=== PATIENT | male | born 1965 | race Caucasian/White ===

== ENCOUNTER 2016-08-13 05:37 | Observation (INO) | payer OTHER ==
[~2016-08-13] VITALS: Ht 180.3 cm; Wt 95.5 kg
[~2016-08-13 05:37] MED LIST: ASPI-147 PO; CLOP75 PO; COLY4000S PO; GABA600T PO; GLUCOMTESTSTRIPS XX; LASI20TA PO; LOVA40TA PO; METO50TA PO; NOVO7030P2 SQ; OXYC1SOL5 PO; POLY119S PO; PRIL20CA PO; Z.0.INSULINSYR XX; Z.0.LANCETS XX
[2016-08-13 05:38] VITALS: BP 190/97; PULSE 87; RESP 18; TEMP 98.5; O2SAT 97
[2016-08-13] MEDS ORDERED: POTA10CA PO (06:06)
[2016-08-13] MEDS ORDERED: NOVONP2 SQ ×2 (06:06)
[2016-08-13] MEDS ORDERED: NOVORP2 SQ (06:06)
[2016-08-13] MEDS ORDERED: CLOP75TA PO (06:06)
[2016-08-13] MEDS ORDERED: PRIL20CA9 PO (06:06)
[2016-08-13] MEDS ORDERED: GABA600T PO (06:06)
[2016-08-13] MEDS ORDERED: NITROGLYCERIN 2% OINT 1 GM PACKET TOP ONE (06:15)
[2016-08-13] MEDS ORDERED: SODIUM CHLORIDE 0.9% FLUSH 5 ML FLUSH IVF PRN (06:15)
[2016-08-13] MEDS ORDERED: NITROGLYCERIN 0.4 MG SL 25 TABS/BTL SL ONE (06:15)
[2016-08-13] MEDS ORDERED: ASPIRIN 81 MG CHEW TAB PO ONE (06:15)
[2016-08-13 06:36] LABS: AUTOMATED NEUTROPHIL # 2.6 TH/MM3 (1.8-7.7); BASOPHIL # 0.1 TH/MM3 (0-0.2); BASOPHIL % 1.2 % (0.0-2.0); EOSINOPHIL # 0.1 TH/MM3 (0-0.4); EOSINOPHIL % 2.4 % (0.0-4.0); HEMATOCRIT 43.6 % (39.0-51.0); HEMO FLAGS DIFF FINAL; LYMPHOCYTE # 1.6 TH/MM3 (1.0-4.8); MEAN CELL VOLUME 78.9 FL (80.0-100.0); MEAN CORPUSCULAR HEMOGLOBIN 26.4 PG (27.0-34.0); MEAN CORPUSCULAR HGB CONC 33.4 % (32.0-36.0); MONO % 8.7 % (0.0-8.0); NEUT % 54.7 % (16.0-70.0); PLATELET COUNT 156 TH/MM3 (150-450); RED BLOOD COUNT 5.53 MIL/MM3 (4.50-5.90); RED CELL DISTRIBUTION WIDTH 14.8 % (11.6-17.2); WHITE BLOOD COUNT 4.7 TH/MM3 (4.0-11.0)
[2016-08-13 06:45] LABS: APTT (PATIENT) 25.9 SEC (24.3-30.1); INTERNATIONAL NORMALIZED RATIO 0.9 RATIO; PROTHROMBIN TIME - PATIENT 10.3 SEC (9.8-11.6)
[2016-08-13 06:47] VITALS: BP 165/79; PULSE 90; RESP 12; O2SAT 96
--- NOTE | 2016-08-13 07:03 | RADRPT ---
EXAM DATE/TIME: 08/13/2016 06:18 [facility] COMPARISON: CHEST SINGLE AP, March 11, 2016, 4:12. INDICATIONS : Chest pain. MEDICAL HISTORY : Hypertension. SURGICAL HISTORY : CABG. ENCOUNTER: Initial ACUITY: 1 day PAIN SCORE: 5/10 LOCATION: Bilateral chest FINDINGS: The cardiac silhouette is normal in transverse diameter. Median sternotomy wires are present. The gricelda gs are free of acute parenchymal opacity. No effusions are identified. CONCLUSION: 1. No acute cardiopulmonary disease. Gianni Sesay MD on August 13, 2016 at 7:02 Board Certified Radiologist. This report was verified electronically.
[2016-08-13 07:04] LABS: ALKALINE PHOSPHATASE 148 U/L (45-117); ALT (GPT) 44 U/L (12-78); ANION GAP 10 MEQ/L (5-15); BICARBONATE 25.3 MEQ/L (21.0-32.0); BLOOD UREA NITROGEN 13 MG/DL (7-18); CHLORIDE 92 MEQ/L (98-107); CREATINE KINASE 120 U/L (39-308); GLOMERULAR FILTRATION RATE 64 ML/MIN (>89); SODIUM (NA) 127 MEQ/L (136-145); TOTAL BILIRUBIN ADULT 0.6 MG/DL (0.2-1.0)
[2016-08-13 07:05] LABS: AST (GOT) 26 U/L (15-37); MAGNESIUM 1.8 MG/DL (1.5-2.5); POTASSIUM 3.8 MEQ/L (3.5-5.1)
[2016-08-13 07:36] VITALS: BP 145/81; PULSE 88; RESP 18; O2SAT 96
--- NOTE | 2016-08-13 07:57 | PD ---
HPI Chief Complaint: Chest Pain Time Seen by Provider: 06:07 Travel History International Travel<30 days: No Contact w/Intl Traveler<30days: No Traveled to known affect area: No History of Present Illness HPI The patient is a 50 year old male who presents to the [facility] emergency department with a history of chest pain that he reports has intermittently been a problem for weeks, however gradually worsening over the last 2 days. He reports that initially he thought it was related to his bypass and went to see his cardiothoracic surgeon, Dr. Balbuena. He reports that he saw him 3 weeks ago and was given a prescription for tramadol. He reports that this did seem to help some, however he ran out of the medicine 2 days ago. He reports that since then he's had intermittent pain in the left side of his chest, between the shoulder blades and radiating down of the left arm. He reports that this evening he had associated shortness of breath thus he decided to come to the emergency department for evaluation and treatment. He denies any prior history of congestive heart failure. He reports that he does have a history of hypertension, coronary artery disease status post vessel bypass due to other vessels forming collaterals, history of diabetes mellitus. The patient denies any history of fever, cough, congestion, neck pain, abdominal pain, vomiting, diarrhea, urinary symptoms, or neurologic symptoms. The patient denies having any acid reflux symptoms associated with this. The patient incidentally reports that he forgot to take 2 doses of his insulin yesterday. He also reports that he ate 3 doughnuts prior to going to bed. An hour prior to arrival he reports that he checked his blood sugar and it was in the 500s. The patient denies taking any supplemental insulin at home. The patient's frog farmer is reportedly Dr. Vale, however as the patient denies following up with him as an outpatient recently. He reports that he is uninsured and has difficulty following up with him due to monetary reasons. [facility] Past Medical History Narrative Medical The patient's past medical history is significant for diabetes mellitus, hypertension, coronary artery disease, hyperlipidemia, history of acid reflux, history of pancreatitis in 2003. Hx Anticoagulant Therapy: Yes (PLAVIX) Autoimmune Disease: No Blood Disorders: No Anxiety: No Depression: No Heart Rhythm Problems: No Cancer: No Cardiac Catheterization: Yes (10/14) Cardiovascular Problems: Yes (BYPASS) High Cholesterol: Yes Chest Pain: Yes Dementia: Yes Diabetes: Yes (TYPE 2) Patient Takes Glucophage: No Diminished Hearing: No Endocrine: Yes Gastrointestinal Disorders: No GERD: Yes Genitourinary: No Hypertension: Yes Implanted Vascular Access Dvce: No Musculoskeletal: No Neurologic: No Psychiatric: No Respiratory: No Myocardial Infarction: Yes Pancreatitis: Yes Past Surgical History Narrative Surgical The patient's past surgical history significant for cholecystectomy, tonsillectomy, vasectomy, cardiac catheterization, single vessel coronary artery bypass grafting. Abdominal Surgery: Yes (CHOLESTECTOMY, TONSILECTOMY VASTECTOMY) Cardiac Surgery: Yes (02-09-2016 OPEN HEART) Cholecystectomy: Yes Genitourinary Surgery: Yes (VASECTOMY) Tonsillectomy: Yes Other Surgery: Yes Family History Family Hypercholesterolemia: Yes Social History Alcohol Use: Yes (RARELY) Tobacco Use: No Substance Use: No Allergies-Medications (Allergen,Severity, Reaction): Coded Allergies: CRESTOR (Verified Allergy, Severe, cardiac, 08/13/16) Lisinopril (Verified Allergy, Severe, Anaphylaxis, 08/13/16) Itching, lip swelling, throat closing. Uncoded Allergies: provacal (Allergy, Severe, 12/28/15) COZAR (Allergy, Intermediate, 03/11/16) Reported Meds & Prescriptions Reported Meds & Active Scripts Active Reported Prilosec (Omeprazole) 20 Mg Cap 20 Mg PO DAILY Potassium Chloride ER (Potassium Chloride) 10 Meq Cap 10 Meq PO DAILY Clopidogrel (Clopidogrel Bisulfate) 75 Mg Tab 75 Mg PO DAILY Novolin N Inj (Insulin Human NPH) 1,000 Unit/10 Ml Vial 20 Units SQ HS Novolin N Inj (Insulin Human NPH) 1,000 Unit/10 Ml Vial 45 Units SQ AC BREAKFAST Novolin R Inj (Insulin Human Regular) 1,000 Unit/10 Ml Vial 10 Units SQ Gabapentin 600 Mg Tab 600 Mg PO QID Metoprolol Tartrate 50 Mg Tab 50 Mg PO BID Ecotrin Low Strength (Aspirin) 81 Mg Tabdr 81 Mg PO DAILY Lovastatin 40 Mg Tab 40 Mg PO HS PRN Review of Systems Except as stated in HPI: all other systems reviewed are Neg General / Constitutional: No: Fever Eyes: No: Visual changes HENT: No: Headaches Cardiovascular: Positive: Chest Pain or Discomfort, Dyspnea on exertion Respiratory: Positive: Shortness of Breath Gastrointestinal: No: Abdominal Pain Genitourinary: No: Dysuria Musculoskeletal: No: Pain Skin: No Rash Neurologic: No: Weakness Psychiatric: No: Depression Endocrine: No: Polydipsia Hematologic/Lymphatic: No: Easy Bruising Physical Exam Narrative General: The patient is a well-developed well-nourished male in no acute distress Head and Neck exam: Head is normocephalic atraumatic. Eyes: EOMI, pupils are equal round and reactive to light. Nose: Midline septum with pink mucous membranes Mouth: Dentition unremarkable. Moist mucus membranes. Posterior oropharynx is not erythematous. No tonsillar hypertrophy. Uvula midline. Airway patent. Neck: No palpable lymphadenopathy. No nuchal rigidity. No thyromegaly. Cardiovascular: Regular rate and rhythm without murmurs, gallops, or rubs. Lungs: Clear to auscultation bilaterally. No wheezes, rhonchi, or rales. Abdomen: Soft, without tenderness to palpation in all 4 quadrants of the abdomen. No guarding, rebound, or rigidity. Normal bowel sounds are audible. Extremities: No clubbing, cyanosis, or edema. 2+ pulses in all 4 extremities. No calf tenderness on palpation. Back: No spinous process tenderness to palpation. No costovertebral angle tenderness to palpation. Neurologic Exam: Grossly nonfocal. Skin Exam: No rash noted. Intact skin that is warm and dry. Data Data Last Documented VS Vital Signs Date Time Temp Pulse Resp B/P Pulse Ox O2 Delivery O2 Flow Rate FiO2 08/13/16 07:36 88 18 145/81 96 Room Air 08/13/16 05:38 98.5 Orders Electrocardiogram (08/13/16 06:08) B-Type Natriuretic Peptide (08/13/16 06:08) Ckmb (Isoenzyme) Profile (08/13/16 06:08) Complete Blood Count With Diff (08/13/16 06:08) Comprehensive Metabolic Panel (08/13/16 06:08) D-Dimer (08/13/16 06:08) Magnesium (Mg) (08/13/16 06:08) Prothrombin Time / Inr (Pt) (08/13/16 06:08) Act Partial Throm Time (Ptt) (08/13/16 06:08) Troponin I (08/13/16 06:08) Lipase (08/13/16 06:08) Chest, Single Ap (08/13/16 06:08) Ecg Monitoring (08/13/16 06:08) Bilateral Bp Monitoring (08/13/16 06:08) Iv Access Insert/Monitor (08/13/16 06:08) Oximetry (08/13/16 06:08) Oxygen Administration (08/13/16 06:08) Aspirin Chew (Aspirin Chew) (08/13/16 06:15) Nitroglycerin 2% Oint (Nitroglycerin 2% (08/13/16 06:15) Sodium Chloride 0.9% Flush (Ns Flush) (08/13/16 06:15) Nitroglycerin Sl (Nitrostat Sl) (08/13/16 06:15) CKMB (08/13/16 06:20) CKMB% (08/13/16 06:20) Insulin Human Regular Inj (Novolin R Inj (08/13/16 08:00) Sodium Chlor 0.9% 1000 Ml Inj (Ns 1000 M (08/13/16 08:00) Admit Order (Ed Use Only) (08/13/16 08:04) Labs Laboratory Tests Test 08/13/16 06:20 White Blood Count 4.7 TH/MM3 Red Blood Count 5.53 MIL/MM3 Hemoglobin 14.6 GM/DL Hematocrit 43.6 % Mean Corpuscular Volume 78.9 FL Mean Corpuscular Hemoglobin 26.4 PG Mean Corpuscular Hemoglobin 33.4 % Concent Red Cell Distribution Width 14.8 % Platelet Count 156 TH/MM3 Mean Platelet Volume 9.5 FL Neutrophils (%) (Auto) 54.7 % Lymphocytes (%) (Auto) 33.0 % Monocytes (%) (Auto) 8.7 % Eosinophils (%) (Auto) 2.4 % Basophils (%) (Auto) 1.2 % Neutrophils # (Auto) 2.6 TH/MM3 Lymphocytes # (Auto) 1.6 TH/MM3 Monocytes # (Auto) 0.4 TH/MM3 Eosinophils # (Auto) 0.1 TH/MM3 Basophils # (Auto) 0.1 TH/MM3 CBC Comment DIFF FINAL Differential Comment Prothrombin Time 10.3 SEC Prothromb Time International 0.9 RATIO Ratio Activated Partial 25.9 SEC Thromboplast Time D-Dimer Quantitative (PE/DVT) 0.34 MG/L FEU Sodium Level 127 MEQ/L Potassium Level 3.8 MEQ/L Chloride Level 92 MEQ/L Carbon Dioxide Level 25.3 MEQ/L Anion Gap 10 MEQ/L Blood Urea Nitrogen 13 MG/DL Creatinine 1.20 MG/DL Estimat Glomerular Filtration 64 ML/MIN Rate Random Glucose 580 MG/DL Calcium Level 9.8 MG/DL Magnesium Level 1.8 MG/DL Total Bilirubin 0.6 MG/DL Aspartate Amino Transf 26 U/L (AST/SGOT) Alanine Aminotransferase 44 U/L (ALT/SGPT) Alkaline Phosphatase 148 U/L Total Creatine Kinase 120 U/L Creatine Kinase MB 2.0 NG/ML Troponin I 0.02 NG/ML B-Type Natriuretic Peptide 23 PG/ML Total Protein 8.2 GM/DL Albumin 3.9 GM/DL Lipase 126 U/L [facility] Medical Decision Making Medical Screen Exam Complete: Yes Emergency Medical Condition: Yes Medical Record Reviewed: Yes Interpretation(s) Last Impressions Chest X-Ray 08/13/16 0608 Signed Impressions: Service Date/Time: Saturday, August 13, 2016 06:18 - CONCLUSION: 1. No acute cardiopulmonary disease. Gianni Sesay MD Differential Diagnosis Acute coronary syndrome, versus acid reflux, versus musculoskeletal strain, versus pleurisy Narrative Course During the course of the patients emergency department visit, the patients history, examination, and differential diagnosis were reviewed with the patient. The patient had IV access obtained and blood work sent for analysis. The patient states on a spot remover with oximetry and blood pressure monitoring. An EKG was done on arrival. The patient's EKG shows a sinus rhythm heart rate of 85, marked left axis deviation, incomplete right bundle branch block, T waves inverted in V1, V2, V3, no acute ST segment elevation or depression. The patient was provided aspirin 162 mg by mouth 1, sublingual nitroglycerin 1 , nitroglycerin 1 inch to the chest wall, normal saline a liter of fluid, regular insulin 12 units subcutaneous 1 and blood sugar was noted to be elevated. The patient is not acidotic. The patients laboratory studies were reviewed and remarkable for a CBC that is unremarkable. CMP shows a sodium of 127 which is a pseudohyponatremia related to his blood sugar, chloride 92, glucose 580, alkaline phosphatase 148, BNP is 23, initial set of cardiac enzymes are negative, lipase 126 d-dimer is 0.3 for decreasing likelihood of pulmonary embolism in this patient with no other significant risk factors. PT/PTT unremarkable.. Radiology studies were reviewed and remarkable for a chest x-ray that is unremarkable. The patient will be admitted to the chest pain center for rule out serial cardiac enzyme protocol and consideration of stress testing. The patients results were discussed with the patient, including the plan of care. I explained that further testing and/ or monitoring is indicated based on the patients history, examination, and/ or laboratory findings. Therefore, I recommended admission for additional evaluation. The patient expressed understanding and was agreeable with this plan. The patient was admitted to the hospital in stable condition and sent to a bed under the care of the chest pain center. Physician Communication Physician Communication The patient will be admitted to the chest pain center for rule out serial cardiac enzyme protocol. Diagnosis Primary Impression: Chest pain, rule out acute myocardial infarction Admitting Information Admitting Physician Requests: Shelby Harris MD Aug 13, 2016 07:57
[2016-08-13] MEDS ORDERED: INSULIN HUMAN REGULAR 1,000 UNITS/10 ML VIAL SQ ONE (08:00)
[2016-08-13] MEDS ORDERED: SODIUM CHLOR 0.9% 1000 ML INJ 1,000 ML IV ONE (08:00)
--- NOTE | 2016-08-13 09:52 | EKG ---
Date Performed: 08/13/2016 Time Performed: 05:54:23 PTAGE: 50 years EKG: Sinus rhythm MARKED LEFT AXIS DEVIATION LOW QRS VOLTAGE IN PRECORDIAL LEADS INCOMPLETE RIGHT BUNDLE BRANCH BLOCK ABNORMAL ECG Compared to prior tracing no significant change PREVIOUS TRACING : 03/11/2016 04.15 DOCTOR: Gianni Kapadia Interpretating Date/Time 08/13/2016 09:50:45
== END 2016-08-13 12:32 | disposition left against medical advice (07) ==
LOC: NEPE 05:37 → NEDA 08:05
PROVIDERS: ADMIT Internal Medicine Cardiovascular Disease; ATTEND Internal Medicine Cardiovascular Disease
DX: R07.89 Other chest pain (principal); I25.10 Atherosclerotic heart disease of native coronary artery without angina pectoris; I10 Essential (primary) hypertension; I45.10 Unspecified right bundle-branch block; R94.31 Abnormal electrocardiogram [ECG] [EKG]; I25.2 Old myocardial infarction; E78.5 Hyperlipidemia, unspecified; E11.9 Type 2 diabetes mellitus without complications; E78.00 Pure hypercholesterolemia, unspecified; F03.90 Unspecified dementia, unspecified severity, without behavioral disturbance, psychotic disturbance, mood disturbance, and anxiety; K21.9 Gastro-esophageal reflux disease without esophagitis; Z95.1 Presence of aortocoronary bypass graft; Z87.19 Personal history of other diseases of the digestive system
CPT/HCPCS: 71010; 80053; 82550; 82552; 83690; 83735; 83880; 84484; 85025; 85379; 85610; 85730; 93005; 99285; G0378

== ENCOUNTER 2016-11-16 14:02 | Inpatient (IN) | payer OTHER ==
[~2016-11-16] VITALS: Ht 182.9 cm; Wt 91.3 kg
[~2016-11-16 14:02] MED LIST changes: -CLOP75 PO; +CLOP75TA PO; -COLY4000S PO; -GLUCOMTESTSTRIPS XX; -LASI20TA PO; -NOVO7030P2 SQ; +NOVONP2 SQ; +NOVORP2 SQ; -OXYC1SOL5 PO; -POLY119S PO; +POTA10CA PO; -PRIL20CA PO; +PRIL20CA9 PO; -Z.0.INSULINSYR XX; -Z.0.LANCETS XX
[2016-11-16 14:03] VITALS: BP 157/79; PULSE 99; RESP 18; TEMP 99; O2SAT 98
--- NOTE | 2016-11-16 14:09 | PD ---
Physical Exam Date Seen by Provider: November 16, 2016 Time Seen by Provider: 14:05 Narrative 51 YOWM C/O PERIRECTAL ABSCESS FOR 12 DAYS. SENT IN FOR EVAL. F/C, N/V, NO ABD PAIN. H/O DM, CAD, MN, HTN ,MN, PLAVIX, NO H/O CROHNS. VS NOTED WAITING FOR BED PLACEMENT Data Data Last Documented VS Vital Signs Date Time Temp Pulse Resp B/P Pulse Ox O2 Delivery O2 Flow Rate FiO2 11/16/16 14:03 99.0 99 18 157/79 98 MDM Medical Record Reviewed: Yes Supervised Visit with REYNOLD: Narayan Villa November 16, 2016 14:09
--- NOTE | 2016-11-16 14:27 | PD ---
HPI Chief Complaint: Lump, Cyst, Hernia Time Seen by Provider: 14:25 Travel History International Travel<30 days: No Contact w/Intl Traveler<30days: No Traveled to known affect area: No History of Present Illness HPI 51-year-old male presents to the emergency department for evaluation of pain to the rectal area for approximately 12 days. He states this started as a small lump, but worsened approximate 10 days ago. He reports he first, pain. States his fever has been up to 102.7, but is unsure when that was. He states he went to the [facility] today for evaluation and they sent him to the emergency department. Patient has history of [place], cardiac bypass, hypertension, hyperlipidemia, diabetes, diabetic neuropathy. He is on Plavix. Patient denies any abdominal pain. No chest pain or shortness of breath. PFSH Past Medical History Hx Anticoagulant Therapy: Yes (PLAVIX) Autoimmune Disease: No Blood Disorders: No Anxiety: No Depression: No Heart Rhythm Problems: No Cancer: No Cardiac Catheterization: Yes (10/14) Cardiovascular Problems: Yes (SINGLE BYPASS, 5 X TN) High Cholesterol: Yes Chest Pain: Yes Dementia: Yes Diabetes: Yes Patient Takes Glucophage: No Diminished Hearing: No Endocrine: Yes Gastrointestinal Disorders: No GERD: Yes Genitourinary: No Hypertension: Yes Implanted Vascular Access Dvce: No Musculoskeletal: No Neurologic: No Psychiatric: No Respiratory: No Myocardial Infarction: Yes Pancreatitis: Yes Past Surgical History Abdominal Surgery: Yes (CHOLESTECTOMY, TONSILECTOMY VASTECTOMY) Cardiac Surgery: Yes (02-09-2016 OPEN HEART) Cholecystectomy: Yes Genitourinary Surgery: Yes (VASECTOMY) Tonsillectomy: Yes Other Surgery: Yes Family History Family Hypercholesterolemia: Yes Social History Alcohol Use: Yes (RARELY) Tobacco Use: No Substance Use: No Allergies-Medications (Allergen,Severity, Reaction): Coded Allergies: CRESTOR (Verified Allergy, Severe, cardiac, 08/13/16) Lisinopril (Verified Allergy, Severe, Anaphylaxis, 08/13/16) Itching, lip swelling, throat closing. Uncoded Allergies: provacal (Allergy, Severe, 12/28/15) COZAR (Allergy, Intermediate, 03/11/16) Reported Meds & Prescriptions Reported Meds & Active Scripts Active Reported Amlodipine (Amlodipine Besylate) 5 Mg Tab 5 Mg PO DAILY Prilosec (Omeprazole) 20 Mg Cap 20 Mg PO DAILY Potassium Chloride ER (Potassium Chloride) 10 Meq Cap 10 Meq PO HS Clopidogrel (Clopidogrel Bisulfate) 75 Mg Tab 75 Mg PO DAILY Novolin N Inj (Insulin Human NPH) 1,000 Unit/10 Ml Vial 30 Units SQ HS Novolin N Inj (Insulin Human NPH) 1,000 Unit/10 Ml Vial 50 Units SQ AC BREAKFAST Novolin R Inj (Insulin Human Regular) 1,000 Unit/10 Ml Vial 15 Units SQ TIDAC Gabapentin 600 Mg Tab 600 Mg PO QID Metoprolol Tartrate 50 Mg Tab 50 Mg PO BID Ecotrin Low Strength (Aspirin) 81 Mg Tabdr 81 Mg PO DAILY Lovastatin 40 Mg Tab 40 Mg PO BID PRN Review of Systems Except as stated in HPI: all other systems reviewed are Neg Physical Exam Narrative GENERAL: Well-nourished, well-developed male patient, ambulatory. Afebrile SKIN: Focused skin assessment warm/dry. Patient has large area of erythema that extends from the anus to three quarters of the bilateral buttocks with induration and pain. HEAD: Normocephalic. Atraumatic. EYES: No scleral icterus. No injection or drainage. NECK: Supple, trachea midline. No JVD or lymphadenopathy. CARDIOVASCULAR: Regular rate and rhythm without murmurs, gallops, or rubs. RESPIRATORY: Breath sounds equal bilaterally. No accessory muscle use. Lungs sounds are clear to auscultation. GASTROINTESTINAL: Abdomen soft, non-tender, nondistended. MUSCULOSKELETAL: No cyanosis, or edema. BACK: Nontender without obvious deformity. No CVA tenderness. Data Data Last Documented VS Vital Signs Date Time Temp Pulse Resp B/P Pulse Ox O2 Delivery O2 Flow Rate FiO2 11/16/16 17:17 106 18 152/84 98 Room Air 11/16/16 14:03 99.0 Orders Iv Access Insert/Monitor (11/16/16 14:22) Complete Blood Count With Diff (11/16/16 14:22) Comprehensive Metabolic Panel (11/16/16 14:22) Act Partial Throm Time (Ptt) (11/16/16 14:22) Prothrombin Time / Inr (Pt) (11/16/16 14:22) Blood Culture (11/16/16 14:22) Lactic Acid Sepsis Protocol (11/16/16 14:22) Ct Pelvis W Iv Contrast(Rout) (11/16/16 ) Sodium Chlor 0.9% 1000 Ml Inj (Ns 1000 M (11/16/16 14:30) Ondansetron Inj (Zofran Inj) (11/16/16 14:30) Morphine Inj (Morphine Inj) (11/16/16 14:45) Blood Gas Venous (Vbg) (11/16/16 16:04) Beta Hydroxybutyrate (Acetone) (11/16/16 16:04) Sodium Chlor 0.9% 1000 Ml Inj (Ns 1000 M (11/16/16 16:15) Vancomycin Inj (Vancomycin Inj) (11/16/16 16:30) Ampicillin-Sulbactam Inj (Unasyn Inj) (11/16/16 16:30) Iohexol 350 Inj (Omnipaque 350 Inj) (11/16/16 16:25) Insulin Regular (Iv Infusion) (Novolin R (11/16/16 17:00) Vascular Access Team Consult/P PRN (11/16/16 17:08) Vascular Poc Ultrasound (11/16/16 ) Electrocardiogram (11/16/16 ) Chest, Single Ap (11/16/16 ) Admit Order (Ed Use Only) (11/16/16 17:31) Labs Laboratory Tests Test 11/16/16 11/16/16 11/16/16 14:40 16:34 16:35 White Blood Count 11.7 TH/MM3 Red Blood Count 5.37 MIL/MM3 Hemoglobin 14.0 GM/DL Hematocrit 42.1 % Mean Corpuscular Volume 78.4 FL Mean Corpuscular Hemoglobin 26.1 PG Mean Corpuscular Hemoglobin 33.3 % Concent Red Cell Distribution Width 14.5 % Platelet Count 291 TH/MM3 Mean Platelet Volume 8.8 FL Neutrophils (%) (Auto) 80.7 % Lymphocytes (%) (Auto) 7.5 % Monocytes (%) (Auto) 11.4 % Eosinophils (%) (Auto) 0.1 % Basophils (%) (Auto) 0.3 % Neutrophils # (Auto) 9.5 TH/MM3 Lymphocytes # (Auto) 0.9 TH/MM3 Monocytes # (Auto) 1.3 TH/MM3 Eosinophils # (Auto) 0.0 TH/MM3 Basophils # (Auto) 0.0 TH/MM3 CBC Comment AUTO DIFF Differential Total Cells 100 Counted Neutrophils % (Manual) 75 % Band Neutrophils % 11 % Lymphocytes % 10 % Monocytes % 4 % Neutrophils # (Manual) 10.1 TH/MM3 Differential Comment FINAL DIFF MANUAL Platelet Estimate NORMAL Platelet Morphology Comment CLUMPED Busby Cells Prothrombin Time 10.9 SEC Prothromb Time International 1.0 RATIO Ratio Activated Partial 22.2 SEC Thromboplast Time Sodium Level 127 MEQ/L Potassium Level 4.4 MEQ/L Chloride Level 93 MEQ/L Carbon Dioxide Level 13.4 MEQ/L Anion Gap 21 MEQ/L Blood Urea Nitrogen 21 MG/DL Creatinine 1.41 MG/DL Estimat Glomerular Filtration 53 ML/MIN Rate Random Glucose 442 MG/DL Lactic Acid Level 2.3 mmol/L Calcium Level 11.0 MG/DL Total Bilirubin 0.7 MG/DL Aspartate Amino Transf 42 U/L (AST/SGOT) Alanine Aminotransferase 21 U/L (ALT/SGPT) Alkaline Phosphatase 127 U/L Total Protein 9.2 GM/DL Albumin 3.2 GM/DL Blood Gas Puncture Site IV Blood Gas Patient Temperature 98.6 Venous Blood pH 7.25 Venous Blood Partial Pressure 30 mmHg CO2 Venous Blood Partial Pressure 17 mmHg O2 Venous Blood HCO3 13 mmol/L Venous Blood Oxygen Saturation 22 % Venous Blood Oxygen Content 3.9 Vol % Venous Blood Base Excess -13.0 mmol/L Oxygen Delivery Device NASAL CANNULA Blood Gas Liter Flow 2 L/M B-Hydroxybutyrate 5.83 MMOL/L [facility] Medical Decision Making Medical Screen Exam Complete: Yes Emergency Medical Condition: Yes Medical Record Reviewed: Yes Differential Diagnosis Rectal abscess versus perirectal abscess versus cellulitis versus sepsis Narrative Course 51-year-old male presents to the emergency department for evaluation of rectal abscess that started approximately 12 days ago and has worsened. Physical exam shows extensive erythema and induration. CBC, CMP, PTT, PTT/INR, blood cultures 2, lactic acid are ordered and pending. CT of the pelvis with IV contrast is ordered and pending. Patient is given normal saline 1 L IV bolus, Zofran 4 mg IV, morphine 4 mg IV. CBC shows leukocytosis of 11.7, band neutrophils 11. CMP shows hyponatremia 127 , CO2 13.4, anion gap 21, BUNs 21, creatinine 1.41, glucose 442. Coags show no acute abnormality. Lactic Acid is 2.3. Patient is given a second liter normal saline IV bolus. ABG shows pH 7.25, CO2 30, HCO3 13. Beta hydroxybutyrate is [ -]. Patient is started on insulin drip. Patient is given vancomycin 1 g IV and Unasyn 3 g IV. Radiologist notified that the patient has Fornier's gangrene of the perineal region. Colorectal surgeon and sand operator are paged STAT. I was able to speak to the data entry analyst in the OR room where Dr. Tess Kapadia is in after several pages. She just started a 4 hour case and recommends I contact urology as she is unavailable. Urologist labor economics professor is paged STAT. I spoke to Dr. Darling who states this would be more appropriate for general surgery. Dr. Vallecillo requested to only speak to my attending physician. Dr. Cuellar then spoke to Dr. Vallecillo. Dr. Vallecillo accepted and will see the patient and take him to the OR. 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
[2016-11-16] MEDS ORDERED: ONDANSETRON HCL 4 MG/2 ML VIAL IV PUSH ONE (14:30)
[2016-11-16] MEDS ORDERED: SODIUM CHLOR 0.9% 1000 ML INJ 1,000 ML IV ONE ×2 (14:30→16:15)
[2016-11-16] MEDS ORDERED: MORPHINE SULFATE 4 MG/ML INJ IV PUSH ONE (14:45)
[2016-11-16 15:08] LABS: AUTOMATED NEUTROPHIL # 9.5 TH/MM3 (1.8-7.7); BASOPHIL % 0.3 % (0.0-2.0); EOSINOPHIL % 0.1 % (0.0-4.0); HEMATOCRIT 42.1 % (39.0-51.0); LYMPH % 7.5 % (9.0-44.0); LYMPHOCYTE # 0.9 TH/MM3 (1.0-4.8); MEAN CELL VOLUME 78.4 FL (80.0-100.0); MEAN CORPUSCULAR HEMOGLOBIN 26.1 PG (27.0-34.0); MEAN CORPUSCULAR HGB CONC 33.3 % (32.0-36.0); MONO % 11.4 % (0.0-8.0); NEUT % 80.7 % (16.0-70.0); PLATELET COUNT 291 TH/MM3 (150-450); RED BLOOD COUNT 5.37 MIL/MM3 (4.50-5.90); RED CELL DISTRIBUTION WIDTH 14.5 % (11.6-17.2); WHITE BLOOD COUNT 11.7 TH/MM3 (4.0-11.0)
[2016-11-16 15:11] LABS: HEMO FLAGS AUTO DIFF
[2016-11-16 15:47] LABS: ALKALINE PHOSPHATASE 127 U/L (45-117); ALT (GPT) 21 U/L (12-78); ANION GAP 21 MEQ/L (5-15); AST (GOT) 42 U/L (15-37); BICARBONATE 13.4 MEQ/L (21.0-32.0); BLOOD UREA NITROGEN 21 MG/DL (7-18); CHLORIDE 93 MEQ/L (98-107); GLOMERULAR FILTRATION RATE 53 ML/MIN (>89); SODIUM (NA) 127 MEQ/L (136-145); TOTAL BILIRUBIN ADULT 0.7 MG/DL (0.2-1.0)
[2016-11-16 15:49] LABS: POTASSIUM 4.4 MEQ/L (3.5-5.1)
[2016-11-16 15:51] LABS: APTT (PATIENT) 22.2 SEC (24.3-30.1); PROTHROMBIN TIME - PATIENT 10.9 SEC (9.8-11.6)
[2016-11-16 16:23] LABS: BANDS 11 % (0-6); NEUTROPHIL # MANUAL DIFF 10.1 TH/MM3 (1.8-7.7); PLATELET ESTIMATE SMEAR NORMAL (NORMAL); PLATELET MORPHOLOGY CLUMPED (NORMAL); POLYS (SEG NEUTROPHILS) 75 % (16-70); SCAN/DIFF FINAL DIFF MANUAL; WBC DIFF SAMPLE 100
[2016-11-16] MEDS ORDERED: IOHEXOL 350 MG/ML 10 ML VIAL (for RAD DIAG) IV ONE (16:25)
[2016-11-16] MEDS ORDERED: AMPICILLIN-SULBACTAM INJ 3 GM in SODIUM CHLORIDE 0.9% INJ 100 ML IV ONE (16:30)
[2016-11-16] MEDS ORDERED: VANCOMYCIN INJ 1,000 MG in SODIUM CHLOR 0.9% 250 ML INJ 250 ML IV ONE (16:30)
[2016-11-16 16:38] LABS: BLOOD GAS VENOUS HCO3 13 mmol/L (22-26); BLOOD GAS VENOUS O2 CONTENT 3.9 Vol % (9.0-17.0); BLOOD GAS VENOUS O2 HGB SAT 22 % (70-76); BLOOD GAS VENOUS PCO2 30 mmHg (44-48); BLOOD GAS VENOUS PO2 17 mmHg (35-40); BLOOD GAS VENOUS pH 7.25 (7.360-7.400); TEMP CORR TO 98.6
[2016-11-16 16:39] LABS: CRITICAL VALUE YES; DRAW SITE IV; LITER FLOW 2 L/M; OXYGEN DEVICE NASAL CANNULA; STAT YES
[2016-11-16 16:50] LABS: LACTIC ACID GHOST NOT REPORTABLE
[2016-11-16] MEDS ORDERED: INSULIN REGULAR (IV INFUSION) 100 UNITS in SODIUM CHLORIDE 0.9% INJ 99 ML IV SCH (17:00)
--- NOTE | 2016-11-16 17:01 | RADRPT ---
EXAM DATE/TIME: 11/16/2016 16:20 [facility] COMPARISON: No previous studies available for comparison. INDICATIONS : Rectal pain and swelling for 12 days. IV CONTRAST: 100 cc Omnipaque 350 (iohexol) IV ORAL CONTRAST: No oral contrast ingested. RADIATION DOSE: 10.55 CTDIvol (mGy) MEDICAL HISTORY : Cardiovascular disease. Hypertension. Diabetes mellitus type 2. SURGICAL HISTORY : Cholecystectomy. Vasectomy. ENCOUNTER: Initial ACUITY: 2 weeks PAIN SCALE: 7/10 LOCATION: Bilateral lower pelvic region. TECHNIQUE: Volumetric scanning of the pelvis was performed. Using automated exposure control and adjustment of t he mA and/or kV according to patient size, radiation dose was kept as low as reasonably achievable to obtain optimal diagnostic quality images. FINDINGS: BOWEL/MESENTERY: There is some diverticular disease of the sigmoid without diverticulitis BLADDER: There is no wall thickening or mass. RETROPERITONEUM: There is no aneurysm or lymphadenopathy. REPRODUCTIVE: Within normal limits. Surgical clips at the base of the scrotum are characteristic of prior vasectomy INGUINAL: There is no lymphadenopathy or hernia. MUSCULOSKELETAL: Stranding and air in the subcutaneous tissues of the buttocks bilaterally extending up to the perirec karen region and base of the penis on the left. CONCLUSION: 1. Fornier's gangrene of the perineal region as detailed above. This can be a life threatening condit ion. 2. Results were called to the emergency department (Dr. Bryan Cuellar) the time of this dictation. 3. 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 Elijah Álvarez MD on November 16, 2016 at 16:50 Board Certified Radiologist. This report was verified electronically.
[2016-11-16 17:17] VITALS: BP 152/84; PULSE 106; RESP 18; O2SAT 98
[2016-11-16] MEDS ORDERED: SODIUM PHOSPHATE INJ 15 MMOL in SODIUM CHLORIDE 0.9% INJ 100 ML IV PRN (17:45)
[2016-11-16] MEDS ORDERED: POTASSIUM CHLOR 40 MEQ PREMIX 100 ML IV PRN ×2 (17:45)
[2016-11-16] MEDS ORDERED: SODIUM BICARBONATE 8.4% SOLN 50 MEQ/50 ML VIAL IV PRN ×2 (17:45)
[2016-11-16] MEDS ORDERED: CHLORHEXIDINE GLUCONATE 2 % 1 PACK (2 CLOTHS) TOP PRN (17:45)
[2016-11-16] MEDS ORDERED: MISCELLANEOUS NURSING INFORMATION XX SCH (17:45)
[2016-11-16] MEDS ORDERED: POTASSIUM CHLOR 20 MEQ PREMIX 100 ML IV PRN ×5 (17:45)
[2016-11-16] MEDS ORDERED: CLINDAMYCIN INJ 900 MG in SODIUM CHLORIDE 0.9% INJ 100 ML IV STA (17:46)
[2016-11-16] MEDS ORDERED: AMLO5TAB2 PO (17:56)
[2016-11-16] MEDS ORDERED: Vancomycin Consult Pharmacy 1 EA OTHER SCH (18:00)
--- NOTE | 2016-11-16 18:09 | RADRPT ---
EXAM DATE/TIME: 11/16/2016 17:48 [place] COMPARISON: CHEST SINGLE AP, August 13, 2016, 6:18. INDICATIONS : Evaluate for pneumonia, pneumothorax or communicable disease. Pre-op for a perirectal abscess. MEDICAL HISTORY : Hypertension. Diabetes mellitus type II. Myocardial infarction. SURGICAL HISTORY : CABG. ENCOUNTER: Initial ACUITY: 1 day PAIN SCORE: 0/10 LOCATION: Bilateral chest FINDINGS: A single view of the chest demonstrates the lungs to be symmetrically aerated without evidence of mas s, infiltrate or effusion. The cardiomediastinal contours are unremarkable. Osseous structures are intact. Median sternotomy changes are again noted. CONCLUSION: No evidence of acute cardiopulmonary disease. Previous median sternotomy. Magnus Steele MD on November 16, 2016 at 18:08 Board Certified Radiologist. This report was verified electronically.
[2016-11-16] MEDS ORDERED: INSULIN HUMAN REGULAR 1,000 UNITS/10 ML VIAL IV PUSH ONE (18:30)
[2016-11-16] MEDS: MORPHINE SULFATE 4 MG/ML INJ IV PUSH PRN ×2 (18:40→22:02)
[2016-11-16] MEDS: INSULIN REGULAR (IV INFUSION) 100 UNITS in SODIUM CHLORIDE 0.9% INJ 99 ML IV SCH (18:41)
[2016-11-16 18:46] VITALS: BP 166/83; PULSE 105; RESP 18; O2SAT 99
[2016-11-16] MEDS ORDERED: VANCOMYCIN 500 MG/NS 100 ML IV ONE ×2 (19:00)
[2016-11-16 19:10] LABS: BLOOD, URINE NEG (NEG); COMMENT (UR) CULT NOT INDICATED; CULTURE IF INDICATED CULT NOT INDICATED; GLUCOSE,URINE 1000 mg/dL (NEG); HYALINE CAST, URINE 3 /lpf (RARE); KETONE, URINE 150 mg/dL (NEG); NITRITE,URINE NEG (NEG); PH, URINE 5.5 (5.0-8.5); URINE COLOR LIGHT-YELLOW (YELLW/STRAW)
[2016-11-16 20:00] VITALS: BP 171/82; PULSE 110; RESP 20; TEMP 103.1; O2SAT 96
[2016-11-16] MEDS: SODIUM CHLOR 0.9% 1000 ML INJ 1,000 ML IV SCH (20:20)
[2016-11-16] MEDS: ACETAMINOPHEN 325 MG TAB PO PRN (20:21)
[2016-11-16] MEDS: DEXT 5%-NACL 0.9% 1000 ML INJ 1,000 ML IV SCH ×2 (20:30→23:00)
--- NOTE | 2016-11-16 21:02 | MB ---
cc: LEONIE BAIN M.D. DATE OF CONSULTATION: 11/16/2016. REASON FOR CONSULTATION: Perirectal abscess with Jessica's gangrene. HISTORY OF PRESENT ILLNESS: The patient is a 51-year-old male who presented to the emergency department for pain in the rectal area for about 12 days. This has worsened and the patient presented at this time with increased pain. The patient was also found to have a glucose in the 400s and is in DKA. PAST MEDICAL HISTORY: His past medical history is significant for: 1. Coronary artery disease with coronary artery bypass graft in January of 2016. 2. History of myocardial infarction in the past. 3. Hypertension. 4. Insulin-dependent diabetes. 5. Hypercholesterolemia. PAST SURGICAL HISTORY: 1. Coronary artery bypass grafting January of 2016. 2. Cholecystectomy. 3. Tonsillectomy. 4. Vasectomy. SOCIAL HISTORY: The patient rarely uses alcohol use. Does not smoke or use other substances. ALLERGIES: 1. CRESTOR AND LISINOPRIL - SEVERE - ITCHING. 2. COZAAR. 3. PRAVACHOL. MEDICATIONS ON ADMISSION Include: 1. Amlodipine 5 milligrams daily. 2. Prilosec 20 milligrams daily. 3. Potassium 10 milliequivalents daily. 4. Clopidogrel 75 milligrams daily. 5. Novolin sliding scale 30 units at bedtime and 50 units after breakfast and regular 15 units three times a day. 6. The patient also uses Gabapentin 600 milligrams four times a day. 7. Metoprolol 50 milligrams twice a day. 8. Ecotrin 81 milligrams daily. 9. Lovastatin 40 milligrams twice a day. PHYSICAL EXAMINATION: GENERAL: The physical exam reveals a male who is vocal and cooperative. SKIN: Skin is warm and dry. There is a large area of erythema extending three-quarters of the buttocks with induration and pain. There is some necrotic tissue near the anal verge. NECK: Neck is supple. CHEST: Clear to auscultation. CARDIAC: Cardiac exam reveals regular rate and rhythm. ABDOMEN: Abdomen is soft and nontender. EXTREMITIES: Pulses are present. LABORATORY STUDIES: The laboratory values demonstrate WBCs of 11.7, hemoglobin/hematocrit 14 and 42.1, platelets 291,000. Sodium is 127, potassium 4.4, BUN and creatinine 21 and 1.4, glucose was 442 with a lactate level of 2.3. Urinalysis demonstrates glucose in the urine; culture is not indicated. Blood gas demonstrates acidosis with a pH 7.25 and bicarb of 13. INR is 1.0. IMAGING STUDIES: CT scan of the pelvis demonstrates air in the perineal region with stranding in the subcutaneous tissues of the buttocks bilaterally extending up to the perirectal region and the base of the penis on the left. Colorectal surgery is unavailable and the urologist is available if needed for the scrotal and penile region. I have discussed with the patient the need to go the operating room this evening as soon as an OR room is available. The patient is not septic and is currently on an insulin drip. His glucose is currently 227. Will attempt to get insulin drip discontinued prior going to the operating room. I have discussed with the patient that he may require multiple operations and may have significant tissue loss as well as fecal incontinence if the infection involves part of the sphincter. The patient may also require fecal diversion at some point if he does not have significant healing. He vocalizes understanding of these things. He agrees to proceed. MD NOHEMI Mcdowell/LANA /8:34 PM /8:44 PM
--- NOTE | 2016-11-16 21:11 | HHI.HP ---
HPI Service Critical Care Medicine Primary Care Physician Non-Staff Admission Diagnosis Fornier's gangrene; DKA Diagnosis: Travel History International Travel<30 Days: No Contact w/Intl Traveler <30 Da: No Traveled to Known Affected Are: No History of Present Illness 51-year-old male presents to the emergency department for evaluation of pain to the perirectal area for about 12 days. Per patient this started as a small lump , but worsened approximate 10 days ago. He reports fever up to 102.7, but is unsure when that was. He states he went to the walk-in clinic today for evaluation and they sent him to the emergency department. Patient has history of OH 5, cardiac bypass, hypertension, hyperlipidemia, diabetes, diabetic neuropathy. He is on Plavix. Patient denies any abdominal pain. No chest pain or shortness of breath. Review of Systems Constitutional: COMPLAINS OF: Diaphoretic episodes, Fever, DENIES: Fatigue, Weight gain, Weight loss, Chills, Dizziness, Change in appetite, Night Sweats Endocrine: DENIES: Heat/cold intolerance, Polydipsia, Polyuria, Polyphagia Eyes: DENIES: Blurred vision, Diplopia, Eye inflammation, Eye pain, Vision loss , Photosensitivity, Double Vision Ears, nose, mouth, throat: DENIES: Tinnitus, Hearing loss, Vertigo, Nasal discharge, Oral lesions, Throat pain, Hoarseness, Ear Pain, Running Nose, Epistaxis, Sinus Pain, Toothache, Odynophagia Respiratory: DENIES: Apneas, Cough, Snoring, Wheezing, Hemoptysis, Sputum production, Shortness of breath Cardiovascular: DENIES: Chest pain, Palpitations, Syncope, Dyspnea on Exertion , PND, Lower Extremity Edema, Orthopnea, Claudication Gastrointestinal: DENIES: Abdominal pain, Black stools, Bloody stools, Constipation, Diarrhea, Nausea, Vomiting, Difficulty Swallowing, Anorexia Genitourinary: DENIES: Sexual dysfunction, Urinary frequency, Urinary incontinence, Urgency, Hematuria, Dysuria, Nocturia, Penile Discharge, Testicular Pain, Testicular Swelling Musculoskeletal: DENIES: Joint pain, Muscle aches, Stiffness, Joint Swelling, Back pain, Neck pain Integumentary: DENIES: Abnormal pigmentation, Nail changes, Pruritus, Rash Hematologic/lymphatic: DENIES: Bruising, Lymphadenopathy Immunologic/allergic: DENIES: Eczema, Urticaria Neurologic: DENIES: Abnormal gait, Headache, Localized weakness, Paresthesias, Seizures, Speech Problems, Tremor, Poor Balance Psychiatric: DENIES: Anxiety, Confusion, Mood changes, Depression, Hallucinations, Agitation, Suicidal Ideation, Homicidal Ideation, Delusions Past Family Social History Allergies: Coded Allergies: CRESTOR (Verified Allergy, Severe, cardiac, 08/13/16) Lisinopril (Verified Allergy, Severe, Anaphylaxis, 08/13/16) Itching, lip swelling, throat closing. Uncoded Allergies: provacal (Allergy, Severe, 12/28/15) COZAR (Allergy, Intermediate, 03/11/16) Past Medical History Coronary artery disease status post OH 5 Hypertension Dyslipidemia Diabetes mellitus Diabetic neuropathy Past Surgical History CABG Reported Medications Reported Meds & Active Scripts Active Reported Amlodipine (Amlodipine Besylate) 5 Mg Tab 5 Mg PO DAILY Prilosec (Omeprazole) 20 Mg Cap 20 Mg PO DAILY Potassium Chloride ER (Potassium Chloride) 10 Meq Cap 10 Meq PO HS Clopidogrel (Clopidogrel Bisulfate) 75 Mg Tab 75 Mg PO DAILY Novolin N Inj (Insulin Human NPH) 1,000 Unit/10 Ml Vial 30 Units SQ HS Novolin N Inj (Insulin Human NPH) 1,000 Unit/10 Ml Vial 50 Units SQ AC BREAKFAST Novolin R Inj (Insulin Human Regular) 1,000 Unit/10 Ml Vial 15 Units SQ TIDAC Gabapentin 600 Mg Tab 600 Mg PO QID Metoprolol Tartrate 50 Mg Tab 50 Mg PO BID Ecotrin Low Strength (Aspirin) 81 Mg Tabdr 81 Mg PO DAILY Lovastatin 40 Mg Tab 40 Mg PO BID Active Ordered Medications Current Medications Medications (Trade) Dose Ordered Sig/Ronaldo Route PRN Reason Start Time Stop Time Status Last Admin Dose Admin Sodium Chloride 1,000 ml @ 250 mls/hr Q4H IV 11/16/16 18:00 11/16/16 20:20 Dextrose/Sodium Chloride 1,000 ml @ 200 mls/hr Q5H IV 11/16/16 18:00 11/16/16 20:30 Insulin Human Regular 100 units/ Sodium Chloride 100 ml @ 0 mls/hr TITRATE IV 11/16/16 18:00 11/16/16 18:41 Potassium Chloride 100 ml @ 100 mls/hr Q1H PRN IV SEE LABEL COMMENTS 11/16/16 17:45 Potassium Chloride 100 ml @ 50 mls/hr Q2H PRN IV SEE LABEL COMMENTS 11/16/16 17:45 Potassium Chloride 100 ml @ 100 mls/hr Q1H PRN IV SEE LABEL COMMENTS 11/16/16 17:45 Potassium Chloride 100 ml @ 100 mls/hr Q1H PRN IV SEE LABEL COMMENTS 11/16/16 17:45 Potassium Chloride 100 ml @ 50 mls/hr Q2H PRN IV SEE LABEL COMMENTS 11/16/16 17:45 11/16/16 22:44 Potassium Chloride 100 ml @ 50 mls/hr Q2H PRN IV SEE LABEL COMMENTS 11/16/16 17:45 Potassium Chloride 100 ml @ 50 mls/hr Q2H PRN IV SEE LABEL COMMENTS 11/16/16 17:45 Potassium Chloride (KCl 20 Meq Premix Inj) 100 ml @ 50 mls/hr Q2H PRN IV SEE LABEL COMMENTS 11/16/16 17:45 Sodium Bicarbonate (Sodium Bicarbonate 8.4% Inj) 100 meq UNSCH PRN IV SEE LABEL COMMENTS 11/16/16 17:45 Sodium Bicarbonate 50 meq 50 meq UNSCH PRN IV SEE LABEL COMMENTS 11/16/16 17:45 Sodium Phosphate/ Sodium Chloride (Sodium Phosphate Inj/NS Inj) 105 ml @ 25 mls/hr UNSCH PRN IV SEE LABEL COMMENTS 11/16/16 17:45 Miscellaneous Information 1 [id number] XX 11/16/16 17:45 Chlorhexidine Gluconate (Chlorhexidine 2% Cloth) 3 pack Taper DAILY@04 TOP 11/17/16 04:00 11/13/17 03:59 Chlorhexidine Gluconate 3 pack 3 pack UNSCH PRN TOP HYGIENIC CARE 11/16/16 17:45 Clindamycin Phosphate 600 mg/ Sodium Chloride 104 ml @ 208 mls/hr Q6H IV 11/17/16 00:00 11/16/16 23:46 Piperacillin Sod/ Tazobactam Sod 100 ml @ 200 mls/hr Q6H IV 11/17/16 01:00 11/16/16 23:47 Pharmacy Profile Note (Vancomycin Consult Pharmacy) 0 ml @ 0 mls/hr UNSCH OTHER 11/16/16 18:00 Morphine Sulfate (Morphine Inj) 4 mg Q3H PRN IV PUSH pain 11/16/16 18:15 11/16/16 22:02 Acetaminophen 650 mg 650 mg Q6H PRN PO FEVER 11/16/16 20:15 Vancomycin HCl/ Sodium Chloride (Vancomycin Inj/ NS 500 ml Inj) 515 ml @ 257.5 mls/ hr Q24H IV 11/17/16 17:00 Miscellaneous Information SPECIFIC LAB TO BE MADISYN... ONCE ONCE .XX 11/19/16 16:45 11/19/16 16:46 Influenza Virus Vaccine (Flu (Quadrivalent) Vaccine Inj) 0.5 ml ONCE ONCE IM 11/17/16 10:00 11/17/16 10:01 Family History Noncontributory Social History Denies history of alcohol tobacco or illicit drug abuse Physical Exam Vital Signs Vital Signs Date Time Temp Pulse Resp B/P Pulse Ox O2 Delivery O2 Flow Rate FiO2 11/16/16 20:16 20 11/16/16 20:00 103.1 110 20 171/82 96 11/16/16 18:46 105 18 166/83 99 Room Air 11/16/16 17:17 106 18 152/84 98 Room Air 11/16/16 14:17 99 18 11/16/16 14:03 99.0 99 18 157/79 98 Physical Exam GENERAL: Well-nourished, well-developed patient. SKIN: Warm and dry. HEAD: Normocephalic. EYES: No scleral icterus. No injection or drainage. NECK: Supple, trachea midline. No JVD or lymphadenopathy. CARDIOVASCULAR: Regular rate and rhythm without murmurs, gallops, or rubs. RESPIRATORY: Breath sounds equal bilaterally. No accessory muscle use. GASTROINTESTINAL: Abdomen soft, non-tender, nondistended. MUSCULOSKELETAL: No cyanosis, or edema. BACK: Nontender without obvious deformity. No CVA tenderness. EXTREMITIES: No clubbing cyanosis or edema Laboratory Laboratory Tests Test 11/16/16 11/16/16 11/16/16 11/16/16 14:40 16:34 16:35 17:20 White Blood Count 11.7 Red Blood Count 5.37 Hemoglobin 14.0 Hematocrit 42.1 Mean Corpuscular Volume 78.4 Mean Corpuscular Hemoglobin 26.1 Mean Corpuscular Hemoglobin 33.3 Concent Red Cell Distribution Width 14.5 Platelet Count 291 Mean Platelet Volume 8.8 Neutrophils (%) (Auto) 80.7 Lymphocytes (%) (Auto) 7.5 Monocytes (%) (Auto) 11.4 Eosinophils (%) (Auto) 0.1 Basophils (%) (Auto) 0.3 Neutrophils # (Auto) 9.5 Lymphocytes # (Auto) 0.9 Monocytes # (Auto) 1.3 Eosinophils # (Auto) 0.0 Basophils # (Auto) 0.0 CBC Comment AUTO DIFF Differential Total Cells 100 Counted Neutrophils % (Manual) 75 Band Neutrophils % 11 Lymphocytes % 10 Monocytes % 4 Neutrophils # (Manual) 10.1 Differential Comment FINAL DIFF MANUAL Platelet Estimate NORMAL Platelet Morphology Comment CLUMPED [place] Cells Prothrombin Time 10.9 Prothromb Time International 1.0 Ratio Activated Partial 22.2 Thromboplast Time Sodium Level 127 Potassium Level 4.4 Chloride Level 93 Carbon Dioxide Level 13.4 Anion Gap 21 Blood Urea Nitrogen 21 Creatinine 1.41 Estimat Glomerular Filtration 53 Rate Random Glucose 442 Lactic Acid Level 2.3 1.7 Calcium Level 11.0 Total Bilirubin 0.7 Aspartate Amino Transf 42 (AST/SGOT) Alanine Aminotransferase 21 (ALT/SGPT) Alkaline Phosphatase 127 Total Protein 9.2 Albumin 3.2 Blood Gas Puncture Site IV Blood Gas Patient Temperature 98.6 Venous Blood pH 7.25 Venous Blood Partial Pressure 30 CO2 Venous Blood Partial Pressure 17 O2 Venous Blood HCO3 13 Venous Blood Oxygen Saturation 22 Venous Blood Oxygen Content 3.9 Venous Blood Base Excess -13.0 Oxygen Delivery Device NASAL CANNULA Blood Gas Liter Flow 2 B-Hydroxybutyrate 5.83 Test 11/16/16 18:46 Urine Color LIGHT-YELLOW Urine Turbidity CLEAR Urine pH 5.5 Urine Specific [place] 1.032 Urine Protein TRACE Urine Glucose (UA) 1000 Urine Ketones 150 Urine Occult Blood NEG Urine Nitrite NEG Urine Bilirubin NEG Urine Urobilinogen LESS THAN 2.0 Urine Leukocyte Esterase NEG Urine Hyaline Casts 3 Microscopic Urinalysis Comment CULT NOT INDICATED Date/Time Procedure Status Source Growth 11/16/16 14:50 Aerobic Blood Culture Received Blood Peripheral Pending 11/16/16 14:50 Anaerobic Blood Culture Received Blood Peripheral Pending Result Diagram: 11/16/16 1440 11/16/16 1440 Assessment and Plan Assessment and Plan Jessica gangrene - Debridement by Dr. Vallecillo - Broad-spectrum antibiotic - Admit to ICU - Management per surgeon DKA - Insulin drip per protocol - Aggressive IV fluid Hypertension - Hold all home antihypertensive meds due to risks of hypotension postprocedure and sepsis Dyslipidemia - Atorvastatin DVT GI prophylaxis - Pharmacological DVT prophylaxis per surgeon - Teds SCDs - Protonix IV Critical Care: The total critical care time was 35 minutes. Time to perform other separately billable procedures was not included in the critical care time. Miki Wei MD November 16, 2016 21:11
[2016-11-16 22:00] VITALS: PULSE 110
[2016-11-16 22:22] LABS: BICARBONATE 14.3 MEQ/L (21.0-32.0); POTASSIUM 3.3 MEQ/L (3.5-5.1)
[2016-11-16] MEDS: POTASSIUM CHLOR 20 MEQ PREMIX 100 ML IV PRN (22:44)
[2016-11-16] MEDS: CLINDAMYCIN INJ 600 MG in SODIUM CHLORIDE 0.9% INJ 100 ML IV SCH (23:46)
[2016-11-16] MEDS: PIPERACIL-TAZO 4.5 GM PREMIX 100 ML IV SCH (23:47)
[2016-11-17] VITALS (15 sets, daily range): BP systolic 134–182; BP diastolic 60–83; PULSE 86–114; RESP 12–95; TEMP 97.6–100.2; O2SAT 93–97
[2016-11-17] MEDS ORDERED: SUGAMMADEX SODIUM 200 MG/2 ML VIAL IV PUSH ONE ×2 (00:26)
[2016-11-17] MEDS ORDERED: ACETAMINOPHEN 1000 MG/100 ML VIAL IV ONE (00:26)
[2016-11-17] MEDS ORDERED: metroNIDAZOLE 500 MG INJ 100 ML IV ONE (01:27)
[2016-11-17] MEDS: SODIUM CHLOR 0.9% 1000 ML INJ 1,000 ML IV SCH ×3 (02:00→09:22)
--- NOTE | 2016-11-17 02:41 | HHI.PR ---
cc: Hiram Vallecillo MD Immediate Post Op Note Procedure Date: November 17, 2016 Pre Op Diagnosis: Fornier's gangrene with perirectal abscess Post Op Diagnosis: Same Surgeon: Hiram Vallecillo [employer] Consultant(s): Marlen Dubois CFA Procedure: Incision and drainage bilateral perirectal tissue and groins with debridement 75 cm2 subcutaneous tissue Findings: Necrotic tissue both ischorectal fossa Complications: None Specimen(s) removed: C&S Estimated blood loss: 400 ml Anesthesia: General Drains: None IVF (1100 ml) Patient to: PACU Patient Condition: Good Date/Time of Procedure: SEE SURGICAL CARE RECORD Hiram Vallecillo MD November 17, 2016 02:40
[2016-11-17] MEDS ORDERED: DO NOT ADM ANY ANTICOAGULANT DRUGS PRN (03:00)
[2016-11-17] MEDS ORDERED: VANCOMYCIN INJ 1,500 MG in SODIUM CHLORID 0.9% 500 ML INJ 500 ML IV SCH (03:00)
[2016-11-17] MEDS ORDERED: fentaNYL CITRATE 250 MCG/5 ML AMP ONE (03:11)
[2016-11-17] MEDS: POTASSIUM CHLOR 20 MEQ PREMIX 100 ML IV PRN ×3 (03:43→08:52)
[2016-11-17] MEDS: DEXT 5%-NACL 0.9% 1000 ML INJ 1,000 ML IV SCH ×2 (03:50→09:00)
[2016-11-17] MEDS: CHLORHEXIDINE GLUCONATE 2 % 1 PACK (2 CLOTHS) TOP SCH (03:51)
[2016-11-17 04:31] LABS: AUTOMATED NEUTROPHIL # 7.3 TH/MM3 (1.8-7.7); BASOPHIL % 0.1 % (0.0-2.0); EOSINOPHIL % 0.1 % (0.0-4.0); HEMATOCRIT 35.3 % (39.0-51.0); LYMPH % 4.8 % (9.0-44.0); LYMPHOCYTE # 0.5 TH/MM3 (1.0-4.8); MEAN CELL VOLUME 77.3 FL (80.0-100.0); MEAN CORPUSCULAR HEMOGLOBIN 25.1 PG (27.0-34.0); MEAN CORPUSCULAR HGB CONC 32.4 % (32.0-36.0); PLATELET COUNT 195 TH/MM3 (150-450); RED BLOOD COUNT 4.57 MIL/MM3 (4.50-5.90); RED CELL DISTRIBUTION WIDTH 14.4 % (11.6-17.2); WHITE BLOOD COUNT 9.4 TH/MM3 (4.0-11.0)
[2016-11-17 04:35] LABS: HEMO FLAGS AUTO DIFF
[2016-11-17 04:48] LABS: BICARBONATE 11.7 MEQ/L (21.0-32.0); MAGNESIUM 1.7 MG/DL (1.5-2.5); POTASSIUM 3.6 MEQ/L (3.5-5.1)
[2016-11-17] MEDS: INSULIN REGULAR (IV INFUSION) 100 UNITS in SODIUM CHLORIDE 0.9% INJ 99 ML IV SCH ×2 (05:13→14:03)
[2016-11-17] MEDS: MORPHINE SULFATE 4 MG/ML INJ IV PUSH PRN ×5 (05:32→22:01)
[2016-11-17] MEDS: PIPERACIL-TAZO 4.5 GM PREMIX 100 ML IV SCH ×3 (05:37→18:29)
[2016-11-17] MEDS: CLINDAMYCIN INJ 600 MG in SODIUM CHLORIDE 0.9% INJ 100 ML IV SCH ×3 (05:37→17:55)
--- NOTE | 2016-11-17 08:11 | PD.CONS ---
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 Records reviewed. Patient is a 51-year-old male presented to the hospital for evaluation of pain and swelling in the buttock region. He apparently initially felt a quarter size painful lump in the perianal region about 12 days ago. It started getting B, and he started developing redness and swelling as well as pain. He also has been having fevers although he couldn't really give any details on that. He presented to the walk-in clinic on the day of admission and from there was sent to the hospital for further evaluation and treatment. Patient had CT of the pelvis which showed evidence of 40 years gangrene. He went to surgery last night and had extensive surgery. Patient has had fever since admission. He is in DKA currently. He is complaining of pain. Patient stated that he has not had any good bowel movement since he started having the problem he has not really had any good oral intake. He's had some nausea and vomiting. Denies any respiratory complain or any urinary complaints. His initial WBC was 11, 000. Lactic acid 2.3. Creatinine was up to 1.4. His WBC now is down to normal as well as the lactic acid and his creatinine. He is currently on vancomycin, Zosyn, and clindamycin. Infectious disease consultations were requested to evaluate the patient. Review of Systems Constitutional: COMPLAINS OF: Fever, Chills, Change in appetite Eyes: DENIES: Eye pain Ears, nose, mouth, throat: DENIES: Nasal discharge, Oral lesions, Throat pain, Ear Pain, Sinus Pain Respiratory: DENIES: Cough, Shortness of breath Cardiovascular: DENIES: Chest pain, Palpitations, Syncope Gastrointestinal: COMPLAINS OF: Constipation, Nausea, Vomiting, Anorexia, DENIES: Abdominal pain, Difficulty Swallowing Genitourinary: DENIES: Dysuria Musculoskeletal: DENIES: Joint pain, Joint Swelling Integumentary: DENIES: Pruritus, Rash Neurologic: DENIES: Headache Psychiatric: DENIES: Confusion, Hallucinations Past Family Social History Allergies: Coded Allergies: CRESTOR (Verified Allergy, Severe, cardiac, 08/13/16) Lisinopril (Verified Allergy, Severe, Anaphylaxis, 08/13/16) Itching, lip swelling, throat closing. Uncoded Allergies: provacal (Allergy, Severe, 12/28/15) COZAR (Allergy, Intermediate, 03/11/16) Past Medical History Coronary artery disease status post PR 5 Hypertension Dyslipidemia Diabetes mellitus Diabetic neuropathy Past Surgical History CABG Active Ordered Medications Tylenol Clindamycin Insulin Morphine Zosyn Potassium Vancomycin Social History Denies smoking Denies alcohol abuse Denies illicit drug use Physical Exam Vital Signs Vital Signs Date Time Temp Pulse Resp B/P Pulse Ox O2 Delivery O2 Flow Rate FiO2 11/17/16 06:00 86 11/17/16 05:49 20 11/17/16 04:00 97 11/17/16 04:00 99.0 97 20 167/77 95 11/17/16 03:25 100.0 109 20 147/69 99 Nasal Cannula 3 11/17/16 03:15 112 22 145/70 99 Nasal Cannula 3 11/17/16 02:58 100.1 113 20 145/70 98 Nasal Cannula 4 11/17/16 00:00 114 11/17/16 00:00 100.0 110 29 182/83 95 11/16/16 22:00 110 11/16/16 20:00 103.1 110 20 171/82 96 11/16/16 18:46 105 18 166/83 99 Room Air 11/16/16 17:17 106 18 152/84 98 Room Air 11/16/16 14:17 99 18 11/16/16 14:03 99.0 99 18 157/79 98 Physical Exam GENERAL: Patient is a well-nourished, well-developed CM, awake and alert, not in respiratory distress. SKIN: Warm and dry. No generalized rash, no ecchymoses and no evidence of embolic lesions. HEAD: Atraumatic. Normocephalic. No temporal wasting, or tenderness. EYES: [employer] conjunctiva. No petechia or hemorrhage. Pupils equal, round and reactive to light. Extraocular movements full and intact. No scleral icterus. No injection or drainage. EARS, NOSE AND THROAT: Nose without bleeding or purulent nasal discharge. No sinus tenderness. Mucous membranes pink and moist. No oral lesions noted. No exudate. No oral thrush. NECK: Trachea midline. Supple and not tender, no meningeal signs CARDIOVASCULAR: Regular rate and rhythm. No murmurs, rubs or gallops heard RESPIRATORY: Clear to auscultation. Breath sounds equal bilaterally. No rales , wheezing or rhonchi ABDOMEN: Soft, non-tender, nondistended. Bowel sounds present and normoactive. No guarding. No rebound. No organomegaly. EXTREMITIES: No clubbing, cyanosis, or edema.No joint effusion, has good ROM. No calf tenderness. Well perfused and warm. NEUROLOGICAL: Awake and alert. Cranial nerves grossly intact. Motor grossly within normal limits. PSYCHIATRIC: Normal affect, calm and cooperative. LINE: No evidence of infection : Has a large long open wound on his L groin, goes into perineum, and perirectal region with packing, has some blood at dressing. Scrotum is not red or indurated Laboratory Laboratory Tests Test 11/16/16 11/16/16 11/16/16 11/16/16 14:40 16:34 16:35 17:20 White Blood Count 11.7 Red Blood Count 5.37 Hemoglobin 14.0 Hematocrit 42.1 Mean Corpuscular Volume 78.4 Mean Corpuscular Hemoglobin 26.1 Mean Corpuscular Hemoglobin 33.3 Concent Red Cell Distribution Width 14.5 Platelet Count 291 Mean Platelet Volume 8.8 Neutrophils (%) (Auto) 80.7 Lymphocytes (%) (Auto) 7.5 Monocytes (%) (Auto) 11.4 Eosinophils (%) (Auto) 0.1 Basophils (%) (Auto) 0.3 Neutrophils # (Auto) 9.5 Lymphocytes # (Auto) 0.9 Monocytes # (Auto) 1.3 Eosinophils # (Auto) 0.0 Basophils # (Auto) 0.0 CBC Comment AUTO DIFF Differential Total Cells 100 Counted Neutrophils % (Manual) 75 Band Neutrophils % 11 Lymphocytes % 10 Monocytes % 4 Neutrophils # (Manual) 10.1 Differential Comment FINAL DIFF MANUAL Platelet Estimate NORMAL Platelet Morphology Comment CLUMPED Fa[place] Cells Prothrombin Time 10.9 Prothromb Time International 1.0 Ratio Activated Partial 22.2 Thromboplast Time Sodium Level 127 Potassium Level 4.4 Chloride Level 93 Carbon Dioxide Level 13.4 Anion Gap 21 Blood Urea Nitrogen 21 Creatinine 1.41 Estimat Glomerular Filtration 53 Rate Random Glucose 442 Lactic Acid Level 2.3 1.7 Calcium Level 11.0 Total Bilirubin 0.7 Aspartate Amino Transf 42 (AST/SGOT) Alanine Aminotransferase 21 (ALT/SGPT) Alkaline Phosphatase 127 Total Protein 9.2 Albumin 3.2 Blood Gas Puncture Site IV Blood Gas Patient Temperature 98.6 Venous Blood pH 7.25 Venous Blood Partial Pressure 30 CO2 Venous Blood Partial Pressure 17 O2 Venous Blood HCO3 13 Venous Blood Oxygen Saturation 22 Venous Blood Oxygen Content 3.9 Venous Blood Base Excess -13.0 Oxygen Delivery Device NASAL CANNULA Blood Gas Liter Flow 2 B-Hydroxybutyrate 5.83 Test 11/16/16 11/16/16 11/16/16 11/17/16 18:46 19:15 21:12 04:15 Urine Color LIGHT-YELLOW Urine Turbidity CLEAR Urine pH 5.5 Urine Specific [place] 1.032 Urine Protein TRACE Urine Glucose (UA) 1000 Urine Ketones 150 Urine Occult Blood NEG Urine Nitrite NEG Urine Bilirubin NEG Urine Urobilinogen LESS THAN 2.0 Urine Leukocyte Esterase NEG Urine Hyaline Casts 3 Microscopic Urinalysis Comment CULT NOT INDICATED Nasal Screen MRSA (PCR) MRSA NOT DETECTED Sodium Level 133 137 Potassium Level 3.3 3.6 Chloride Level 102 105 Carbon Dioxide Level 14.3 11.7 Anion Gap 17 20 Blood Urea Nitrogen 17 19 Creatinine 1.09 1.07 Estimat Glomerular Filtration 72 73 Rate Random Glucose 242 307 Calcium Level 10.1 9.8 Phosphorus Level 0.5 1.2 Magnesium Level 2.0 1.7 Blood Type O POSITIVE Antibody Screen NEGATIVE Crossmatch Leukocyte-Reduced Red Blood Cells Blood Bank Comment White Blood Count 9.4 Red Blood Count 4.57 Hemoglobin 11.5 Hematocrit 35.3 Mean Corpuscular Volume 77.3 Mean Corpuscular Hemoglobin 25.1 Mean Corpuscular Hemoglobin 32.4 Concent Red Cell Distribution Width 14.4 Platelet Count 195 Mean Platelet Volume 8.3 Neutrophils (%) (Auto) 77.0 Lymphocytes (%) (Auto) 4.8 Monocytes (%) (Auto) 18.0 Eosinophils (%) (Auto) 0.1 Basophils (%) (Auto) 0.1 Neutrophils # (Auto) 7.3 Lymphocytes # (Auto) 0.5 Monocytes # (Auto) 1.7 Eosinophils # (Auto) 0.0 Basophils # (Auto) 0.0 CBC Comment AUTO DIFF Date/Time Procedure Status Source Growth 11/17/16 01:40 Gram Stain - Final Resulted Abscess Buttock 11/17/16 01:40 Wound Culture Resulted Abscess Buttock Pending 11/17/16 01:40 Fungal Smear - Final Resulted Abscess Buttock NO FUNGAL ELEMENTS SEEN. 11/17/16 01:40 Fungal Culture Resulted Abscess Buttock Pending 11/17/16 01:40 Acid Fast Stain Received Abscess Buttock Pending 11/17/16 01:40 Mycobacterial Culture Received Abscess Buttock Pending 11/16/16 14:50 Aerobic Blood Culture Received Blood Peripheral Pending 11/16/16 14:50 Anaerobic Blood Culture Received Blood Peripheral Pending Result Diagram: 11/17/16 0415 11/17/16 0415 Imaging RADIOLOGY STUDIES/FILMS REVIEWED Pelvis CT 11/16/16 0000 Signed Impressions: Service Date/Time: Wednesday, November 16, 2016 16:20 - CONCLUSION: 1. Fornier's gangrene of the perineal region as detailed above. This can be a life threatening condition. 2. Results were called to the emergency department (Dr. Bryan Cuellar) the time of this dictation. 3. 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 Elijah Álvarez MD Chest X-Ray 11/16/16 0000 Signed Impressions: Service Date/Time: Wednesday, November 16, 2016 17:48 - CONCLUSION: No evidence of acute cardiopulmonary disease. Previous median sternotomy. Magnus Steele MD Assessment and Plan Assessment and Plan IMPRESSION Sepsis due to Jessica's gangrene, perirectal abscess - S/P extensive debridement Jessica's gangrene, perirectal abscess DKA RECOMMENDATION Continue Zosyn and Vanco Will give 48 days of Clinda then D/C Follow C/S Monitor open wounds Monitor progress On Rx for DKA I will follow along with you Thank you for this consultation Discussed Condition With D/W Noemí Maki MD November 17, 2016 08:11
[2016-11-17 09:13] LABS: BANDS 21 % (0-6); EOSINOPHILS 1 % (0-4); NEUTROPHIL # MANUAL DIFF 7.7 TH/MM3 (1.8-7.7); POLYS (SEG NEUTROPHILS) 61 % (16-70); WBC DIFF SAMPLE 100
[2016-11-17 09:15] LABS: ACANTHOCYTES 1+ (NORMAL); PLATELET ESTIMATE SMEAR NORMAL (NORMAL); PLATELET MORPHOLOGY NORMAL (NORMAL); ROULEAUX PRESENT (NORMAL); SCAN/DIFF FINAL DIFF MANUAL
[2016-11-17] MEDS: SODIUM HYPOCHLORITE 0.25% 500 ML BTL TOPICAL SCH ×2 (09:22→21:00)
[2016-11-17] MEDS ORDERED: PNEUMOCOCCAL POLYVALENT INJ 25 MCG/0.5 ML SYR IM ONE (10:00)
[2016-11-17] MEDS ORDERED: INFLUENZA VIRUS VACCINE (QUADRIVALENT) 0.5 ML SYR IM ONE (10:00)
--- NOTE | 2016-11-17 10:31 | HHI.CCPN ---
Subjective Remarks/Hospital Course 51-year-old male presents to the emergency department for evaluation of pain to the perirectal area for about 12 days. Per patient this started as a small lump , but worsened approximate 10 days ago. He reports fever up to 102.7, but is unsure when that was. He states he went to the walk-in clinic today for evaluation and they sent him to the emergency department. Patient has history of MD 5, cardiac bypass, hypertension, hyperlipidemia, diabetes, diabetic neuropathy. He is on Plavix. Patient denies any abdominal pain. No chest pain or shortness of breath. Subjective 11/17: Status post I&D perirectal abscess with debridement of 75 cm and a cardiac tissue by Dr. Vallecillo necrosis into the ischeorectal fossa. Remains on insulin drip for ketoacidosis. Pain is controlled. On nasal cannula. Not on vasopressors or antihypertensives. Objective Vital Signs Date Time Temp Pulse Resp B/P Pulse Ox O2 Delivery O2 Flow Rate FiO2 11/17/16 06:00 86 11/17/16 05:49 20 11/17/16 04:00 99.0 167/77 95 11/17/16 03:25 Nasal Cannula 3 Intake and Output 11/16/16 11/16/16 11/17/16 08:00 16:00 00:00 Intake Total 910 ml Output Total 450 ml Balance 460 ml Result Diagram: 11/17/16 0415 11/17/16 0415 Other Results Microbiology Date/Time Procedure Status Source Growth 11/17/16 01:40 Gram Stain - Final Resulted Abscess Buttock 11/17/16 01:40 Wound Culture Resulted Abscess Buttock Pending 11/17/16 01:40 Fungal Smear - Final Resulted Abscess Buttock NO FUNGAL ELEMENTS SEEN. 11/17/16 01:40 Fungal Culture Resulted Abscess Buttock Pending 11/17/16 01:40 Acid Fast Stain Received Abscess Buttock Pending 11/17/16 01:40 Mycobacterial Culture Received Abscess Buttock Pending 11/16/16 14:50 Aerobic Blood Culture Received Blood Peripheral Pending 11/16/16 14:50 Anaerobic Blood Culture Received Blood Peripheral Pending Imaging Last Impressions Pelvis CT 11/16/16 0000 Signed Impressions: Service Date/Time: Wednesday, November 16, 2016 16:20 - CONCLUSION: 1. Fornier's gangrene of the perineal region as detailed above. This can be a life threatening condition. 2. Results were called to the emergency department (Dr. Bryan Cuellar) the time of this dictation. 3. 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 Elijah Álvarez MD Chest X-Ray 11/16/16 0000 Signed Impressions: Service Date/Time: Wednesday, November 16, 2016 17:48 - CONCLUSION: No evidence of acute cardiopulmonary disease. Previous median sternotomy. Magnus Steele MD Objective Remarks GENERAL: 51-year-old male, critically ill currently resting in bed in no acute distress SKIN: Warm and dry. No rash HEAD: Normocephalic. Atraumatic EYES: No scleral icterus. No injection or drainage. NECK: Supple, trachea midline. No JVD or lymphadenopathy. CARDIOVASCULAR: Tachycardic, RR. S1, S2 no S4. Without murmur RESPIRATORY: Breath sounds equal bilaterally. No accessory muscle use. GASTROINTESTINAL: Abdomen soft, non-tender, nondistended. MUSCULOSKELETAL: Without significant peripheral edema BACK: Nontender without obvious deformity. No CVA tenderness. EXTREMITIES: Left groin with large open wound report into perineum and perirectal region with packing, has some old blood at dressing. Scrotum without edema, erythema or induration nontender A/P Assessment and Plan Neuro/Psych: Dementia disorder NOS Postoperative pain Peripheral neuropathy/diabetic Currently on morphine 4 mg IV every 3 hours. For pain management Holding gabapentin 600 mg 4 times a day for neuropathy. Resume when clinically indicated CV: Coronary disease status post CABG 5 Hypertension Dyslipidemia EF 50-55%. Apical akinesis. Mild MV regurg, TV regurg Home medications metoprolol 50 mill grams twice a day, Norvasc 5 mill grams twice a day currently on hold. Resume when clinically indicated Currently on D5 normal saline at 200 cc an hour per DKA protocol Holding lovastatin 40 mg by mouth twice a day dyslipidemia. Resume when clinically indicated Resp: Nasal cannula to maintain saturations greater than equal to 92% Incentive spirometry while awake GI: Gastroesophageal reflux disease Currently nothing by mouth. Will advance ice chips and sips. Clear liquid diet /diabetic once anion gap is closed At home on Prilosec 20 mg by mouth daily. : Status post day #1 I&D bilateral perirectal region 7.5 cm removal necrotic tissue secondary to necrosis ischiorectal fossa Dr. Vallecillo EBL -400. Postoperative surgical care per Dr. Vallecillo CT abdomen/pelvis 11/16 revealed diverticulosis without diverticulitis. 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 Endo: Ketoacidosis Diabetes mellitus Currently on insulin drip at 13.5 units an hour. Beta hydroxybutyrate and. Discontinue insulin drip once anion gap is closed At home on NPH 50 units a.m., 30 units at bedtime and R insulin 15 units 3 times a day Renal: Creatinine currently within normal limits Accurate I's and O's Monitor urine output Heme: Normocytic anemia Monitor CBC daily. Follow trends Currently holding aspirin 81 mg daily and Plavix any 5 mg by mouth daily. Resume when okay with general surgery ID: Zosyn/vancomycin day #2. Clindamycin 600 mg IV every 8 hours 48 hours. 11/16 Blood cultures 2 no growth to date 11/18 cultures currently pending Infectious disease following Dr. Amador MSK: PT evaluate and treat FEN: Hypokalemia Hypophosphatemia Replace electrolytes per DKA protocol. Access Utilize peripheral IV. Central line if indicated Prophylaxis GI Protonix DVT ; SCD/pharmacological prophylaxis per general surgery Critical Care: The total critical care time was 35 minutes. Time to perform other separately billable procedures was not included in the critical care time. Juan Jose Gao MD November 17, 2016 10:31
[2016-11-17] MEDS: MAGNESIUM SULFATE 1 GM PREMIX 100 ML IV SCH ×2 (12:00→13:00)
[2016-11-17] MEDS ORDERED: ONDANSETRON HCL 4 MG/2 ML VIAL IV PUSH ONE (12:00)
[2016-11-17] MEDS ORDERED: LACTATED RINGER'S 1000 ML INJ 1,000 ML IV ONE (12:00)
[2016-11-17] MEDS ORDERED: PROPOFOL 200 MG/20 ML AMP IV ONE (12:00)
[2016-11-17 12:42] LABS: BICARBONATE 18.6 MEQ/L (21.0-32.0); MAGNESIUM 1.8 MG/DL (1.5-2.5); POTASSIUM 3.4 MEQ/L (3.5-5.1)
[2016-11-17 12:43] LABS: BETA-HYDROXYBUTYRATE 0.46 MMOL/L (0.00-0.39); BICARBONATE 18.6 MEQ/L (21.0-32.0); POTASSIUM 3.4 MEQ/L (3.5-5.1)
[2016-11-17] MEDS ORDERED: SODIUM PHOSPHATE INJ 30 MMOL in SODIUM CHLOR 0.9% 250 ML INJ 250 ML IV ONE (13:00)
[2016-11-17] MEDS ORDERED: GLUCAGON 1 MG/ML VIAL OTHER PRN (13:15)
[2016-11-17] MEDS ORDERED: INSULIN HUMAN NPH/R 70/30 1,000 UNITS/10 ML VIAL SQ ONE (13:15)
[2016-11-17] MEDS ORDERED: INSULIN HUMAN REGULAR 1,000 UNITS/10 ML VIAL SQ ONE (13:15)
[2016-11-17] MEDS ORDERED: DEXTROSE 50% IN WATER 50 ML VIAL(D50) IV PRN (13:15)
[2016-11-17] MEDS ORDERED: POTASSIUM CHLOR 20 MEQ PREMIX 100 ML IV PRN (13:45)
[2016-11-17] MEDS ORDERED: SODIUM PHOSPHATE INJ 30 MMOL in SODIUM CHLOR 0.9% 250 ML INJ 240 ML IV PRN (13:45)
[2016-11-17] MEDS ORDERED: POTASSIUM CHLOR 40 MEQ PREMIX 100 ML IV PRN ×2 (13:45)
[2016-11-17] MEDS ORDERED: POTASSIUM PHOSPHATE MONOBASIC 500 MG TAB PO/TUBE PRN (13:45)
[2016-11-17] MEDS ORDERED: POTASSIUM CHLORIDE 8 MEQ CONTROLLED RELEASE TAB PO ONE (13:45)
[2016-11-17] MEDS ORDERED: MAGNESIUM OXIDE 400 MG TAB PO PRN (13:45)
[2016-11-17] MEDS ORDERED: POTASSIUM CHLORIDE 25 MEQ EFFERVESCENT TAB PO PRN (13:45)
[2016-11-17] MEDS ORDERED: MAGNESIUM SULFATE INJ 2 GM in SODIUM CHLORIDE 0.9% INJ 96 ML IV PRN (13:45)
[2016-11-17] MEDS ORDERED: POTASSIUM PHOSPHATE MONOBASIC 500 MG TAB PO PRN (13:45)
[2016-11-17] MEDS ORDERED: MAGNESIUM SULFATE INJ 4 GM in SODIUM CHLORIDE 0.9% INJ 92 ML IV PRN (13:45)
[2016-11-17] MEDS: INSULIN NovoLIN REGULAR SUPPLEMENTAL SCALE SQ SCH ×2 (16:00→20:00)
--- NOTE | 2016-11-17 16:30 | EKG ---
Date Performed: 11/16/2016 Time Performed: 17:35:32 PTAGE: 51 years EKG: SINUS TACHYCARDIA BORDERLINE LEFT AXIS DEVIATION INCOMPLETE RIGHT BUNDLE BRANCH BLOCK ABNOR MAL RHYTHM ECG PREVIOUS TRACING : 08/13/2016 05.54 Compared to prior tracing no significant change DOCTOR: Lian Montanez Interpretating Date/Time 11/17/2016 16:29:24
[2016-11-17] MEDS ORDERED: VANCOMYCIN 1,500 MG/NS 500 ML IV SCH ×2 (17:00)
[2016-11-17 17:36] LABS: BICARBONATE 18.9 MEQ/L (21.0-32.0); MAGNESIUM 2.1 MG/DL (1.5-2.5); POTASSIUM 3.5 MEQ/L (3.5-5.1)
[2016-11-17] MEDS: ACETAMINOPHEN 325 MG TAB PO PRN (22:02)
[2016-11-18] VITALS (16 sets, daily range): BP systolic 111–152; BP diastolic 58–77; PULSE 77–102; RESP 13–64; TEMP 98.9–100.8; O2SAT 94–99
[2016-11-18] MEDS: PIPERACIL-TAZO 4.5 GM PREMIX 100 ML IV SCH ×5 (01:00→18:09)
[2016-11-18] MEDS: MORPHINE SULFATE 4 MG/ML INJ IV PUSH PRN ×6 (01:58→21:06)
[2016-11-18] MEDS: CHLORHEXIDINE GLUCONATE 2 % 1 PACK (2 CLOTHS) TOP SCH (01:58)
[2016-11-18] MEDS: INSULIN NovoLIN REGULAR SUPPLEMENTAL SCALE SQ SCH ×6 (04:00→20:59)
[2016-11-18] MEDS: CLINDAMYCIN INJ 600 MG in SODIUM CHLORIDE 0.9% INJ 100 ML IV SCH ×5 (04:36→17:27)
[2016-11-18 06:14] LABS: AUTOMATED NEUTROPHIL # 7.9 TH/MM3 (1.8-7.7); BASOPHIL % 0.2 % (0.0-2.0); EOSINOPHIL % 0.4 % (0.0-4.0); HEMATOCRIT 34.3 % (39.0-51.0); HEMO FLAGS DIFF FINAL; LYMPH % 8.5 % (9.0-44.0); LYMPHOCYTE # 0.8 TH/MM3 (1.0-4.8); MEAN CELL VOLUME 74.6 FL (80.0-100.0); MEAN CORPUSCULAR HEMOGLOBIN 25.6 PG (27.0-34.0); MEAN CORPUSCULAR HGB CONC 34.3 % (32.0-36.0); MONO % 10.8 % (0.0-8.0); NEUT % 80.1 % (16.0-70.0); PLATELET COUNT 220 TH/MM3 (150-450); RED BLOOD COUNT 4.59 MIL/MM3 (4.50-5.90); RED CELL DISTRIBUTION WIDTH 14.7 % (11.6-17.2); WHITE BLOOD COUNT 9.9 TH/MM3 (4.0-11.0)
[2016-11-18 06:18] LABS: ANION GAP 12 MEQ/L (5-15); BICARBONATE 18.5 MEQ/L (21.0-32.0); BLOOD UREA NITROGEN 11 MG/DL (7-18); CHLORIDE 106 MEQ/L (98-107); MAGNESIUM 1.8 MG/DL (1.5-2.5); POTASSIUM 3.2 MEQ/L (3.5-5.1); SODIUM (NA) 136 MEQ/L (136-145)
[2016-11-18 06:24] LABS: ALKALINE PHOSPHATASE 84 U/L (45-117); ALT (GPT) 24 U/L (12-78); AST (GOT) 38 U/L (15-37); GLOMERULAR FILTRATION RATE 116 ML/MIN (>89); TOTAL BILIRUBIN ADULT 0.5 MG/DL (0.2-1.0)
[2016-11-18 06:25] LABS: CREATINE KINASE 24 U/L (39-308)
[2016-11-18] MEDS: SODIUM HYPOCHLORITE 0.25% 500 ML BTL TOPICAL SCH ×2 (08:04→21:00)
[2016-11-18] MEDS ORDERED: LABETALOL HCL 100 MG/20 ML VIAL IV PUSH PRN (09:00)
[2016-11-18] MEDS ORDERED: hydrALAZINE HCL 20 MG/ML VIAL IV PUSH PRN (09:00)
[2016-11-18] MEDS ORDERED: NITROGLYCERIN 2% OINT 1 GM PACKET TOPICAL PRN (09:00)
[2016-11-18] MEDS ORDERED: SODIUM CHLOR 0.9% 1000 ML INJ 1,000 ML IV SCH (09:00)
[2016-11-18] MEDS ORDERED: PILL SPLITTER OTHER PRN (09:00)
[2016-11-18] MEDS ORDERED: POTASSIUM CHLORIDE 20 MEQ CONTROLLED RELEASE TAB PO ONE ×3 (09:00→16:45)
[2016-11-18] MEDS: PANTOPRAZOLE SODIUM 40 MG VIAL IV PUSH SCH (09:00)
[2016-11-18] MEDS ORDERED: METOPROLOL TARTRATE 25 MG TAB PO SCH (09:00)
--- NOTE | 2016-11-18 09:14 | HHI.CCPN ---
Subjective Remarks/Hospital Course 51-year-old male presents to the emergency department for evaluation of pain to the perirectal area for about 12 days. Per patient this started as a small lump , but worsened approximate 10 days ago. He reports fever up to 102.7, but is unsure when that was. He states he went to the walk-in clinic today for evaluation and they sent him to the emergency department. Patient has history of [place] 5, cardiac bypass, hypertension, hyperlipidemia, diabetes, diabetic neuropathy. He is on Plavix. Patient denies any abdominal pain. No chest pain or shortness of breath. 11/17: Status post I&D perirectal abscess with debridement of 75 cm and a cardiac tissue by Dr. Vallecillo necrosis into the ischeorectal fossa. Remains on insulin drip for ketoacidosis. Pain is controlled. On nasal cannula. Not on vasopressors or antihypertensives. Subjective 11/18: Tmax 100.8. Requesting additional pain medication in addition to morphine 4 mg IV every 3 hours as needed. Flat affect. Objective Vital Signs Date Time Temp Pulse Resp B/P Pulse Ox O2 Delivery O2 Flow Rate FiO2 11/18/16 07:19 94 21 11/18/16 06:00 97 11/18/16 04:42 21 11/18/16 04:00 100.8 137/69 11/17/16 03:25 Nasal Cannula 3 Intake and Output 11/17/16 11/17/16 11/18/16 08:00 16:00 00:00 Intake Total 2353 ml 3401 ml 1063 ml Output Total 400 ml 1000 ml 1675 ml Balance 1953 ml 2401 ml -612 ml Result Diagram: 11/18/16 0514 11/18/16 0514 Other Results Microbiology Date/Time Procedure Status Source Growth 11/17/16 01:40 Gram Stain - Final Resulted Abscess Buttock 11/17/16 01:40 Wound Culture Resulted Abscess Buttock Pending 11/17/16 01:40 Fungal Smear - Final Resulted Abscess Buttock NO FUNGAL ELEMENTS SEEN. 11/17/16 01:40 Fungal Culture Resulted Abscess Buttock Pending 11/17/16 01:40 Acid Fast Stain Received Abscess Buttock Pending 11/17/16 01:40 Mycobacterial Culture Received Abscess Buttock Pending 11/16/16 14:50 Aerobic Blood Culture - Preliminary Resulted Blood Peripheral NO GROWTH IN 1 DAY 11/16/16 14:50 Anaerobic Blood Culture - Preliminary Resulted Blood Peripheral NO GROWTH IN 1 DAY Imaging Last Impressions Pelvis CT 11/16/16 0000 Signed Impressions: Service Date/Time: Wednesday, November 16, 2016 16:20 - CONCLUSION: 1. Fornier's gangrene of the perineal region as detailed above. This can be a life threatening condition. 2. Results were called to the emergency department (Dr. Bryan Cuellar) the time of this dictation. 3. 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 Elijah Álvarez MD Chest X-Ray 11/16/16 0000 Signed Impressions: Service Date/Time: Wednesday, November 16, 2016 17:48 - CONCLUSION: No evidence of acute cardiopulmonary disease. Previous median sternotomy. Magnus Steele MD Objective Remarks GENERAL: 51-year-old male, critically ill currently resting in bed in no acute distress SKIN: Warm and dry. No rash HEAD: Normocephalic. Atraumatic EYES: No scleral icterus. No injection or drainage. NECK: Supple, trachea midline. No JVD or lymphadenopathy. CARDIOVASCULAR: Tachycardic, RR. S1, S2 no S4. Without murmur RESPIRATORY: Breath sounds equal bilaterally. No accessory muscle use. GASTROINTESTINAL: Abdomen soft, non-tender, nondistended. MUSCULOSKELETAL: Without significant peripheral edema BACK: Nontender without obvious deformity. No CVA tenderness. EXTREMITIES: Left groin with large open wound With into perineum and perirectal region with packing, has some old blood at dressing. Scrotum without edema, some slight erythema. No induration and currently nontender A/P Assessment and Plan Neuro/Psych: Dementia disorder NOS Postoperative pain Peripheral neuropathy/diabetic Currently on morphine 4 mg IV every 3 hours. For pain management Dilaudid 1 mg IV every 4 hours when necessary breakthrough pain Holding gabapentin 600 mg 4 times a day for neuropathy. Resume when clinically indicated CV: Coronary disease status post CABG 5 Hypertension Dyslipidemia EF 50-55%. Apical akinesis. Mild MV regurg, TV regurg Home medications metoprolol 50 mill grams twice a day, Norvasc 5 mill grams twice a day currently on hold. Resume with her Toprol 12.5 twice a day Off all fluids.*Normal saline at 84 cc an hour while nothing by mouth Holding lovastatin 40 mg by mouth twice a day dyslipidemia. Resume when clinically indicated Resp: Nasal cannula to maintain saturations greater than equal to 92% Incentive spirometry while awake GI: Gastroesophageal reflux disease Currently nothing by mouth. Will advance ice chips and sips. Clear liquid diet /diabetic once anion gap is closed At home on Prilosec 20 mg by mouth daily. Protonix 40 mg IV daily : Status post day #2 I&D bilateral perirectal region 7.5 cm removal necrotic tissue secondary to necrosis ischiorectal fossa Dr. Vallecillo EBL -400. Postoperative surgical care per Dr. Vallecillo CT abdomen/pelvis 11/16 revealed diverticulosis without diverticulitis. 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 Endo: Ketoacidosis Diabetes mellitus Currently on insulin drip at 13.5 units an hour. Beta hydroxybutyrate and. Discontinue insulin drip once anion gap is closed At home on NPH 50 units a.m., 30 units at bedtime and R insulin 15 units 3 times a day Renal: Creatinine currently within normal limits Accurate I's and O's Monitor urine output Heme: Normocytic anemia Monitor CBC daily. Follow trends Currently holding aspirin 81 mg daily and Plavix any 5 mg by mouth daily. Resume when okay with general surgery ID: Zosyn/vancomycin day #3. Clindamycin 600 mg IV every 8 hours 48 hours. 11/16 Blood cultures 2 no growth to date 11/18 cultures no growth to date blood cultures Infectious disease following Dr. Amador MSK: PT evaluate and treat FEN: Hypokalemia Hypophosphatemia Replace electrolytes with 30 mmol sodium phosphate and 80 mg potassium. Recheck this afternoon Access Utilize peripheral IV. Central line if indicated Prophylaxis GI Protonix DVT ; SCD/pharmacological prophylaxis per general surgery Critical Care: The total critical care time was 35 minutes. Time to perform other separately billable procedures was not included in the critical care time. Juan Jose Gao MD November 18, 2016 09:14
[2016-11-18] MEDS: MAGNESIUM SULFATE 1 GM PREMIX 100 ML IV SCH ×2 (09:15→10:15)
[2016-11-18] MEDS ORDERED: INSULIN DETEMIR 100 UNITS/ML VIAL SQ SCH (10:00)
[2016-11-18] MEDS ORDERED: POTASSIUM CHLOR 10 MEQ PREMIX 100 ML IV SCH (10:00)
[2016-11-18] MEDS ORDERED: SODIUM PHOSPHATE INJ 30 MMOL in SODIUM CHLOR 0.9% 250 ML INJ 250 ML IV ONE (10:00)
[2016-11-18] MEDS: HYDROmorphone HCL PF 1 MG/ML VIAL IV PUSH PRN ×3 (10:16→20:04)
[2016-11-18] MEDS ORDERED: ADENOSINE IV SOLN 3 MG/ML 2 ML VIAL ONE (11:18)
[2016-11-18] MEDS ORDERED: METOPROLOL TARTRATE 5 MG/5 ML VIAL IV PUSH ONE (11:30)
[2016-11-18] MEDS ORDERED: MAGNESIUM SULFATE 1 GM PREMIX 100 ML IV ONE ×2 (11:30→17:00)
[2016-11-18] MEDS: VANCOMYCIN 1,500 MG/NS 500 ML IV SCH ×2 (13:00)
--- NOTE | 2016-11-18 14:51 | HHI.IDPN ---
Subjective Subjective Remarks 51 year old male, with DM, admitted and diagnosed to have Jessica's gangrene and perirectal abscess S/P extensive debridement and has open wounds with packing Notes reviewed D/W RN D/W Dr Vallecillo He has low grade temps Had SVT and has converted Not on pressors C/O pain BS still running high, but lower Antibiotics Zosyn Vancomycin Past Medical History reviewed Allergies: Coded Allergies: CRESTOR (Verified Allergy, Severe, cardiac, 08/13/16) Lisinopril (Verified Allergy, Severe, Anaphylaxis, 08/13/16) Itching, lip swelling, throat closing. Uncoded Allergies: provacal (Allergy, Severe, 12/28/15) COZAR (Allergy, Intermediate, 03/11/16) Objective . Vital Signs Date Time Temp Pulse Resp B/P Pulse Ox O2 Delivery O2 Flow Rate FiO2 11/18/16 07:19 94 21 11/18/16 06:00 97 11/18/16 04:42 21 11/18/16 04:00 84 11/18/16 04:00 100.8 84 64 137/69 96 11/18/16 03:00 83 13 128/63 97 11/18/16 02:00 82 24 138/65 99 11/18/16 02:00 83 11/18/16 01:00 77 25 111/58 95 11/18/16 00:00 100.3 83 32 118/58 95 11/18/16 00:00 83 32 118/58 95 11/18/16 00:00 83 11/17/16 23:27 26 11/17/16 23:00 92 12 134/60 95 11/17/16 22:29 96 21 11/17/16 22:00 103 11/17/16 22:00 103 73 156/76 97 11/17/16 21:00 93 18 147/70 96 11/17/16 20:00 95 11/17/16 20:00 100.2 95 95 137/65 93 11/17/16 18:00 93 11/17/16 16:00 91 11/17/16 16:00 97.6 91 15 148/67 96 11/17/16 11/17/16 11/18/16 15:00 23:00 07:00 Intake Total 3401 ml 1063 ml 304 ml Output Total 1000 ml 1675 ml 550 ml Balance 2401 ml -612 ml -246 ml Intake Oral 720 ml 240 ml IV Total 2681 ml 823 ml 304 ml Output Urine Total 1000 ml 1675 ml 550 ml # Bowel Movements 0 0 0 . Laboratory Tests Test 11/17/16 11/18/16 04:15 05:14 White Blood Count 9.4 TH/MM3 9.9 TH/MM3 Red Blood Count 4.57 MIL/MM3 4.59 MIL/MM3 Hemoglobin 11.5 GM/DL 11.8 GM/DL Hematocrit 35.3 % 34.3 % Mean Corpuscular Volume 77.3 FL 74.6 FL Mean Corpuscular Hemoglobin 25.1 PG 25.6 PG Mean Corpuscular Hemoglobin 32.4 % 34.3 % Concent Red Cell Distribution Width 14.4 % 14.7 % Platelet Count 195 TH/MM3 220 TH/MM3 Mean Platelet Volume 8.3 FL 8.6 FL Neutrophils (%) (Auto) 77.0 % 80.1 % Lymphocytes (%) (Auto) 4.8 % 8.5 % Monocytes (%) (Auto) 18.0 % 10.8 % Eosinophils (%) (Auto) 0.1 % 0.4 % Basophils (%) (Auto) 0.1 % 0.2 % Neutrophils # (Auto) 7.3 TH/MM3 7.9 TH/MM3 Lymphocytes # (Auto) 0.5 TH/MM3 0.8 TH/MM3 Monocytes # (Auto) 1.7 TH/MM3 1.1 TH/MM3 Eosinophils # (Auto) 0.0 TH/MM3 0.0 TH/MM3 Basophils # (Auto) 0.0 TH/MM3 0.0 TH/MM3 CBC Comment AUTO DIFF DIFF FINAL Differential Total Cells 100 Counted Neutrophils % (Manual) 61 % Band Neutrophils % 21 % Lymphocytes % 9 % Monocytes % 8 % Eosinophils % 1 % Neutrophils # (Manual) 7.7 TH/MM3 Differential Comment FINAL DIFF MANUAL Platelet Estimate NORMAL Platelet Morphology Comment NORMAL Acanthocytes 1+ Rouleau PRESENT Laboratory Tests Test 11/16/16 11/16/16 11/17/16 11/17/16 17:20 21:12 04:15 11:07 Lactic Acid Level 1.7 mmol/L Sodium Level 133 MEQ/L 137 MEQ/L 140 MEQ/L Potassium Level 3.3 MEQ/L 3.6 MEQ/L 3.4 MEQ/L Chloride Level 102 MEQ/L 105 MEQ/L 111 MEQ/L Carbon Dioxide Level 14.3 MEQ/L 11.7 MEQ/L 18.6 MEQ/L Anion Gap 17 MEQ/L 20 MEQ/L 10 MEQ/L Blood Urea Nitrogen 17 MG/DL 19 MG/DL 19 MG/DL Creatinine 1.09 MG/DL 1.07 MG/DL 1.17 MG/DL Estimat Glomerular Filtration 72 ML/MIN 73 ML/MIN 66 ML/MIN Rate Random Glucose 242 MG/DL 307 MG/DL 200 MG/DL Calcium Level 10.1 MG/DL 9.8 MG/DL 9.6 MG/DL Phosphorus Level 0.5 MG/DL 1.2 MG/DL 0.4 MG/DL Magnesium Level 2.0 MG/DL 1.7 MG/DL 1.8 MG/DL Test 11/17/16 11/18/16 16:22 05:14 Sodium Level 136 MEQ/L 136 MEQ/L Potassium Level 3.5 MEQ/L 3.2 MEQ/L Chloride Level 105 MEQ/L 106 MEQ/L Carbon Dioxide Level 18.9 MEQ/L 18.5 MEQ/L Anion Gap 12 MEQ/L 12 MEQ/L Blood Urea Nitrogen 15 MG/DL 11 MG/DL Creatinine 1.03 MG/DL 0.72 MG/DL Estimat Glomerular Filtration 76 ML/MIN 116 ML/MIN Rate Random Glucose 314 MG/DL 211 MG/DL Calcium Level 9.0 MG/DL 9.4 MG/DL Phosphorus Level 0.9 MG/DL 1.0 MG/DL Magnesium Level 2.1 MG/DL 1.8 MG/DL Total Bilirubin 0.5 MG/DL Aspartate Amino Transf 38 U/L (AST/SGOT) Alanine Aminotransferase 24 U/L (ALT/SGPT) Alkaline Phosphatase 84 U/L Total Creatine Kinase 24 U/L Total Protein 6.5 GM/DL Albumin 2.1 GM/DL Microbiology Date/Time Procedure Status Source Growth 11/16/16 14:40 Aerobic Blood Culture - Preliminary Resulted Blood Peripheral NO GROWTH IN 2 DAYS 11/16/16 14:40 Anaerobic Blood Culture - Preliminary Resulted Blood Peripheral NO GROWTH IN 2 DAYS 11/16/16 14:50 Aerobic Blood Culture - Preliminary Resulted Blood Peripheral NO GROWTH IN 2 DAYS 11/16/16 14:50 Anaerobic Blood Culture - Preliminary Resulted Blood Peripheral NO GROWTH IN 2 DAYS 11/17/16 01:40 Gram Stain - Final Resulted Abscess Buttock 11/17/16 01:40 Wound Culture - Preliminary Resulted Gram Negative Reinaldo 11/17/16 01:40 Acid Fast Stain - Final Resulted Abscess Buttock NO ACID FAST BACILLI SEEN 11/17/16 01:40 Mycobacterial Culture Resulted Abscess Buttock Pending 11/17/16 01:40 Fungal Smear - Final Resulted Abscess Buttock NO FUNGAL ELEMENTS SEEN. 11/17/16 01:40 Fungal Culture Resulted Abscess Buttock Pending Imaging Pelvis CT 11/16/16 0000 Signed Impressions: Service Date/Time: Wednesday, November 16, 2016 16:20 - CONCLUSION: 1. Fornier's gangrene of the perineal region as detailed above. This can be a life threatening condition. 2. Results were called to the emergency department (Dr. Bryan Cuellar) the time of this dictation. 3. 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 Elijah Álvarez MD Chest X-Ray 11/16/16 0000 Signed Impressions: Service Date/Time: Wednesday, November 16, 2016 17:48 - CONCLUSION: No evidence of acute cardiopulmonary disease. Previous median sternotomy. Magnus Steele MD Physical Exam GENERAL: awake and alert, not in respiratory distress. SKIN: Warm and dry. No generalized rash HEAD: Atraumatic. Normocephalic. No temporal wasting, or tenderness. EYES: [place] conjunctiva. No petechia or hemorrhage. No scleral icterus. No injection or drainage. EARS, NOSE AND THROAT: Nose without bleeding or purulent nasal discharge. No sinus tenderness. Mucous membranes pink and moist. No oral lesions noted. No exudate. No oral thrush. NECK: Trachea midline. Supple and not tender, no meningeal signs CARDIOVASCULAR: Regular rate and rhythm. No murmurs, rubs or gallops heard RESPIRATORY: Clear to auscultation. Breath sounds equal bilaterally. No rales , wheezing or rhonchi ABDOMEN: Soft, non-tender, nondistended. Bowel sounds present and normoactive. No guarding. No rebound. No organomegaly. EXTREMITIES: No clubbing, cyanosis, or edema.No joint effusion, has good ROM. No calf tenderness. Well perfused and warm. NEUROLOGICAL: Grossly non-focal PSYCHIATRIC: Normal affect, calm and cooperative. LINE: No evidence of infection : Has a large long open wound on his L groin, goes into perineum, and perirectal region with packing, has some blood at dressing. Scrotum is not red or indurated Assessment & Plan Remarks IMPRESSION Sepsis due to Jessica's gangrene, perirectal abscess - S/P extensive debridement Jessica's gangrene, perirectal abscess DKA Low grade temps Leukocytosis, better RECOMMENDATION Continue Zosyn and Vanco Will give 48 days of Clinda then D/C Follow C/S Monitor open wounds - will leave wounds open and do frequent dressing changes Monitor progress On Rx for DKA D/W Dr Vallecillo D/W RN Noemí Amador MD November 18, 2016 14:51
[2016-11-18 16:33] LABS: POTASSIUM 3.7 MEQ/L (3.5-5.1)
--- NOTE | 2016-11-18 16:34 | MP ---
cc: HIRAM VALLECILLO M.D. DATE OF SURGERY: 11/17/2016. PREOPERATIVE DIAGNOSIS: Jessica's gangrene. POSTOPERATIVE DIAGNOSIS: Jessica's gangrene with extension into the left scrotum. OPERATIVE PROCEDURE PERFORMED: Incision and drainage ischiorectal fossa bilaterally and groins, left side more extensive than right, with debridement of subcutaneous tissue. ANESTHESIA: General endotracheal anesthesia. SURGEON: Hiram Vallecillo MD. ESTIMATED BLOOD LOSS: 400 mL. FLUIDS: 1100 mL crystalloid. COMPLICATIONS: None. DRAINS: None. SPECIMEN: Culture and sensitivity sent. FINDINGS: Extensive subcutaneous tissue necrosis with bilateral incisions made and extensive debridement of tissue 75 cm2. No muscle was debrided. Debridement was carried down to fascia. DESCRIPTION OF THE PROCEDURE IN DETAIL: The patient was taken to the operating room and placed on the operating table in a supine position. After an adequate level of general endotracheal anesthesia was achieved, the patient was placed in the lithotomy position. The scrotum and perirectal region were shaved, prepped and draped. A time out was taken confirming the correct patient, site and procedure to be performed. Incision was made on the patient's left side first as there was more extensive air on this side. A foul-smelling, purulent, dirty brownish watery material was exuded. Necrotic material was debrided as well sharply back to bleeding tissue. Dissection was carried up along the left groin up to the scrotum. Periscrotal tissue was also debrided and sharply debrided away. Attention was then turned to the patient's right side and a second longitudinal incision was made directly over necrotic skin. Dissection was carried down into the subcutaneous tissues and the ischiorectal fossa with sharp debridement of again foul-smelling discolored fatty tissue. A total of 75 cm2 of subcutaneous tissue was removed and discarded. Culture and sensitivity was taken at the beginning of the procedure. Bleeding was then controlled with electrocautery and the wound then had cleaning with peroxide followed by 3 liters of antibiotic irrigation. Further debridement was carried out on the remaining tissue that was not obviously viable and at this point a Betadine-soaked gauze was packed into the open wounds. An undergarment was applied after a fluff was applied to hold the dressings in place. The patient was extubated and taken back to the recovery room in stable condition. Sponge and needle counts were reported be correct. The patient tolerated the procedure well. MD NOHEMI Mcdowell/LANA /2:46 AM /4:29 PM
[2016-11-18] MEDS: SODIUM PHOSPHATE INJ 15 MMOL in SODIUM CHLORIDE 0.9% INJ 150 ML IV ONE (17:00)
[2016-11-18] MEDS: INSULIN HUMAN REGULAR 1,000 UNITS/10 ML VIAL SQ SCH (17:00)
[2016-11-18] MEDS: INSULIN HUMAN NPH/R 70/30 1,000 UNITS/10 ML VIAL SQ SCH (17:00)
[2016-11-18] MEDS ORDERED: INSULIN HUMAN NPH/R 70/30 1,000 UNITS/10 ML VIAL SQ SCH (17:00)
--- NOTE | 2016-11-18 17:01 | EKG ---
Date Performed: 11/18/2016 Time Performed: 11:22:48 PTAGE: 51 years EKG: Sinus rhythm with PVC(s). Leftward axis Poor R wave progression - probable normal variant Low QRS voltages in pre cordial leads Borderline ECG PREVIOUS TRACING : 11/16/2016 17.35 Compared to prior tracing no significant change DOCTOR: Lian Montanez Interpretating Date/Time 11/18/2016 16:59:35
--- NOTE | 2016-11-18 19:59 | HHI.PR ---
Subjective Subjective Notes Uneventful night; had SVT today; now back to NSR Objective Vitals/I&O Vital Signs Date Time Temp Pulse Resp B/P Pulse Ox O2 Delivery O2 Flow Rate FiO2 11/18/16 18:00 88 11/18/16 16:00 99.4 18 116/65 98 11/18/16 07:19 21 11/17/16 03:25 Nasal Cannula 3 Labs Laboratory Tests Test 11/18/16 11/18/16 05:14 16:07 White Blood Count 9.9 Red Blood Count 4.59 Hemoglobin 11.8 Hematocrit 34.3 Mean Corpuscular Volume 74.6 Mean Corpuscular Hemoglobin 25.6 Mean Corpuscular Hemoglobin 34.3 Concent Red Cell Distribution Width 14.7 Platelet Count 220 Mean Platelet Volume 8.6 Neutrophils (%) (Auto) 80.1 Lymphocytes (%) (Auto) 8.5 Monocytes (%) (Auto) 10.8 Eosinophils (%) (Auto) 0.4 Basophils (%) (Auto) 0.2 Neutrophils # (Auto) 7.9 Lymphocytes # (Auto) 0.8 Monocytes # (Auto) 1.1 Eosinophils # (Auto) 0.0 Basophils # (Auto) 0.0 CBC Comment DIFF FINAL Differential Comment Sodium Level 136 Potassium Level 3.2 3.7 Chloride Level 106 Carbon Dioxide Level 18.5 Anion Gap 12 Blood Urea Nitrogen 11 Creatinine 0.72 Estimat Glomerular Filtration 116 Rate Random Glucose 211 Calcium Level 9.4 Phosphorus Level 1.0 2.0 Magnesium Level 1.8 Total Bilirubin 0.5 Aspartate Amino Transf 38 (AST/SGOT) Alanine Aminotransferase 24 (ALT/SGPT) Alkaline Phosphatase 84 Total Creatine Kinase 24 Total Protein 6.5 Albumin 2.1 Date/Time Procedure Status Source Growth 11/17/16 01:40 Gram Stain - Final Resulted Abscess Buttock 11/17/16 01:40 Wound Culture - Preliminary Resulted Gram Negative Reinaldo 11/17/16 01:40 Fungal Smear - Final Resulted Abscess Buttock NO FUNGAL ELEMENTS SEEN. 11/17/16 01:40 Fungal Culture Resulted Abscess Buttock Pending 11/17/16 01:40 Acid Fast Stain - Final Resulted Abscess Buttock NO ACID FAST BACILLI SEEN 11/17/16 01:40 Mycobacterial Culture Resulted Abscess Buttock Pending 11/16/16 14:50 Aerobic Blood Culture - Preliminary Resulted Blood Peripheral NO GROWTH IN 2 DAYS 11/16/16 14:50 Anaerobic Blood Culture - Preliminary Resulted Blood Peripheral NO GROWTH IN 2 DAYS Lungs: Clear Abdomen: Non-distended, Non-tender Narrative Exam Dressing in place; no odor; nurse replaced pad multiple times due to drainage. A/P Assessment and Plan POD #2 I&D perirectal abscess Continue dressing changes and antibiotics Hiram Vallecillo MD November 18, 2016 19:59
[2016-11-18] MEDS: METOPROLOL TARTRATE 25 MG TAB PO SCH (21:01)
[2016-11-19] VITALS (14 sets, daily range): BP systolic 117–160; BP diastolic 61–79; PULSE 75–101; RESP 15–29; TEMP 98.8–100.2; O2SAT 92–96
[2016-11-19] MEDS: MORPHINE SULFATE 4 MG/ML INJ IV PUSH PRN ×6 (00:22→22:41)
[2016-11-19] MEDS: PIPERACIL-TAZO 4.5 GM PREMIX 100 ML IV SCH ×2 (00:23→06:08)
[2016-11-19] MEDS: VANCOMYCIN 1,500 MG/NS 500 ML IV SCH ×4 (00:23→12:45)
[2016-11-19] MEDS: HYDROmorphone HCL PF 1 MG/ML VIAL IV PUSH PRN ×5 (00:52→20:16)
[2016-11-19] MEDS: INSULIN NovoLIN REGULAR SUPPLEMENTAL SCALE SQ SCH ×5 (03:00→20:34)
[2016-11-19] MEDS: CHLORHEXIDINE GLUCONATE 2 % 1 PACK (2 CLOTHS) TOP SCH (03:49)
[2016-11-19] MEDS: CLINDAMYCIN INJ 600 MG in SODIUM CHLORIDE 0.9% INJ 100 ML IV SCH ×3 (06:00)
[2016-11-19] MEDS: METOPROLOL TARTRATE 25 MG TAB PO SCH ×3 (06:00→22:45)
[2016-11-19 06:14] LABS: AUTOMATED NEUTROPHIL # 9.3 TH/MM3 (1.8-7.7); BASOPHIL % 0.3 % (0.0-2.0); EOSINOPHIL # 0.2 TH/MM3 (0-0.4); EOSINOPHIL % 1.5 % (0.0-4.0); HEMATOCRIT 28.5 % (39.0-51.0); HEMO FLAGS DIFF FINAL; LYMPH % 9.2 % (9.0-44.0); MEAN CELL VOLUME 74.2 FL (80.0-100.0); MEAN CORPUSCULAR HEMOGLOBIN 25.2 PG (27.0-34.0); MONO % 6.5 % (0.0-8.0); NEUT % 82.5 % (16.0-70.0); PLATELET COUNT 261 TH/MM3 (150-450); RED BLOOD COUNT 3.85 MIL/MM3 (4.50-5.90); RED CELL DISTRIBUTION WIDTH 14.7 % (11.6-17.2); WHITE BLOOD COUNT 11.2 TH/MM3 (4.0-11.0)
[2016-11-19 06:44] LABS: ALT (GPT) 33 U/L (12-78); ANION GAP 12 MEQ/L (5-15); AST (GOT) 48 U/L (15-37); BICARBONATE 21.4 MEQ/L (21.0-32.0); BLOOD UREA NITROGEN 9 MG/DL (7-18); CHLORIDE 103 MEQ/L (98-107); GLOMERULAR FILTRATION RATE 148 ML/MIN (>89); MAGNESIUM 1.9 MG/DL (1.5-2.5); POTASSIUM 3.1 MEQ/L (3.5-5.1); SODIUM (NA) 136 MEQ/L (136-145)
[2016-11-19 06:47] LABS: ALKALINE PHOSPHATASE 91 U/L (45-117); TOTAL BILIRUBIN ADULT 0.5 MG/DL (0.2-1.0)
[2016-11-19] MEDS: INSULIN HUMAN REGULAR 1,000 UNITS/10 ML VIAL SQ SCH ×3 (07:00→17:26)
--- NOTE | 2016-11-19 08:09 | HHI.CCPN ---
Subjective Remarks/Hospital Course 51-year-old male presents to the emergency department for evaluation of pain to the perirectal area for about 12 days. Per patient this started as a small lump , but worsened approximate 10 days ago. He reports fever up to 102.7, but is unsure when that was. He states he went to the walk-in clinic today for evaluation and they sent him to the emergency department. Patient has history of AR 5, cardiac bypass, hypertension, hyperlipidemia, diabetes, diabetic neuropathy. He is on Plavix. Patient denies any abdominal pain. No chest pain or shortness of breath. 11/17: Status post I&D perirectal abscess with debridement of 75 cm and a cardiac tissue by Dr. Vallecillo necrosis into the ischeorectal fossa. Remains on insulin drip for ketoacidosis. Pain is controlled. On nasal cannula. Not on vasopressors or antihypertensives. Subjective 11/18: Tmax 100.8. Requesting additional pain medication in addition to morphine 4 mg IV every 3 hours as needed. Flat affect. 11/19 No events overnight. Awake and alert . Afebrile. Objective Vital Signs Date Time Temp Pulse Resp B/P Pulse Ox O2 Delivery O2 Flow Rate FiO2 11/19/16 06:00 92 11/19/16 04:00 99.0 20 135/69 96 11/18/16 07:19 21 11/17/16 03:25 Nasal Cannula 3 Intake and Output 11/18/16 11/18/16 11/19/16 08:00 16:00 00:00 Intake Total 304 ml 842 ml 1130 ml Output Total 550 ml 1025 ml 825 ml Balance -246 ml -183 ml 305 ml Result Diagram: 11/19/16 0502 11/19/16 0502 Other Results Laboratory Tests Test 11/18/16 11/19/16 16:07 05:02 Potassium Level 3.7 MEQ/L 3.1 MEQ/L Phosphorus Level 2.0 MG/DL 1.5 MG/DL White Blood Count 11.2 TH/MM3 Red Blood Count 3.85 MIL/MM3 Hemoglobin 9.7 GM/DL Hematocrit 28.5 % Mean Corpuscular Volume 74.2 FL Mean Corpuscular Hemoglobin 25.2 PG Mean Corpuscular Hemoglobin 34.0 % Concent Red Cell Distribution Width 14.7 % Platelet Count 261 TH/MM3 Mean Platelet Volume 8.2 FL Neutrophils (%) (Auto) 82.5 % Lymphocytes (%) (Auto) 9.2 % Monocytes (%) (Auto) 6.5 % Eosinophils (%) (Auto) 1.5 % Basophils (%) (Auto) 0.3 % Neutrophils # (Auto) 9.3 TH/MM3 Lymphocytes # (Auto) 1.0 TH/MM3 Monocytes # (Auto) 0.7 TH/MM3 Eosinophils # (Auto) 0.2 TH/MM3 Basophils # (Auto) 0.0 TH/MM3 CBC Comment DIFF FINAL Differential Comment Sodium Level 136 MEQ/L Chloride Level 103 MEQ/L Carbon Dioxide Level 21.4 MEQ/L Anion Gap 12 MEQ/L Blood Urea Nitrogen 9 MG/DL Creatinine 0.58 MG/DL Estimat Glomerular Filtration 148 ML/MIN Rate Random Glucose 140 MG/DL Calcium Level 9.1 MG/DL Magnesium Level 1.9 MG/DL Total Bilirubin 0.5 MG/DL Aspartate Amino Transf 48 U/L (AST/SGOT) Alanine Aminotransferase 33 U/L (ALT/SGPT) Alkaline Phosphatase 91 U/L Total Protein 5.7 GM/DL Albumin 1.9 GM/DL Imaging Last Impressions Pelvis CT 11/16/16 0000 Signed Impressions: Service Date/Time: Wednesday, November 16, 2016 16:20 - CONCLUSION: 1. Fornier's gangrene of the perineal region as detailed above. This can be a life threatening condition. 2. Results were called to the emergency department (Dr. Bryan Cuellar) the time of this dictation. 3. 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 Elijah Álvarez MD Chest X-Ray 11/16/16 0000 Signed Impressions: Service Date/Time: Wednesday, November 16, 2016 17:48 - CONCLUSION: No evidence of acute cardiopulmonary disease. Previous median sternotomy. Magnus Steele MD Objective Remarks GENERAL: 51-year-old male resting in bed in no acute distress SKIN: Warm and dry. No rash HEAD: Normocephalic. Atraumatic EYES: No scleral icterus. No injection or drainage. NECK: Supple, trachea midline. No JVD or lymphadenopathy. CARDIOVASCULAR: Tachycardic, RR. S1, S2 no S4. Without murmur RESPIRATORY: Breath sounds equal bilaterally. No accessory muscle use. GASTROINTESTINAL: Abdomen soft, non-tender, nondistended. MUSCULOSKELETAL: Without significant peripheral edema BACK: Nontender without obvious deformity. No CVA tenderness. EXTREMITIES: Left groin with large open wound With into perineum and perirectal region with packing, A/P Assessment and Plan Neuro/Psych: Dementia disorder NOS Postoperative pain Peripheral neuropathy/diabetic On morphine 4 mg IV every 3 hours. For pain management Dilaudid 1 mg IV every 4 hours when necessary breakthrough pain Holding gabapentin 600 mg 4 times a day for neuropathy. Resume when clinically indicated CV: Coronary disease status post CABG 5 Hypertension Dyslipidemia EF 50-55%. Apical akinesis. Mild MV regurg, TV regurg On Lopressor 12.5mg Q8, monitor HR and BP keep MAP>65mmHg Holding lovastatin 40 mg by mouth twice a day dyslipidemia. Resume when clinically indicated Resp: Continue with oxygen keep sat > 92% Incentive spirometry while awake GI: Gastroesophageal reflux disease On PO diet At home on Prilosec 20 mg by mouth daily. Protonix 40 mg IV daily : Status post I&D bilateral perirectal region 7.5 cm removal necrotic tissue secondary to necrosis ischiorectal fossa Dr. Vallecillo EBL -400. Postoperative surgical care per Dr. Vallecillo CT abdomen/pelvis 11/16 revealed diverticulosis without diverticulitis. 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 Endo: Diabetes mellitus Continue with SSI and Novolin insulin Renal Monitor renal function, I/O's, electrolytes replacement per protocol. Will need K, Phos replacement today Heme: Normocytic anemia Monitor CBC daily. Follow trends Currently holding aspirin 81 mg daily and Plavix any 5 mg by mouth daily. Resume when okay with general surgery ID: Continue with abx (Zosyn/vancomycin)monitor for signs of infections ( Fever, WBC ) s/p Clindamycin 11/17-11/19 11/16 Blood cultures 2 no growth to date 11/17 Wound cx: GNR Infectious disease following Dr. Amador MSK: PT evaluate and treat Access Utilize peripheral IV. Prophylaxis GI Protonix DVT ; SCD/pharmacological prophylaxis per general surgery Will sign and transfer care to [facility] Level 3 Dru Jade MD November 19, 2016 08:09
[2016-11-19] MEDS: INSULIN HUMAN NPH/R 70/30 1,000 UNITS/10 ML VIAL SQ SCH ×2 (08:14→17:27)
[2016-11-19] MEDS: PANTOPRAZOLE SODIUM 40 MG VIAL IV PUSH SCH (08:14)
[2016-11-19] MEDS: SODIUM HYPOCHLORITE 0.25% 500 ML BTL TOPICAL SCH ×2 (10:38→20:35)
--- NOTE | 2016-11-19 10:42 | HHI.IDPN ---
Subjective Subjective Remarks 51 year old male, with DM, admitted and diagnosed to have Jessica's gangrene and perirectal abscess S/P extensive debridement and has open wounds with packing Notes reviewed D/W Dr Vallecillo Temps better Afebrile >24 hours OR plans for debridement necrotic tissue OR C/S GNR, no ID yest BC negative Not on pressors C/O pain Antibiotics Zosyn Vancomycin Past Medical History reviewed Allergies: Coded Allergies: CRESTOR (Verified Allergy, Severe, cardiac, 08/13/16) Lisinopril (Verified Allergy, Severe, Anaphylaxis, 08/13/16) Itching, lip swelling, throat closing. Uncoded Allergies: provacal (Allergy, Severe, 12/28/15) COZAR (Allergy, Intermediate, 03/11/16) Objective . Vital Signs Date Time Temp Pulse Resp B/P Pulse Ox O2 Delivery O2 Flow Rate FiO2 11/19/16 09:28 95 11/19/16 06:00 92 11/19/16 04:00 90 11/19/16 04:00 99.0 90 20 135/69 96 11/19/16 02:00 88 11/19/16 00:00 98.8 78 29 118/79 92 11/19/16 00:00 78 11/18/16 22:00 100 11/18/16 20:26 96 11/18/16 20:00 99.1 86 16 124/77 98 11/18/16 20:00 98.9 11/18/16 20:00 86 11/18/16 18:00 88 11/18/16 16:00 99.4 91 18 116/65 98 11/18/16 16:00 91 11/18/16 14:00 86 11/18/16 12:00 99.7 83 18 112/61 97 11/18/16 12:00 83 11/18/16 11/18/16 11/19/16 15:00 23:00 07:00 Intake Total 842 ml 1130 ml 740 ml Output Total 1025 ml 825 ml 650 ml Balance -183 ml 305 ml 90 ml Intake Oral 240 ml 480 ml 240 ml IV Total 602 ml 650 ml 500 ml Output Urine Total 1025 ml 825 ml 650 ml # Bowel Movements 0 2 1 . Laboratory Tests Test 5/21/17 5/22/17 05:14 05:02 White Blood Count 9.9 TH/MM3 11.2 TH/MM3 Red Blood Count 4.59 MIL/MM3 3.85 MIL/MM3 Hemoglobin 11.8 GM/DL 9.7 GM/DL Hematocrit 34.3 % 28.5 % Mean Corpuscular Volume 74.6 FL 74.2 FL Mean Corpuscular Hemoglobin 25.6 PG 25.2 PG Mean Corpuscular Hemoglobin 34.3 % 34.0 % Concent Red Cell Distribution Width 14.7 % 14.7 % Platelet Count 220 TH/MM3 261 TH/MM3 Mean Platelet Volume 8.6 FL 8.2 FL Neutrophils (%) (Auto) 80.1 % 82.5 % Lymphocytes (%) (Auto) 8.5 % 9.2 % Monocytes (%) (Auto) 10.8 % 6.5 % Eosinophils (%) (Auto) 0.4 % 1.5 % Basophils (%) (Auto) 0.2 % 0.3 % Neutrophils # (Auto) 7.9 TH/MM3 9.3 TH/MM3 Lymphocytes # (Auto) 0.8 TH/MM3 1.0 TH/MM3 Monocytes # (Auto) 1.1 TH/MM3 0.7 TH/MM3 Eosinophils # (Auto) 0.0 TH/MM3 0.2 TH/MM3 Basophils # (Auto) 0.0 TH/MM3 0.0 TH/MM3 CBC Comment DIFF FINAL DIFF FINAL Differential Comment Laboratory Tests Test 11/17/16 11/17/16 11/18/16 11/18/16 11:07 16:22 05:14 16:07 Sodium Level 140 MEQ/L 136 MEQ/L 136 MEQ/L Potassium Level 3.4 MEQ/L 3.5 MEQ/L 3.2 MEQ/L 3.7 MEQ/L Chloride Level 111 MEQ/L 105 MEQ/L 106 MEQ/L Carbon Dioxide Level 18.6 MEQ/L 18.9 MEQ/L 18.5 MEQ/L Anion Gap 10 MEQ/L 12 MEQ/L 12 MEQ/L Blood Urea Nitrogen 19 MG/DL 15 MG/DL 11 MG/DL Creatinine 1.17 MG/DL 1.03 MG/DL 0.72 MG/DL Estimat Glomerular Filtration 66 ML/MIN 76 ML/MIN 116 ML/MIN Rate Random Glucose 200 MG/DL 314 MG/DL 211 MG/DL Calcium Level 9.6 MG/DL 9.0 MG/DL 9.4 MG/DL Phosphorus Level 0.4 MG/DL 0.9 MG/DL 1.0 MG/DL 2.0 MG/DL Magnesium Level 1.8 MG/DL 2.1 MG/DL 1.8 MG/DL Total Bilirubin 0.5 MG/DL Aspartate Amino Transf 38 U/L (AST/SGOT) Alanine Aminotransferase 24 U/L (ALT/SGPT) Alkaline Phosphatase 84 U/L Total Creatine Kinase 24 U/L Total Protein 6.5 GM/DL Albumin 2.1 GM/DL Test 11/19/16 05:02 Sodium Level 136 MEQ/L Potassium Level 3.1 MEQ/L Chloride Level 103 MEQ/L Carbon Dioxide Level 21.4 MEQ/L Anion Gap 12 MEQ/L Blood Urea Nitrogen 9 MG/DL Creatinine 0.58 MG/DL Estimat Glomerular Filtration 148 ML/MIN Rate Random Glucose 140 MG/DL Calcium Level 9.1 MG/DL Phosphorus Level 1.5 MG/DL Magnesium Level 1.9 MG/DL Total Bilirubin 0.5 MG/DL Aspartate Amino Transf 48 U/L (AST/SGOT) Alanine Aminotransferase 33 U/L (ALT/SGPT) Alkaline Phosphatase 91 U/L Total Protein 5.7 GM/DL Albumin 1.9 GM/DL Microbiology Date/Time Procedure Status Source Growth 11/16/16 14:40 Aerobic Blood Culture - Preliminary Resulted Blood Peripheral NO GROWTH IN 2 DAYS 11/16/16 14:40 Anaerobic Blood Culture - Preliminary Resulted Blood Peripheral NO GROWTH IN 2 DAYS 11/16/16 14:50 Aerobic Blood Culture - Preliminary Resulted Blood Peripheral NO GROWTH IN 2 DAYS 11/16/16 14:50 Anaerobic Blood Culture - Preliminary Resulted Blood Peripheral NO GROWTH IN 2 DAYS 11/17/16 01:40 Gram Stain - Final Resulted Abscess Buttock 11/17/16 01:40 Wound Culture - Preliminary Resulted Gram Negative Reinaldo 11/17/16 01:40 Acid Fast Stain - Final Resulted Abscess Buttock NO ACID FAST BACILLI SEEN 11/17/16 01:40 Mycobacterial Culture Resulted Abscess Buttock Pending 11/17/16 01:40 Fungal Smear - Final Resulted Abscess Buttock NO FUNGAL ELEMENTS SEEN. 11/17/16 01:40 Fungal Culture Resulted Abscess Buttock Pending Imaging Pelvis CT 11/16/16 0000 Signed Impressions: Service Date/Time: Wednesday, November 16, 2016 16:20 - CONCLUSION: 1. Fornier's gangrene of the perineal region as detailed above. This can be a life threatening condition. 2. Results were called to the emergency department (Dr. Bryan Cuellar) the time of this dictation. 3. 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 Elijah Álvarez MD Chest X-Ray 11/16/16 0000 Signed Impressions: Service Date/Time: Wednesday, November 16, 2016 17:48 - CONCLUSION: No evidence of acute cardiopulmonary disease. Previous median sternotomy. Magnus Steele MD Physical Exam GENERAL: awake and alert, not in respiratory distress. SKIN: Warm and dry. No generalized rash HEAD: Atraumatic. Normocephalic. No temporal wasting, or tenderness. EYES: Rector conjunctiva. No petechia or hemorrhage. No scleral icterus. No injection or drainage. EARS, NOSE AND THROAT: No sinus tenderness. Mucous membranes pink and moist. No oral lesions noted. No exudate. NECK: Trachea midline. Supple and not tender, no meningeal signs CARDIOVASCULAR: Regular rate and rhythm. No murmurs, rubs or gallops heard RESPIRATORY: Clear to auscultation. Breath sounds equal bilaterally. No rales , wheezing or rhonchi ABDOMEN: Soft, non-tender, nondistended. Bowel sounds present and normoactive. No guarding. No rebound. No organomegaly. EXTREMITIES: No clubbing, cyanosis, or edema.No joint effusion, has good ROM. No calf tenderness. Well perfused and warm. NEUROLOGICAL: Grossly non-focal PSYCHIATRIC: Normal affect, calm and cooperative. LINE: No evidence of infection : Has packing in place in his large open wound in perineum, L groin and buttocks Assessment & Plan Remarks IMPRESSION Sepsis due to Jessica's gangrene, perirectal abscess - S/P extensive debridement Jessica's gangrene, perirectal abscess DKA Low grade temps, trending down Leukocytosis, stable RECOMMENDATION Continue Zosyn and Vanco For repeat debridement Monitor progress Follow temps Follow CBC D/W Dr Vallecillo ADDENDUM: 1:10 pm RN called about C/S result C/S reviewed - Klebsiella, MDR E coli, and GBS Will change Zosyn to Cefepime Add Flagyl for some anaerobic coverage Continue IV Vancomycin for now Noemí Amador MD November 19, 2016 10:42
--- NOTE | 2016-11-19 11:47 | HHI.PR ---
Subjective Subjective Notes Minimal discomfort Objective Vitals/I&O Vital Signs Date Time Temp Pulse Resp B/P Pulse Ox O2 Delivery O2 Flow Rate FiO2 11/19/16 10:00 83 11/19/16 09:28 95 11/19/16 08:00 99.2 17 117/61 11/18/16 07:19 21 11/17/16 03:25 Nasal Cannula 3 Labs Laboratory Tests Test 11/18/16 11/19/16 16:07 05:02 Potassium Level 3.7 3.1 Phosphorus Level 2.0 1.5 White Blood Count 11.2 Red Blood Count 3.85 Hemoglobin 9.7 Hematocrit 28.5 Mean Corpuscular Volume 74.2 Mean Corpuscular Hemoglobin 25.2 Mean Corpuscular Hemoglobin 34.0 Concent Red Cell Distribution Width 14.7 Platelet Count 261 Mean Platelet Volume 8.2 Neutrophils (%) (Auto) 82.5 Lymphocytes (%) (Auto) 9.2 Monocytes (%) (Auto) 6.5 Eosinophils (%) (Auto) 1.5 Basophils (%) (Auto) 0.3 Neutrophils # (Auto) 9.3 Lymphocytes # (Auto) 1.0 Monocytes # (Auto) 0.7 Eosinophils # (Auto) 0.2 Basophils # (Auto) 0.0 CBC Comment DIFF FINAL Differential Comment Sodium Level 136 Chloride Level 103 Carbon Dioxide Level 21.4 Anion Gap 12 Blood Urea Nitrogen 9 Creatinine 0.58 Estimat Glomerular Filtration 148 Rate Random Glucose 140 Calcium Level 9.1 Magnesium Level 1.9 Total Bilirubin 0.5 Aspartate Amino Transf 48 (AST/SGOT) Alanine Aminotransferase 33 (ALT/SGPT) Alkaline Phosphatase 91 Total Protein 5.7 Albumin 1.9 Date/Time Procedure Status Source Growth 11/17/16 01:40 Gram Stain - Final Resulted Abscess Buttock 11/17/16 01:40 Wound Culture - Preliminary Resulted Gram Negative Reinaldo 11/17/16 01:40 Fungal Smear - Final Resulted Abscess Buttock NO FUNGAL ELEMENTS SEEN. 11/17/16 01:40 Fungal Culture Resulted Abscess Buttock Pending 11/17/16 01:40 Acid Fast Stain - Final Resulted Abscess Buttock NO ACID FAST BACILLI SEEN 11/17/16 01:40 Mycobacterial Culture Resulted Abscess Buttock Pending 11/16/16 14:50 Aerobic Blood Culture - Preliminary Resulted Blood Peripheral NO GROWTH IN 3 DAYS 11/16/16 14:50 Anaerobic Blood Culture - Preliminary Resulted Blood Peripheral NO GROWTH IN 3 DAYS Lungs: Clear Abdomen: Non-distended, Non-tender Narrative Exam Dressings removed and wound examined; no odor; some adipose tissue present. No drainage. A/P Assessment and Plan POD #3 I&D perirectal abscess Continue dressing changes and antibiotics Ok to transfer to floor Will need to go back to OR for further debridement and possible VAC placement vs. continued dressing changes Hiram Vallecillo MD November 19, 2016 11:47
[2016-11-19] MEDS: POTASSIUM CHLOR 20 MEQ PREMIX 100 ML IV PRN ×3 (12:10→14:55)
[2016-11-19] MEDS: metroNIDAZOLE 500 MG TAB PO SCH ×2 (14:02→22:41)
[2016-11-19] MEDS: CEFEPIME INJ 2,000 MG in SODIUM CHLORIDE 0.9% INJ 100 ML IV SCH ×2 (16:08→23:46)
[2016-11-19] MEDS ORDERED: PHARMACY ORDERED LAB ONE (16:45)
[2016-11-20] VITALS (14 sets, daily range): BP systolic 106–148; BP diastolic 67–78; PULSE 78–174; RESP 16–20; TEMP 98.3–100; O2SAT 95–99
[2016-11-20] MEDS: HYDROmorphone HCL PF 1 MG/ML VIAL IV PUSH PRN ×5 (00:42→21:11)
[2016-11-20] MEDS: VANCOMYCIN 1,500 MG/NS 500 ML IV SCH ×2 (00:45)
[2016-11-20] MEDS ORDERED: PHARMACY ORDERED LAB ONE (00:45)
[2016-11-20] MEDS: INSULIN NovoLIN REGULAR SUPPLEMENTAL SCALE SQ SCH ×5 (03:00→21:00)
[2016-11-20] MEDS: CHLORHEXIDINE GLUCONATE 2 % 1 PACK (2 CLOTHS) TOP SCH (04:00)
[2016-11-20] MEDS: metroNIDAZOLE 500 MG TAB PO SCH ×2 (04:36→13:49)
[2016-11-20] MEDS: METOPROLOL TARTRATE 25 MG TAB PO SCH (04:37)
[2016-11-20] MEDS: MORPHINE SULFATE 4 MG/ML INJ IV PUSH PRN ×6 (04:37→22:19)
[2016-11-20] MEDS: CEFEPIME INJ 2,000 MG in SODIUM CHLORIDE 0.9% INJ 100 ML IV SCH ×2 (04:38→13:49)
[2016-11-20 05:22] LABS: BASOPHIL % 0.2 % (0.0-2.0); EOSINOPHIL # 0.2 TH/MM3 (0-0.4); EOSINOPHIL % 1.3 % (0.0-4.0); HEMATOCRIT 33.3 % (39.0-51.0); LYMPH % 9.7 % (9.0-44.0); LYMPHOCYTE # 1.3 TH/MM3 (1.0-4.8); MEAN CELL VOLUME 75.6 FL (80.0-100.0); MEAN CORPUSCULAR HGB CONC 33.1 % (32.0-36.0); MONO % 7.6 % (0.0-8.0); NEUT % 81.2 % (16.0-70.0); PLATELET COUNT 332 TH/MM3 (150-450); RED BLOOD COUNT 4.41 MIL/MM3 (4.50-5.90); RED CELL DISTRIBUTION WIDTH 14.5 % (11.6-17.2); WHITE BLOOD COUNT 13.6 TH/MM3 (4.0-11.0)
[2016-11-20 05:38] LABS: BICARBONATE 22.7 MEQ/L (21.0-32.0); MAGNESIUM 1.6 MG/DL (1.5-2.5); POTASSIUM 3.5 MEQ/L (3.5-5.1)
[2016-11-20 05:47] LABS: HEMO FLAGS AUTO DIFF
[2016-11-20 06:47] LABS: BANDS 12 % (0-6); BASOPHILS 1 % (0-2); NEUTROPHIL # MANUAL DIFF 11.4 TH/MM3 (1.8-7.7); PLASMA CELLS 2 % (0-0); POLYS (SEG NEUTROPHILS) 72 % (16-70); WBC DIFF SAMPLE 100
[2016-11-20 06:49] LABS: ACANTHOCYTES OCC (NORMAL); PLATELET ESTIMATE SMEAR NORMAL (NORMAL); PLATELET MORPHOLOGY NORMAL (NORMAL); SCAN/DIFF FINAL DIFF MANUAL
[2016-11-20] MEDS: INSULIN HUMAN REGULAR 1,000 UNITS/10 ML VIAL SQ SCH ×3 (07:00→17:00)
[2016-11-20] MEDS: PANTOPRAZOLE SODIUM 40 MG VIAL IV PUSH SCH (07:59)
[2016-11-20] MEDS: SODIUM HYPOCHLORITE 0.25% 500 ML BTL TOPICAL SCH ×2 (08:01→21:13)
[2016-11-20] MEDS: INSULIN HUMAN NPH/R 70/30 1,000 UNITS/10 ML VIAL SQ SCH ×2 (08:34→17:00)
--- NOTE | 2016-11-20 09:55 | HHI.PR ---
Subjective Remarks Patient seen for f/u Forneir's gangrene. 11/20/16-patient seen this AM. Transferred to med-surg from ICU this AM. No acute events overnight. Vitals essentially WNL. Patient's only complaint this AM is of pain medication wearing out ~30 minutes before next dose. No other complaints at this time. Per nursing, patient with sustained sinus tachycardia in the 160-200s over the past 30 minutes. Patient denies any CP or SOB. No dizziness. Denies h/o arrhythmia or tachycardia in the past. Objective Vitals Vital Signs Date Time Temp Pulse Resp B/P Pulse Ox O2 Delivery O2 Flow Rate FiO2 11/20/16 08:00 98.5 93 18 133/68 97 11/20/16 04:00 99.5 89 20 146/70 95 11/20/16 00:00 98.4 84 20 147/77 97 11/19/16 18:30 99.6 89 18 160/77 94 11/19/16 18:00 93 11/19/16 16:00 99.0 75 15 127/68 92 11/19/16 16:00 75 11/19/16 15:00 80 11/19/16 13:00 92 11/19/16 12:00 101 11/19/16 12:00 100.2 101 23 137/65 95 11/19/16 10:00 83 I/O 11/19/16 11/19/16 11/19/16 11/20/16 11/20/16 11/20/16 07:00 15:00 23:00 07:00 15:00 23:00 Intake Total 740 ml 2510 ml 315 ml 840 ml Output Total 650 ml 800 ml 600 ml Balance 90 ml 1710 ml -285 ml 840 ml Intake Oral 240 ml 500 ml 240 ml 240 ml IV Total 500 ml 2010 ml 75 ml 600 ml Output Urine Total 650 ml 800 ml 600 ml # Voids 1 3 # Bowel Movements 1 1 0 1 Result Diagram: 11/20/16 0437 11/20/16 0457 Objective Remarks GENERAL: 51-year-old male resting in bed in no acute distress SKIN: Warm and dry. No rash CARDIOVASCULAR: Tachycardic. Regular rhythm with occasional irregularity. No murmurs. RESPIRATORY: Breath sounds equal bilaterally. No accessory muscle use. CTAB. No adventitious sounds. GASTROINTESTINAL: Abdomen soft, non-tender, nondistended. MUSCULOSKELETAL: Without significant peripheral edema BACK: Nontender without obvious deformity. No CVA tenderness. EXTREMITIES: Left groin with large open wound With into perineum and perirectal region with packing. No drainage or odor noted today. No significant surrounding skin changes. A/P Problem List: (1) Dementia ICD Code: F03.90 Status: Acute (2) Postoperative pain ICD Code: G89.18 Status: Acute (3) DKA (diabetic ketoacidoses) ICD Code: E13.10 Status: Acute (4) Peripheral neuropathy ICD Code: G62.9 Status: Acute (5) Coronary artery disease ICD Code: I25.10 Status: Chronic (6) Hypertension ICD Code: I10 Status: Chronic (7) Hyperlipidemia ICD Code: E78.5 Status: Chronic (8) GERD (gastroesophageal reflux disease) ICD Code: K21.9 Status: Chronic (9) Anemia ICD Code: D64.9 Status: Acute (10) Sinus tachycardia ICD Code: R00.0 Status: Acute Assessment and Plan Neuro/Psych: Dementia disorder NOS Postoperative pain Peripheral neuropathy/diabetic -morphine q3 PRN pain. Dilaudid PRN for breakthrough pain. -restart gabapentin CV: Sinus tachycardia Coronary disease status post CABG 5 Hypertension Dyslipidemia -HR in the 160-200s on tele this AM. Does have h/o tachycardia this admission, but was getting PRN labetalol IV push in the ICU, which cannot be given on med- surg floor. HR likely up 2/2 pain, but concern for underlying arrhythmia, given his cardiac hx. Will start on metoprolol IR 50 mg BID at this time (previously on 12.5mg TID). Transfer to [facility]. Cont PRN labetolol IV push. Cont tele. Check 12 -lead. Consult cards. Trend EKGs and cardiac enzymes if any CP or SOB. -EF 50-55%. Apical akinesis. Mild MV regurg, TV regurg -On Lopressor 12.5mg Q8. BP readings ~ WNL. -restart lovastatin tonight. Resp: -sats in the low-to-mid 90s on room air -incentive spirometry while awake GI: Gastroesophageal reflux disease -diabetic diet -protonix for GI ppx : -status post I&D bilateral perirectal region 7.5 cm removal necrotic tissue secondary to necrosis ischiorectal fossa Dr. Vallecillo POD #4. EBL -400. Postoperative surgical care per Dr. Vallecillo. Will need further debridement + wound vac v continued dressing. -CT abdomen/pelvis 11/16 revealed diverticulosis without diverticulitis. 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 Endo: Diabetes mellitus -bedside glucose in the 100s. -cont novolin 30 u qAM and 20 u qHS with 10 u novolin TIDAC. SSI. Renal: -kidney function and electrolytes WNL. Heme: Normocytic anemia -hemoglobin stable at 11 -currently holding aspirin 81 mg daily and Plavix any 5 mg by mouth daily. Resume when okay with general surgery ID: -continue cefepime (11/19-), flagyl (11/19-), and vancomycin (11/18-). S/p clindamycin (11/17-11/19) and zosyn (11/16-11/19) -11/16 Blood cultures 2 no growth to date -11/17 Wound cx: Klebsiella (sens to cefepime), E. coli (sens to cefepime), MDR GBS -infectious disease following (Dr. Amador). Have changed abx, as above. MSK: -PT evaluate and treat. Recommend PT. Access -Utilize peripheral IV. Prophylaxis -GI Protonix -DVT ; SCD/pharmacological prophylaxis per general surgery Problem Qualifiers (1) DKA (diabetic ketoacidoses): Qualified Code: E13.10 - Diabetic ketoacidosis without coma associated with type 2 diabetes mellitus Estrada Sanches MD R3 November 20, 2016 09:55
[2016-11-20] MEDS: METOPROLOL TARTRATE 50 MG TAB PO SCH (10:57)
--- NOTE | 2016-11-20 11:27 | HHI.FPPN ---
Addendum to progress note ADDENDUM Reason for addendum: Additonal documentation Additional information Called at approximately 1120. Patient's 12-lead EKG shows Afib with RVR. Patient sitting comfortably in bed. Still denies any CP or SOB. -cardizem loading dose ordered followed by drip -hold BB -trend EKGs with troponin -cards has been consulted -no beds available in [facility]. Will need to transfer to surgical ICU. -defer to cards/surgery regarding anticoagulation. Estrada Sanches MD R3 November 20, 2016 11:27
[2016-11-20] MEDS ORDERED: DILTIAZEM INJ 125 MG in SODIUM CHLORIDE 0.9% INJ 100 ML IV SCH (11:30)
[2016-11-20] MEDS ORDERED: DILTIAZEM HCL 25 MG/5 ML VIAL IV PUSH ONE (11:30)
[2016-11-20] MEDS: GABAPENTIN 300 MG CAP PO SCH ×3 (13:48→21:08)
[2016-11-20] MEDS: VANCOMYCIN INJ 2,000 MG in SODIUM CHLORID 0.9% 500 ML INJ 500 ML IV SCH (14:15)
--- NOTE | 2016-11-20 14:49 | HHI.PR ---
Subjective Subjective Notes Mildly agitated; trying to untangle cords Moved to [facility] for Afib with RVR --- on Cardizem Objective Vitals/I&O Vital Signs Date Time Temp Pulse Resp B/P Pulse Ox O2 Delivery O2 Flow Rate FiO2 11/20/16 13:54 18 11/20/16 11:26 98.3 168 106/69 97 11/20/16 11:25 21 11/17/16 03:25 Nasal Cannula 3 Labs Laboratory Tests Test 11/20/16 11/20/16 11/20/16 00:45 04:37 04:57 Vancomycin Level Trough 5.9 White Blood Count 13.6 Red Blood Count 4.41 Hemoglobin 11.0 Hematocrit 33.3 Mean Corpuscular Volume 75.6 Mean Corpuscular Hemoglobin 25.0 Mean Corpuscular Hemoglobin 33.1 Concent Red Cell Distribution Width 14.5 Platelet Count 332 Mean Platelet Volume 8.0 Neutrophils (%) (Auto) 81.2 Lymphocytes (%) (Auto) 9.7 Monocytes (%) (Auto) 7.6 Eosinophils (%) (Auto) 1.3 Basophils (%) (Auto) 0.2 Neutrophils # (Auto) 11.0 Lymphocytes # (Auto) 1.3 Monocytes # (Auto) 1.0 Eosinophils # (Auto) 0.2 Basophils # (Auto) 0.0 CBC Comment AUTO DIFF Differential Total Cells 100 Counted Neutrophils % (Manual) 72 Band Neutrophils % 12 Lymphocytes % 12 Monocytes % 1 Basophils % 1 Neutrophils # (Manual) 11.4 Differential Comment FINAL DIFF MANUAL Plasma Cells 2 Platelet Estimate NORMAL Platelet Morphology Comment NORMAL Acanthocytes OCC Sodium Level 138 Potassium Level 3.5 Chloride Level 102 Carbon Dioxide Level 22.7 Anion Gap 13 Blood Urea Nitrogen 5 Creatinine 0.51 Estimat Glomerular Filtration 172 Rate Random Glucose 142 Calcium Level 9.0 Phosphorus Level 2.0 Magnesium Level 1.6 Thyroid Stimulating Hormone 0.603 3rd Gen Date/Time Procedure Status Source Growth 11/17/16 01:40 Gram Stain - Final Complete Abscess Buttock 11/17/16 01:40 Wound Culture - Final Complete Klebsiella Pneumoniae Escherichia Coli Multi-Drug Resistant Group B Beta Strep 11/17/16 01:40 Fungal Smear - Final Resulted Abscess Buttock NO FUNGAL ELEMENTS SEEN. 11/17/16 01:40 Fungal Culture Resulted Abscess Buttock Pending 11/17/16 01:40 Acid Fast Stain - Final Resulted Abscess Buttock NO ACID FAST BACILLI SEEN 11/17/16 01:40 Mycobacterial Culture Resulted Abscess Buttock Pending 11/16/16 14:50 Aerobic Blood Culture - Preliminary Resulted Blood Peripheral NO GROWTH IN 4 DAYS 11/16/16 14:50 Anaerobic Blood Culture - Preliminary Resulted Blood Peripheral NO GROWTH IN 4 DAYS Cardiovascular: Regular Lungs: Clear Abdomen: Non-distended, Non-tender Narrative Exam buttocks wound---minimal exudate in wound bed; packing remove and replaced with dakin gauze A/P Assessment and Plan 51 year old male POD4 I&D perirectal abscess -Continue dressing changes and antibiotics -Cardiology following for Afib RVR; moved to [facility] -Will need to go back to OR for further debridement and possible VAC placement vs. continued dressing changes---plan for Saturday -1799 ADA diet; NPO after MN -Obtain consents Attending Note - Dr. Vallecillo Transferred to [facility] for A-fib with RVR OR tomorrow if A-fib rate controlled The exam, history, and the medical decision-making described in the above note were completed with the assistance of the mid-level provider. I reviewed and agree with the findings presented. I attest that I had a [id number] encounter with the patient on the same day, and personally performed and documented my assessment and findings in the medical record. Caty Matute November 20, 2016 14:49 Hiram Vallecillo MD November 20, 2016 17:20
--- NOTE | 2016-11-20 15:07 | EKG ---
Date Performed: 11/20/2016 Time Performed: 11:07:33 PTAGE: 51 years EKG: ATRIAL FIBRILLATION WITH RAPID VENTRICULAR RESPONSE INFERIOR MYOCARDIAL INFARCTION , PROBAB LY OLD When compared to previous tracing, the patient is now in atrial Fibrillation with a rapid vent ricular response, and right bundle Branch block. ABNORMAL ECG PREVIOUS TRACING : 11/18/2016 11.22 DOCTOR: Doris Gupta Interpretating Date/Time 11/20/2016 15:06:31
--- NOTE | 2016-11-20 16:37 | MB ---
cc: JOSY SANTILLAN DATE OF CONSULTATION: 11/20/2016 REASON FOR CONSULTATION: HISTORY OF PRESENT ILLNESS: Mr. Diallo is a 51 year-old white male with a history of coronary artery disease, multiple heart attacks and coronary bypass. He was admitted with Jessica's gangrene and underwent debridement by Dr. Vallecillo. This morning he developed atrial fibrillation with rapid ventricular response without any symptoms. He was transferred to surgical ICU since there were no beds available in [facility]. He spontaneously converted to sinus rhythm. He has not had any chest pain or shortness of breath since his bypass. His angina equivalent in the past was pain across his back and neck which he has not had since his bypass. PAST MEDICAL HISTORY: 1. Coronary artery disease. 2. Myocardial infarction x5. 3. Coronary artery bypass. 4. Hypertension. 5. Dyslipidemia. 6. Diabetes mellitus. 7. Diabetic neuropathy. ALLERGIES: CRESTOR LISINOPRIL COZAAR PRAVACHOL SOCIAL HISTORY: The patient does not smoke. He drinks alcohol infrequently. He is accompanied by his family. FAMILY HISTORY: Positive for heart disease, otherwise negative. PHYSICAL EXAMINATION: VITAL SIGNS: Blood pressure 106/59, pulse 70 and irregular. HEENT: Negative. 2+ carotid upstrokes. No bruits. LUNGS: Clear. HEART: Regular with no murmur, gallop or rub. Cardiac scar after coronary bypass. ABDOMEN: Soft. No bruits. EXTREMITIES: Without edema. 2+ distal pulses. NEUROLOGIC: Grossly nonfocal. EKG: EKG is reviewed. Initial EKG on admission showed normal sinus rhythm, left axis, incomplete right bundle-branch block. EKG today showed atrial fibrillation with rapid ventricular response. Telemetry now shows normal sinus rhythm. DIAGNOSIS: 1. Atrial fibrillation with rapid ventricular response. 2. Status post I&D of perirectal abscess. 3. History of coronary artery disease, myocardial infarction, coronary artery bypass. 4. Hypertension. 5. Dyslipidemia. 6. Diabetes mellitus. 7. Recent DKA. 8. Dementia. DISPOSITION: Mr. Diallo will be monitored on telemetry. He spontaneously converted to sinus rhythm. I recommend to restart therapy with metoprolol. I also recommend continuing aggressive management of cardiac risk factors, especially dyslipidemia, diabetes mellitus and hypertension. I will follow Mr. Diallo for cardiology during his hospitalization. The plan was discussed with the patient and his family. He will be seen back for followup at the OR after discharge. MD VALERIE Miles/RUSS /2:53 PM /3:46 PM TIKI
[2016-11-20] MEDS ORDERED: PRAVASTATIN SOD 40 MG TAB PO SCH (21:00)
[2016-11-21] VITALS (18 sets, daily range): BP systolic 138–166; BP diastolic 67–83; PULSE 76–104; RESP 16–21; TEMP 98.9–99.7; O2SAT 95–98
[2016-11-21] MEDS: CEFEPIME INJ 2,000 MG in SODIUM CHLORIDE 0.9% INJ 100 ML IV SCH ×5 (00:02→20:52)
[2016-11-21] MEDS: metroNIDAZOLE 500 MG TAB PO SCH ×4 (00:02→20:51)
[2016-11-21] MEDS: MORPHINE SULFATE 4 MG/ML INJ IV PUSH PRN ×5 (00:08→20:51)
[2016-11-21] MEDS ORDERED: METOPROLOL TARTRATE 25 MG TAB PO PRN (00:15)
[2016-11-21] MEDS ORDERED: LACTATED RINGER'S 1000 ML IV PRN (00:15)
[2016-11-21] MEDS ORDERED: SODIUM CHLORID 0.9% 500 ML IV PRN (00:15)
[2016-11-21] MEDS ORDERED: CHLORHEXIDINE GLUCONATE 2 % 1 PACK (2 CLOTHS) TOPICAL PRN (00:15)
[2016-11-21] MEDS ORDERED: POVIDONE IODINE 5% (ANTISEPSIS KIT) 4 APPLICATIONS EACH NARE PRN (00:15)
[2016-11-21] MEDS: HYDROmorphone HCL PF 1 MG/ML VIAL IV PUSH PRN ×5 (01:27→23:44)
[2016-11-21] MEDS: VANCOMYCIN INJ 2,000 MG in SODIUM CHLORID 0.9% 500 ML INJ 500 ML IV SCH (01:27)
[2016-11-21] MEDS: INSULIN NovoLIN REGULAR SUPPLEMENTAL SCALE SQ SCH ×5 (03:00→21:00)
[2016-11-21] MEDS: CHLORHEXIDINE GLUCONATE 2 % 1 PACK (2 CLOTHS) TOP SCH (04:00)
[2016-11-21 06:14] LABS: BASOPHIL % 0.4 % (0.0-2.0); EOSINOPHIL # 0.1 TH/MM3 (0-0.4); EOSINOPHIL % 1.5 % (0.0-4.0); HEMATOCRIT 33.4 % (39.0-51.0); LYMPH % 8.8 % (9.0-44.0); LYMPHOCYTE # 0.9 TH/MM3 (1.0-4.8); MEAN CELL VOLUME 76.3 FL (80.0-100.0); MEAN CORPUSCULAR HGB CONC 32.7 % (32.0-36.0); MONO % 7.2 % (0.0-8.0); NEUT % 82.1 % (16.0-70.0); PLATELET COUNT 301 TH/MM3 (150-450); RED BLOOD COUNT 4.37 MIL/MM3 (4.50-5.90); WHITE BLOOD COUNT 9.8 TH/MM3 (4.0-11.0)
[2016-11-21 06:21] LABS: HEMO FLAGS AUTO DIFF
[2016-11-21 06:45] LABS: BICARBONATE 24.6 MEQ/L (21.0-32.0); POTASSIUM 3.3 MEQ/L (3.5-5.1)
[2016-11-21] MEDS: INSULIN HUMAN REGULAR 1,000 UNITS/10 ML VIAL SQ SCH ×3 (07:00→17:00)
[2016-11-21 07:28] LABS: BANDS 3 % (0-6); EOSINOPHILS 2 % (0-4); METAMYELOCYTES 1 % (0-1); NEUTROPHIL # MANUAL DIFF 7.5 TH/MM3 (1.8-7.7); POLYS (SEG NEUTROPHILS) 73 % (16-70); WBC DIFF SAMPLE 100
[2016-11-21 07:29] LABS: PLATELET ESTIMATE SMEAR NORMAL (NORMAL); PLATELET MORPHOLOGY NORMAL (NORMAL); SCAN/DIFF FINAL DIFF MANUAL
[2016-11-21] MEDS: INSULIN HUMAN NPH/R 70/30 1,000 UNITS/10 ML VIAL SQ SCH ×2 (08:00→17:00)
[2016-11-21] MEDS: GABAPENTIN 300 MG CAP PO SCH ×4 (08:30→20:51)
[2016-11-21] MEDS: PANTOPRAZOLE SODIUM 40 MG VIAL IV PUSH SCH (08:31)
--- NOTE | 2016-11-21 08:37 | HHI.PR ---
Subjective Remarks Patient tells me he feels 150% better today. Denies any chest pain, shortness of breath, nausea vomiting, palpitations. He asked me to verify his gabapentin dose which he tells me he takes 600 mg 4 times a day. He even asked me to call his pharmacy to confirm the dosage. He tells me he is supposed to go to the operating room later today. His pain currently is manageable. Objective Vitals Vital Signs Date Time Temp Pulse Resp B/P Pulse Ox O2 Delivery O2 Flow Rate FiO2 11/21/16 06:56 82 11/21/16 04:56 84 11/21/16 04:55 99.7 93 16 166/77 95 11/21/16 03:00 82 11/21/16 02:34 99.7 95 16 158/83 96 11/21/16 02:00 84 11/21/16 01:00 88 11/21/16 00:00 88 11/20/16 23:00 82 11/20/16 21:22 100.0 95 16 140/67 99 11/20/16 21:00 82 11/20/16 20:00 82 11/20/16 19:00 89 11/20/16 18:19 16 11/20/16 18:18 16 11/20/16 17:00 99.2 80 18 148/78 99 11/20/16 16:45 78 11/20/16 15:00 80 11/20/16 15:00 80 11/20/16 11:26 98.3 168 18 106/69 97 11/20/16 11:25 99 21 11/20/16 11:23 174 106/69 I/O 11/20/16 11/20/16 11/20/16 11/21/16 11/21/16 11/21/16 07:00 15:00 23:00 07:00 15:00 23:00 Intake Total 840 ml 670 ml 800 ml 1180 ml Output Total 650 ml 625 ml 1200 ml Balance 840 ml 20 ml 175 ml -20 ml Intake Oral 240 ml 420 ml 600 ml 480 ml IV Total 600 ml 250 ml 200 ml 700 ml Output Urine Total 650 ml 625 ml 1200 ml # Voids 3 # Bowel Movements 1 2 Result Diagram: 11/21/16 0502 11/21/16 0502 Imaging Last Impressions Pelvis CT 11/16/16 0000 Signed Impressions: Service Date/Time: Wednesday, November 16, 2016 16:20 - CONCLUSION: 1. Fornier's gangrene of the perineal region as detailed above. This can be a life threatening condition. 2. Results were called to the emergency department (Dr. Bryan Cuellar) the time of this dictation. 3. 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 Elijah Álvarez MD Chest X-Ray 11/16/16 0000 Signed Impressions: Service Date/Time: Wednesday, November 16, 2016 17:48 - CONCLUSION: No evidence of acute cardiopulmonary disease. Previous median sternotomy. Magnus Steele MD Objective Remarks GENERAL: 51-year-old male resting in bed in no acute distress CARDIOVASCULAR: Regular rhythm with occasional irregularity. No murmurs. RESPIRATORY: Breath sounds equal bilaterally. No accessory muscle use. CTAB. GASTROINTESTINAL: Abdomen soft, non-tender, nondistended. MUSCULOSKELETAL: Without significant peripheral edema EXTREMITIES: Left groin with large open wound With into perineum and perirectal region with packing. No drainage or odor noted today. No significant surrounding skin changes. A/P Problem List: (1) Dementia ICD Code: F03.90 Status: Acute (2) Postoperative pain ICD Code: G89.18 Status: Acute (3) DKA (diabetic ketoacidoses) ICD Code: E13.10 Status: Acute (4) Peripheral neuropathy ICD Code: G62.9 Status: Acute (5) Coronary artery disease ICD Code: I25.10 Status: Chronic (6) Hypertension ICD Code: I10 Status: Chronic (7) Hyperlipidemia ICD Code: E78.5 Status: Chronic (8) GERD (gastroesophageal reflux disease) ICD Code: K21.9 Status: Chronic (9) Anemia ICD Code: D64.9 Status: Acute (10) Sinus tachycardia ICD Code: R00.0 Status: Acute Assessment and Plan Neuro/Psych: Dementia disorder NOS Postoperative pain Peripheral neuropathy/diabetic -morphine PRN pain. Dilaudid PRN for breakthrough pain. -home dose of gabapentin has been restarted CV: Sinus tachycardia Coronary disease status post CABG 5 Hypertension Dyslipidemia -Pt was found to have atrial fib w rvr but converted spontaneously. cardiology evaluated the pt and recommended restarting him on metoprolol. I have restarted him on this. d/c IV cardizem. -EF 50-55%. Apical akinesis. Mild MV regurg, TV regurg -On Lopressor 50mg Q12. monitor HR and BPs -on lovastatin Resp: -sats in the low-to-mid 90s on room air -incentive spirometry while awake GI: Gastroesophageal reflux disease NPO for now as he is going to the OR for wound vac placement and dressing change. -protonix for GI ppx : -status post I&D bilateral perirectal region 7.5 cm removal necrotic tissue secondary to necrosis ischiorectal fossa Dr. Vallecillo POD #5. Postoperative surgical care per Dr. Vallecillo. OR today for wound vac and dressing. -CT abdomen/pelvis 11/16 revealed diverticulosis without diverticulitis. 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 on Vanc/ cefepime and flagyl. Endo: Diabetes mellitus -bedside glucose in the 100s. -cont novolin 30 u qAM and 20 u qHS with 10 u novolin TIDAC. SSI. Renal: -kidney function and electrolytes WNL. Heme: Normocytic anemia -hemoglobin stable at 10.9 -currently holding aspirin 81 mg daily and Plavix any 5 mg by mouth daily. Resume when okay with general surgery ID: -continue cefepime (11/19-), flagyl (11/19-), and vancomycin (11/18-). S/p clindamycin (11/17-11/19) and zosyn (11/16-11/19) -11/16 Blood cultures 2 no growth to date -11/17 Wound cx: Klebsiella (sens to cefepime), E. coli (sens to cefepime), MDR GBS -infectious disease following (Dr. Amador). Have changed abx, as above. MSK: -PT evaluate and treat. Recommend PT. Access -Utilize peripheral IV. Prophylaxis -GI Protonix -DVT ; SCD/pharmacological prophylaxis per general surgery Discharge Planning OR today for wound vac placement and dressing change Problem Qualifiers (1) DKA (diabetic ketoacidoses): Qualified Code: E13.10 - Diabetic ketoacidosis without coma associated with type 2 diabetes mellitus Taty Cazares MD November 21, 2016 08:37
[2016-11-21] MEDS: SODIUM HYPOCHLORITE 0.25% 500 ML BTL TOPICAL SCH ×2 (09:00→20:51)
[2016-11-21] MEDS: METOPROLOL TARTRATE 50 MG TAB PO SCH ×2 (09:00→20:51)
[2016-11-21] MEDS ORDERED: PHENYLEPH/NS 1000 MCG/10 ML SYR IV ONE (12:00)
[2016-11-21] MEDS ORDERED: PROPOFOL 200 MG/20 ML AMP IV ONE (12:00)
[2016-11-21] MEDS ORDERED: ONDANSETRON HCL 4 MG/2 ML VIAL IV PUSH ONE (12:00)
--- NOTE | 2016-11-21 13:44 | HHI.IDPN ---
Subjective Subjective Remarks 51 year old male, with DM, admitted and diagnosed to have Jessica's gangrene and perirectal abscess S/P extensive debridement and has open wounds with packing Notes reviewed OR plans for today Afebrile Pain under control WBC better OR C/S E coli, Kleb, GBS BC negative Antibiotics Cefepime Flagyl Vancomycin Lines PIV Past Medical History reviewed Allergies: Coded Allergies: CRESTOR (Verified Allergy, Severe, cardiac, 08/13/16) Lisinopril (Verified Allergy, Severe, Anaphylaxis, 08/13/16) Itching, lip swelling, throat closing. *MDRO Multi-Drug Resistant Organism (Verified Adverse Reaction, Unknown, ) MDR-E.Coli (perirectal abscess)-11/17/16 Uncoded Allergies: provacal (Allergy, Severe, 12/28/15) COZAR (Allergy, Intermediate, 03/11/16) Objective . Vital Signs Date Time Temp Pulse Resp B/P Pulse Ox O2 Delivery O2 Flow Rate FiO2 11/21/16 06:56 82 11/21/16 04:56 84 11/21/16 04:55 99.7 93 16 166/77 95 11/21/16 03:00 82 11/21/16 02:34 99.7 95 16 158/83 96 11/21/16 02:00 84 11/21/16 01:00 88 11/21/16 00:00 88 11/20/16 23:00 82 11/20/16 21:22 100.0 95 16 140/67 99 11/20/16 21:00 82 11/20/16 20:00 82 11/20/16 19:00 89 11/20/16 18:19 16 11/20/16 18:18 16 11/20/16 17:00 99.2 80 18 148/78 99 11/20/16 16:45 78 11/20/16 15:00 80 11/20/16 15:00 80 11/20/16 11/20/16 11/21/16 15:00 23:00 07:00 Intake Total 670 ml 800 ml 1180 ml Output Total 650 ml 625 ml 1200 ml Balance 20 ml 175 ml -20 ml Intake Oral 420 ml 600 ml 480 ml IV Total 250 ml 200 ml 700 ml Output Urine Total 650 ml 625 ml 1200 ml # Bowel Movements 2 . Laboratory Tests Test 11/20/16 11/21/16 04:37 05:02 White Blood Count 13.6 TH/MM3 9.8 TH/MM3 Red Blood Count 4.41 MIL/MM3 4.37 MIL/MM3 Hemoglobin 11.0 GM/DL 10.9 GM/DL Hematocrit 33.3 % 33.4 % Mean Corpuscular Volume 75.6 FL 76.3 FL Mean Corpuscular Hemoglobin 25.0 PG 25.0 PG Mean Corpuscular Hemoglobin 33.1 % 32.7 % Concent Red Cell Distribution Width 14.5 % 15.0 % Platelet Count 332 TH/MM3 301 TH/MM3 Mean Platelet Volume 8.0 FL 7.7 FL Neutrophils (%) (Auto) 81.2 % 82.1 % Lymphocytes (%) (Auto) 9.7 % 8.8 % Monocytes (%) (Auto) 7.6 % 7.2 % Eosinophils (%) (Auto) 1.3 % 1.5 % Basophils (%) (Auto) 0.2 % 0.4 % Neutrophils # (Auto) 11.0 TH/MM3 8.0 TH/MM3 Lymphocytes # (Auto) 1.3 TH/MM3 0.9 TH/MM3 Monocytes # (Auto) 1.0 TH/MM3 0.7 TH/MM3 Eosinophils # (Auto) 0.2 TH/MM3 0.1 TH/MM3 Basophils # (Auto) 0.0 TH/MM3 0.0 TH/MM3 CBC Comment AUTO DIFF AUTO DIFF Differential Total Cells 100 100 Counted Neutrophils % (Manual) 72 % 73 % Band Neutrophils % 12 % 3 % Lymphocytes % 12 % 10 % Monocytes % 1 % 11 % Basophils % 1 % Neutrophils # (Manual) 11.4 TH/MM3 7.5 TH/MM3 Differential Comment FINAL DIFF FINAL DIFF MANUAL MANUAL Plasma Cells 2 % Platelet Estimate NORMAL NORMAL Platelet Morphology Comment NORMAL NORMAL Acanthocytes OCC Eosinophils % 2 % Metamyelocytes 1 % Laboratory Tests Test 11/20/16 11/20/16 11/20/16 11/21/16 04:57 14:51 19:23 05:02 Sodium Level 138 MEQ/L 139 MEQ/L Potassium Level 3.5 MEQ/L 3.3 MEQ/L Chloride Level 102 MEQ/L 100 MEQ/L Carbon Dioxide Level 22.7 MEQ/L 24.6 MEQ/L Anion Gap 13 MEQ/L 14 MEQ/L Blood Urea Nitrogen 5 MG/DL 5 MG/DL Creatinine 0.51 MG/DL 0.57 MG/DL Estimat Glomerular Filtration 172 ML/MIN 151 ML/MIN Rate Random Glucose 142 MG/DL 219 MG/DL Calcium Level 9.0 MG/DL 9.1 MG/DL Phosphorus Level 2.0 MG/DL Magnesium Level 1.6 MG/DL Thyroid Stimulating Hormone 0.603 uIU/ML 3rd Gen Troponin I LESS THAN 0.02 LESS THAN 0.02 NG/ML NG/ML Imaging Pelvis CT 11/16/16 0000 Signed Impressions: Service Date/Time: Wednesday, November 16, 2016 16:20 - CONCLUSION: 1. Fornier's gangrene of the perineal region as detailed above. This can be a life threatening condition. 2. Results were called to the emergency department (Dr. Bryan Cuellar) the time of this dictation. 3. 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 Elijah Álvarez MD Chest X-Ray 11/16/16 0000 Signed Impressions: Service Date/Time: Wednesday, November 16, 2016 17:48 - CONCLUSION: No evidence of acute cardiopulmonary disease. Previous median sternotomy. Magnus Steele MD Physical Exam GENERAL: awake and alert, not in respiratory distress. SKIN: Warm and dry. No generalized rash HEAD: Atraumatic. Normocephalic. No temporal wasting, or tenderness. EYES: [place] conjunctiva. No petechia or hemorrhage. No scleral icterus. No injection or drainage. EARS, NOSE AND THROAT: No sinus tenderness. Mucous membranes pink and moist. No oral lesions noted. No exudate. NECK: Trachea midline. Supple and not tender, no meningeal signs CARDIOVASCULAR: Regular rate and rhythm. No murmurs, rubs or gallops heard RESPIRATORY: Clear to auscultation. Breath sounds equal bilaterally. No rales , wheezing or rhonchi ABDOMEN: Soft, non-tender, nondistended. Bowel sounds present and normoactive. No guarding. No rebound. No organomegaly. EXTREMITIES: No clubbing, cyanosis, or edema. No calf tenderness. Well perfused and warm. NEUROLOGICAL: Grossly non-focal PSYCHIATRIC: Normal affect, calm and cooperative. LINE: No evidence of infection : Has packing in place in his large open wound in perineum, L groin and buttocks Assessment & Plan Remarks IMPRESSION Sepsis due to Jessica's gangrene, perirectal abscess - S/P extensive debridement - better - C/S polymicrobial Jessica's gangrene, perirectal abscess DKA Leukocytosis, resolved RECOMMENDATION Continue cefepime and Flagyl D/C Vancomycin For repeat debridement Monitor progress Follow temps Follow CBC Will decide on course of Abx once all surgical procedures done - will D/W surgery Noemí Amador MD November 21, 2016 13:44
[2016-11-21] MEDS ORDERED: fentaNYL CITRATE 250 MCG/5 ML AMP ONE (15:19)
[2016-11-21] MEDS ORDERED: GENTAMICIN SULFATE 80 MG/2 ML VIAL ONE (15:36)
--- NOTE | 2016-11-21 15:43 | PD.CARD.PN ---
Subjective Subjective Remarks No CP or SOB, in SR Objective Medications Current Medications Medications (Trade) Dose Ordered Sig/Ronaldo Route Start Time Stop Time Status Last Admin Miscellaneous Information 1 Q361D XX 11/16/16 17:45 (Chlorhexidine 2% Cloth) 3 pack Taper DAILY@04 TOP 11/17/16 04:00 11/13/17 03:59 11/19/16 03:49 (Chlorhexidine 2% Cloth) 3 pack UNSCH PRN TOP 11/16/16 17:45 (Morphine Inj) 4 mg Q3H PRN IV PUSH 11/16/16 18:15 11/21/16 13:06 (Tylenol) 650 mg Q6H PRN PO 11/16/16 20:15 11/17/16 22:02 (Dakin'S 0.25% Soln) 500 ml BID TOPICAL 11/17/16 09:00 11/21/16 09:00 (D50w (Vial) Inj) 50 ml UNSCH PRN IV 11/17/16 13:15 Glucagon 1 mg 1 mg UNSCH PRN OTHER 11/17/16 13:15 Potassium Chloride 100 ml @ 50 mls/hr Q2H PRN IV 11/17/16 13:45 (KCl 20 Meq Premix Inj) 100 ml @ 50 mls/hr Q2H PRN IV 11/17/16 13:45 11/19/16 14:55 Potassium Bicarb/ Potassium Chloride 50 meq 50 meq UNSCH PRN PO 11/17/16 13:45 11/17/16 17:55 Potassium Chloride 100 ml @ 25 mls/hr UNSCH PRN IV 11/17/16 13:45 Potassium Chloride 100 ml @ 50 mls/hr Q2H PRN IV 11/17/16 13:45 (Magnesium Sulfate Inj/NS Inj) 100 ml @ 50 mls/hr UNSCH PRN IV 11/17/16 13:45 Magnesium Oxide 800 mg 800 mg UNSCH PRN PO 11/17/16 13:45 (Magnesium Sulfate Inj/NS Inj) 100 ml @ 50 mls/hr UNSCH PRN IV 11/17/16 13:45 Potassium Phosphate 2000 mg 2,000 mg Q4H PRN PO 11/17/16 13:45 (Sodium Phosphate Inj/NS 250 ml Inj) 250 ml @ 42 mls/hr UNSCH PRN IV 11/17/16 13:45 11/19/16 10:37 (K-Phos) 2,000 mg UNSCH PRN PO/TUBE 11/17/16 13:45 11/18/16 08:05 (Trandate Inj) 10 mg Q1HR PRN IV PUSH 11/18/16 09:00 (Apresoline Inj) 10 mg Q1HR PRN IV PUSH 11/18/16 09:00 (Nitroglycerin 2% Oint) 2 inch Q6HR PRN TOPICAL 11/18/16 09:00 (Pill Splitter) 1 ea UNSCH PRN OTHER 11/18/16 09:00 (Dilaudid Pf Inj) 1 mg Q4H PRN IV PUSH 11/18/16 09:00 11/21/16 14:41 (Protonix Inj) 40 mg Q24H IV PUSH 11/18/16 09:00 11/21/16 08:31 (NovoLIN R INJ) 10 units DAILY@17 SQ 11/18/16 17:00 11/20/16 17:00 (NovoLIN 70/30 INJ) 30 units DAILY@08 SQ 11/19/16 08:00 11/20/16 08:34 Insulin Human Isoph/Insulin Regular 20 units 20 units DAILY@17 SQ 11/18/16 17:00 11/20/16 17:00 (Maxipime Inj/NS Inj) 100 ml @ 200 mls/hr Q8H IV 11/19/16 14:00 11/21/16 05:34 (Flagyl) 500 mg Q8HR PO 11/19/16 14:00 11/21/16 13:05 Miscellaneous Information SPECIFIC LAB TO BE DRAWN:VANCOMYCIN TROUGH DATE TO... ONCE ONCE .XX 11/22/16 00:45 11/22/16 00:46 (Lopressor) 50 mg Q12HR PO 11/20/16 10:45 11/21/16 09:00 Gabapentin 600 mg 600 mg QID PO 11/20/16 13:00 11/21/16 13:05 Diltiazem HCl 125 mg/Sodium Chloride 125 ml @ 0 mls/hr TITRATE IV 11/20/16 11:30 Sodium Chloride 500 ml @ 30 mls/hr [id number] PRN IV 11/21/16 00:15 11/24/16 00:14 (KCl Inj/Lr 1000 ml Inj) 1,010 ml @ 30 mls/hr Q24H PRN IV 11/22/16 00:15 Vital Signs / I&O Vital Signs Date Time Temp Pulse Resp B/P Pulse Ox O2 Delivery O2 Flow Rate FiO2 11/21/16 06:56 82 11/21/16 04:56 84 11/21/16 04:55 99.7 93 16 166/77 95 11/21/16 03:00 82 11/21/16 02:34 99.7 95 16 158/83 96 11/21/16 02:00 84 11/21/16 01:00 88 11/21/16 00:00 88 11/20/16 23:00 82 11/20/16 21:22 100.0 95 16 140/67 99 11/20/16 21:00 82 11/20/16 20:00 82 11/20/16 19:00 89 11/20/16 18:19 16 11/20/16 18:18 16 11/20/16 17:00 99.2 80 18 148/78 99 11/20/16 16:45 78 I/O 11/20/16 11/20/16 11/20/16 11/21/16 11/21/16 11/21/16 07:00 15:00 23:00 07:00 15:00 23:00 Intake Total 840 ml 670 ml 800 ml 1180 ml Output Total 650 ml 625 ml 1200 ml Balance 840 ml 20 ml 175 ml -20 ml Intake Oral 240 ml 420 ml 600 ml 480 ml IV Total 600 ml 250 ml 200 ml 700 ml Output Urine Total 650 ml 625 ml 1200 ml # Voids 3 # Bowel Movements 1 2 Physical Exam GENERAL: In NAD SKIN: Warm and dry. HEAD: Normocephalic. EYES: No scleral icterus. No injection or drainage. NECK: Supple, trachea midline. No JVD or lymphadenopathy. CARDIOVASCULAR: Regular rate and rhythm without murmurs, gallops, or rubs. RESPIRATORY: Breath sounds equal bilaterally. No accessory muscle use. GASTROINTESTINAL: Abdomen soft, non-tender, nondistended. MUSCULOSKELETAL: No cyanosis, or edema. Laboratory Laboratory Tests Test 11/20/16 11/21/16 19:23 05:02 Troponin I LESS THAN 0.02 NG/ML White Blood Count 9.8 TH/MM3 Red Blood Count 4.37 MIL/MM3 Hemoglobin 10.9 GM/DL Hematocrit 33.4 % Mean Corpuscular Volume 76.3 FL Mean Corpuscular Hemoglobin 25.0 PG Mean Corpuscular Hemoglobin 32.7 % Concent Red Cell Distribution Width 15.0 % Platelet Count 301 TH/MM3 Mean Platelet Volume 7.7 FL Neutrophils (%) (Auto) 82.1 % Lymphocytes (%) (Auto) 8.8 % Monocytes (%) (Auto) 7.2 % Eosinophils (%) (Auto) 1.5 % Basophils (%) (Auto) 0.4 % Neutrophils # (Auto) 8.0 TH/MM3 Lymphocytes # (Auto) 0.9 TH/MM3 Monocytes # (Auto) 0.7 TH/MM3 Eosinophils # (Auto) 0.1 TH/MM3 Basophils # (Auto) 0.0 TH/MM3 CBC Comment AUTO DIFF Differential Total Cells 100 Counted Neutrophils % (Manual) 73 % Band Neutrophils % 3 % Lymphocytes % 10 % Monocytes % 11 % Eosinophils % 2 % Neutrophils # (Manual) 7.5 TH/MM3 Metamyelocytes 1 % Differential Comment FINAL DIFF MANUAL Platelet Estimate NORMAL Platelet Morphology Comment NORMAL Sodium Level 139 MEQ/L Potassium Level 3.3 MEQ/L Chloride Level 100 MEQ/L Carbon Dioxide Level 24.6 MEQ/L Anion Gap 14 MEQ/L Blood Urea Nitrogen 5 MG/DL Creatinine 0.57 MG/DL Estimat Glomerular Filtration 151 ML/MIN Rate Random Glucose 219 MG/DL Calcium Level 9.1 MG/DL Imaging Last Impressions Pelvis CT 11/16/16 0000 Signed Impressions: Service Date/Time: Wednesday, November 16, 2016 16:20 - CONCLUSION: 1. Fornier's gangrene of the perineal region as detailed above. This can be a life threatening condition. 2. Results were called to the emergency department (Dr. Bryan Cuellar) the time of this dictation. 3. 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 Elijah Álvarez MD Chest X-Ray 11/16/16 0000 Signed Impressions: Service Date/Time: Wednesday, November 16, 2016 17:48 - CONCLUSION: No evidence of acute cardiopulmonary disease. Previous median sternotomy. 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 No cardiac symptoms. Continue monitoring. Increase activity. Continue cardiac risk factor modification. Problem Qualifiers (1) DKA (diabetic ketoacidoses): Qualified Code: E13.10 - Diabetic ketoacidosis without coma associated with type 2 diabetes mellitus Hilario Dailey MD November 21, 2016 15:43
[2016-11-21] MEDS ORDERED: ACETAMINOPHEN 1000 MG/100 ML VIAL IV ONE (16:40)
[2016-11-21] MEDS ORDERED: HYDROmorphone HCL PF 2 MG/ML VIAL ONE (16:40)
--- NOTE | 2016-11-21 17:35 | HHI.PR ---
cc: Hiram Vallecillo MD Immediate Post Op Note Procedure Date: November 21, 2016 Pre Op Diagnosis: Necrotizing fasciitis with perirectal abscess Post Op Diagnosis: Same Surgeon: Hiram Vallecillo Novelty Twister Operator(s): ARIELLE Lafleur Procedure: Irrigation and drainage perirectal region with debridement 50 cm2 subcutaneous tissue Complications: None Estimated blood loss: 100 ml Anesthesia: LMA Drains: None IVF (300 ) Patient to: PACU Patient Condition: Good Date/Time of Procedure: SEE SURGICAL CARE RECORD Hiram Vallecillo MD November 21, 2016 17:35
[2016-11-21] MEDS ORDERED: DEXTROSE 50% IN WATER 50 ML SYRINGE IV PRN (17:45)
[2016-11-21] MEDS ORDERED: GLUCAGON 1 MG/ML VIAL OTHER PRN (17:45)
[2016-11-21] MEDS: INSULIN ASPART SUPPLEMENTAL SCALE SQ SCH ×2 (18:00→23:56)
[2016-11-21] MEDS ORDERED: *morphine SULFATE 8 MG/ML PERIprocedure ONLY ONE (18:01)
[2016-11-21] MEDS ORDERED: DO NOT ADM ANY ANTICOAGULANT DRUGS PRN (19:00)
--- NOTE | 2016-11-21 19:33 | EKG ---
Date Performed: 11/20/2016 Time Performed: 23:00:14 PTAGE: 51 years EKG: Sinus rhythm Leftward axis Delayed R wave progression Low QRS voltages in precordial leads Abnormal ECG PREVIOUS TRACING : 11/20/2016 11.07 Compared to the previous tracing tachycardia no longer pres ent DOCTOR: Hilario Dailey Interpretating Date/Time 11/21/2016 19:32:30
[2016-11-22] VITALS (10 sets, daily range): BP systolic 126–145; BP diastolic 65–79; PULSE 76–90; RESP 12–21; TEMP 99.2–99.5; O2SAT 95–99
[2016-11-22] MEDS ORDERED: POTASSIUM CHLORIDE INJ 20 MEQ in LACTATED RINGER'S 1000 ML INJ 1,000 ML IV PRN (00:15)
[2016-11-22] MEDS ORDERED: PHARMACY ORDERED LAB ONE (00:45)
[2016-11-22] MEDS: MORPHINE SULFATE 4 MG/ML INJ IV PUSH PRN ×4 (02:05→12:33)
[2016-11-22] MEDS: INSULIN NovoLIN REGULAR SUPPLEMENTAL SCALE SQ SCH (03:00)
[2016-11-22] MEDS: HYDROmorphone HCL PF 1 MG/ML VIAL IV PUSH PRN ×3 (03:55→14:58)
[2016-11-22] MEDS: CHLORHEXIDINE GLUCONATE 2 % 1 PACK (2 CLOTHS) TOP SCH (03:57)
[2016-11-22 04:34] LABS: AUTOMATED NEUTROPHIL # 8.3 TH/MM3 (1.8-7.7); BASOPHIL % 0.3 % (0.0-2.0); EOSINOPHIL # 0.2 TH/MM3 (0-0.4); EOSINOPHIL % 1.5 % (0.0-4.0); HEMATOCRIT 34.4 % (39.0-51.0); HEMO FLAGS DIFF FINAL; LYMPH % 8.4 % (9.0-44.0); LYMPHOCYTE # 0.9 TH/MM3 (1.0-4.8); MEAN CELL VOLUME 76.3 FL (80.0-100.0); MEAN CORPUSCULAR HEMOGLOBIN 25.2 PG (27.0-34.0); MEAN CORPUSCULAR HGB CONC 33.1 % (32.0-36.0); MONO % 9.8 % (0.0-8.0); PLATELET COUNT 322 TH/MM3 (150-450); RED BLOOD COUNT 4.51 MIL/MM3 (4.50-5.90); RED CELL DISTRIBUTION WIDTH 14.8 % (11.6-17.2); WHITE BLOOD COUNT 10.3 TH/MM3 (4.0-11.0)
[2016-11-22 04:48] LABS: BICARBONATE 27.5 MEQ/L (21.0-32.0); POTASSIUM 3.3 MEQ/L (3.5-5.1)
[2016-11-22] MEDS: CEFEPIME INJ 2,000 MG in SODIUM CHLORIDE 0.9% INJ 100 ML IV SCH ×3 (06:08→23:05)
[2016-11-22] MEDS: metroNIDAZOLE 500 MG TAB PO SCH ×3 (06:08→21:12)
[2016-11-22] MEDS: INSULIN HUMAN REGULAR 1,000 UNITS/10 ML VIAL SQ SCH ×3 (07:00→16:39)
[2016-11-22] MEDS ORDERED: POTASSIUM CHLORIDE 10 MEQ CONTROLLED RELEASE TAB PO ONE (08:00)
[2016-11-22] MEDS: PANTOPRAZOLE SODIUM 40 MG VIAL IV PUSH SCH (09:32)
[2016-11-22] MEDS: SODIUM HYPOCHLORITE 0.25% 500 ML BTL TOPICAL SCH ×2 (09:33→21:15)
[2016-11-22] MEDS: METOPROLOL TARTRATE 50 MG TAB PO SCH ×2 (09:33→21:12)
[2016-11-22] MEDS: GABAPENTIN 300 MG CAP PO SCH ×4 (09:33→21:12)
--- NOTE | 2016-11-22 10:45 | HHI.IDPN ---
Subjective Subjective Remarks 51 year old male, with DM, admitted and diagnosed to have Jessica's gangrene and perirectal abscess S/P extensive debridement and has open wounds with packing Notes reviewed D/W RN Had debridement yesterday Temps ok, occ 99+ BP ok WBC better OR C/S E coli, Kleb, GBS BC negative Antibiotics Cefepime Flagyl Lines PIV Past Medical History reviewed Allergies: Coded Allergies: CRESTOR (Verified Allergy, Severe, cardiac, 08/13/16) Lisinopril (Verified Allergy, Severe, Anaphylaxis, 08/13/16) Itching, lip swelling, throat closing. *MDRO Multi-Drug Resistant Organism (Verified Adverse Reaction, Unknown, ) MDR-E.Coli (perirectal abscess)-11/17/16 Uncoded Allergies: provacal (Allergy, Severe, 12/28/15) COZAR (Allergy, Intermediate, 03/11/16) Objective . Vital Signs Date Time Temp Pulse Resp B/P Pulse Ox O2 Delivery O2 Flow Rate FiO2 11/22/16 10:00 84 11/22/16 08:55 99 Nasal Cannula 2.00 11/22/16 08:00 76 11/22/16 08:00 99.5 86 21 143/65 98 11/22/16 02:00 81 11/22/16 00:00 82 11/22/16 00:00 99.5 82 12 126/67 97 11/21/16 22:00 80 11/21/16 20:00 78 11/21/16 20:00 98.9 78 21 138/67 98 11/21/16 19:00 72 16 130/75 97 Room Air 11/21/16 18:30 76 16 122/76 97 Room Air 11/21/16 18:15 72 16 128/72 96 Room Air 11/21/16 18:00 72 16 123/71 96 Room Air 11/21/16 17:45 78 16 135/71 98 11/21/16 17:41 98.5 76 16 122/64 96 Nasal Cannula 2 11/21/16 14:00 76 11/21/16 13:00 84 11/21/16 12:00 78 11/21/16 11:00 83 11/21/16 11/21/16 11/22/16 15:00 23:00 07:00 Intake Total 1904 ml Output Total 600 ml Balance 1304 ml Intake Oral 975 ml IV Total 929 ml Output Urine Total 600 ml # Voids 1 1 # Bowel Movements 2 1 . Laboratory Tests Test 11/21/16 11/22/16 05:02 04:05 White Blood Count 9.8 TH/MM3 10.3 TH/MM3 Red Blood Count 4.37 MIL/MM3 4.51 MIL/MM3 Hemoglobin 10.9 GM/DL 11.4 GM/DL Hematocrit 33.4 % 34.4 % Mean Corpuscular Volume 76.3 FL 76.3 FL Mean Corpuscular Hemoglobin 25.0 PG 25.2 PG Mean Corpuscular Hemoglobin 32.7 % 33.1 % Concent Red Cell Distribution Width 15.0 % 14.8 % Platelet Count 301 TH/MM3 322 TH/MM3 Mean Platelet Volume 7.7 FL 7.4 FL Neutrophils (%) (Auto) 82.1 % 80.0 % Lymphocytes (%) (Auto) 8.8 % 8.4 % Monocytes (%) (Auto) 7.2 % 9.8 % Eosinophils (%) (Auto) 1.5 % 1.5 % Basophils (%) (Auto) 0.4 % 0.3 % Neutrophils # (Auto) 8.0 TH/MM3 8.3 TH/MM3 Lymphocytes # (Auto) 0.9 TH/MM3 0.9 TH/MM3 Monocytes # (Auto) 0.7 TH/MM3 1.0 TH/MM3 Eosinophils # (Auto) 0.1 TH/MM3 0.2 TH/MM3 Basophils # (Auto) 0.0 TH/MM3 0.0 TH/MM3 CBC Comment AUTO DIFF DIFF FINAL Differential Total Cells 100 Counted Neutrophils % (Manual) 73 % Band Neutrophils % 3 % Lymphocytes % 10 % Monocytes % 11 % Eosinophils % 2 % Neutrophils # (Manual) 7.5 TH/MM3 Metamyelocytes 1 % Differential Comment FINAL DIFF MANUAL Platelet Estimate NORMAL Platelet Morphology Comment NORMAL Laboratory Tests Test 11/20/16 11/20/16 11/21/16 11/22/16 14:51 19:23 05:02 04:04 Troponin I LESS THAN 0.02 LESS THAN 0.02 NG/ML NG/ML Sodium Level 139 MEQ/L 137 MEQ/L Potassium Level 3.3 MEQ/L 3.3 MEQ/L Chloride Level 100 MEQ/L 100 MEQ/L Carbon Dioxide Level 24.6 MEQ/L 27.5 MEQ/L Anion Gap 14 MEQ/L 10 MEQ/L Blood Urea Nitrogen 5 MG/DL 7 MG/DL Creatinine 0.57 MG/DL 0.73 MG/DL Estimat Glomerular Filtration 151 ML/MIN 114 ML/MIN Rate Random Glucose 219 MG/DL 249 MG/DL Calcium Level 9.1 MG/DL 8.8 MG/DL Imaging Pelvis CT 11/16/16 0000 Signed Impressions: Service Date/Time: Wednesday, November 16, 2016 16:20 - CONCLUSION: 1. Fornier's gangrene of the perineal region as detailed above. This can be a life threatening condition. 2. Results were called to the emergency department (Dr. Bryan Cuellar) the time of this dictation. 3. 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 Elijah Álvarez MD Chest X-Ray 11/16/16 0000 Signed Impressions: Service Date/Time: Wednesday, November 16, 2016 17:48 - CONCLUSION: No evidence of acute cardiopulmonary disease. Previous median sternotomy. Magnus Steele MD Physical Exam GENERAL: awake and alert, not in respiratory distress. SKIN: Warm and dry. No generalized rash HEAD: Atraumatic. Normocephalic. No temporal wasting, or tenderness. EYES: [place] conjunctiva. No petechia or hemorrhage. No scleral icterus. No injection or drainage. EARS, NOSE AND THROAT: No sinus tenderness. Mucous membranes pink and moist. No oral lesions noted. No exudate. NECK: Trachea midline. Supple and not tender, no meningeal signs CARDIOVASCULAR: Regular rate and rhythm. No murmurs, rubs or gallops heard RESPIRATORY: Clear to auscultation. Breath sounds equal bilaterally. No rales , wheezing or rhonchi ABDOMEN: Soft, non-tender, nondistended. Bowel sounds present and normoactive. No guarding. No rebound. No organomegaly. EXTREMITIES: No clubbing, cyanosis, or edema. No calf tenderness. Well perfused and warm. NEUROLOGICAL: Grossly non-focal PSYCHIATRIC: Normal affect, calm and cooperative. LINE: No evidence of infection : Has packing in place in his large open wound in perineum, L groin and buttocks Assessment & Plan Remarks IMPRESSION Sepsis due to Jessica's gangrene, perirectal abscess - S/P extensive debridement - better - C/S polymicrobial Jessica's gangrene, perirectal abscess DKA Leukocytosis, resolved RECOMMENDATION Continue cefepime and Flagyl Monitor progress Follow temps Wound care D/W Noemí Maki MD November 22, 2016 10:45
[2016-11-22] MEDS: INSULIN ASPART SUPPLEMENTAL SCALE SQ SCH (10:53)
--- NOTE | 2016-11-22 12:02 | HHI.PR ---
Subjective Remarks Pt states that his pain is an 8/10 but got pain meds. denies any CP/SOB/N/V Objective Vitals Vital Signs Date Time Temp Pulse Resp B/P Pulse Ox O2 Delivery O2 Flow Rate FiO2 11/22/16 10:00 84 11/22/16 08:55 99 Nasal Cannula 2.00 11/22/16 08:00 76 11/22/16 08:00 99.5 86 21 143/65 98 11/22/16 02:00 81 11/22/16 00:00 82 11/22/16 00:00 99.5 82 12 126/67 97 11/21/16 22:00 80 11/21/16 20:00 78 11/21/16 20:00 98.9 78 21 138/67 98 11/21/16 19:00 72 16 130/75 97 Room Air 11/21/16 18:30 76 16 122/76 97 Room Air 11/21/16 18:15 72 16 128/72 96 Room Air 11/21/16 18:00 72 16 123/71 96 Room Air 11/21/16 17:45 78 16 135/71 98 11/21/16 17:41 98.5 76 16 122/64 96 Nasal Cannula 2 11/21/16 14:00 76 11/21/16 13:00 84 11/21/16 12:00 78 I/O 11/21/16 11/21/16 11/21/16 11/22/16 11/22/16 11/22/16 07:00 15:00 23:00 07:00 15:00 23:00 Intake Total 1180 ml 1904 ml Output Total 1200 ml 600 ml Balance -20 ml 1304 ml Intake Oral 480 ml 975 ml IV Total 700 ml 929 ml Output Urine Total 1200 ml 600 ml # Voids 1 1 # Bowel Movements 2 2 1 Result Diagram: 11/22/16 0405 11/22/16 0404 Imaging Last Impressions Pelvis CT 11/16/16 0000 Signed Impressions: Service Date/Time: Wednesday, November 16, 2016 16:20 - CONCLUSION: 1. Fornier's gangrene of the perineal region as detailed above. This can be a life threatening condition. 2. Results were called to the emergency department (Dr. Bryan Cuellar) the time of this dictation. 3. 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 Elijah Álvarez MD Chest X-Ray 11/16/16 0000 Signed Impressions: Service Date/Time: Wednesday, November 16, 2016 17:48 - CONCLUSION: No evidence of acute cardiopulmonary disease. Previous median sternotomy. Magnus Steele MD Objective Remarks GENERAL: 51-year-old male resting in bed in no acute distress CARDIOVASCULAR: RRR. No murmurs. RESPIRATORY: Breath sounds equal bilaterally. No accessory muscle use. CTAB. GASTROINTESTINAL: Abdomen soft, non-tender, nondistended. MUSCULOSKELETAL: Without significant peripheral edema : wound not examined today, dressing in place. A/P Problem List: (1) Dementia ICD Code: F03.90 Status: Acute (2) Postoperative pain ICD Code: G89.18 Status: Acute (3) DKA (diabetic ketoacidoses) ICD Code: E13.10 Status: Acute (4) Peripheral neuropathy ICD Code: G62.9 Status: Acute (5) Coronary artery disease ICD Code: I25.10 Status: Chronic (6) Hypertension ICD Code: I10 Status: Chronic (7) Hyperlipidemia ICD Code: E78.5 Status: Chronic (8) GERD (gastroesophageal reflux disease) ICD Code: K21.9 Status: Chronic (9) Anemia ICD Code: D64.9 Status: Acute (10) Sinus tachycardia ICD Code: R00.0 Status: Acute Assessment and Plan Neuro/Psych: Dementia disorder NOS Postoperative pain Peripheral neuropathy/diabetic -pain management per GS -home dose of gabapentin has been restarted CV: Sinus tachycardia Coronary disease status post CABG 5 Hypertension Dyslipidemia -Pt was found to have atrial fib w rvr but converted spontaneously. cardiology evaluated the pt and recommended restarting him on metoprolol which he is on. has been off the cardizem gtt. -EF 50-55%. Apical akinesis. Mild MV regurg, TV regurg -On Lopressor 50mg Q12. monitor HR and BPs -on lovastatin Resp: -sats in the low-to-mid 90s on room air -incentive spirometry while awake GI: Gastroesophageal reflux disease diabetic diet -protonix for GI ppx : -status post I&D bilateral perirectal region 7.5 cm removal necrotic tissue secondary to necrosis ischiorectal fossa Dr. Vallecillo POD #5. Postoperative surgical care per Dr. Vallecillo. s/p I&D and debridement 11/21/16 -CT abdomen/pelvis 11/16 revealed diverticulosis without diverticulitis. 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 on cefepime and flagyl, s/p vanc. Endo: Diabetes mellitus -bedside glucose in the 100s. -cont novolin 30 u qAM and 20 u qHS with 10 u novolin TIDAC. SSI. Renal: -kidney function and electrolytes WNL. Heme: Normocytic anemia -hemoglobin stable at 10.9 -currently holding aspirin 81 mg daily and Plavix any 5 mg by mouth daily. Resume when okay with general surgery ID: -continue cefepime (11/19-), flagyl (11/19-), s/p vancomycin (11/18-11/21). S/p clindamycin (11/17-11/19) and zosyn (11/16-11/19) -11/16 Blood cultures 2 no growth to date -11/17 Wound cx: Klebsiella (sens to cefepime), E. coli (sens to cefepime), MDR GBS -infectious disease following (Dr. Amador). Have changed abx, as above. MSK: -PT evaluate and treat. Recommend PT. Access -Utilize peripheral IV. Prophylaxis -GI Protonix -DVT ; SCD/pharmacological prophylaxis per general surgery Discharge Planning d/c pending further work-up, clinical improvement Problem Qualifiers (1) DKA (diabetic ketoacidoses): Qualified Code: E13.10 - Diabetic ketoacidosis without coma associated with type 2 diabetes mellitus Taty Cazares MD November 22, 2016 12:02
--- NOTE | 2016-11-22 12:45 | HHI.PR ---
Subjective Subjective Notes HARSHAL Jones at bedside----doing dressing change Objective Vitals/I&O Vital Signs Date Time Temp Pulse Resp B/P Pulse Ox O2 Delivery O2 Flow Rate FiO2 11/22/16 12:00 81 11/22/16 12:00 99.5 20 137/67 98 11/22/16 08:55 Nasal Cannula 2.00 11/20/16 11:25 21 Labs Laboratory Tests Test 11/22/16 11/22/16 04:04 04:05 Sodium Level 137 Potassium Level 3.3 Chloride Level 100 Carbon Dioxide Level 27.5 Anion Gap 10 Blood Urea Nitrogen 7 Creatinine 0.73 Estimat Glomerular Filtration 114 Rate Random Glucose 249 Calcium Level 8.8 White Blood Count 10.3 Red Blood Count 4.51 Hemoglobin 11.4 Hematocrit 34.4 Mean Corpuscular Volume 76.3 Mean Corpuscular Hemoglobin 25.2 Mean Corpuscular Hemoglobin 33.1 Concent Red Cell Distribution Width 14.8 Platelet Count 322 Mean Platelet Volume 7.4 Neutrophils (%) (Auto) 80.0 Lymphocytes (%) (Auto) 8.4 Monocytes (%) (Auto) 9.8 Eosinophils (%) (Auto) 1.5 Basophils (%) (Auto) 0.3 Neutrophils # (Auto) 8.3 Lymphocytes # (Auto) 0.9 Monocytes # (Auto) 1.0 Eosinophils # (Auto) 0.2 Basophils # (Auto) 0.0 CBC Comment DIFF FINAL Differential Comment Cardiovascular: Regular Lungs: Clear Abdomen: Non-distended, Non-tender Extremities: No edema Narrative Exam buttocks wound---minimal exudate in wound bed; packing remove and replaced with dakin gauze --- minimal erythema around wound A/P Assessment and Plan 51 year old male POD1 I&D perirectal abscess -Continue dressing changes ---change BID and PRN; okay to shower in between dressing changes -Antibiotics per ID -1800 ADA diet -Pain control Attending Note - Dr. Vallecillo Wound clean Continue dressing changes Will reassess next week and possibly partially close anterior portion of wound near scrotum if clean The exam, history, and the medical decision-making described in the above note were completed with the assistance of the mid-level provider. I reviewed and agree with the findings presented. I attest that I had a [id number] encounter with the patient on the same day, and personally performed and documented my assessment and findings in the medical record. Caty Matute November 22, 2016 12:44 Hiram Vallecillo MD November 22, 2016 17:34
--- NOTE | 2016-11-22 13:45 | MP ---
cc: HIRAM VALLECILLO M.D. DATE OF SURGERY: 11/21/2016 PROCEDURE Incision and drainage with debridement 50 squared cm subcutaneous tissue perirectal region. PREOPERATIVE DIAGNOSIS Perirectal abscess with Jessica's gangrene. POSTOPERATIVE DIAGNOSIS Perirectal abscess with Jessica's gangrene. ANESTHESIA LMA. SURGEON Hiram Vallecillo MD. ESTIMATED BLOOD LOSS 100 mls FLUIDS: Fluids 300 mls crystalloid COMPLICATIONS None. DRAINS: None. SPECIMEN None. PROCEDURE IN DETAIL The patient was taken to the operating room and placed on the operating table in the supine position. After an adequate level of general anesthesia was achieved, the groin and perirectal region were prepped and draped with the patient in candy cane stirrups. Time-out was taken, confirming the correct patient site and procedure to be performed. The wound was inspected and any nonviable tissue was sharply debrided away. There was a small amount of necrotic fatty tissue deep within the perirectal regions in the ischial rectal fossae bilaterally. This was debrided away. The wounds were cleansed bilaterally with peroxide and then rinsed with saline. Copious saline irrigation was ensued and small areas of nonviable tissue were debrided back to bleeding tissue. A small amount of the skin was debrided as well. When this was completed, Betadine-soaked Kerlix was packed into the wound. The decision was made to not place a vac dressing due to the location of the incisions lateral to the anus. ABD pads were applied and mesh panties were placed over the patient to hold the dressings in place. The patient tolerated the procedure well. He remained hemodynamically stable throughout the entire procedure. MD NOHEMI Mcdowell/samuel /9:13 AM /2:18 PM
[2016-11-22] MEDS: DILTIAZEM HCL 30 MG TAB PO SCH ×2 (14:58→21:12)
[2016-11-22] MEDS: INSULIN HUMAN NPH/R 70/30 1,000 UNITS/10 ML VIAL SQ SCH (16:38)
--- NOTE | 2016-11-22 17:32 | PD.CARD.PN ---
Subjective Subjective Remarks No CP or SOB, off IV dilt Objective Medications Current Medications Medications (Trade) Dose Ordered Sig/Ronaldo Route Start Time Stop Time Status Last Admin Miscellaneous Information 1 Q361D XX 11/16/16 17:45 (Chlorhexidine 2% Cloth) Taper DAILY@04 TOP 11/17/16 04:00 11/13/17 03:59 11/19/16 03:49 (Chlorhexidine 2% Cloth) 3 pack UNSCH PRN TOP 11/16/16 17:45 (Morphine Inj) 4 mg Q3H PRN IV PUSH 11/16/16 18:15 11/22/16 12:33 (Tylenol) 650 mg Q6H PRN PO 11/16/16 20:15 11/17/16 22:02 Sodium Hypochlorite 500 ml 500 ml BID TOPICAL 11/17/16 09:00 11/22/16 09:33 Potassium Chloride 100 ml @ 50 mls/hr Q2H PRN IV 11/17/16 13:45 (KCl 20 Meq Premix Inj) 100 ml @ 50 mls/hr Q2H PRN IV 11/17/16 13:45 11/19/16 14:55 Potassium Bicarb/ Potassium Chloride 50 meq 50 meq UNSCH PRN PO 11/17/16 13:45 11/17/16 17:55 Potassium Chloride 100 ml @ 25 mls/hr UNSCH PRN IV 11/17/16 13:45 Potassium Chloride 100 ml @ 50 mls/hr Q2H PRN IV 11/17/16 13:45 (Magnesium Sulfate Inj/NS Inj) 100 ml @ 50 mls/hr UNSCH PRN IV 11/17/16 13:45 Magnesium Oxide 800 mg 800 mg UNSCH PRN PO 11/17/16 13:45 (Magnesium Sulfate Inj/NS Inj) 100 ml @ 50 mls/hr UNSCH PRN IV 11/17/16 13:45 Potassium Phosphate 2000 mg 2,000 mg Q4H PRN PO 11/17/16 13:45 (Sodium Phosphate Inj/NS 250 ml Inj) 250 ml @ 42 mls/hr UNSCH PRN IV 11/17/16 13:45 11/19/16 10:37 (K-Phos) 2,000 mg UNSCH PRN PO/TUBE 11/17/16 13:45 11/18/16 08:05 (Trandate Inj) 10 mg Q1HR PRN IV PUSH 11/18/16 09:00 (Apresoline Inj) 10 mg Q1HR PRN IV PUSH 11/18/16 09:00 (Nitroglycerin 2% Oint) 2 inch Q6HR PRN TOPICAL 11/18/16 09:00 (Pill Splitter) 1 ea UNSCH PRN OTHER 11/18/16 09:00 (Dilaudid Pf Inj) 1 mg Q4H PRN IV PUSH 11/18/16 09:00 11/22/16 14:58 (NovoLIN R INJ) 10 units DAILY@17 SQ 11/18/16 17:00 11/22/16 16:39 (NovoLIN 70/30 INJ) 30 units DAILY@08 SQ 11/19/16 08:00 11/20/16 08:34 Insulin Human Isoph/Insulin Regular 20 units 20 units DAILY@17 SQ 11/18/16 17:00 11/22/16 16:38 (Maxipime Inj/NS Inj) 100 ml @ 200 mls/hr Q8H IV 11/19/16 14:00 11/22/16 13:37 (Flagyl) 500 mg Q8HR PO 11/19/16 14:00 11/22/16 13:37 (Lopressor) 50 mg Q12HR PO 11/20/16 10:45 11/22/16 09:33 Gabapentin 600 mg 600 mg QID PO 11/20/16 13:00 11/22/16 13:37 Diltiazem HCl 125 mg/Sodium Chloride 125 ml @ 0 mls/hr TITRATE IV 11/20/16 11:30 Sodium Chloride 500 ml @ 30 mls/hr [id number] PRN IV 11/21/16 00:15 11/24/16 00:14 (KCl Inj/Lr 1000 ml Inj) 1,010 ml @ 30 mls/hr Q24H PRN IV 11/22/16 00:15 (NovoLOG SUPPLEMENTAL SCALE) 1 Q6HR SQ 11/21/16 18:00 11/22/16 10:53 (D50w (Syr) Inj) 50 ml UNSCH PRN IV 11/21/16 17:45 (Glucagon Inj) 1 mg UNSCH PRN OTHER 11/21/16 17:45 Miscellaneous Information ALL NURSING DEPARTME... UNSCH PRN .XX 11/21/16 19:00 11/22/16 18:59 (Protonix) 40 mg DAILY PO 11/23/16 09:00 (Cardizem) 30 mg Q6H PO 11/22/16 15:00 11/22/16 14:58 Vital Signs / I&O Vital Signs Date Time Temp Pulse Resp B/P Pulse Ox O2 Delivery O2 Flow Rate FiO2 11/22/16 16:00 99.5 80 13 131/68 95 11/22/16 16:00 78 11/22/16 15:41 99 21 11/22/16 14:00 82 11/22/16 12:00 81 11/22/16 12:00 99.5 90 20 137/67 98 11/22/16 10:00 84 11/22/16 08:55 99 Nasal Cannula 2.00 11/22/16 08:00 76 11/22/16 08:00 99.5 86 21 143/65 98 11/22/16 02:00 81 11/22/16 00:00 82 11/22/16 00:00 99.5 82 12 126/67 97 11/21/16 22:00 80 11/21/16 20:00 78 11/21/16 20:00 98.9 78 21 138/67 98 11/21/16 19:00 72 16 130/75 97 Room Air 11/21/16 18:30 76 16 122/76 97 Room Air 11/21/16 18:15 72 16 128/72 96 Room Air 11/21/16 18:00 72 16 123/71 96 Room Air 11/21/16 17:45 78 16 135/71 98 11/21/16 17:41 98.5 76 16 122/64 96 Nasal Cannula 2 I/O 11/21/16 11/21/16 11/21/16 11/22/16 11/22/16 11/22/16 07:00 15:00 23:00 07:00 15:00 23:00 Intake Total 1180 ml 1904 ml 1449 ml Output Total 1200 ml 600 ml 700 ml Balance -20 ml 1304 ml 749 ml Intake Oral 480 ml 975 ml 1200 ml IV Total 700 ml 929 ml 249 ml Output Urine Total 1200 ml 600 ml 700 ml # Voids 1 1 4 # Bowel Movements 2 2 1 1 Physical Exam GENERAL: In NAD SKIN: Warm and dry. HEAD: Normocephalic. EYES: No scleral icterus. No injection or drainage. NECK: Supple, trachea midline. No JVD or lymphadenopathy. CARDIOVASCULAR: Regular rate and rhythm without murmurs, gallops, or rubs. RESPIRATORY: Breath sounds equal bilaterally. No accessory muscle use. GASTROINTESTINAL: Abdomen soft, non-tender, nondistended. MUSCULOSKELETAL: No cyanosis, or edema. Laboratory Laboratory Tests Test 11/22/16 11/22/16 04:04 04:05 Sodium Level 137 MEQ/L Potassium Level 3.3 MEQ/L Chloride Level 100 MEQ/L Carbon Dioxide Level 27.5 MEQ/L Anion Gap 10 MEQ/L Blood Urea Nitrogen 7 MG/DL Creatinine 0.73 MG/DL Estimat Glomerular Filtration 114 ML/MIN Rate Random Glucose 249 MG/DL Calcium Level 8.8 MG/DL White Blood Count 10.3 TH/MM3 Red Blood Count 4.51 MIL/MM3 Hemoglobin 11.4 GM/DL Hematocrit 34.4 % Mean Corpuscular Volume 76.3 FL Mean Corpuscular Hemoglobin 25.2 PG Mean Corpuscular Hemoglobin 33.1 % Concent Red Cell Distribution Width 14.8 % Platelet Count 322 TH/MM3 Mean Platelet Volume 7.4 FL Neutrophils (%) (Auto) 80.0 % Lymphocytes (%) (Auto) 8.4 % Monocytes (%) (Auto) 9.8 % Eosinophils (%) (Auto) 1.5 % Basophils (%) (Auto) 0.3 % Neutrophils # (Auto) 8.3 TH/MM3 Lymphocytes # (Auto) 0.9 TH/MM3 Monocytes # (Auto) 1.0 TH/MM3 Eosinophils # (Auto) 0.2 TH/MM3 Basophils # (Auto) 0.0 TH/MM3 CBC Comment DIFF FINAL Differential Comment Imaging Last Impressions Pelvis CT 11/16/16 0000 Signed Impressions: Service Date/Time: Wednesday, November 16, 2016 16:20 - CONCLUSION: 1. Fornier's gangrene of the perineal region as detailed above. This can be a life threatening condition. 2. Results were called to the emergency department (Dr. Bryan Cuellar) the time of this dictation. 3. 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 Elijah Álvaerz MD Chest X-Ray 11/16/16 0000 Signed Impressions: Service Date/Time: Wednesday, November 16, 2016 17:48 - CONCLUSION: No evidence of acute cardiopulmonary disease. Previous median sternotomy. 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 Continue metoprolol, switch diltiazem to PO. No cardiac symptoms. Continue monitoring. Increase activity. Continue cardiac risk factor modification. Problem Qualifiers (1) DKA (diabetic ketoacidoses): Qualified Code: E13.10 - Diabetic ketoacidosis without coma associated with type 2 diabetes mellitus Hilario Dailey MD November 22, 2016 17:32
[2016-11-22] MEDS ORDERED: ACETAMINOPHEN/HYDROcodone 325 MG/7.5 MG TAB PO PRN (17:45)
[2016-11-22] MEDS: ACETAMINOPHEN/HYDROcodone 325 MG/7.5 MG TAB PO PRN ×2 (18:34→22:40)
[2016-11-23] VITALS (7 sets, daily range): BP systolic 107–164; BP diastolic 56–90; PULSE 69–88; RESP 17–20; TEMP 98.2–99.6; O2SAT 96–100
[2016-11-23] MEDS: HYDROmorphone HCL PF 1 MG/ML VIAL IV PUSH PRN ×4 (01:02→19:38)
[2016-11-23] MEDS: DILTIAZEM HCL 30 MG TAB PO SCH ×4 (03:47→19:53)
[2016-11-23] MEDS: ACETAMINOPHEN/HYDROcodone 325 MG/7.5 MG TAB PO PRN ×4 (03:47→21:48)
[2016-11-23] MEDS: CHLORHEXIDINE GLUCONATE 2 % 1 PACK (2 CLOTHS) TOP SCH (04:00)
[2016-11-23] MEDS: metroNIDAZOLE 500 MG TAB PO SCH ×3 (05:49→19:53)
[2016-11-23] MEDS: CEFEPIME INJ 2,000 MG in SODIUM CHLORIDE 0.9% INJ 100 ML IV SCH ×3 (05:49→19:51)
[2016-11-23] MEDS ORDERED: GLUCAGON 1 MG/ML VIAL OTHER PRN (06:15)
[2016-11-23] MEDS ORDERED: DEXTROSE 50% IN WATER 50 ML VIAL(D50) IV PRN (06:15)
--- NOTE | 2016-11-23 06:29 | HHI.PR ---
Blank section for building received call from RN that patient's blood glucose is 508 and he has no SSI coverage ordered RN also reports that patient is a brittle diabetic add low dose SSI coverage in addition to the current insulin regiment (Novolin 70/30 30 units SQ daily at 0800, Novolin 70/30 SQ daily at 1700 and regular insulin 10 units SQ AC) also ordered stat BMP and asked nurse to call MD with results of BMP and call with results of blood glucose in [address] Dent and nurse (Sapna Whitaker) Sapna Whitaker November 23, 2016 06:29 Navjot Dent MD Dec 10, 2016 13:00
[2016-11-23] MEDS: INSULIN ASPART SUPPLEMENTAL SCALE SQ SCH ×4 (06:32→20:17)
[2016-11-23] MEDS: METOPROLOL TARTRATE 50 MG TAB PO SCH ×2 (08:25→19:53)
[2016-11-23] MEDS: PANTOPRAZOLE SOD 40 MG DELAYED RELEASE TAB PO SCH (08:25)
[2016-11-23] MEDS: GABAPENTIN 300 MG CAP PO SCH ×4 (08:26→19:53)
[2016-11-23] MEDS: SODIUM HYPOCHLORITE 0.25% 500 ML BTL TOPICAL SCH ×2 (08:26→19:56)
[2016-11-23 08:27] LABS: BICARBONATE 26.5 MEQ/L (21.0-32.0); POTASSIUM 3.6 MEQ/L (3.5-5.1)
[2016-11-23] MEDS: INSULIN HUMAN NPH/R 70/30 1,000 UNITS/10 ML VIAL SQ SCH ×2 (09:17→20:14)
--- NOTE | 2016-11-23 11:15 | PD.CARD.PN ---
Subjective Subjective Remarks No CP or SOB, feels better Objective Medications Current Medications Medications (Trade) Dose Ordered Sig/Ronaldo Route Start Time Stop Time Status Last Admin Miscellaneous Information 1 Q361D XX 11/16/16 17:45 (Chlorhexidine 2% Cloth) Taper DAILY@04 TOP 11/17/16 04:00 11/13/17 03:59 11/19/16 03:49 (Chlorhexidine 2% Cloth) 3 pack UNSCH PRN TOP 11/16/16 17:45 (Morphine Inj) 4 mg Q3H PRN IV PUSH 11/16/16 18:15 11/22/16 12:33 (Tylenol) 650 mg Q6H PRN PO 11/16/16 20:15 11/17/16 22:02 Sodium Hypochlorite 500 ml 500 ml BID TOPICAL 11/17/16 09:00 11/23/16 08:26 Potassium Chloride 100 ml @ 50 mls/hr Q2H PRN IV 11/17/16 13:45 (KCl 20 Meq Premix Inj) 100 ml @ 50 mls/hr Q2H PRN IV 11/17/16 13:45 11/19/16 14:55 Potassium Bicarb/ Potassium Chloride 50 meq 50 meq UNSCH PRN PO 11/17/16 13:45 11/17/16 17:55 Potassium Chloride 100 ml @ 25 mls/hr UNSCH PRN IV 11/17/16 13:45 Potassium Chloride 100 ml @ 50 mls/hr Q2H PRN IV 11/17/16 13:45 (Magnesium Sulfate Inj/NS Inj) 100 ml @ 50 mls/hr UNSCH PRN IV 11/17/16 13:45 Magnesium Oxide 800 mg 800 mg UNSCH PRN PO 11/17/16 13:45 (Magnesium Sulfate Inj/NS Inj) 100 ml @ 50 mls/hr UNSCH PRN IV 11/17/16 13:45 Potassium Phosphate 2000 mg 2,000 mg Q4H PRN PO 11/17/16 13:45 (Sodium Phosphate Inj/NS 250 ml Inj) 250 ml @ 42 mls/hr UNSCH PRN IV 11/17/16 13:45 11/19/16 10:37 (K-Phos) 2,000 mg UNSCH PRN PO/TUBE 11/17/16 13:45 11/18/16 08:05 (Trandate Inj) 10 mg Q1HR PRN IV PUSH 11/18/16 09:00 (Apresoline Inj) 10 mg Q1HR PRN IV PUSH 11/18/16 09:00 (Nitroglycerin 2% Oint) 2 inch Q6HR PRN TOPICAL 11/18/16 09:00 (Pill Splitter) 1 ea UNSCH PRN OTHER 11/18/16 09:00 Hydromorphone HCl 1 mg 1 mg Q4H PRN IV PUSH 11/18/16 09:00 11/23/16 08:16 (Maxipime Inj/NS Inj) 100 ml @ 200 mls/hr Q8H IV 11/19/16 14:00 11/23/16 05:49 (Flagyl) 500 mg Q8HR PO 11/19/16 14:00 11/23/16 05:49 (Lopressor) 50 mg Q12HR PO 11/20/16 10:45 11/23/16 08:25 Gabapentin 600 mg 600 mg QID PO 11/20/16 13:00 11/23/16 08:26 Diltiazem HCl 125 mg/Sodium Chloride 125 ml @ 0 mls/hr TITRATE IV 11/20/16 11:30 Sodium Chloride 500 ml @ 30 mls/hr [id number] PRN IV 11/21/16 00:15 11/24/16 00:14 (KCl Inj/Lr 1000 ml Inj) 1,010 ml @ 30 mls/hr Q24H PRN IV 11/22/16 00:15 (D50w (Syr) Inj) 50 ml UNSCH PRN IV 11/21/16 17:45 (Glucagon Inj) 1 mg UNSCH PRN OTHER 11/21/16 17:45 (Protonix) 40 mg DAILY PO 11/23/16 09:00 11/23/16 08:25 (Cardizem) 30 mg Q6H PO 11/22/16 15:00 11/23/16 08:26 (Lee 7.5-325 Mg) 1 tab Q4H PRN PO 11/22/16 17:45 (Lee 7.5-325 Mg) 2 tab Q4H PRN PO 11/22/16 17:45 11/23/16 10:32 (D50w (Vial) Inj) 50 ml UNSCH PRN IV 11/23/16 06:15 (Glucagon Inj) 1 mg UNSCH PRN OTHER 11/23/16 06:15 (NovoLIN 70/30 INJ) 35 units DAILY@08 SQ 11/23/16 08:00 11/23/16 09:17 (NovoLIN R INJ) 12 units DAILY@17 SQ 11/23/16 17:00 (NovoLIN 70/30 INJ) 20 units HS SQ 11/23/16 21:00 Vital Signs / I&O Vital Signs Date Time Temp Pulse Resp B/P Pulse Ox O2 Delivery O2 Flow Rate FiO2 11/23/16 08:46 18 11/23/16 08:00 98.4 73 17 120/70 97 11/23/16 04:00 98.5 77 18 134/76 96 11/23/16 00:00 98.2 88 20 164/90 100 11/22/16 20:15 21 11/22/16 20:00 99.2 87 18 145/79 96 11/22/16 16:00 99.5 80 13 131/68 95 11/22/16 16:00 78 11/22/16 15:41 99 21 11/22/16 14:00 82 11/22/16 12:00 81 11/22/16 12:00 99.5 90 20 137/67 98 I/O 11/22/16 11/22/16 11/22/16 11/23/16 11/23/16 11/23/16 07:00 15:00 23:00 07:00 15:00 23:00 Intake Total 1449 ml 240 ml 220 ml Output Total 700 ml 500 ml 750 ml Balance 749 ml -260 ml -530 ml Intake Oral 1200 ml 240 ml 120 ml IV Total 249 ml 100 ml Output Urine Total 700 ml 500 ml 750 ml # Voids 1 4 1 # Bowel Movements 1 1 1 0 Physical Exam GENERAL: In NAD SKIN: Warm and dry. HEAD: Normocephalic. EYES: No scleral icterus. No injection or drainage. NECK: Supple, trachea midline. No JVD or lymphadenopathy. CARDIOVASCULAR: Regular rate and rhythm without murmurs, gallops, or rubs. RESPIRATORY: Breath sounds equal bilaterally. No accessory muscle use. GASTROINTESTINAL: Abdomen soft, non-tender, nondistended. MUSCULOSKELETAL: No cyanosis, or edema. Laboratory Laboratory Tests Test 11/23/16 08:00 Sodium Level 134 MEQ/L Potassium Level 3.6 MEQ/L Chloride Level 99 MEQ/L Carbon Dioxide Level 26.5 MEQ/L Anion Gap 9 MEQ/L Blood Urea Nitrogen 5 MG/DL Creatinine 0.76 MG/DL Estimat Glomerular Filtration 109 ML/MIN Rate Random Glucose 362 MG/DL Calcium Level 8.6 MG/DL Imaging Last Impressions Pelvis CT 11/16/16 0000 Signed Impressions: Service Date/Time: Wednesday, November 16, 2016 16:20 - CONCLUSION: 1. Fornier's gangrene of the perineal region as detailed above. This can be a life threatening condition. 2. Results were called to the emergency department (Dr. Bryan Cuellar) the time of this dictation. 3. 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 Elijah Álvarez MD Chest X-Ray 11/16/16 0000 Signed Impressions: Service Date/Time: Wednesday, November 16, 2016 17:48 - CONCLUSION: No evidence of acute cardiopulmonary disease. Previous median sternotomy. 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 Stays in SR. Continue metoprolol and diltiazem. Continue monitoring. Increase activity. Continue cardiac risk factor modification. Remains stable from cardiac standpoint. Problem Qualifiers (1) DKA (diabetic ketoacidoses): Qualified Code: E13.10 - Diabetic ketoacidosis without coma associated with type 2 diabetes mellitus Hilario Dailey MD November 23, 2016 11:15
--- NOTE | 2016-11-23 13:08 | HHI.IDPN ---
Subjective Subjective Remarks 51 year old male, with DM, admitted and diagnosed to have Jessica's gangrene and perirectal abscess S/P extensive debridement and has open wounds with packing Notes reviewed Last debridement done 11/21 Temps ok BP ok WBC better No new C/S Antibiotics Cefepime Flagyl Lines PIV Past Medical History reviewed Allergies: Coded Allergies: CRESTOR (Verified Allergy, Severe, cardiac, 08/13/16) Lisinopril (Verified Allergy, Severe, Anaphylaxis, 08/13/16) Itching, lip swelling, throat closing. *MDRO Multi-Drug Resistant Organism (Verified Adverse Reaction, Unknown, ) MDR-E.Coli (perirectal abscess)-11/17/16 Uncoded Allergies: provacal (Allergy, Severe, 12/28/15) COZAR (Allergy, Intermediate, 03/11/16) Objective . Vital Signs Date Time Temp Pulse Resp B/P Pulse Ox O2 Delivery O2 Flow Rate FiO2 11/23/16 12:00 99.6 69 18 107/56 96 11/23/16 11:32 18 11/23/16 08:46 18 11/23/16 08:00 98.4 73 17 120/70 97 11/23/16 04:00 98.5 77 18 134/76 96 11/23/16 00:00 98.2 88 20 164/90 100 11/22/16 20:15 21 11/22/16 20:00 99.2 87 18 145/79 96 11/22/16 16:00 99.5 80 13 131/68 95 11/22/16 16:00 78 11/22/16 15:41 99 21 11/22/16 14:00 82 11/22/16 11/22/16 11/23/16 15:00 23:00 07:00 Intake Total 1449 ml 240 ml 220 ml Output Total 700 ml 500 ml 750 ml Balance 749 ml -260 ml -530 ml Intake Oral 1200 ml 240 ml 120 ml IV Total 249 ml 100 ml Output Urine Total 700 ml 500 ml 750 ml # Voids 4 1 # Bowel Movements 1 1 0 . Laboratory Tests Test 11/22/16 04:05 White Blood Count 10.3 TH/MM3 Red Blood Count 4.51 MIL/MM3 Hemoglobin 11.4 GM/DL Hematocrit 34.4 % Mean Corpuscular Volume 76.3 FL Mean Corpuscular Hemoglobin 25.2 PG Mean Corpuscular Hemoglobin 33.1 % Concent Red Cell Distribution Width 14.8 % Platelet Count 322 TH/MM3 Mean Platelet Volume 7.4 FL Neutrophils (%) (Auto) 80.0 % Lymphocytes (%) (Auto) 8.4 % Monocytes (%) (Auto) 9.8 % Eosinophils (%) (Auto) 1.5 % Basophils (%) (Auto) 0.3 % Neutrophils # (Auto) 8.3 TH/MM3 Lymphocytes # (Auto) 0.9 TH/MM3 Monocytes # (Auto) 1.0 TH/MM3 Eosinophils # (Auto) 0.2 TH/MM3 Basophils # (Auto) 0.0 TH/MM3 CBC Comment DIFF FINAL Differential Comment Laboratory Tests Test 11/22/16 11/23/16 04:04 08:00 Sodium Level 137 MEQ/L 134 MEQ/L Potassium Level 3.3 MEQ/L 3.6 MEQ/L Chloride Level 100 MEQ/L 99 MEQ/L Carbon Dioxide Level 27.5 MEQ/L 26.5 MEQ/L Anion Gap 10 MEQ/L 9 MEQ/L Blood Urea Nitrogen 7 MG/DL 5 MG/DL Creatinine 0.73 MG/DL 0.76 MG/DL Estimat Glomerular Filtration 114 ML/MIN 109 ML/MIN Rate Random Glucose 249 MG/DL 362 MG/DL Calcium Level 8.8 MG/DL 8.6 MG/DL Imaging Pelvis CT 11/16/16 0000 Signed Impressions: Service Date/Time: Wednesday, November 16, 2016 16:20 - CONCLUSION: 1. Fornier's gangrene of the perineal region as detailed above. This can be a life threatening condition. 2. Results were called to the emergency department (Dr. Bryan Cuellar) the time of this dictation. 3. 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 Elijah Álvarez MD Chest X-Ray 11/16/16 0000 Signed Impressions: Service Date/Time: Wednesday, November 16, 2016 17:48 - CONCLUSION: No evidence of acute cardiopulmonary disease. Previous median sternotomy. Magnus Steele MD Physical Exam GENERAL: awake and alert, NAD SKIN: Warm and dry. No generalized rash HEAD: Atraumatic. Normocephalic. No temporal wasting, or tenderness. EYES: [place] conjunctiva. No petechia or hemorrhage. No scleral icterus. No injection or drainage. EARS, NOSE AND THROAT: No sinus tenderness. Mucous membranes pink and moist. No oral lesions noted. No exudate. NECK: Trachea midline. Supple and not tender, no meningeal signs CARDIOVASCULAR: Regular rate and rhythm. No murmurs, rubs or gallops heard RESPIRATORY: Clear to auscultation. Breath sounds equal bilaterally. No rales , wheezing or rhonchi ABDOMEN: Soft, non-tender, nondistended. Bowel sounds present and normoactive. No guarding. No rebound. No organomegaly. EXTREMITIES: No clubbing, cyanosis, or edema. No calf tenderness. Well perfused and warm. NEUROLOGICAL: Grossly non-focal PSYCHIATRIC: Normal affect, calm and cooperative. LINE: No evidence of infection : Has packing in place in his large open wound in perineum, L groin and buttocks Assessment & Plan Remarks IMPRESSION Sepsis due to Jessica's gangrene, perirectal abscess - S/P extensive debridement x 2 - better - C/S polymicrobial Jessica's gangrene, perirectal abscess DKA Leukocytosis, resolved RECOMMENDATION Continue cefepime and Flagyl - when ready for D/C, would be able to use Levaquin and Flagyl Monitor progress Follow temps Wound care per surgery Dr Flor Hernandez covering 11/24-11/26 Please call if there are any new ID issue or concerns during that time Noemí Amador MD November 23, 2016 13:08
[2016-11-23] MEDS: INSULIN HUMAN REGULAR 1,000 UNITS/10 ML VIAL SQ SCH ×2 (13:26→17:23)
--- NOTE | 2016-11-23 17:25 | HHI.PR ---
Objective Vitals Vital Signs Date Time Temp Pulse Resp B/P Pulse Ox O2 Delivery O2 Flow Rate FiO2 11/23/16 16:56 19 11/23/16 16:00 98.7 78 18 128/71 98 11/23/16 15:01 18 11/23/16 14:45 98.9 80 17 113/71 98 11/23/16 12:00 99.6 69 18 107/56 96 11/23/16 08:00 98.4 73 17 120/70 97 11/23/16 04:00 98.5 77 18 134/76 96 11/23/16 00:00 98.2 88 20 164/90 100 11/22/16 20:15 21 11/22/16 20:00 99.2 87 18 145/79 96 I/O 11/22/16 11/22/16 11/22/16 11/23/16 11/23/16 11/23/16 07:00 15:00 23:00 07:00 15:00 23:00 Intake Total 1449 ml 240 ml 220 ml 720 ml Output Total 700 ml 500 ml 750 ml 525 ml Balance 749 ml -260 ml -530 ml 195 ml Intake Oral 1200 ml 240 ml 120 ml 720 ml IV Total 249 ml 100 ml Output Urine Total 700 ml 500 ml 750 ml 525 ml # Voids 1 4 1 # Bowel Movements 1 1 1 0 2 Result Diagram: 11/22/16 0405 11/23/16 0800 Objective Remarks GENERAL: 51-year-old male resting in bed in no acute distress CARDIOVASCULAR: RRR. No murmurs. RESPIRATORY: Breath sounds equal bilaterally. No accessory muscle use. CTAB. GASTROINTESTINAL: Abdomen soft, non-tender, nondistended. MUSCULOSKELETAL: Without significant peripheral edema : wound not examined today, dressing in place. A/P Problem List: (1) Dementia ICD Code: F03.90 Status: Acute (2) Postoperative pain ICD Code: G89.18 Status: Acute (3) DKA (diabetic ketoacidoses) ICD Code: E13.10 Status: Acute (4) Peripheral neuropathy ICD Code: G62.9 Status: Acute (5) Coronary artery disease ICD Code: I25.10 Status: Chronic (6) Hypertension ICD Code: I10 Status: Chronic (7) Hyperlipidemia ICD Code: E78.5 Status: Chronic (8) GERD (gastroesophageal reflux disease) ICD Code: K21.9 Status: Chronic (9) Anemia ICD Code: D64.9 Status: Acute (10) Sinus tachycardia ICD Code: R00.0 Status: Acute Assessment and Plan Neuro/Psych: Dementia disorder NOS Postoperative pain Peripheral neuropathy/diabetic -pain management per GS -home dose of gabapentin has been restarted CV: Sinus tachycardia Coronary disease status post CABG 5 Hypertension Dyslipidemia -Pt was found to have atrial fib w rvr but converted spontaneously. cardiology evaluated the pt and recommended restarting him on metoprolol which he is on. has been off the cardizem gtt. -EF 50-55%. Apical akinesis. Mild MV regurg, TV regurg -On Lopressor 50mg Q12. monitor HR and BPs -on lovastatin Resp: -sats in the low-to-mid 90s on room air -incentive spirometry while awake GI: Gastroesophageal reflux disease diabetic diet -protonix for GI ppx : -status post I&D bilateral perirectal region 7.5 cm removal necrotic tissue secondary to necrosis ischiorectal fossa Dr. Vallecillo POD #5. Postoperative surgical care per Dr. Vallecillo. s/p I&D and debridement 11/21/16 -CT abdomen/pelvis 11/16 revealed diverticulosis without diverticulitis. 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 on cefepime and flagyl, s/p vanc. Endo: Diabetes mellitus -bedside glucose in the 100s. -cont novolin 30 u qAM and 20 u qHS with 10 u novolin TIDAC. SSI. Renal: -kidney function and electrolytes WNL. Heme: Normocytic anemia -hemoglobin stable at 10.9 -currently holding aspirin 81 mg daily and Plavix any 5 mg by mouth daily. Resume when okay with general surgery ID: -continue cefepime (11/19-), flagyl (11/19-), s/p vancomycin (11/18-11/21). S/p clindamycin (11/17-11/19) and zosyn (11/16-11/19) -11/16 Blood cultures 2 no growth to date -11/17 Wound cx: Klebsiella (sens to cefepime), E. coli (sens to cefepime), MDR GBS -infectious disease following (Dr. Amador). Have changed abx, as above. MSK: -PT evaluate and treat. Recommend PT. Access -Utilize peripheral IV. Prophylaxis -GI Protonix -DVT ; SCD/pharmacological prophylaxis per general surgery Discharge Planning d/c pending further work-up, clinical improvement Problem Qualifiers (1) DKA (diabetic ketoacidoses): Qualified Code: E13.10 - Diabetic ketoacidosis without coma associated with type 2 diabetes mellitus Taty Cazares MD November 23, 2016 17:25
--- NOTE | 2016-11-23 17:48 | HHI.PR ---
Subjective Subjective Notes Eating dinner Reports dressing has been changed 3 times today; he did take a shower today Objective Vitals/I&O Vital Signs Date Time Temp Pulse Resp B/P Pulse Ox O2 Delivery O2 Flow Rate FiO2 11/23/16 16:56 19 11/23/16 16:00 98.7 78 128/71 98 11/22/16 20:15 21 11/22/16 08:55 Nasal Cannula 2.00 Labs Laboratory Tests Test 11/23/16 08:00 Sodium Level 134 Potassium Level 3.6 Chloride Level 99 Carbon Dioxide Level 26.5 Anion Gap 9 Blood Urea Nitrogen 5 Creatinine 0.76 Estimat Glomerular Filtration 109 Rate Random Glucose 362 Calcium Level 8.6 Cardiovascular: Regular Lungs: Clear Abdomen: Non-distended, Non-tender Extremities: No edema Narrative Exam buttocks wound--- packing in place with dakin gauze --- minimal erythema around wound A/P Assessment and Plan 51 year old male POD2 I&D perirectal abscess -Continue dressing changes ---change BID and PRN; okay to shower in between dressing changes -Antibiotics per ID -1800 ADA diet -Pain control -GS will see peripherally over the weekend -We will evaluate wound on Saturday Attending Note - Dr. Vallecillo Wound clean and with minimal exudate Continue packing The exam, history, and the medical decision-making described in the above note were completed with the assistance of the mid-level provider. I reviewed and agree with the findings presented. I attest that I had a [id number] encounter with the patient on the same day, and personally performed and documented my assessment and findings in the medical record. Caty Matute November 23, 2016 17:48 Hiram Vallecillo MD Dec 07, 2016 13:28
--- NOTE | 2016-11-23 17:59 | HHI.PR ---
Subjective Remarks no pain at this time, denies any nausea or vomiting. states that his diet regimen is different than at home. discussed w RN earlier this morning. BS were elevated, new insulin regimen has help better control BS Objective Vitals Vital Signs Date Time Temp Pulse Resp B/P Pulse Ox O2 Delivery O2 Flow Rate FiO2 11/23/16 16:56 19 11/23/16 16:00 98.7 78 18 128/71 98 11/23/16 15:01 18 11/23/16 14:45 98.9 80 17 113/71 98 11/23/16 12:00 99.6 69 18 107/56 96 11/23/16 08:00 98.4 73 17 120/70 97 11/23/16 04:00 98.5 77 18 134/76 96 11/23/16 00:00 98.2 88 20 164/90 100 11/22/16 20:15 21 11/22/16 20:00 99.2 87 18 145/79 96 I/O 11/22/16 11/22/16 11/22/16 11/23/16 11/23/16 11/23/16 07:00 15:00 23:00 07:00 15:00 23:00 Intake Total 1449 ml 240 ml 220 ml 720 ml Output Total 700 ml 500 ml 750 ml 525 ml Balance 749 ml -260 ml -530 ml 195 ml Intake Oral 1200 ml 240 ml 120 ml 720 ml IV Total 249 ml 100 ml Output Urine Total 700 ml 500 ml 750 ml 525 ml # Voids 1 4 1 # Bowel Movements 1 1 1 0 2 Result Diagram: 11/22/16 0405 11/23/16 0800 Imaging Last Impressions Pelvis CT 11/16/16 0000 Signed Impressions: Service Date/Time: Wednesday, November 16, 2016 16:20 - CONCLUSION: 1. Fornier's gangrene of the perineal region as detailed above. This can be a life threatening condition. 2. Results were called to the emergency department (Dr. Bryan Cuellar) the time of this dictation. 3. 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 Elijah Álvarez MD Chest X-Ray 11/16/16 0000 Signed Impressions: Service Date/Time: Wednesday, November 16, 2016 17:48 - CONCLUSION: No evidence of acute cardiopulmonary disease. Previous median sternotomy. Magnus Steele MD Objective Remarks GENERAL: 51-year-old male resting in bed in no acute distress CARDIOVASCULAR: RRR. No murmurs. RESPIRATORY: Breath sounds equal bilaterally. No accessory muscle use. CTAB. GASTROINTESTINAL: Abdomen soft, non-tender, nondistended. MUSCULOSKELETAL: Without significant peripheral edema : wound not examined today, dressing in place. A/P Problem List: (1) Dementia ICD Code: F03.90 Status: Acute (2) Postoperative pain ICD Code: G89.18 Status: Acute (3) DKA (diabetic ketoacidoses) ICD Code: E13.10 Status: Acute (4) Peripheral neuropathy ICD Code: G62.9 Status: Acute (5) Coronary artery disease ICD Code: I25.10 Status: Chronic (6) Hypertension ICD Code: I10 Status: Chronic (7) Hyperlipidemia ICD Code: E78.5 Status: Chronic (8) GERD (gastroesophageal reflux disease) ICD Code: K21.9 Status: Chronic (9) Anemia ICD Code: D64.9 Status: Acute (10) Sinus tachycardia ICD Code: R00.0 Status: Acute Assessment and Plan Neuro/Psych: Dementia disorder NOS Postoperative pain Peripheral neuropathy/diabetic -pain management per GS -on home dose of gabapentin CV: Sinus tachycardia Coronary disease status post CABG 5 Hypertension Dyslipidemia -Pt was found to have atrial fib w rvr but converted spontaneously. cardiology evaluated the pt and recommended restarting him on metoprolol which he is on. has been off the cardizem gtt. -EF 50-55%. Apical akinesis. Mild MV regurg, TV regurg -On Lopressor 50mg Q12. monitor HR and BPs -on lovastatin Resp: -sats in the low-to-mid 90s on room air -incentive spirometry while awake GI: Gastroesophageal reflux disease diabetic diet -protonix for GI ppx : -status post I&D bilateral perirectal region 7.5 cm removal necrotic tissue secondary to necrosis ischiorectal fossa Dr. Vallecillo 11/17/16. Postoperative surgical care per Dr. Vallecillo. s/p I&D and debridement 11/21/16 -CT abdomen/pelvis 11/16 revealed diverticulosis without diverticulitis. 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 on cefepime and flagyl, s/p vanc. Endo: Diabetes mellitus -bedside glucose were in the 500's this morning. . -increased novolin to 35 u qAM and 20 u qHS with and increased to 12 u novolin TIDAC. SSI. continue to adjust insulin regimen to reflect home dosage Renal: -kidney function and electrolytes WNL. Heme: Normocytic anemia -hemoglobin stable at 10.9 -currently holding aspirin 81 mg daily and Plavix any 5 mg by mouth daily. Resume when okay with general surgery ID: -continue cefepime (11/19-), flagyl (11/19-), s/p vancomycin (11/18-11/21). S/p clindamycin (11/17-11/19) and zosyn (11/16-11/19) -11/16 Blood cultures 2 no growth to date -11/17 Wound cx: Klebsiella (sens to cefepime), E. coli (sens to cefepime), MDR GBS -infectious disease following (Dr. Amador). Continue cefepime and Flagyl - when ready for D/C, would be able to use Levaquin and Flagyl MSK: -PT evaluate and treat. Recommend PT. Access -Utilize peripheral IV. Prophylaxis -GI Protonix -DVT ; SCD/pharmacological prophylaxis per general surgery Discharge Planning d/c pending further work-up, clinical improvement awaiting recs from . They will evaluate wound on saturday Continue cefepime and Flagyl per ID for now - when ready for D/C, would be able to use Levaquin and Flagyl Problem Qualifiers (1) DKA (diabetic ketoacidoses): Qualified Code: E13.10 - Diabetic ketoacidosis without coma associated with type 2 diabetes mellitus Taty Cazares MD November 23, 2016 17:59
[2016-11-24] VITALS: BP 129/69; PULSE 70; RESP 18; TEMP 99.5; O2SAT 95
[2016-11-24] MEDS: HYDROmorphone HCL PF 1 MG/ML VIAL IV PUSH PRN ×4 (01:25→20:03)
[2016-11-24] MEDS: CHLORHEXIDINE GLUCONATE 2 % 1 PACK (2 CLOTHS) TOP SCH (04:00)
[2016-11-24] MEDS: ACETAMINOPHEN/HYDROcodone 325 MG/7.5 MG TAB PO PRN ×4 (04:38→23:02)
[2016-11-24] MEDS: DILTIAZEM HCL 30 MG TAB PO SCH ×4 (04:39→20:16)
[2016-11-24] MEDS: metroNIDAZOLE 500 MG TAB PO SCH ×3 (04:39→23:03)
[2016-11-24] MEDS: CEFEPIME INJ 2,000 MG in SODIUM CHLORIDE 0.9% INJ 100 ML IV SCH ×3 (06:00→23:03)
[2016-11-24 06:12] LABS: BICARBONATE 28.6 MEQ/L (21.0-32.0); POTASSIUM 3.7 MEQ/L (3.5-5.1)
[2016-11-24] MEDS: INSULIN ASPART SUPPLEMENTAL SCALE SQ SCH ×4 (07:00→20:28)
[2016-11-24] MEDS: INSULIN HUMAN REGULAR 1,000 UNITS/10 ML VIAL SQ SCH ×3 (07:00→16:15)
[2016-11-24 08:00] VITALS: BP 133/73; PULSE 70; RESP 18; TEMP 97.7; O2SAT 97
[2016-11-24] MEDS: PANTOPRAZOLE SOD 40 MG DELAYED RELEASE TAB PO SCH (08:48)
[2016-11-24] MEDS: GABAPENTIN 300 MG CAP PO SCH ×4 (08:48→20:16)
[2016-11-24] MEDS: METOPROLOL TARTRATE 50 MG TAB PO SCH ×2 (08:49→20:16)
[2016-11-24] MEDS: SODIUM HYPOCHLORITE 0.25% 500 ML BTL TOPICAL SCH ×2 (08:58→20:16)
[2016-11-24] MEDS: INSULIN HUMAN NPH/R 70/30 1,000 UNITS/10 ML VIAL SQ SCH ×2 (08:58→20:27)
--- NOTE | 2016-11-24 10:37 | HHI.PR ---
Subjective Remarks Feels tired and he is sleepy. Denies having any chest pain or sob. Doesn't feel palpitations. No n/v/d/c. No fever or chills Objective Vitals Vital Signs Date Time Temp Pulse Resp B/P Pulse Ox O2 Delivery O2 Flow Rate FiO2 11/24/16 08:00 97.7 70 18 133/73 97 11/24/16 01:55 18 11/24/16 00:00 99.5 70 18 129/69 95 11/23/16 22:48 18 11/23/16 20:00 99.0 84 18 134/75 96 11/23/16 16:00 98.7 78 18 128/71 98 11/23/16 14:45 98.9 80 17 113/71 98 11/23/16 12:00 99.6 69 18 107/56 96 I/O 11/23/16 11/23/16 11/23/16 11/24/16 11/24/16 11/24/16 07:00 15:00 23:00 07:00 15:00 23:00 Intake Total 220 ml 720 ml 600 ml 360 ml Output Total 750 ml 525 ml 600 ml 525 ml 620 ml Balance -530 ml 195 ml 0 ml -165 ml -620 ml Intake Oral 120 ml 720 ml 600 ml 360 ml IV Total 100 ml Output Urine Total 750 ml 525 ml 600 ml 525 ml 620 ml # Voids 1 # Bowel Movements 0 2 0 1 Result Diagram: 11/22/16 0405 11/24/16 0524 Imaging Last Impressions Pelvis CT 11/16/16 0000 Signed Impressions: Service Date/Time: Wednesday, November 16, 2016 16:20 - CONCLUSION: 1. Fornier's gangrene of the perineal region as detailed above. This can be a life threatening condition. 2. Results were called to the emergency department (Dr. Bryan Cuellar) the time of this dictation. 3. 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 Elijah Álvarez MD Chest X-Ray 11/16/16 0000 Signed Impressions: Service Date/Time: Wednesday, November 16, 2016 17:48 - CONCLUSION: No evidence of acute cardiopulmonary disease. Previous median sternotomy. Magnus Steele MD Objective Remarks GENERAL: 51-year-old male resting in bed in no acute distress CARDIOVASCULAR: RRR. No murmurs. RESPIRATORY: Breath sounds equal bilaterally. No accessory muscle use. CTAB. GASTROINTESTINAL: Abdomen soft, non-tender, nondistended. MUSCULOSKELETAL: Without significant peripheral edema : wound not examined today, dressing in place. A/P Problem List: (1) Dementia ICD Code: F03.90 Status: Acute (2) Postoperative pain ICD Code: G89.18 Status: Acute (3) DKA (diabetic ketoacidoses) ICD Code: E13.10 Status: Acute (4) Peripheral neuropathy ICD Code: G62.9 Status: Acute (5) Coronary artery disease ICD Code: I25.10 Status: Chronic (6) Hypertension ICD Code: I10 Status: Chronic (7) Hyperlipidemia ICD Code: E78.5 Status: Chronic (8) GERD (gastroesophageal reflux disease) ICD Code: K21.9 Status: Chronic (9) Anemia ICD Code: D64.9 Status: Acute (10) Sinus tachycardia ICD Code: R00.0 Status: Acute Assessment and Plan Neuro/Psych: Dementia disorder NOS Postoperative pain Peripheral neuropathy/diabetic -pain management per GS -on home dose of gabapentin CV: Sinus tachycardia Coronary disease status post CABG 5 Hypertension Dyslipidemia -Pt was found to have atrial fib w rvr but converted spontaneously. cardiology evaluated the pt and recommended restarting him on metoprolol which he is on. has been off the cardizem gtt. -EF 50-55%. Apical akinesis. Mild MV regurg, TV regurg -On Lopressor 50mg Q12. monitor HR and BPs -on lovastatin Resp: -sats in the low-to-mid 90s on room air -incentive spirometry while awake GI: Gastroesophageal reflux disease diabetic diet -protonix for GI ppx : -status post I&D bilateral perirectal region 7.5 cm removal necrotic tissue secondary to necrosis ischiorectal fossa Dr. Vallecillo 11/17/16. Postoperative surgical care per Dr. Vallecillo. s/p I&D and debridement 11/21/16 -CT abdomen/pelvis 11/16 revealed diverticulosis without diverticulitis. 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 on cefepime and flagyl, s/p vanc. Endo: Diabetes mellitus -bedside glucose were in the 500's this morning. . -increased novolin to 35 u qAM and 20 u qHS with and increased to 12 u novolin TIDAC. SSI. continue to adjust insulin regimen to reflect home dosage Renal: -kidney function and electrolytes WNL. Heme: Normocytic anemia -hemoglobin stable at 10.9 -currently holding aspirin 81 mg daily and Plavix any 5 mg by mouth daily. Resume when okay with general surgery ID: -continue cefepime (11/19-), flagyl (11/19-), s/p vancomycin (11/18-11/21). S/p clindamycin (11/17-11/19) and zosyn (11/16-11/19) -11/16 Blood cultures 2 no growth to date -11/17 Wound cx: Klebsiella (sens to cefepime), E. coli (sens to cefepime), MDR GBS -infectious disease following (Dr. Amador). Continue cefepime and Flagyl - when ready for D/C, would be able to use Levaquin and Flagyl MSK: -PT evaluate and treat. Recommend PT. Access -Utilize peripheral IV. Prophylaxis -GI Protonix -DVT ; SCD/pharmacological prophylaxis per general surgery Discharge Planning d/c pending further work-up, clinical improvement awaiting recs from . They will evaluate wound on Saturday Continue cefepime and Flagyl per ID for now - when ready for D/C, would be able to use Levaquin and Flagyl Problem Qualifiers (1) DKA (diabetic ketoacidoses): Qualified Code: E13.10 - Diabetic ketoacidosis without coma associated with type 2 diabetes mellitus Yesi Napier MD November 24, 2016 10:37
[2016-11-24 12:00] VITALS: BP 120/76; PULSE 70; RESP 16; TEMP 99; O2SAT 96
[2016-11-24 16:00] VITALS: BP 124/69; PULSE 74; RESP 17; TEMP 98.1; O2SAT 97
[2016-11-24 17:35] VITALS: O2SAT 98
[2016-11-24 20:13] VITALS: BP 156/86; PULSE 83; RESP 20; TEMP 98.4; O2SAT 98
[2016-11-25] VITALS: BP 143/77; PULSE 70; RESP 20; TEMP 99.3; O2SAT 97
[2016-11-25] MEDS: ACETAMINOPHEN/HYDROcodone 325 MG/7.5 MG TAB PO PRN ×4 (03:45→21:49)
[2016-11-25 03:51] VITALS: BP 157/92; PULSE 72
[2016-11-25] MEDS: DILTIAZEM HCL 30 MG TAB PO SCH ×4 (03:51→19:48)
[2016-11-25] MEDS: CHLORHEXIDINE GLUCONATE 2 % 1 PACK (2 CLOTHS) TOP SCH (04:00)
[2016-11-25] MEDS: CEFEPIME INJ 2,000 MG in SODIUM CHLORIDE 0.9% INJ 100 ML IV SCH ×3 (05:51→21:48)
[2016-11-25] MEDS: metroNIDAZOLE 500 MG TAB PO SCH ×3 (05:51→21:49)
[2016-11-25] MEDS: INSULIN HUMAN REGULAR 1,000 UNITS/10 ML VIAL SQ SCH ×3 (06:03→16:27)
[2016-11-25] MEDS: INSULIN ASPART SUPPLEMENTAL SCALE SQ SCH ×4 (06:04→20:02)
[2016-11-25] MEDS: METOPROLOL TARTRATE 50 MG TAB PO SCH ×2 (07:56→19:49)
[2016-11-25] MEDS: PANTOPRAZOLE SOD 40 MG DELAYED RELEASE TAB PO SCH (07:56)
[2016-11-25] MEDS: GABAPENTIN 300 MG CAP PO SCH ×4 (07:56→19:48)
[2016-11-25] MEDS: SODIUM HYPOCHLORITE 0.25% 500 ML BTL TOPICAL SCH ×2 (07:58→19:59)
[2016-11-25 08:00] VITALS: BP 110/60; PULSE 76; RESP 17; TEMP 97.6; O2SAT 97
[2016-11-25] MEDS: INSULIN HUMAN NPH/R 70/30 1,000 UNITS/10 ML VIAL SQ SCH ×2 (08:01→20:01)
--- NOTE | 2016-11-25 09:03 | HHI.PR ---
Subjective Remarks Says he has no fever or chills. Says temp in the room is either too cold or too hot. Says he has neuropathicpain if low temp. no pain in groin /buttock wound. No n/v/d/c. Objective Vitals Vital Signs Date Time Temp Pulse Resp B/P Pulse Ox O2 Delivery O2 Flow Rate FiO2 11/25/16 08:00 97.6 76 17 110/60 97 11/25/16 03:51 72 157/92 11/25/16 00:00 99.3 70 20 143/77 97 11/24/16 20:13 98.4 83 20 156/86 98 11/24/16 17:35 98 21 11/24/16 16:00 98.1 74 17 124/69 97 11/24/16 12:00 99.0 70 16 120/76 96 I/O 11/24/16 11/24/16 11/24/16 11/25/16 11/25/16 11/25/16 07:00 15:00 23:00 07:00 15:00 23:00 Intake Total 360 ml 555 ml 360 ml 960 ml Output Total 525 ml 1095 ml 1050 ml 1300 ml Balance -165 ml -540 ml -690 ml -340 ml Intake Oral 360 ml 555 ml 360 ml 960 ml IV Total 0 ml Output Urine Total 525 ml 1095 ml 1050 ml 1300 ml # Voids 1 1 # Bowel Movements 1 1 1 Result Diagram: 11/22/16 0405 11/24/16 0524 Imaging Last Impressions Pelvis CT 11/16/16 0000 Signed Impressions: Service Date/Time: Wednesday, November 16, 2016 16:20 - CONCLUSION: 1. Fornier's gangrene of the perineal region as detailed above. This can be a life threatening condition. 2. Results were called to the emergency department (Dr. Bryan Cuellar) the time of this dictation. 3. 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 Elijah Álvarez MD Chest X-Ray 11/16/16 0000 Signed Impressions: Service Date/Time: Wednesday, November 16, 2016 17:48 - CONCLUSION: No evidence of acute cardiopulmonary disease. Previous median sternotomy. Magnus Steele MD Objective Remarks GENERAL: 51-year-old male resting in bed in no acute distress CARDIOVASCULAR: RRR. No murmurs. RESPIRATORY: Breath sounds equal bilaterally. No accessory muscle use. CTAB. GASTROINTESTINAL: Abdomen soft, non-tender, nondistended. MUSCULOSKELETAL: Without significant peripheral edema : wound with dressing in place, c/d/di. A/P Problem List: (1) Dementia ICD Code: F03.90 Status: Acute (2) Postoperative pain ICD Code: G89.18 Status: Acute (3) DKA (diabetic ketoacidoses) ICD Code: E13.10 Status: Acute (4) Peripheral neuropathy ICD Code: G62.9 Status: Acute (5) Coronary artery disease ICD Code: I25.10 Status: Chronic (6) Hypertension ICD Code: I10 Status: Chronic (7) Hyperlipidemia ICD Code: E78.5 Status: Chronic (8) GERD (gastroesophageal reflux disease) ICD Code: K21.9 Status: Chronic (9) Anemia ICD Code: D64.9 Status: Acute (10) Sinus tachycardia ICD Code: R00.0 Status: Acute Assessment and Plan Neuro/Psych: Dementia disorder NOS Postoperative pain Peripheral neuropathy/diabetic -pain management per GS -on home dose of gabapentin CV: Sinus tachycardia Coronary disease status post CABG 5 Hypertension Dyslipidemia -Pt was found to have atrial fib w rvr but converted spontaneously. cardiology evaluated the pt and recommended restarting him on metoprolol which he is on. has been off the cardizem gtt. -EF 50-55%. Apical akinesis. Mild MV regurg, TV regurg -On Lopressor 50mg Q12. monitor HR and BPs -on lovastatin Resp: -sats in the low-to-mid 90s on room air -incentive spirometry while awake GI: Gastroesophageal reflux disease diabetic diet -protonix for GI ppx : -status post I&D bilateral perirectal region 7.5 cm removal necrotic tissue secondary to necrosis ischiorectal fossa Dr. Vallecillo 11/17/16. Postoperative surgical care per Dr. Vallecillo. s/p I&D and debridement 11/21/16 -CT abdomen/pelvis 11/16 revealed diverticulosis without diverticulitis. 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 on cefepime and flagyl, s/p vanc. Endo: Diabetes mellitus -bedside glucose were in the 500's this morning. . -increased novolin to 35 u qAM and 20 u qHS with and increased to 12 u novolin TIDAC. SSI. continue to adjust insulin regimen to reflect home dosage Renal: -kidney function and electrolytes WNL. Heme: Normocytic anemia -hemoglobin stable at 10.9 -currently holding aspirin 81 mg daily and Plavix any 5 mg by mouth daily. Resume when okay with general surgery ID: -continue cefepime (11/19-), flagyl (11/19-), s/p vancomycin (11/18-11/21). S/p clindamycin (11/17-11/19) and zosyn (11/16-11/19) -11/16 Blood cultures 2 no growth to date -11/17 Wound cx: Klebsiella (sens to cefepime), E. coli (sens to cefepime), MDR GBS -infectious disease following (Dr. Amador). Continue cefepime and Flagyl - when ready for D/C, would be able to use Levaquin and Flagyl MSK: -PT evaluate and treat. Recommend PT. Access -Utilize peripheral IV. Prophylaxis -GI Protonix -DVT ; SCD/pharmacological prophylaxis per general surgery Discharge Planning D/c pending further work-up, clinical improvement Awaiting recs from . They will evaluate wound on Saturday Continue cefepime and Flagyl per ID for now - when ready for D/C, would be able to use Levaquin and Flagyl Problem Qualifiers (1) DKA (diabetic ketoacidoses): Qualified Code: E13.10 - Diabetic ketoacidosis without coma associated with type 2 diabetes mellitus Yesi Napier MD November 25, 2016 09:02
[2016-11-25] MEDS: HYDROmorphone HCL PF 1 MG/ML VIAL IV PUSH PRN ×3 (10:00→19:49)
[2016-11-25 12:00] VITALS: BP 115/68; PULSE 68; RESP 16; TEMP 97.7; O2SAT 96
[2016-11-25 16:00] VITALS: BP 118/73; PULSE 70; RESP 19; TEMP 98.1; O2SAT 96
[2016-11-25 20:00] VITALS: BP 127/70; PULSE 85; RESP 18; TEMP 99.3; O2SAT 98
[2016-11-26] VITALS: BP 126/73; PULSE 74; RESP 18; TEMP 97.9; O2SAT 97
[2016-11-26] MEDS: ACETAMINOPHEN/HYDROcodone 325 MG/7.5 MG TAB PO PRN ×4 (02:38→22:10)
[2016-11-26] MEDS: DILTIAZEM HCL 30 MG TAB PO SCH ×4 (03:00→20:20)
[2016-11-26 04:00] VITALS: BP 109/58; PULSE 75; RESP 18
[2016-11-26] MEDS: CHLORHEXIDINE GLUCONATE 2 % 1 PACK (2 CLOTHS) TOP SCH (04:00)
[2016-11-26] MEDS: HYDROmorphone HCL PF 1 MG/ML VIAL IV PUSH PRN ×4 (05:05→20:12)
[2016-11-26] MEDS: metroNIDAZOLE 500 MG TAB PO SCH ×3 (05:05→20:20)
[2016-11-26] MEDS: CEFEPIME INJ 2,000 MG in SODIUM CHLORIDE 0.9% INJ 100 ML IV SCH ×3 (05:05→22:03)
[2016-11-26] MEDS: INSULIN ASPART SUPPLEMENTAL SCALE SQ SCH ×4 (05:22→22:05)
[2016-11-26] MEDS: INSULIN HUMAN REGULAR 1,000 UNITS/10 ML VIAL SQ SCH ×3 (05:23→17:25)
[2016-11-26 08:00] VITALS: BP 132/76; PULSE 77; RESP 16; TEMP 97.9; O2SAT 98
[2016-11-26] MEDS: PANTOPRAZOLE SOD 40 MG DELAYED RELEASE TAB PO SCH (08:38)
[2016-11-26] MEDS: METOPROLOL TARTRATE 50 MG TAB PO SCH ×2 (08:38→20:20)
[2016-11-26] MEDS: GABAPENTIN 300 MG CAP PO SCH ×4 (08:38→20:20)
[2016-11-26] MEDS: INSULIN HUMAN NPH/R 70/30 1,000 UNITS/10 ML VIAL SQ SCH ×2 (08:43→21:00)
[2016-11-26] MEDS: SODIUM HYPOCHLORITE 0.25% 500 ML BTL TOPICAL SCH ×2 (08:44→20:21)
[2016-11-26 12:00] VITALS: BP 125/70; PULSE 66; RESP 15; TEMP 97.9; O2SAT 98
--- NOTE | 2016-11-26 12:52 | HHI.PR ---
Subjective Remarks Patient in bed. Says he has some pain at the wound site, however he is laying flat without any problems. No fever or chills. No n/v/d/c. Urinating without any problems. Worried reagrding going home. Objective Vitals Vital Signs Date Time Temp Pulse Resp B/P Pulse Ox O2 Delivery O2 Flow Rate FiO2 11/26/16 10:50 16 11/26/16 10:00 16 11/26/16 08:00 97.9 77 16 132/76 98 11/26/16 04:00 75 18 109/58 11/26/16 00:00 97.9 74 18 126/73 97 11/25/16 20:00 99.3 85 18 127/70 98 11/25/16 16:00 98.1 70 19 118/73 96 I/O 11/25/16 11/25/16 11/25/16 11/26/16 11/26/16 11/26/16 07:00 15:00 23:00 07:00 15:00 23:00 Intake Total 960 ml 585 ml 400 ml 480 ml Output Total 1300 ml 800 ml 900 ml 1675 ml Balance -340 ml -215 ml -500 ml -1195 ml Intake Oral 960 ml 585 ml 400 ml 480 ml IV Total 0 ml Output Urine Total 1300 ml 800 ml 900 ml 1675 ml # Bowel Movements 1 1 1 Result Diagram: 11/22/16 0405 11/24/16 0524 Imaging Last Impressions Pelvis CT 11/16/16 0000 Signed Impressions: Service Date/Time: Wednesday, November 16, 2016 16:20 - CONCLUSION: 1. Fornier's gangrene of the perineal region as detailed above. This can be a life threatening condition. 2. Results were called to the emergency department (Dr. Bryan Cuellar) the time of this dictation. 3. 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 Elijah Álvarez MD Chest X-Ray 11/16/16 0000 Signed Impressions: Service Date/Time: Wednesday, November 16, 2016 17:48 - CONCLUSION: No evidence of acute cardiopulmonary disease. Previous median sternotomy. Magnus Steele MD Objective Remarks GENERAL: 51-year-old male resting in bed in no acute distress CARDIOVASCULAR: RRR. No murmurs. RESPIRATORY: Breath sounds equal bilaterally. No accessory muscle use. CTAB. GASTROINTESTINAL: Abdomen soft, non-tender, nondistended. MUSCULOSKELETAL: Without significant peripheral edema : wound with dressing in place, c/d/di. A/P Problem List: (1) Dementia ICD Code: F03.90 Status: Acute (2) Postoperative pain ICD Code: G89.18 Status: Acute (3) DKA (diabetic ketoacidoses) ICD Code: E13.10 Status: Acute (4) Peripheral neuropathy ICD Code: G62.9 Status: Acute (5) Coronary artery disease ICD Code: I25.10 Status: Chronic (6) Hypertension ICD Code: I10 Status: Chronic (7) Hyperlipidemia ICD Code: E78.5 Status: Chronic (8) GERD (gastroesophageal reflux disease) ICD Code: K21.9 Status: Chronic (9) Anemia ICD Code: D64.9 Status: Acute (10) Sinus tachycardia ICD Code: R00.0 Status: Acute Assessment and Plan Neuro/Psych: Dementia disorder NOS Postoperative pain Peripheral neuropathy/diabetic -pain management per GS -on home dose of gabapentin CV: Sinus tachycardia Coronary disease status post CABG 5 Hypertension Dyslipidemia -Pt was found to have atrial fib w rvr but converted spontaneously. cardiology evaluated the pt and recommended restarting him on metoprolol which he is on. has been off the cardizem gtt. -EF 50-55%. Apical akinesis. Mild MV regurg, TV regurg -On Lopressor 50mg Q12. monitor HR and BPs -on lovastatin Resp: -sats in the low-to-mid 90s on room air -incentive spirometry while awake GI: Gastroesophageal reflux disease diabetic diet -protonix for GI ppx : -status post I&D bilateral perirectal region 7.5 cm removal necrotic tissue secondary to necrosis ischiorectal fossa Dr. Vallecillo 11/17/16. Postoperative surgical care per Dr. Vallecillo. s/p I&D and debridement 11/21/16 -CT abdomen/pelvis 11/16 revealed diverticulosis without diverticulitis. 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 on cefepime and flagyl, s/p vanc. Endo: Diabetes mellitus -bedside glucose were in the 500's this morning. . -increased novolin to 35 u qAM and 20 u qHS with and increased to 12 u novolin TIDAC. SSI. continue to adjust insulin regimen to reflect home dosage Renal: -kidney function and electrolytes WNL. Heme: Normocytic anemia -hemoglobin stable at 10.9 -currently holding aspirin 81 mg daily and Plavix any 5 mg by mouth daily. Resume when okay with general surgery ID: -continue cefepime (11/19-), flagyl (11/19-), s/p vancomycin (11/18-11/21). S/p clindamycin (11/17-11/19) and zosyn (11/16-11/19) -11/16 Blood cultures 2 no growth to date -11/17 Wound cx: Klebsiella (sens to cefepime), E. coli (sens to cefepime), MDR GBS -infectious disease following (Dr. Amador). Continue cefepime and Flagyl - when ready for D/C, would be able to use Levaquin and Flagyl MSK: -PT evaluate and treat. Recommend PT. Access -Utilize peripheral IV. Prophylaxis -GI Protonix -DVT ; SCD/pharmacological prophylaxis per general surgery Discharge Planning D/c pending further work-up, clinical improvement Awaiting recs from . They will evaluate wound on Saturday/Saturday. Seen by PA with gen surgery. Continue cefepime and Flagyl per ID for now - when ready for D/C, would be able to use Levaquin and Flagyl Problem Qualifiers (1) DKA (diabetic ketoacidoses): Qualified Code: E13.10 - Diabetic ketoacidosis without coma associated with type 2 diabetes mellitus Yesi Napier MD November 26, 2016 12:52
[2016-11-26 16:00] VITALS: BP 124/65; PULSE 75; RESP 17; TEMP 98.2; O2SAT 97
[2016-11-26 20:00] VITALS: BP 126/67; PULSE 80; RESP 17; TEMP 99; O2SAT 98
[2016-11-26] MEDS: NYSTATIN 100,000 UNIT/GM CREAM 15 GM TOPICAL SCH (20:21)
[2016-11-27] VITALS: BP 117/62; PULSE 73; RESP 17; TEMP 98; O2SAT 98
[2016-11-27] MEDS: HYDROmorphone HCL PF 1 MG/ML VIAL IV PUSH PRN ×4 (00:09→22:55)
[2016-11-27 04:00] VITALS: BP 127/64; PULSE 69; RESP 17; TEMP 98.3; O2SAT 97
[2016-11-27] MEDS: CHLORHEXIDINE GLUCONATE 2 % 1 PACK (2 CLOTHS) TOP SCH (04:00)
[2016-11-27] MEDS: DILTIAZEM HCL 30 MG TAB PO SCH ×4 (04:09→22:54)
[2016-11-27] MEDS: ACETAMINOPHEN/HYDROcodone 325 MG/7.5 MG TAB PO PRN ×4 (04:09→18:26)
[2016-11-27] MEDS: metroNIDAZOLE 500 MG TAB PO SCH ×3 (04:50→20:55)
[2016-11-27] MEDS: CEFEPIME INJ 2,000 MG in SODIUM CHLORIDE 0.9% INJ 100 ML IV SCH ×3 (04:50→20:55)
[2016-11-27] MEDS: INSULIN HUMAN REGULAR 1,000 UNITS/10 ML VIAL SQ SCH ×3 (04:52→18:28)
[2016-11-27] MEDS: INSULIN ASPART SUPPLEMENTAL SCALE SQ SCH ×4 (04:53→21:10)
[2016-11-27 08:00] VITALS: BP 101/65; PULSE 69; RESP 18; TEMP 97.9; O2SAT 95
[2016-11-27] MEDS: NYSTATIN 100,000 UNIT/GM CREAM 15 GM TOPICAL SCH ×2 (08:46→20:56)
[2016-11-27] MEDS: GABAPENTIN 300 MG CAP PO SCH ×4 (08:47→20:57)
[2016-11-27] MEDS: METOPROLOL TARTRATE 50 MG TAB PO SCH ×2 (08:47→22:54)
[2016-11-27] MEDS: PANTOPRAZOLE SOD 40 MG DELAYED RELEASE TAB PO SCH (08:47)
[2016-11-27] MEDS: INSULIN HUMAN NPH/R 70/30 1,000 UNITS/10 ML VIAL SQ SCH ×2 (08:49→20:59)
[2016-11-27] MEDS: SODIUM HYPOCHLORITE 0.25% 500 ML BTL TOPICAL SCH ×2 (08:51→20:56)
[2016-11-27 12:00] VITALS: BP 110/67; PULSE 69; RESP 18; TEMP 95.8; O2SAT 97
--- NOTE | 2016-11-27 12:26 | HHI.IDPN ---
Subjective Subjective Remarks 51 year old male, with DM, admitted and diagnosed to have Jessica's gangrene and perirectal abscess S/P extensive debridement and has open wounds with packing Notes reviewed Last debridement done 11/21 Temps ok BP ok WBC normal No new C/S No new complaint Antibiotics Cefepime Flagyl Lines PIV Past Medical History reviewed Allergies: Coded Allergies: CRESTOR (Verified Allergy, Severe, cardiac, 08/13/16) Lisinopril (Verified Allergy, Severe, Anaphylaxis, 08/13/16) Itching, lip swelling, throat closing. *MDRO Multi-Drug Resistant Organism (Verified Adverse Reaction, Unknown, ) MDR-E.Coli (perirectal abscess)-11/17/16 Uncoded Allergies: provacal (Allergy, Severe, 12/28/15) COZAR (Allergy, Intermediate, 03/11/16) Objective . Vital Signs Date Time Temp Pulse Resp B/P Pulse Ox O2 Delivery O2 Flow Rate FiO2 11/27/16 08:00 97.9 69 18 101/65 95 11/27/16 04:00 98.3 69 17 127/64 97 11/27/16 00:00 98.0 73 17 117/62 98 11/26/16 20:00 99.0 80 17 126/67 98 11/26/16 16:00 98.2 75 17 124/65 97 11/26/16 15:54 16 11/26/16 15:29 16 11/26/16 11/26/16 11/27/16 15:00 23:00 07:00 Intake Total 2000 ml 240 ml 240 ml Output Total 1225 ml 300 ml 600 ml Balance 775 ml -60 ml -360 ml Intake Oral 1900 ml 240 ml 240 ml IV Total 100 ml Output Urine Total 1225 ml 300 ml 600 ml # Bowel Movements [address] 11/16/16 0000 Signed Impressions: Service Date/Time: Wednesday, November 16, 2016 16:20 - CONCLUSION: 1. Fornier's gangrene of the perineal region as detailed above. This can be a life threatening condition. 2. Results were called to the emergency department (Dr. Bryan Cuellar) the time of this dictation. 3. 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 Elijah Álvarez MD Chest X-Ray 11/16/16 0000 Signed Impressions: Service Date/Time: Wednesday, November 16, 2016 17:48 - CONCLUSION: No evidence of acute cardiopulmonary disease. Previous median sternotomy. Magnus Steele MD Physical Exam GENERAL: awake and alert, NAD SKIN: Warm and dry. No generalized rash HEAD: Atraumatic. Normocephalic. No temporal wasting, or tenderness. EYES: [place] conjunctiva. No petechia or hemorrhage. No scleral icterus. No injection or drainage. EARS, NOSE AND THROAT: No sinus tenderness. Mucous membranes pink and moist. No oral lesions noted. NECK: Trachea midline. Supple and not tender, no meningeal signs CARDIOVASCULAR: Regular rate and rhythm. No murmurs, rubs or gallops heard RESPIRATORY: Clear to auscultation. Breath sounds equal bilaterally. No rales , wheezing or rhonchi ABDOMEN: Soft, non-tender, nondistended. Bowel sounds present and normoactive. No guarding. No rebound. EXTREMITIES: No clubbing, cyanosis, or edema. No calf tenderness. Well perfused and warm. NEUROLOGICAL: Grossly non-focal PSYCHIATRIC: Normal affect, calm and cooperative. LINE: No evidence of infection : Has packing in place in his large open wound in perineum, L groin and buttocks Assessment & Plan Remarks IMPRESSION Sepsis due to Jessica's gangrene, perirectal abscess - S/P extensive debridement x 2 - better - C/S polymicrobial Jessica's gangrene, perirectal abscess DKA Leukocytosis, resolved RECOMMENDATION Continue cefepime and Flagyl - when ready for D/C, would be able to use Levaquin and Flagyl - Levaquin 750 daily and Flagyl 500 TID x 14 days when he gets D/C Monitor progress Follow temps Wound care per surgery - will evaluate wound today and decide on D/C plans Clinically doing well from ID standpoint Noemí Amador MD November 27, 2016 12:26
--- NOTE | 2016-11-27 13:05 | HHI.PR ---
Subjective Subjective Notes Resting in bed No issues overnight Dressing changed this AM Objective Vitals/I&O Vital Signs Date Time Temp Pulse Resp B/P Pulse Ox O2 Delivery O2 Flow Rate FiO2 11/27/16 08:00 97.9 69 18 101/65 95 11/24/16 17:35 21 Cardiovascular: Regular Lungs: Clear Abdomen: Non-distended, Non-tender Narrative Exam buttocks wound--- packing in place with dakin gauze --- minimal erythema around wound A/P Assessment and Plan 51 year old male s/p I&D perirectal abscess -Continue dressing changes ---change BID and PRN; okay to shower in between dressing changes -Antibiotics per ID -1800 ADA diet -Pain control -Dr. Vallecillo will evaluate wound today for possible partial closure of wound--- determination to be made after wound evaluation Attending Note - Dr. Vallecillo Wounds curtain cleaner, but not ideal for wound closure Continue dressing changes The exam, history, and the medical decision-making described in the above note were completed with the assistance of the mid-level provider. I reviewed and agree with the findings presented. I attest that I had a [id number] encounter with the patient on the same day, and personally performed and documented my assessment and findings in the medical record. Caty Matute November 27, 2016 13:05 Hiram Vallecillo MD Nov 30, 2016 17:25
[2016-11-27 16:00] VITALS: BP 163/88; PULSE 72; RESP 18; TEMP 98.5; O2SAT 98
--- NOTE | 2016-11-27 17:05 | HHI.PR ---
Subjective Remarks Seen earlier today. Says there is no discharge from his buttok wounds. Says he is getting extreme pain with wound dressing changing and requires dilaudid . Hopes pain will improve. Will be evaluate by Dr Vallecillo today. Patient denies any fever or chills. Objective Vitals Vital Signs Date Time Temp Pulse Resp B/P Pulse Ox O2 Delivery O2 Flow Rate FiO2 11/27/16 16:00 98.5 72 18 163/88 98 11/27/16 12:00 95.8 69 18 110/67 97 11/27/16 08:00 97.9 69 18 101/65 95 11/27/16 04:00 98.3 69 17 127/64 97 11/27/16 00:00 98.0 73 17 117/62 98 11/26/16 20:00 99.0 80 17 126/67 98 I/O 11/26/16 11/26/16 11/26/16 11/27/16 11/27/16 11/27/16 07:00 15:00 23:00 07:00 15:00 23:00 Intake Total 480 ml 2000 ml 240 ml 240 ml Output Total 1675 ml 1225 ml 300 ml 600 ml Balance -1195 ml 775 ml -60 ml -360 ml Intake Oral 480 ml 1900 ml 240 ml 240 ml IV Total 100 ml Output Urine Total 1675 ml 1225 ml 300 ml 600 ml # Bowel Movements 1 1 Result Diagram: 11/24/16 0524 Imaging Last Impressions Pelvis CT 11/16/16 0000 Signed Impressions: Service Date/Time: Wednesday, November 16, 2016 16:20 - CONCLUSION: 1. Fornier's gangrene of the perineal region as detailed above. This can be a life threatening condition. 2. Results were called to the emergency department (Dr. Bryan Cuellar) the time of this dictation. 3. 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 Elijah Álvarez MD Chest X-Ray 11/16/16 0000 Signed Impressions: Service Date/Time: Wednesday, November 16, 2016 17:48 - CONCLUSION: No evidence of acute cardiopulmonary disease. Previous median sternotomy. Magnus Steele MD Objective Remarks GENERAL: 51-year-old male resting in bed in no acute distress CARDIOVASCULAR: RRR. No murmurs. RESPIRATORY: Breath sounds equal bilaterally. No accessory muscle use. CTAB. GASTROINTESTINAL: Abdomen soft, non-tender, nondistended. MUSCULOSKELETAL: Without significant peripheral edema : wound with dressing in place, c/d/di. A/P Problem List: (1) Dementia ICD Code: F03.90 Status: Acute (2) Postoperative pain ICD Code: G89.18 Status: Acute (3) DKA (diabetic ketoacidoses) ICD Code: E13.10 Status: Acute (4) Peripheral neuropathy ICD Code: G62.9 Status: Acute (5) Coronary artery disease ICD Code: I25.10 Status: Chronic (6) Hypertension ICD Code: I10 Status: Chronic (7) Hyperlipidemia ICD Code: E78.5 Status: Chronic (8) GERD (gastroesophageal reflux disease) ICD Code: K21.9 Status: Chronic (9) Anemia ICD Code: D64.9 Status: Acute (10) Sinus tachycardia ICD Code: R00.0 Status: Acute Assessment and Plan Neuro/Psych: Dementia disorder NOS Postoperative pain Peripheral neuropathy/diabetic -pain management per GS -on home dose of gabapentin CV: Sinus tachycardia Coronary disease status post CABG 5 Hypertension Dyslipidemia -Pt was found to have atrial fib w rvr but converted spontaneously. cardiology evaluated the pt and recommended restarting him on metoprolol which he is on. has been off the cardizem gtt. -EF 50-55%. Apical akinesis. Mild MV regurg, TV regurg -On Lopressor 50mg Q12. monitor HR and BPs -on lovastatin Resp: -sats in the low-to-mid 90s on room air -incentive spirometry while awake GI: Gastroesophageal reflux disease diabetic diet -protonix for GI ppx : -status post I&D bilateral perirectal region 7.5 cm removal necrotic tissue secondary to necrosis ischiorectal fossa Dr. Vallecillo 11/17/16. Postoperative surgical care per Dr. Vallecillo. s/p I&D and debridement 11/21/16 -CT abdomen/pelvis 11/16 revealed diverticulosis without diverticulitis. 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 on cefepime and flagyl, s/p vanc. Endo: Diabetes mellitus -bedside glucose were in the 500's this morning. . -increased novolin to 35 u qAM and 20 u qHS with and increased to 12 u novolin TIDAC. SSI. continue to adjust insulin regimen to reflect home dosage Renal: -kidney function and electrolytes WNL. Heme: Normocytic anemia -hemoglobin stable at 10.9 -currently holding aspirin 81 mg daily and Plavix any 5 mg by mouth daily. Resume when okay with general surgery ID: -continue cefepime (11/19-), flagyl (11/19-), s/p vancomycin (11/18-11/21). S/p clindamycin (11/17-11/19) and zosyn (11/16-11/19) -11/16 Blood cultures 2 no growth to date -11/17 Wound cx: Klebsiella (sens to cefepime), E. coli (sens to cefepime), MDR GBS -infectious disease following (Dr. Amador). Continue cefepime and Flagyl - when ready for D/C, would be able to use Levaquin and Flagyl MSK: -PT evaluate and treat. Recommend PT. Access -Utilize peripheral IV. Prophylaxis -GI Protonix -DVT ; SCD/pharmacological prophylaxis per general surgery Discharge Planning D/c pending further work-up, clinical improvement Awaiting recs from . Dr Vallecillo will evaluate wound 11/27. Continue cefepime and Flagyl per ID for now - when ready for D/C, would be able to use Levaquin and Flagyl Problem Qualifiers (1) DKA (diabetic ketoacidoses): Qualified Code: E13.10 - Diabetic ketoacidosis without coma associated with type 2 diabetes mellitus Yesi Napier MD November 27, 2016 17:05
[2016-11-27 21:00] VITALS: BP 133/72; PULSE 77; RESP 17; TEMP 98.8; O2SAT 95
[2016-11-28] VITALS: BP 140/74; PULSE 87; RESP 17; TEMP 98.9; O2SAT 96
[2016-11-28] MEDS: ACETAMINOPHEN/HYDROcodone 325 MG/7.5 MG TAB PO PRN ×6 (00:56→22:19)
[2016-11-28] MEDS: CHLORHEXIDINE GLUCONATE 2 % 1 PACK (2 CLOTHS) TOP SCH ×2 (03:13→21:24)
[2016-11-28] MEDS: DILTIAZEM HCL 30 MG TAB PO SCH ×4 (03:13→21:21)
[2016-11-28] MEDS: metroNIDAZOLE 500 MG TAB PO SCH ×3 (05:04→21:22)
[2016-11-28] MEDS: CEFEPIME INJ 2,000 MG in SODIUM CHLORIDE 0.9% INJ 100 ML IV SCH ×3 (05:05→21:23)
[2016-11-28] MEDS: INSULIN HUMAN REGULAR 1,000 UNITS/10 ML VIAL SQ SCH ×3 (06:08→17:00)
[2016-11-28] MEDS: INSULIN ASPART SUPPLEMENTAL SCALE SQ SCH ×4 (06:08→22:15)
[2016-11-28 08:00] VITALS: BP 129/70; PULSE 72; RESP 18; TEMP 97.6; O2SAT 95
[2016-11-28] MEDS: NYSTATIN 100,000 UNIT/GM CREAM 15 GM TOPICAL SCH ×2 (09:00→21:00)
[2016-11-28] MEDS: METOPROLOL TARTRATE 50 MG TAB PO SCH ×2 (09:32→21:21)
[2016-11-28] MEDS: GABAPENTIN 300 MG CAP PO SCH ×4 (09:32→21:22)
[2016-11-28] MEDS: PANTOPRAZOLE SOD 40 MG DELAYED RELEASE TAB PO SCH (09:32)
[2016-11-28] MEDS: INSULIN HUMAN NPH/R 70/30 1,000 UNITS/10 ML VIAL SQ SCH ×2 (09:36→21:00)
[2016-11-28] MEDS: SODIUM HYPOCHLORITE 0.25% 500 ML BTL TOPICAL SCH ×2 (09:36→21:23)
[2016-11-28] MEDS: HYDROmorphone HCL PF 1 MG/ML VIAL IV PUSH PRN (11:18)
[2016-11-28 12:00] VITALS: BP 120/72; PULSE 72; RESP 16; TEMP 98.1; O2SAT 99
[2016-11-28 16:00] VITALS: BP 120/74; PULSE 71; RESP 18; TEMP 98.1; O2SAT 95
--- NOTE | 2016-11-28 16:32 | HHI.PR ---
Subjective Subjective Notes Resting in bed No issues overnight Objective Vitals/I&O Vital Signs Date Time Temp Pulse Resp B/P Pulse Ox O2 Delivery O2 Flow Rate FiO2 11/28/16 12:00 98.1 72 16 120/72 99 11/24/16 17:35 21 Cardiovascular: Regular Lungs: Clear Abdomen: Non-distended, Non-tender Extremities: No edema Narrative Exam buttocks wound--- packing in place with dakin gauze --- minimal erythema around wound A/P Assessment and Plan 51 year old male s/p I&D perirectal abscess -Continue dressing changes ---change BID and PRN; okay to shower in between dressing changes -Antibiotics per ID -1800 ADA diet -Pain control -Will continue BID dressing changes and evaluate wound at the end of the week for timing of primary closure Attending Note - Dr. Vallecillo Wounds fairly clean The exam, history, and the medical decision-making described in the above note were completed with the assistance of the mid-level provider. I reviewed and agree with the findings presented. I attest that I had a [id number] encounter with the patient on the same day, and personally performed and documented my assessment and findings in the medical record. Caty Matute November 28, 2016 16:32 Hiram Vallecillo MD Nov 30, 2016 17:24
--- NOTE | 2016-11-28 17:42 | HHI.PR ---
Subjective Remarks Seen earlier today. Pain is controlled by meds. Says he still has significant pain with dresing changes. Says he has 3 BM yesterday and dressing had to be changes more often. Discussed with switch to PO dilaudid for changing dressings only Denies any chest pain or sob. No n/v/d/c. Says he had 3 BM yesterday Objective Vitals Vital Signs Date Time Temp Pulse Resp B/P Pulse Ox O2 Delivery O2 Flow Rate FiO2 11/28/16 16:00 98.1 71 18 120/74 95 11/28/16 12:00 98.1 72 16 120/72 99 11/28/16 08:00 97.6 72 18 129/70 95 11/28/16 00:00 98.9 87 17 140/74 96 11/27/16 21:00 98.8 77 17 133/72 95 I/O 11/27/16 11/27/16 11/27/16 11/28/16 11/28/16 11/28/16 07:00 15:00 23:00 07:00 15:00 23:00 Intake Total 240 ml 0 ml 240 ml 240 ml 100 ml Output Total 600 ml 900 ml 750 ml Balance -360 ml -900 ml -510 ml 240 ml 100 ml Intake Oral 240 ml 240 ml 240 ml IV Total 0 ml 100 ml Output Urine Total 600 ml 900 ml 750 ml # Voids 3 3 Result Diagram: 11/24/16 0524 Imaging Last Impressions Pelvis CT 11/16/16 0000 Signed Impressions: Service Date/Time: Wednesday, November 16, 2016 16:20 - CONCLUSION: 1. Fornier's gangrene of the perineal region as detailed above. This can be a life threatening condition. 2. Results were called to the emergency department (Dr. Bryan Cuellar) the time of this dictation. 3. 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 Elijah Álvarez MD Chest X-Ray 11/16/16 0000 Signed Impressions: Service Date/Time: Wednesday, November 16, 2016 17:48 - CONCLUSION: No evidence of acute cardiopulmonary disease. Previous median sternotomy. Magnus Steele MD Objective Remarks GENERAL: 51-year-old male resting in bed in no acute distress CARDIOVASCULAR: RRR. Normal S1 and S2. No murmurs. RESPIRATORY: Breath sounds equal bilaterally. No wheezing. No accessory muscle use. CTA bilat. GASTROINTESTINAL: Abdomen soft, non-tender, nondistended. MUSCULOSKELETAL: Without significant peripheral edema : wound with dressing in place, c/d/di. 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 -status post I&D bilateral perirectal region 7.5 cm removal necrotic tissue secondary to necrosis ischiorectal fossa Dr. Vallecillo 11/17/16. Postoperative surgical care per Dr. Vallecillo. s/p I&D and debridement 11/21/16 -CT abdomen/pelvis 11/16 revealed diverticulosis without diverticulitis. 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 on cefepime and flagyl, s/p vanc. - when ready for D/C, would be able to use Levaquin and Flagyl for 14 days starting day of discharge per ID. - Poss partially closure of wound , general surgery ff. ID: -continue cefepime (11/19-), flagyl (11/19-), s/p vancomycin (11/18-11/21). S/p clindamycin (11/17-11/19) and zosyn (11/16-11/19) -11/16 Blood cultures 2 no growth to date -11/17 Wound cx: Klebsiella (sens to cefepime), E. coli (sens to cefepime), MDR GBS -infectious disease following (Dr. Amador). Continue cefepime and Flagyl - when ready for D/C, would be able to use Levaquin and Flagyl Neuro/Psych: Dementia disorder NOS Postoperative pain Peripheral neuropathy/diabetic -pain management per GS -on home dose of gabapentin CV: H/o Sinus tachycardia Coronary disease status post CABG 5 Hypertension Dyslipidemia -A fib with RVR. Resolved, continue meds and monitor. Pt was found to have atrial fib w rvr but converted spontaneously. cardiology evaluated the pt and recommended restarting him on metoprolol which he is on. has been off the cardizem gtt. -EF 50-55%. Apical akinesis. Mild MV regurg, TV regurg -On Lopressor 50mg Q12. monitor HR and BPs -on lovastatin Resp: -sats in the low-to-mid 90s on room air -incentive spirometry while awake GI: Gastroesophageal reflux disease diabetic diet -protonix for GI ppx Endo: Diabetes mellitus, uncontrolled A1c 13.6 on 10/15 -novolin 35 u qAM and 20 u qHS with and increased to 12 u novolin TIDAC. SSI. continue to adjust insulin regimen Renal: -kidney function and electrolytes WNL. Heme: Normocytic anemia -hemoglobin stable at 10.9 -currently holding aspirin 81 mg daily and Plavix any 5 mg by mouth daily. Resume when okay with general surgery MSK: -PT evaluate and treat. Recommend PT. Access -Utilize peripheral IV. Prophylaxis -GI Protonix -DVT ; SCD/pharmacological prophylaxis per general surgery Discharge Planning D/c pending further work-up, clinical improvement, and clearance by gen surg GS ff. Dr Vallecillo will evaluated wound plan for poss closing partially the wound. Continue cefepime and Flagyl per ID for now - when ready for D/C, would be able to use Levaquin and Flagyl for 14 days starting day of discharge per ID. Discussed with the patient, nurse, Dr Amador form ID Problem Qualifiers (1) DKA (diabetic ketoacidoses): Qualified Code: E13.10 - Diabetic ketoacidosis without coma associated with type 2 diabetes mellitus Yesi Napier MD November 28, 2016 17:42
[2016-11-28 20:00] VITALS: BP 122/76; PULSE 81; RESP 18; TEMP 98.7; O2SAT 97
[2016-11-29] VITALS: BP_SYST 132; BP_SYST 171; BP_DIAS 72; BP_DIAS 81; PULSE 72; PULSE 74; RESP 18; TEMP 96.9; TEMP 97.9; O2SAT 95; O2SAT 96
[2016-11-29] MEDS: DILTIAZEM HCL 30 MG TAB PO SCH ×4 (03:54→21:34)
[2016-11-29] MEDS: metroNIDAZOLE 500 MG TAB PO SCH ×3 (03:54→21:35)
[2016-11-29] MEDS: CEFEPIME INJ 2,000 MG in SODIUM CHLORIDE 0.9% INJ 100 ML IV SCH ×3 (03:54→21:36)
[2016-11-29] MEDS: ACETAMINOPHEN/HYDROcodone 325 MG/7.5 MG TAB PO PRN ×4 (03:55→21:40)
[2016-11-29] MEDS: INSULIN ASPART SUPPLEMENTAL SCALE SQ SCH ×4 (05:42→21:40)
[2016-11-29] MEDS: INSULIN HUMAN REGULAR 1,000 UNITS/10 ML VIAL SQ SCH ×3 (05:44→17:24)
[2016-11-29 05:57] LABS: BASOPHIL # 0.1 TH/MM3 (0-0.2); EOSINOPHIL # 0.1 TH/MM3 (0-0.4); EOSINOPHIL % 1.1 % (0.0-4.0); HEMO FLAGS DIFF FINAL; LYMPH % 15.3 % (9.0-44.0); LYMPHOCYTE # 1.2 TH/MM3 (1.0-4.8); MEAN CELL VOLUME 77.9 FL (80.0-100.0); MEAN CORPUSCULAR HEMOGLOBIN 24.9 PG (27.0-34.0); MONO % 7.1 % (0.0-8.0); NEUT % 75.5 % (16.0-70.0); PLATELET COUNT 309 TH/MM3 (150-450); RED BLOOD COUNT 4.24 MIL/MM3 (4.50-5.90); RED CELL DISTRIBUTION WIDTH 15.4 % (11.6-17.2); WHITE BLOOD COUNT 7.9 TH/MM3 (4.0-11.0)
[2016-11-29 06:07] LABS: ANION GAP 5 MEQ/L (5-15); BICARBONATE 29.9 MEQ/L (21.0-32.0); BLOOD UREA NITROGEN 8 MG/DL (7-18); CHLORIDE 100 MEQ/L (98-107); GLOMERULAR FILTRATION RATE 117 ML/MIN (>89); POTASSIUM 4.1 MEQ/L (3.5-5.1); SODIUM (NA) 135 MEQ/L (136-145)
[2016-11-29 06:08] LABS: TRANSFERRIN IRON PROFILE 177 MG/DL (200-360)
[2016-11-29 06:11] LABS: FERRITIN 183 NG/ML (26-388)
[2016-11-29 08:00] VITALS: BP 141/79; PULSE 71; RESP 17; TEMP 98.4; O2SAT 98
[2016-11-29] MEDS: GABAPENTIN 300 MG CAP PO SCH ×4 (08:22→21:34)
[2016-11-29] MEDS: PANTOPRAZOLE SOD 40 MG DELAYED RELEASE TAB PO SCH (08:23)
[2016-11-29] MEDS: METOPROLOL TARTRATE 50 MG TAB PO SCH ×2 (08:23→21:34)
[2016-11-29] MEDS: INSULIN HUMAN NPH/R 70/30 1,000 UNITS/10 ML VIAL SQ SCH ×2 (08:29→21:39)
[2016-11-29] MEDS: HYDROmorphone HCL 2 MG TAB PO PRN ×2 (08:30→19:51)
[2016-11-29] MEDS: NYSTATIN 100,000 UNIT/GM CREAM 15 GM TOPICAL SCH ×2 (08:36→21:34)
[2016-11-29] MEDS: SODIUM HYPOCHLORITE 0.25% 500 ML BTL TOPICAL SCH ×2 (08:37→21:36)
--- NOTE | 2016-11-29 11:33 | HHI.PR ---
Subjective Subjective Notes Resting in bed Dressing changed this AM Objective Vitals/I&O Vital Signs Date Time Temp Pulse Resp B/P Pulse Ox O2 Delivery O2 Flow Rate FiO2 11/29/16 08:00 98.4 71 17 141/79 98 Labs Laboratory Tests Test 11/29/16 04:57 White Blood Count 7.9 Red Blood Count 4.24 Hemoglobin 10.6 Hematocrit 33.0 Mean Corpuscular Volume 77.9 Mean Corpuscular Hemoglobin 24.9 Mean Corpuscular Hemoglobin 32.0 Concent Red Cell Distribution Width 15.4 Platelet Count 309 Mean Platelet Volume 7.8 Neutrophils (%) (Auto) 75.5 Lymphocytes (%) (Auto) 15.3 Monocytes (%) (Auto) 7.1 Eosinophils (%) (Auto) 1.1 Basophils (%) (Auto) 1.0 Neutrophils # (Auto) 6.0 Lymphocytes # (Auto) 1.2 Monocytes # (Auto) 0.6 Eosinophils # (Auto) 0.1 Basophils # (Auto) 0.1 CBC Comment DIFF FINAL Differential Comment Sodium Level 135 Potassium Level 4.1 Chloride Level 100 Carbon Dioxide Level 29.9 Anion Gap 5 Blood Urea Nitrogen 8 Creatinine 0.71 Estimat Glomerular Filtration 117 Rate Random Glucose 256 Calcium Level 9.7 Iron Level 42 Total Iron Binding Capacity 248 Percent Iron Saturation 16.9 Ferritin 183 Cardiovascular: Regular Lungs: Clear Abdomen: Non-distended, Non-tender Extremities: No edema Narrative Exam buttocks wound--- packing in place with dakin gauze --- minimal erythema around wound; no exudate A/P Assessment and Plan 51 year old male s/p I&D perirectal abscess -Continue dressing changes ---change BID and PRN; okay to shower in between dressing changes -Antibiotics per ID -1800 ADA diet -Pain control -Will continue BID dressing changes and evaluate wound at the end of the week for timing of primary closure -Discussed with Dr. Napier Attending Note - Dr. Vallecillo Wounds OK Continue dressing changes Not ready to go to OR for partial closure The exam, history, and the medical decision-making described in the above note were completed with the assistance of the mid-level provider. I reviewed and agree with the findings presented. I attest that I had a [id number] encounter with the patient on the same day, and personally performed and documented my assessment and findings in the medical record. Caty Matute Nov 29, 2016 11:33 Hiram Vallecillo MD Nov 30, 2016 17:23
[2016-11-29 12:00] VITALS: BP 117/67; PULSE 70; RESP 16; TEMP 98; O2SAT 95
--- NOTE | 2016-11-29 14:11 | HHI.PR ---
Subjective Remarks The patient was seen manager cargo. He is in the bed, says he has no pain at this time. Says she has pain with dressing changes mostly and with certain positions. Says gen surg [employer]LL[employer] PROGRAM ADMINISTRATOR Mark Matute will come and pack his wound. Discussed with Mark kennedy. plan to pack wound and poss closure of wound in the near future, Dr Vallecillo will decide. Patient denies chest pain or sob. No n/v/d/c. Objective Vitals Vital Signs Date Time Temp Pulse Resp B/P Pulse Ox O2 Delivery O2 Flow Rate FiO2 11/29/16 12:00 98.0 70 16 117/67 95 11/29/16 08:00 98.4 71 17 141/79 98 11/29/16 00:00 97.9 74 18 132/72 96 11/28/16 20:00 98.7 81 18 122/76 97 11/28/16 16:00 98.1 71 18 120/74 95 I/O 11/28/16 11/28/16 11/28/16 11/29/16 11/29/16 11/29/16 07:00 15:00 23:00 07:00 15:00 23:00 Intake Total 240 ml 100 ml 240 ml 360 ml Output Total 300 ml 1000 ml Balance 240 ml 100 ml -60 ml -640 ml Intake Oral 240 ml 240 ml 360 ml IV Total 100 ml Output Urine Total 300 ml 1000 ml # Voids 3 4 # Bowel Movements 1 0 Result Diagram: 11/29/16 0457 11/29/16 0457 Imaging Last Impressions Pelvis CT 11/16/16 0000 Signed Impressions: Service Date/Time: Wednesday, November 16, 2016 16:20 - CONCLUSION: 1. Fornier's gangrene of the perineal region as detailed above. This can be a life threatening condition. 2. Results were called to the emergency department (Dr. Bryan Cuellar) the time of this dictation. 3. 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 Elijah Álvarez MD Chest X-Ray 11/16/16 0000 Signed Impressions: Service Date/Time: Wednesday, November 16, 2016 17:48 - CONCLUSION: No evidence of acute cardiopulmonary disease. Previous median sternotomy. Magnus Steele MD Objective Remarks GENERAL: 51-year-old male resting in bed in no acute distress CARDIOVASCULAR: RRR. Normal S1 and S2. No murmurs. RESPIRATORY: Breath sounds equal bilaterally. No wheezing. No accessory muscle use. CTA bilat. GASTROINTESTINAL: Abdomen soft, non-tender, nondistended. MUSCULOSKELETAL: Without significant peripheral edema : wound with dressing in place, c/d/di. 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 Status post I&D bilateral perirectal region 7.5 cm removal necrotic tissue secondary to necrosis ischiorectal fossa Dr. Vallecillo 11/17/16. Postoperative surgical care per Dr. Vallecillo. s/p I&D and debridement 11/21/16 -CT abdomen/pelvis 11/16 revealed diverticulosis without diverticulitis. 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 on cefepime and flagyl, s/p vanc. - when ready for D/C, would be able to use Levaquin and Flagyl for 14 days starting day of discharge per ID. - Poss partially closure of wound , general surgery ff. ID: -continue cefepime (11/19-), flagyl (11/19-), s/p vancomycin (11/18-11/21). S/p clindamycin (11/17-11/19) and zosyn (11/16-11/19) -11/16 Blood cultures 2 no growth to date -11/17 Wound cx: Klebsiella (sens to cefepime), E. coli (sens to cefepime), MDR GBS -infectious disease following (Dr. Amador). Continue cefepime and Flagyl - when ready for D/C, would be able to use Levaquin and Flagyl Neuro/Psych: Dementia disorder NOS Postoperative pain Peripheral neuropathy/diabetic -pain management per GS -on home dose of gabapentin CV: H/o Sinus tachycardia Coronary disease status post CABG 5 Hypertension Dyslipidemia -A fib with RVR. Resolved, continue meds and monitor. Pt was found to have atrial fib w rvr but converted spontaneously. cardiology evaluated the pt and recommended restarting him on metoprolol which he is on. has been off the cardizem gtt. -EF 50-55%. Apical akinesis. Mild MV regurg, TV regurg -On Lopressor 50mg Q12. monitor HR and BPs -on lovastatin Resp: -sats in the low-to-mid 90s on room air -incentive spirometry while awake GI: Gastroesophageal reflux disease diabetic diet -protonix for GI ppx Endo: Diabetes mellitus, uncontrolled A1c 13.6 on 10/15 -novolin 35 u qAM and 20 u qHS with and increased to 12 u novolin TIDAC. SSI. continue to adjust insulin regimen Renal: -kidney function and electrolytes WNL. Heme: Normocytic anemia -hemoglobin stable at 10.9 -currently holding aspirin 81 mg daily and Plavix any 5 mg by mouth daily. Resume when okay with general surgery MSK: -PT evaluate and treat. Recommend PT. Access -Utilize peripheral IV. Prophylaxis -GI Protonix -DVT ; SCD/pharmacological prophylaxis per general surgery Discharge Planning D/c pending further work-up, clinical improvement, and clearance by gen surg GS ff. Dr Vallecillo will evaluated wound plan for poss closing partially the wound. Continue cefepime and Flagyl per ID for now - when ready for D/C, would be able to use Levaquin and Flagyl for 14 days starting day of discharge per ID. Discussed with the patient, nurse, Mark ARANDA gen surgery Problem Qualifiers (1) DKA (diabetic ketoacidoses): Qualified Code: E13.10 - Diabetic ketoacidosis without coma associated with type 2 diabetes mellitus Yesi Napier MD Nov 29, 2016 14:11
[2016-11-29 16:00] VITALS: BP 117/69; PULSE 80; RESP 17; TEMP 98; O2SAT 96
[2016-11-29] MEDS: CHLORHEXIDINE GLUCONATE 2 % 1 PACK (2 CLOTHS) TOP SCH (18:47)
[2016-11-29 20:00] VITALS: BP 143/80; PULSE 83; RESP 18; TEMP 98.4; O2SAT 97
[2016-11-30] VITALS: BP 138/78; PULSE 86; RESP 20; TEMP 98.6; O2SAT 98
[2016-11-30] MEDS: DILTIAZEM HCL 30 MG TAB PO SCH ×4 (04:02→22:09)
[2016-11-30] MEDS: ACETAMINOPHEN/HYDROcodone 325 MG/7.5 MG TAB PO PRN ×4 (04:03→23:27)
[2016-11-30 04:11] VITALS: BP 128/75; PULSE 67; RESP 20; TEMP 97.7; O2SAT 98
[2016-11-30] MEDS: CEFEPIME INJ 2,000 MG in SODIUM CHLORIDE 0.9% INJ 100 ML IV SCH ×3 (05:59→22:10)
[2016-11-30] MEDS: metroNIDAZOLE 500 MG TAB PO SCH ×3 (05:59→22:09)
[2016-11-30] MEDS: INSULIN ASPART SUPPLEMENTAL SCALE SQ SCH ×4 (06:20→22:03)
[2016-11-30] MEDS: INSULIN HUMAN REGULAR 1,000 UNITS/10 ML VIAL SQ SCH ×3 (06:22→18:17)
[2016-11-30 08:00] VITALS: BP 99/52; PULSE 70; RESP 19; TEMP 97.6; O2SAT 98
[2016-11-30] MEDS: METOPROLOL TARTRATE 50 MG TAB PO SCH ×2 (09:05→22:09)
[2016-11-30] MEDS: GABAPENTIN 300 MG CAP PO SCH ×4 (09:05→22:10)
[2016-11-30] MEDS: PANTOPRAZOLE SOD 40 MG DELAYED RELEASE TAB PO SCH (09:05)
[2016-11-30] MEDS: INSULIN HUMAN NPH/R 70/30 1,000 UNITS/10 ML VIAL SQ SCH ×2 (09:15→22:04)
--- NOTE | 2016-11-30 09:32 | HHI.PR ---
Subjective Remarks Sleepy. No cp, sob, n/v/d/c. No fever or chills. Pain is controlled by meds. Objective Vitals Vital Signs Date Time Temp Pulse Resp B/P Pulse Ox O2 Delivery O2 Flow Rate FiO2 11/30/16 08:00 97.6 70 19 99/52 98 11/30/16 04:11 97.7 67 20 128/75 98 11/30/16 00:00 98.6 86 20 138/78 98 11/29/16 20:00 98.4 83 18 143/80 97 11/29/16 16:00 98.0 80 17 117/69 96 11/29/16 12:00 98.0 70 16 117/67 95 I/O 11/29/16 11/29/16 11/29/16 11/30/16 11/30/16 11/30/16 07:00 15:00 23:00 07:00 15:00 23:00 Intake Total 360 ml 550 ml 580 ml 441 ml Output Total 1000 ml 2100 ml 1625 ml Balance -640 ml 550 ml -1520 ml -1184 ml Intake Oral 360 ml 550 ml 480 ml 240 ml IV Total 100 ml 201 ml Output Urine Total 1000 ml 2100 ml 1625 ml # Voids 5 # Bowel Movements 0 2 1 0 Result Diagram: 11/29/16 0457 11/29/16 0457 Imaging Last Impressions Pelvis CT 11/16/16 0000 Signed Impressions: Service Date/Time: Wednesday, November 16, 2016 16:20 - CONCLUSION: 1. Fornier's gangrene of the perineal region as detailed above. This can be a life threatening condition. 2. Results were called to the emergency department (Dr. Bryan Cuellar) the time of this dictation. 3. 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 Elijah Álvarez MD Chest X-Ray 11/16/16 0000 Signed Impressions: Service Date/Time: Wednesday, November 16, 2016 17:48 - CONCLUSION: No evidence of acute cardiopulmonary disease. Previous median sternotomy. Magnus Steele MD Objective Remarks GENERAL: 51-year-old male resting in bed in no acute distress CARDIOVASCULAR: RRR. Normal S1 and S2. No murmurs. RESPIRATORY: Breath sounds equal bilaterally. No wheezing. No accessory muscle use. CTA bilat. GASTROINTESTINAL: Abdomen soft, non-tender, nondistended. MUSCULOSKELETAL: Without significant peripheral edema : wound with dressing in place, c/d/di. 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 Status post I&D bilateral perirectal region 7.5 cm removal necrotic tissue secondary to necrosis ischiorectal fossa Dr. Vallecillo 11/17/16. Postoperative surgical care per Dr. Vallecillo. s/p I&D and debridement 11/21/16 -CT abdomen/pelvis 11/16 revealed diverticulosis without diverticulitis. 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 on cefepime and flagyl, s/p vanc. - when ready for D/C, would be able to use Levaquin and Flagyl for 14 days starting day of discharge per ID. - Poss partially closure of wound , general surgery ff. ID: -continue cefepime (11/19-), flagyl (11/19-), s/p vancomycin (11/18-11/21). S/p clindamycin (11/17-11/19) and zosyn (11/16-11/19) -11/16 Blood cultures 2 no growth to date -11/17 Wound cx: Klebsiella (sens to cefepime), E. coli (sens to cefepime), MDR GBS -infectious disease following (Dr. Amador). Continue cefepime and Flagyl - when ready for D/C, would be able to use Levaquin and Flagyl Neuro/Psych: Dementia disorder NOS Postoperative pain Peripheral neuropathy/diabetic -pain management per GS -on home dose of gabapentin CV: H/o Sinus tachycardia Coronary disease status post CABG 5 Hypertension Dyslipidemia -A fib with RVR. Resolved, continue meds and monitor. Pt was found to have atrial fib w rvr but converted spontaneously. cardiology evaluated the pt and recommended restarting him on metoprolol which he is on. has been off the cardizem gtt. -EF 50-55%. Apical akinesis. Mild MV regurg, TV regurg -On Lopressor 50mg Q12. monitor HR and BPs -on lovastatin Resp: -sats in the low-to-mid 90s on room air -incentive spirometry while awake GI: Gastroesophageal reflux disease diabetic diet -protonix for GI ppx Endo: Diabetes mellitus, uncontrolled A1c 13.6 on 10/15 -novolin 35 u qAM and 20 u qHS with and increased to 12 u novolin TIDAC. SSI. continue to adjust insulin regimen Renal: -kidney function and electrolytes WNL. Heme: Normocytic anemia -hemoglobin stable at 10.9 -currently holding aspirin 81 mg daily and Plavix any 5 mg by mouth daily. Resume when okay with general surgery MSK: -PT evaluate and treat. Recommend PT. Access -Utilize peripheral IV. Prophylaxis -GI Protonix -DVT ; SCD/pharmacological prophylaxis per general surgery Discharge Planning D/c pending further work-up, clinical improvement, and clearance by gen surg GS ff. Dr Vallecillo will evaluated wound plan for poss closing partially the wound. Continue cefepime and Flagyl per ID for now - when ready for D/C, would be able to use Levaquin and Flagyl for 14 days starting day of discharge per ID. Discussed with the patient, nurse, Mark ARANDA gen surgery poss surgery next week Problem Qualifiers (1) DKA (diabetic ketoacidoses): Qualified Code: E13.10 - Diabetic ketoacidosis without coma associated with type 2 diabetes mellitus Yesi Napier MD Nov 30, 2016 09:32
[2016-11-30 12:00] VITALS: BP 116/71; PULSE 65; RESP 17; TEMP 98.7; O2SAT 97
[2016-11-30] MEDS: HYDROmorphone HCL 2 MG TAB PO PRN (12:07)
[2016-11-30] MEDS: SODIUM HYPOCHLORITE 0.25% 500 ML BTL TOPICAL SCH ×2 (12:08→21:00)
[2016-11-30] MEDS: NYSTATIN 100,000 UNIT/GM CREAM 15 GM TOPICAL SCH ×2 (12:11→21:00)
--- NOTE | 2016-11-30 12:39 | HHI.IDPN ---
Subjective Subjective Remarks 51 year old male, with DM, admitted and diagnosed to have Jessica's gangrene and perirectal abscess S/P extensive debridement and has open wounds with packing Notes reviewed Temps ok BP ok WBC normal No new complaint Antibiotics Cefepime Flagyl Lines PIV Past Medical History reviewed Allergies: Coded Allergies: CRESTOR (Verified Allergy, Severe, cardiac, 08/13/16) Lisinopril (Verified Allergy, Severe, Anaphylaxis, 08/13/16) Itching, lip swelling, throat closing. *MDRO Multi-Drug Resistant Organism (Verified Adverse Reaction, Unknown, ) MDR-E.Coli (perirectal abscess)-11/17/16 Uncoded Allergies: provacal (Allergy, Severe, 12/28/15) COZAR (Allergy, Intermediate, 03/11/16) Objective . Vital Signs Date Time Temp Pulse Resp B/P Pulse Ox O2 Delivery O2 Flow Rate FiO2 11/30/16 12:00 98.7 65 17 116/71 97 11/30/16 10:15 16 11/30/16 08:00 97.6 70 19 99/52 98 11/30/16 04:11 97.7 67 20 128/75 98 11/30/16 00:00 98.6 86 20 138/78 98 11/29/16 20:00 98.4 83 18 143/80 97 11/29/16 16:00 98.0 80 17 117/69 96 11/29/16 11/29/16 11/30/16 15:00 23:00 07:00 Intake Total 550 ml 580 ml 441 ml Output Total 2100 ml 1625 ml Balance 550 ml -1520 ml -1184 ml Intake Oral 550 ml 480 ml 240 ml IV Total 100 ml 201 ml Output Urine Total 2100 ml 1625 ml # Voids 5 # Bowel Movements 2 1 0 . Laboratory Tests Test 11/29/16 04:57 White Blood Count 7.9 TH/MM3 Red Blood Count 4.24 MIL/MM3 Hemoglobin 10.6 GM/DL Hematocrit 33.0 % Mean Corpuscular Volume 77.9 FL Mean Corpuscular Hemoglobin 24.9 PG Mean Corpuscular Hemoglobin 32.0 % Concent Red Cell Distribution Width 15.4 % Platelet Count 309 TH/MM3 Mean Platelet Volume 7.8 FL Neutrophils (%) (Auto) 75.5 % Lymphocytes (%) (Auto) 15.3 % Monocytes (%) (Auto) 7.1 % Eosinophils (%) (Auto) 1.1 % Basophils (%) (Auto) 1.0 % Neutrophils # (Auto) 6.0 TH/MM3 Lymphocytes # (Auto) 1.2 TH/MM3 Monocytes # (Auto) 0.6 TH/MM3 Eosinophils # (Auto) 0.1 TH/MM3 Basophils # (Auto) 0.1 TH/MM3 CBC Comment DIFF FINAL Differential Comment Laboratory Tests Test 11/29/16 04:57 Sodium Level 135 MEQ/L Potassium Level 4.1 MEQ/L Chloride Level 100 MEQ/L Carbon Dioxide Level 29.9 MEQ/L Anion Gap 5 MEQ/L Blood Urea Nitrogen 8 MG/DL Creatinine 0.71 MG/DL Estimat Glomerular Filtration 117 ML/MIN Rate Random Glucose 256 MG/DL Calcium Level 9.7 MG/DL Iron Level 42 MCG/DL Total Iron Binding Capacity 248 MCG/DL Percent Iron Saturation 16.9 % Ferritin 183 NG/ML Imaging Pelvis CT 11/16/16 0000 Signed Impressions: Service Date/Time: Wednesday, November 16, 2016 16:20 - CONCLUSION: 1. Fornier's gangrene of the perineal region as detailed above. This can be a life threatening condition. 2. Results were called to the emergency department (Dr. Bryan Cuellar) the time of this dictation. 3. 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 Elijah Álvarez MD Chest X-Ray 11/16/16 0000 Signed Impressions: Service Date/Time: Wednesday, November 16, 2016 17:48 - CONCLUSION: No evidence of acute cardiopulmonary disease. Previous median sternotomy. Magnus Steele MD Physical Exam GENERAL: awake and alert, NAD SKIN: Warm and dry. No generalized rash HEENT: [place] conjunctiva. No petechia or hemorrhage. No scleral icterus. No injection or drainage. Mucous membranes pink and moist. No oral lesions noted. NECK: Trachea midline. Supple and not tender, no meningeal signs CARDIOVASCULAR: Regular rate and rhythm. No murmurs, rubs or gallops heard RESPIRATORY: Clear to auscultation. Breath sounds equal bilaterally. No rales , wheezing or rhonchi ABDOMEN: Soft, non-tender, nondistended. Bowel sounds present and normoactive. No guarding. No rebound. EXTREMITIES: No clubbing, cyanosis, or edema. No calf tenderness. Well perfused and warm. NEUROLOGICAL: Grossly non-focal PSYCHIATRIC: Normal affect, calm and cooperative. LINE: No evidence of infection : Has packing in place in his large open wound in perineum, L groin and buttocks Assessment & Plan Remarks IMPRESSION Sepsis due to Jessica's gangrene, perirectal abscess - S/P extensive debridement x 2 - better - C/S polymicrobial Jessica's gangrene, perirectal abscess DKA Leukocytosis, resolved RECOMMENDATION Continue cefepime and Flagyl - when ready for D/C, would be able to use Levaquin and Flagyl - Levaquin 750 daily and Flagyl 500 TID x 14 days when he gets D/C Monitor progress Patient deciding on when to do secondary closure of the wounds Clinically doing well from ID standpoint I will check back on Saturday Noemí Amador MD Nov 30, 2016 12:39
--- NOTE | 2016-11-30 15:38 | HHI.PR ---
Subjective Subjective Notes Resting in bed HARSHAL Dennis at bedside Objective Vitals/I&O Vital Signs Date Time Temp Pulse Resp B/P Pulse Ox O2 Delivery O2 Flow Rate FiO2 11/30/16 13:07 16 11/30/16 12:00 98.7 65 116/71 97 Cardiovascular: Regular Lungs: Clear Abdomen: Non-distended, Non-tender Narrative Exam buttocks wound--- packing in place with dakin gauze --- minimal erythema around wound; minimal exudate A/P Assessment and Plan 51 year old male s/p I&D perirectal abscess -Continue dressing changes ---change BID and PRN; okay to shower in between dressing changes -Antibiotics per ID -1800 ADA diet -Pain control --[place] + Dilaudid PO -Will continue BID dressing changes and evaluate wound at the beginning of the week for timing of primary closure -Discussed with Dr. Napier Attending Note - Dr. Vallecillo Perirectal areas granulating well Periscrotal area with some exudate Will Rx with peroxide and have patient scrub this area when he gets into shower Ok for IV pain med when he gets peroxide to wounds The exam, history, and the medical decision-making described in the above note were completed with the assistance of the mid-level provider. I reviewed and agree with the findings presented. I attest that I had a [id number] encounter with the patient on the same day, and personally performed and documented my assessment and findings in the medical record. Caty Matute Nov 30, 2016 15:38 Hiarm Vallecillo MD Nov 30, 2016 17:22
[2016-11-30 16:00] VITALS: BP 108/59; PULSE 75; RESP 18; TEMP 98.4; O2SAT 97
[2016-11-30] MEDS ORDERED: MORPHINE SULFATE 4 MG/ML INJ IM ONE (17:30)
[2016-11-30 20:46] VITALS: BP 142/82; PULSE 92; RESP 18; TEMP 99.2; O2SAT 97
[2016-11-30] MEDS ORDERED: MORPHINE SULFATE 4 MG/ML INJ IV PUSH ONE (21:45)
[2016-12-01] VITALS: BP 123/71; PULSE 80; RESP 18; TEMP 98.6; O2SAT 100
[2016-12-01] MEDS: CHLORHEXIDINE GLUCONATE 2 % 1 PACK (2 CLOTHS) TOP SCH (04:00)
[2016-12-01] MEDS: INSULIN ASPART SUPPLEMENTAL SCALE SQ SCH ×3 (06:39→16:00)
[2016-12-01] MEDS: INSULIN HUMAN REGULAR 1,000 UNITS/10 ML VIAL SQ SCH ×3 (07:00→16:05)
[2016-12-01 08:00] VITALS: BP 112/67; PULSE 71; RESP 16; TEMP 97.8; O2SAT 97
[2016-12-01] MEDS: INSULIN HUMAN NPH/R 70/30 1,000 UNITS/10 ML VIAL SQ SCH ×2 (08:33→21:00)
[2016-12-01] MEDS: DILTIAZEM HCL 30 MG TAB PO SCH ×3 (08:33→21:00)
[2016-12-01] MEDS: METOPROLOL TARTRATE 50 MG TAB PO SCH ×2 (08:34→21:00)
[2016-12-01] MEDS: PANTOPRAZOLE SOD 40 MG DELAYED RELEASE TAB PO SCH (08:34)
[2016-12-01] MEDS: GABAPENTIN 300 MG CAP PO SCH ×4 (08:34→21:00)
[2016-12-01] MEDS: HYDROmorphone HCL PF 1 MG/ML VIAL IV PUSH PRN ×3 (08:44→20:06)
[2016-12-01] MEDS: NYSTATIN 100,000 UNIT/GM CREAM 15 GM TOPICAL SCH ×2 (11:20→21:00)
[2016-12-01] MEDS: SODIUM HYPOCHLORITE 0.25% 500 ML BTL TOPICAL SCH ×2 (11:20→21:00)
[2016-12-01] MEDS: ACETAMINOPHEN/HYDROcodone 325 MG/7.5 MG TAB PO PRN ×2 (11:36→23:07)
[2016-12-01 12:00] VITALS: BP 110/63; PULSE 65; RESP 16; TEMP 98.1; O2SAT 98
[2016-12-01] MEDS: diphenhydrAMINE HCL 25 MG CAP PO PRN (13:10)
[2016-12-01] MEDS: CEFEPIME INJ 2,000 MG in SODIUM CHLORIDE 0.9% INJ 100 ML IV SCH ×2 (14:40→22:00)
[2016-12-01] MEDS: metroNIDAZOLE 500 MG TAB PO SCH ×2 (14:40→22:00)
[2016-12-01] MEDS ORDERED: methylPREDNISolone SOD SUCC 125 MG/2 ML VIAL IV ONE (15:00)
[2016-12-01 16:00] VITALS: BP 106/63; PULSE 71; RESP 16; TEMP 98.4; O2SAT 95
--- NOTE | 2016-12-01 16:23 | HHI.PR ---
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 He reported sleeping well last evening. 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 Vallecillo is reported to have told patient this information late on the afternoon of 11/30/16/ He denied cough, shortness of breath, fever, N/V/D, bloody urine or stool. Appetite is reported to be good. RN (Imani) denied acute changes over night or new concerns. Dr. Napier reported after pt had been seen he developed urticaria after using a towel on his neck. Benadryl 25 mg po PRN q 6 hrs was ordered. Objective Vitals Vital Signs Date Time Temp Pulse Resp B/P Pulse Ox O2 Delivery O2 Flow Rate FiO2 12/01/16 12:00 98.1 65 16 110/63 98 12/01/16 08:00 97.8 71 16 112/67 97 12/01/16 00:00 98.6 80 18 123/71 100 11/30/16 20:46 99.2 92 18 142/82 97 I/O 11/30/16 11/30/16 11/30/16 12/01/16 12/01/16 12/01/16 07:00 15:00 23:00 07:00 15:00 23:00 Intake Total 441 ml 475 ml 580 ml 480 ml 4 ml Output Total 1625 ml 625 ml 1000 ml 1000 ml Balance -1184 ml -150 ml -420 ml -520 ml 4 ml Intake Oral 240 ml 475 ml 480 ml 480 ml IV Total 201 ml 100 ml 4 ml Output Urine Total 1625 ml 625 ml 1000 ml 1000 ml # Voids 2 # Bowel Movements 0 2 1 1 Result Diagram: 11/29/16 0457 11/29/16 0457 Imaging Last Impressions Pelvis CT 11/16/16 0000 Signed Impressions: Service Date/Time: Wednesday, November 16, 2016 16:20 - CONCLUSION: 1. Fornier's gangrene of the perineal region as detailed above. This can be a life threatening condition. 2. Results were called to the emergency department (Dr. Bryan Cuellar) the time of this dictation. 3. 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 Elijah Álvarez MD Chest X-Ray 11/16/16 0000 Signed Impressions: Service Date/Time: Wednesday, November 16, 2016 17:48 - CONCLUSION: No evidence of acute cardiopulmonary disease. Previous median sternotomy. Magnus Steele MD Objective Remarks GENERAL: Pt laying a bed on his right side, clad in underwear, NAD. SKIN: Warm and dry. HEAD: Normocephalic. EYES: No scleral icterus. No injection or drainage. NECK: Supple, trachea midline. No lymphadenopathy. CARDIOVASCULAR: Regular rate and rhythm without murmurs, gallops, or rubs. RESPIRATORY: Breath sounds equal bilaterally. No accessory muscle use. GASTROINTESTINAL: Abdomen soft, non-tender, nondistended. MUSCULOSKELETAL: No cyanosis, or edema. PSYCHIATRIC: Pt A&Ox3, No overt signs of depression and/or anxiety. Pleasant and cooperative. Medications and IVs Current Medications Medications (Trade) Dose Ordered Sig/Ronaldo Route Start Time Stop Time Status Last Admin Miscellaneous Information 1 Q361D XX 11/16/16 17:45 (Chlorhexidine 2% Cloth) Taper DAILY@04 TOP 11/17/16 04:00 11/13/17 03:59 11/19/16 03:49 (Chlorhexidine 2% Cloth) 3 pack UNSCH PRN TOP 11/16/16 17:45 (Tylenol) 650 mg Q6H PRN PO 11/16/16 20:15 11/17/16 22:02 Sodium Hypochlorite 500 ml 500 ml BID TOPICAL 11/17/16 09:00 12/01/16 11:20 Potassium Chloride 100 ml @ 50 mls/hr Q2H PRN IV 11/17/16 13:45 (KCl 20 Meq Premix Inj) 100 ml @ 50 mls/hr Q2H PRN IV 11/17/16 13:45 11/19/16 14:55 Potassium Bicarb/ Potassium Chloride 50 meq 50 meq UNSCH PRN PO 11/17/16 13:45 11/17/16 17:55 Potassium Chloride 100 ml @ 25 mls/hr UNSCH PRN IV 11/17/16 13:45 Potassium Chloride 100 ml @ 50 mls/hr Q2H PRN IV 11/17/16 13:45 (Magnesium Sulfate Inj/NS Inj) 100 ml @ 50 mls/hr UNSCH PRN IV 11/17/16 13:45 Magnesium Oxide 800 mg 800 mg UNSCH PRN PO 11/17/16 13:45 (Magnesium Sulfate Inj/NS Inj) 100 ml @ 50 mls/hr UNSCH PRN IV 11/17/16 13:45 Potassium Phosphate 2000 mg 2,000 mg Q4H PRN PO 11/17/16 13:45 (Sodium Phosphate Inj/NS 250 ml Inj) 250 ml @ 42 mls/hr UNSCH PRN IV 11/17/16 13:45 11/19/16 10:37 (K-Phos) 2,000 mg UNSCH PRN PO/TUBE 11/17/16 13:45 11/18/16 08:05 (Trandate Inj) 10 mg Q1HR PRN IV PUSH 11/18/16 09:00 (Apresoline Inj) 10 mg Q1HR PRN IV PUSH 11/18/16 09:00 (Nitroglycerin 2% Oint) 2 inch Q6HR PRN TOPICAL 11/18/16 09:00 Miscellaneous 1 ea 1 ea UNSCH PRN OTHER 11/18/16 09:00 (Maxipime Inj/NS Inj) 100 ml @ 200 mls/hr Q8H IV 11/19/16 14:00 12/01/16 14:40 (Flagyl) 500 mg Q8HR PO 11/19/16 14:00 12/01/16 14:40 (Lopressor) 50 mg Q12HR PO 11/20/16 10:45 12/01/16 08:34 Gabapentin 600 mg 600 mg QID PO 11/20/16 13:00 12/01/16 11:40 Diltiazem HCl 125 mg/Sodium Chloride 125 ml @ 0 mls/hr TITRATE IV 11/20/16 11:30 (KCl Inj/Lr 1000 ml Inj) 1,010 ml @ 30 mls/hr Q24H PRN IV 11/22/16 00:15 (Protonix) 40 mg DAILY PO 11/23/16 09:00 12/01/16 08:34 (Cardizem) 30 mg Q6H PO 11/22/16 15:00 12/01/16 14:40 (Humble 7.5-325 Mg) 1 tab Q4H PRN PO 11/22/16 17:45 (Humble 7.5-325 Mg) 2 tab Q4H PRN PO 11/22/16 17:45 12/01/16 11:36 (D50w (Vial) Inj) 50 ml UNSCH PRN IV 11/23/16 06:15 (Glucagon Inj) 1 mg UNSCH PRN OTHER 11/23/16 06:15 (NovoLIN 70/30 INJ) 35 units DAILY@08 SQ 11/23/16 08:00 12/01/16 08:33 (NovoLIN R INJ) 12 units DAILY@17 SQ 11/23/16 17:00 11/30/16 18:17 (NovoLIN 70/30 INJ) 20 units HS SQ 11/23/16 21:00 11/30/16 22:04 (Mycostatin Cream) 1 applic Q12HR TOPICAL 11/26/16 21:00 12/06/16 20:59 12/01/16 11:20 (Dilaudid) 1 mg Q6H PRN PO 11/29/16 07:45 11/30/16 12:07 (Dilaudid Pf Inj) 1 mg Q4H PRN IV PUSH 12/01/16 02:30 12/01/16 14:41 (Benadryl) 25 mg Q6H PRN PO 12/01/16 13:15 12/01/16 13:10 Urinary Catheter: No Vascular Central Line Catheter: No A/P Problem List: (1) Dementia ICD Code: F03.90 Status: Acute (2) Postoperative pain ICD Code: G89.18 Status: Acute (3) DKA (diabetic ketoacidoses) ICD Code: E13.10 Status: Acute (4) Peripheral neuropathy ICD Code: G62.9 Status: Acute (5) Coronary artery disease ICD Code: I25.10 Status: Chronic (6) Hypertension ICD Code: I10 Status: Chronic (7) Hyperlipidemia ICD Code: E78.5 Status: Chronic (8) GERD (gastroesophageal reflux disease) ICD Code: K21.9 Status: Chronic (9) Anemia ICD Code: D64.9 Status: Acute (10) Sinus tachycardia ICD Code: R00.0 Status: Acute (11) Urticarial dermatitis ICD Code: L50.9 Status: Acute Assessment and Plan 51-year-old male presents to the emergency department for evaluation of pain to the perirectal area for about 12 days. Per patient this started as a small lump , but worsened approximate 10 days ago. He reports fever up to 102.7, but is unsure when that was. He states he went to the walk-in clinic today for evaluation and they sent him to the emergency department. Patient has history of [place] 5, cardiac bypass, hypertension, hyperlipidemia, diabetes, diabetic neuropathy. He is on Plavix. 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 Status post I&D bilateral perirectal region 7.5 cm removal necrotic tissue secondary to necrosis ischiorectal fossa Dr. Vallecillo 11/17/16. Postoperative surgical care per Dr. Vallecillo. s/p I&D and debridement 11/21/16 -CT abdomen/pelvis 11/16 revealed diverticulosis without diverticulitis. 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 on cefepime and flagyl, s/p vanc. - when ready for D/C, would be able to use Levaquin and Flagyl for 14 days starting day of discharge per ID. - Poss partially closure of wound , general surgery ff. ID: -continue cefepime (11/19-), flagyl (11/19-), s/p vancomycin (11/18-11/21). S/p clindamycin (11/17-11/19) and zosyn (11/16-11/19) -11/16 Blood cultures 2 no growth to date -11/17 Wound cx: Klebsiella (sens to cefepime), E. coli (sens to cefepime), MDR GBS -infectious disease following (Dr. Amador). Continue cefepime and Flagyl - when ready for D/C, would be able to use Levaquin and Flagyl Neuro/Psych: Dementia disorder NOS Postoperative pain Peripheral neuropathy/diabetic -pain management per GS -on home dose of gabapentin CV: H/o Sinus tachycardia Coronary disease status post CABG 5 Hypertension Dyslipidemia -A fib with RVR. Resolved, continue meds and monitor. Pt was found to have atrial fib w rvr but converted spontaneously. cardiology evaluated the pt and recommended restarting him on metoprolol which he is on. has been off the cardizem gtt. -EF 50-55%. Apical akinesis. Mild MV regurg, TV regurg -On Lopressor 50mg Q12. monitor HR and BPs -on lovastatin Resp: -sats in the low-to-mid 90s on room air -incentive spirometry while awake GI: Gastroesophageal reflux disease diabetic diet -protonix for GI ppx Endo: Diabetes mellitus, uncontrolled A1c 13.6 on 10/15 -novolin 35 u qAM and 20 u qHS with and increased to 12 u novolin TIDAC. SSI. continue to adjust insulin regimen Renal: -kidney function and electrolytes WNL. Heme: Normocytic anemia -hemoglobin stable at 10.9 -currently holding aspirin 81 mg daily and Plavix any 5 mg by mouth daily. Resume when okay with general surgery Urticaria Dermatitis: Benadryl 25 mg po Q 6hrs PRn for itching. Pt received Solumedrol 125 mg IV once. MSK: -PT evaluate and treat. Recommend PT. Access -Utilize peripheral IV. Prophylaxis -GI Protonix -DVT ; SCD/pharmacological prophylaxis per general surgery Discussed with pt, RN (Imani) and Dr. Napier Discharge Planning Discharge Planning D/c pending further work-up, clinical improvement, and clearance by gen surg GS ff. Dr Vallecillo will evaluated wound plan for poss closing partially the wound. Continue cefepime and Flagyl per ID for now - when ready for D/C, would be able to use Levaquin and Flagyl for 14 days starting day of discharge per ID. Problem Qualifiers (1) DKA (diabetic ketoacidoses): Qualified Code: E13.10 - Diabetic ketoacidosis without coma associated with type 2 diabetes mellitus Carlos Cohen Jr. Dec 01, 2016 16:23
[2016-12-01 20:00] VITALS: BP 118/57; PULSE 88; RESP 17; TEMP 98.5; O2SAT 97
[2016-12-02] VITALS: BP 132/77; PULSE 85; RESP 17; TEMP 98.4; O2SAT 95
[2016-12-02] MEDS: INSULIN ASPART SUPPLEMENTAL SCALE SQ SCH ×5 (00:06→21:35)
[2016-12-02] MEDS: DILTIAZEM HCL 30 MG TAB PO SCH ×4 (03:31→21:16)
[2016-12-02] MEDS: HYDROmorphone HCL PF 1 MG/ML VIAL IV PUSH PRN ×4 (03:38→21:18)
[2016-12-02] MEDS: CHLORHEXIDINE GLUCONATE 2 % 1 PACK (2 CLOTHS) TOP SCH (04:00)
[2016-12-02] MEDS: CEFEPIME INJ 2,000 MG in SODIUM CHLORIDE 0.9% INJ 100 ML IV SCH ×3 (05:55→21:17)
[2016-12-02] MEDS: metroNIDAZOLE 500 MG TAB PO SCH ×3 (05:55→21:17)
[2016-12-02] MEDS: INSULIN HUMAN REGULAR 1,000 UNITS/10 ML VIAL SQ SCH ×3 (07:00→16:31)
[2016-12-02 08:00] VITALS: BP 104/58; PULSE 69; RESP 16; TEMP 97.7; O2SAT 94
[2016-12-02] MEDS: INSULIN HUMAN NPH/R 70/30 1,000 UNITS/10 ML VIAL SQ SCH ×2 (08:00→21:34)
[2016-12-02] MEDS: GABAPENTIN 300 MG CAP PO SCH ×4 (09:10→21:16)
[2016-12-02] MEDS: PANTOPRAZOLE SOD 40 MG DELAYED RELEASE TAB PO SCH (09:11)
[2016-12-02] MEDS: METOPROLOL TARTRATE 50 MG TAB PO SCH ×2 (09:11→21:16)
[2016-12-02] MEDS: ACETAMINOPHEN/HYDROcodone 325 MG/7.5 MG TAB PO PRN ×3 (09:16→19:36)
[2016-12-02] MEDS: NYSTATIN 100,000 UNIT/GM CREAM 15 GM TOPICAL SCH ×2 (09:49→21:37)
[2016-12-02] MEDS: SODIUM HYPOCHLORITE 0.25% 500 ML BTL TOPICAL SCH ×2 (09:49→21:36)
[2016-12-02 12:00] VITALS: BP 113/63; PULSE 70; RESP 16; TEMP 98; O2SAT 97
--- NOTE | 2016-12-02 13:30 | HHI.PR ---
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 He reported sleeping poorly last evening due to pain and staff waking him. Pt discussed "rash" that developed from "touching the blankets here." Pt said he developed rash around his neck arms, trunk and groin "pretty much where ever I was in contact with the blanket or sheet." Pt said this has happened to him before.Pt reported improvement with benadryl he was ordered and the solumedrol "knocked it out." He denied cough, shortness of breath, fever, N/V/D, bloody urine or stool. Appetite is reported to be good. RN (Imani) denied acute changes over night. She did report concern that pt was requesting frequent dressing changes (by her count 3) yesterday and this may interfere with healing. Pt was asked about changes and he said "they did two on me, one in the morning and one on the second shift." Objective Vitals Vital Signs Date Time Temp Pulse Resp B/P Pulse Ox O2 Delivery O2 Flow Rate FiO2 12/02/16 12:00 98.0 70 16 113/63 97 12/02/16 08:00 97.7 69 16 104/58 94 12/02/16 00:00 98.4 85 17 132/77 95 12/01/16 20:00 98.5 88 17 118/57 97 12/01/16 16:00 98.4 71 16 106/63 95 I/O 12/01/16 12/01/16 12/01/16 12/02/16 12/02/16 12/02/16 07:00 15:00 23:00 07:00 15:00 23:00 Intake Total 480 ml 4 ml 240 ml 240 ml Output Total 1000 ml 800 ml 1000 ml Balance -520 ml 4 ml -560 ml -760 ml Intake Oral 480 ml 240 ml 240 ml IV Total 4 ml Output Urine Total 1000 ml 800 ml 1000 ml # Voids 1 # Bowel Movements 1 1 Result Diagram: 11/29/16 0457 11/29/16 0457 Imaging No imaging ordered, pending, or resulted within the past 24 hours. Objective Remarks GENERAL: Pt sleeping a bed on his left side, clad in underwear, easily awakened NAD. SKIN: Warm and dry. HEAD: Normocephalic. EYES: No scleral icterus. No injection or drainage. NECK: Supple, trachea midline. No lymphadenopathy. CARDIOVASCULAR: Regular rate and rhythm without murmurs, gallops, or rubs. RESPIRATORY: Breath sounds equal bilaterally. No accessory muscle use. GASTROINTESTINAL: Abdomen soft, non-tender, nondistended. MUSCULOSKELETAL: No cyanosis, or edema. PSYCHIATRIC: Pt A&Ox3, No overt signs of depression and/or anxiety. Pt expressed some frustration at being awakened. Medications and IVs Current Medications Medications (Trade) Dose Ordered Sig/Ronaldo Route Start Time Stop Time Status Last Admin Miscellaneous Information 1 Q361D XX 11/16/16 17:45 (Chlorhexidine 2% Cloth) Taper DAILY@04 TOP 11/17/16 04:00 11/13/17 03:59 11/19/16 03:49 (Chlorhexidine 2% Cloth) 3 pack UNSCH PRN TOP 11/16/16 17:45 (Tylenol) 650 mg Q6H PRN PO 11/16/16 20:15 11/17/16 22:02 Sodium Hypochlorite 500 ml 500 ml BID TOPICAL 11/17/16 09:00 12/02/16 09:49 Potassium Chloride 100 ml @ 50 mls/hr Q2H PRN IV 11/17/16 13:45 (KCl 20 Meq Premix Inj) 100 ml @ 50 mls/hr Q2H PRN IV 11/17/16 13:45 11/19/16 14:55 Potassium Bicarb/ Potassium Chloride 50 meq 50 meq UNSCH PRN PO 11/17/16 13:45 11/17/16 17:55 Potassium Chloride 100 ml @ 25 mls/hr UNSCH PRN IV 11/17/16 13:45 Potassium Chloride 100 ml @ 50 mls/hr Q2H PRN IV 11/17/16 13:45 (Magnesium Sulfate Inj/NS Inj) 100 ml @ 50 mls/hr UNSCH PRN IV 11/17/16 13:45 Magnesium Oxide 800 mg 800 mg UNSCH PRN PO 11/17/16 13:45 (Magnesium Sulfate Inj/NS Inj) 100 ml @ 50 mls/hr UNSCH PRN IV 11/17/16 13:45 Potassium Phosphate 2000 mg 2,000 mg Q4H PRN PO 11/17/16 13:45 (Sodium Phosphate Inj/NS 250 ml Inj) 250 ml @ 42 mls/hr UNSCH PRN IV 11/17/16 13:45 11/19/16 10:37 (K-Phos) 2,000 mg UNSCH PRN PO/TUBE 11/17/16 13:45 11/18/16 08:05 (Trandate Inj) 10 mg Q1HR PRN IV PUSH 11/18/16 09:00 (Apresoline Inj) 10 mg Q1HR PRN IV PUSH 11/18/16 09:00 (Nitroglycerin 2% Oint) 2 inch Q6HR PRN TOPICAL 11/18/16 09:00 Miscellaneous 1 ea 1 ea UNSCH PRN OTHER 11/18/16 09:00 (Maxipime Inj/NS Inj) 100 ml @ 200 mls/hr Q8H IV 11/19/16 14:00 12/02/16 05:55 (Flagyl) 500 mg Q8HR PO 11/19/16 14:00 12/02/16 12:36 (Lopressor) 50 mg Q12HR PO 11/20/16 10:45 12/02/16 09:11 Gabapentin 600 mg 600 mg QID PO 11/20/16 13:00 12/02/16 12:35 Diltiazem HCl 125 mg/Sodium Chloride 125 ml @ 0 mls/hr TITRATE IV 11/20/16 11:30 (KCl Inj/Lr 1000 ml Inj) 1,010 ml @ 30 mls/hr Q24H PRN IV 11/22/16 00:15 (Protonix) 40 mg DAILY PO 11/23/16 09:00 12/02/16 09:11 (Cardizem) 30 mg Q6H PO 11/22/16 15:00 12/02/16 09:11 (Banks 7.5-325 Mg) 1 tab Q4H PRN PO 11/22/16 17:45 (Banks 7.5-325 Mg) 2 tab Q4H PRN PO 11/22/16 17:45 12/02/16 09:16 (D50w (Vial) Inj) 50 ml UNSCH PRN IV 11/23/16 06:15 (Glucagon Inj) 1 mg UNSCH PRN OTHER 11/23/16 06:15 (NovoLIN 70/30 INJ) 35 units DAILY@08 SQ 11/23/16 08:00 12/02/16 08:00 (NovoLIN R INJ) 12 units DAILY@17 SQ 11/23/16 17:00 11/30/16 18:17 (NovoLIN 70/30 INJ) 20 units HS SQ 11/23/16 21:00 12/01/16 21:00 (Mycostatin Cream) 1 applic Q12HR TOPICAL 11/26/16 21:00 12/06/16 20:59 12/02/16 09:49 (Dilaudid) 1 mg Q6H PRN PO 11/29/16 07:45 11/30/16 12:07 (Dilaudid Pf Inj) 1 mg Q4H PRN IV PUSH 12/01/16 02:30 12/02/16 11:25 (Benadryl) 25 mg Q6H PRN PO 12/01/16 13:15 12/01/16 13:10 Urinary Catheter: No A/P Problem List: (1) Dementia ICD Code: F03.90 Status: Acute (2) Postoperative pain ICD Code: G89.18 Status: Acute (3) DKA (diabetic ketoacidoses) ICD Code: E13.10 Status: Acute (4) Peripheral neuropathy ICD Code: G62.9 Status: Acute (5) Coronary artery disease ICD Code: I25.10 Status: Chronic (6) Hypertension ICD Code: I10 Status: Chronic (7) Hyperlipidemia ICD Code: E78.5 Status: Chronic (8) GERD (gastroesophageal reflux disease) ICD Code: K21.9 Status: Chronic (9) Anemia ICD Code: D64.9 Status: Acute (10) Sinus tachycardia ICD Code: R00.0 Status: Acute (11) Urticarial dermatitis ICD Code: L50.9 Status: Acute Assessment and Plan 51-year-old male presents to the emergency department for evaluation of pain to the perirectal area for about 12 days. Per patient this started as a small lump , but worsened approximate 10 days ago. He reports fever up to 102.7, but is unsure when that was. He states he went to the walk-in clinic today for evaluation and they sent him to the emergency department. Patient has history of [place] 5, cardiac bypass, hypertension, hyperlipidemia, diabetes, diabetic neuropathy. He is on Plavix. 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 Status post I&D bilateral perirectal region 7.5 cm removal necrotic tissue secondary to necrosis ischiorectal fossa Dr. Vallecillo 11/17/16. Postoperative surgical care per Dr. Vallecillo. s/p I&D and debridement 11/21/16 -CT abdomen/pelvis 11/16 revealed diverticulosis without diverticulitis. 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 on cefepime and flagyl, s/p vanc. - when ready for D/C, would be able to use Levaquin and Flagyl for 14 days starting day of discharge per ID. - Poss partially closure of wound , general surgery ff. ID: -continue cefepime (11/19-), flagyl (11/19-), s/p vancomycin (11/18-11/21). S/p clindamycin (11/17-11/19) and zosyn (11/16-11/19) -11/16 Blood cultures 2 no growth to date -11/17 Wound cx: Klebsiella (sens to cefepime), E. coli (sens to cefepime), MDR GBS -infectious disease following (Dr. Amador). Continue cefepime and Flagyl - when ready for D/C, would be able to use Levaquin and Flagyl Neuro/Psych: Dementia disorder NOS Postoperative pain Peripheral neuropathy/diabetic -pain management per GS -on home dose of gabapentin CV: H/o Sinus tachycardia Coronary disease status post CABG 5 Hypertension Dyslipidemia -A fib with RVR. Resolved, continue meds and monitor. Pt was found to have atrial fib w rvr but converted spontaneously. cardiology evaluated the pt and recommended restarting him on metoprolol which he is on. has been off the cardizem gtt. -EF 50-55%. Apical akinesis. Mild MV regurg, TV regurg -On Lopressor 50mg Q12. monitor HR and BPs -on lovastatin Resp: -sats in the low-to-mid 90s on room air -incentive spirometry while awake GI: Gastroesophageal reflux disease diabetic diet -protonix for GI ppx Endo: Diabetes mellitus, uncontrolled A1c 13.6 on 10/15 -novolin 35 u qAM and 20 u qHS with and increased to 12 u novolin TIDAC. SSI. continue to adjust insulin regimen Renal: -kidney function and electrolytes WNL. Heme: Normocytic anemia -hemoglobin stable at 10.9 -currently holding aspirin 81 mg daily and Plavix any 5 mg by mouth daily. Resume when okay with general surgery Urticaria Dermatitis: Benadryl 25 mg po Q 6hrs PRn for itching. Pt received Solumedrol 125 mg IV once. -Resolved MSK: -PT evaluate and treat. Recommend PT. Access -Utilize peripheral IV. Prophylaxis -GI Protonix -DVT ; SCD/pharmacological prophylaxis per general surgery Discussed with pt, RN (Imani) and Dr. Napier Discharge Planning Discharge Planning D/c pending further work-up, clinical improvement, and clearance by gen surg ff. Dr Vallecillo will evaluated wound plan for poss closing partially the wound. Continue cefepime and Flagyl per ID for now - when ready for D/C, would be able to use Levaquin and Flagyl for 14 days starting day of discharge per ID. Problem Qualifiers (1) DKA (diabetic ketoacidoses): Qualified Code: E13.10 - Diabetic ketoacidosis without coma associated with type 2 diabetes mellitus Carlos Cohen Jr. Dec 02, 2016 13:30
[2016-12-02 16:00] VITALS: BP 115/59; PULSE 80; RESP 16; TEMP 98; O2SAT 98
[2016-12-02] MEDS ORDERED: MORPHINE SULFATE 4 MG/ML INJ IV PUSH ONE (17:30)
[2016-12-02 20:00] VITALS: BP 127/67; PULSE 80; RESP 17; TEMP 97.1; O2SAT 97
[2016-12-03] VITALS: BP 108/56; PULSE 74; RESP 17; TEMP 98; O2SAT 97
[2016-12-03] MEDS: HYDROmorphone HCL PF 1 MG/ML VIAL IV PUSH PRN ×5 (01:16→21:05)
[2016-12-03] MEDS: DILTIAZEM HCL 30 MG TAB PO SCH ×4 (02:57→20:41)
[2016-12-03] MEDS: CHLORHEXIDINE GLUCONATE 2 % 1 PACK (2 CLOTHS) TOP SCH (02:58)
[2016-12-03] MEDS: diphenhydrAMINE HCL 25 MG CAP PO PRN (04:20)
[2016-12-03] MEDS ORDERED: methylPREDNISolone SOD SUCC 125 MG/2 ML VIAL IV PUSH ONE (04:45)
[2016-12-03] MEDS: CEFEPIME INJ 2,000 MG in SODIUM CHLORIDE 0.9% INJ 100 ML IV SCH ×3 (04:52→20:54)
[2016-12-03] MEDS: metroNIDAZOLE 500 MG TAB PO SCH ×3 (04:52→20:41)
[2016-12-03] MEDS: INSULIN ASPART SUPPLEMENTAL SCALE SQ SCH ×4 (06:24→21:17)
[2016-12-03] MEDS: INSULIN HUMAN REGULAR 1,000 UNITS/10 ML VIAL SQ SCH ×3 (07:00→17:00)
[2016-12-03 08:00] VITALS: BP 114/61; PULSE 72; RESP 18; TEMP 97.9; O2SAT 96
[2016-12-03] MEDS: GABAPENTIN 300 MG CAP PO SCH ×4 (09:27→20:41)
[2016-12-03] MEDS: PANTOPRAZOLE SOD 40 MG DELAYED RELEASE TAB PO SCH (09:27)
[2016-12-03] MEDS: METOPROLOL TARTRATE 50 MG TAB PO SCH ×2 (09:27→20:42)
[2016-12-03] MEDS: INSULIN HUMAN NPH/R 70/30 1,000 UNITS/10 ML VIAL SQ SCH ×2 (09:28→21:00)
[2016-12-03] MEDS: SODIUM HYPOCHLORITE 0.25% 500 ML BTL TOPICAL SCH ×2 (09:32→20:55)
[2016-12-03] MEDS: NYSTATIN 100,000 UNIT/GM CREAM 15 GM TOPICAL SCH ×2 (09:33→20:54)
--- NOTE | 2016-12-03 11:32 | HHI.PR ---
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 Patient seen and examined today. Lying in bed comfortably in no apparent distress. Supposedly patient developed a generalized rash over his body last night requiring Benadryl and dose of steroids. At this time rash is improved, now asymptomatic. Denies any recent fevers, chills, cough , shortness of breath, headache, dizziness, abdominal pain, n/v, or dysuria. Spoke to RN, patient has had a poor appetite and not been eating very much. Objective Vitals Vital Signs Date Time Temp Pulse Resp B/P Pulse Ox O2 Delivery O2 Flow Rate FiO2 12/03/16 08:00 97.9 72 18 114/61 96 12/03/16 05:24 20 12/03/16 00:00 98.0 74 17 108/56 97 12/02/16 20:36 20 12/02/16 20:00 97.1 80 17 127/67 97 12/02/16 16:00 98.0 80 16 115/59 98 12/02/16 12:00 98.0 70 16 113/63 97 I/O 12/02/16 12/02/16 12/02/16 12/03/16 12/03/16 12/03/16 07:00 15:00 23:00 07:00 15:00 23:00 Intake Total 240 ml 244 ml 240 ml 240 ml Output Total 1000 ml 700 ml 1300 ml 600 ml Balance -760 ml -456 ml -1060 ml -360 ml Intake Oral 240 ml 240 ml 240 ml 240 ml IV Total 4 ml Output Urine Total 1000 ml 700 ml 1300 ml 600 ml # Voids 1 # Bowel Movements 1 Result Diagram: 11/29/16 0457 11/29/16 0457 Imaging Last Impressions Pelvis CT 11/16/16 0000 Signed Impressions: Service Date/Time: Wednesday, November 16, 2016 16:20 - CONCLUSION: 1. Fornier's gangrene of the perineal region as detailed above. This can be a life threatening condition. 2. Results were called to the emergency department (Dr. Bryan Cuellar) the time of this dictation. 3. 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 Elijah Álvarez MD Chest X-Ray 11/16/16 0000 Signed Impressions: Service Date/Time: Wednesday, November 16, 2016 17:48 - CONCLUSION: No evidence of acute cardiopulmonary disease. Previous median sternotomy. Magnus Steele MD Objective Remarks GENERAL: Well-nourished, well-developed patient in NAD. SKIN: Warm and dry. No rash. HEENT: Normocephalic. Atraumatic. Pupils equal and round. No scleral icterus. No injection or drainage. No nasal bleeding or discharge. Mucous membranes pink and moist. Neck supple. Trachea midline. CARDIOVASCULAR: Regular rate and rhythm. S1, S2 noted. No murmur appreciated. RESPIRATORY: No accessory muscle use. Clear to auscultation. Breath sounds equal bilaterally. GASTROINTESTINAL: Abdomen soft, non-tender, nondistended. Normoactive bowel sounds x4. MUSCULOSKELETAL: No obvious deformities. Extremities without clubbing, cyanosis , or edema. NEUROLOGICAL: Awake and alert. No obvious cranial nerve deficits. Normal speech. PSYCHIATRIC: Appropriate mood and affect; insight and judgment normal. A/P Problem List: (1) Dementia ICD Code: F03.90 Status: Acute (2) Postoperative pain ICD Code: G89.18 Status: Acute (3) DKA (diabetic ketoacidoses) ICD Code: E13.10 Status: Acute (4) Peripheral neuropathy ICD Code: G62.9 Status: Acute (5) Coronary artery disease ICD Code: I25.10 Status: Chronic (6) Hypertension ICD Code: I10 Status: Chronic (7) Hyperlipidemia ICD Code: E78.5 Status: Chronic (8) GERD (gastroesophageal reflux disease) ICD Code: K21.9 Status: Chronic (9) Anemia ICD Code: D64.9 Status: Acute (10) Sinus tachycardia ICD Code: R00.0 Status: Acute (11) Urticarial dermatitis ICD Code: L50.9 Status: Acute Assessment and Plan 51-year-old male presents to the emergency department for evaluation of pain to the perirectal area for about 12 days. Per patient this started as a small lump , but worsened approximate 10 days ago. He reports fever up to 102.7, but is unsure when that was. He states he went to the walk-in clinic today for evaluation and they sent him to the emergency department. Patient has history of [place] 5, cardiac bypass, hypertension, hyperlipidemia, diabetes, diabetic neuropathy. He is on Plavix. 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 Vallecillo 11/17/16. Postoperative surgical care per Dr. Vallecillo. s/p I&D and debridement, 11/21/16 - CT abdomen/pelvis 11/16 revealed diverticulosis without diverticulitis. 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 On cefepime and flagyl, s/p vanco, clindamycin and zosyn. - Blood cultures, NGTD. 11/17 Wound cx: Klebsiella (sens to cefepime), E. coli (sens to cefepime), MDR GBS - ID following. Upon discharge ID recommends Levaquin and Flagyl for 14 days. - Possible partial closure of wound, general surgery following. Contact dermatitis suspect secondary to irritation to hospital linens. - Status post methylprednisolone 125 mg IV x 1 and Benadryl 25 mg PO PRN. - Prednisone 50 mg PO daily x 3 days. Dementia disorder NOS Postoperative pain Peripheral neuropathy/diabetic - pain management per - Continue home Gabapentin Sinus tachycardia Coronary disease status post CABG 5 Hypertension Dyslipidemia A fib with RVR, converted spontaneously. Cardiology evaluated patient, recommended metoprolol. Status post Cardizem gtt. - EF 50-55%. Apical akinesis. Mild MV regurg, TV regurg - On Lopressor 50mg Q12. monitor HR and BPs - on lovastatin Diabetes mellitus, uncontrolled A1c 13.6 on 10/15 - Blood sugars have been consistently increased in the am, 300's-400's. Increase HS novolin to 25 units and increase prandial to 14 units TIDAC. - Continue Novolin 35 u qAM. Accuchecks ACHS. SSI. Monitor. - Hold prandial if patient not eating well. Normocytic anemia - hemoglobin stable at 10.6 - currently holding aspirin 81 mg daily and Plavix any 5 mg by mouth daily. Resume when okay with general surgery GI prophylaxis: Protonix. DVT prophylaxis: SCDs/pharmacological prophylaxis per general surgery Discussed with the patient, nurse, and Dr. Napier Discharge Planning D/c pending further work-up, clinical improvement, and clearance by gen surg GS ff. Dr Vallecillo will evaluated wound plan for poss closing partially the wound. Continue cefepime and Flagyl per ID for now - when ready for D/C, would be able to use Levaquin and Flagyl for 14 days starting day of discharge per ID. PT recommending HHC upon discharge. Problem Qualifiers (1) DKA (diabetic ketoacidoses): Qualified Code: E13.10 - Diabetic ketoacidosis without coma associated with type 2 diabetes mellitus Winifred Gregory Dec 03, 2016 11:32 Yesi Napier MD Dec 03, 2016 18:19
[2016-12-03 12:00] VITALS: BP 104/57; PULSE 66; RESP 18; TEMP 97.7; O2SAT 97
[2016-12-03] MEDS: predniSONE 50 MG TAB PO SCH ×2 (12:43→13:28)
[2016-12-03] MEDS: ACETAMINOPHEN/HYDROcodone 325 MG/7.5 MG TAB PO PRN ×3 (13:29→23:39)
--- NOTE | 2016-12-03 15:53 | HHI.PR ---
Subjective Subjective Notes Ambulating in room Had allergic reaction to pillows Objective Vitals/I&O Vital Signs Date Time Temp Pulse Resp B/P Pulse Ox O2 Delivery O2 Flow Rate FiO2 12/03/16 12:00 97.7 66 18 104/57 97 Cardiovascular: Regular Lungs: Clear Abdomen: Non-distended, Non-tender Extremities: No edema Narrative Exam buttocks wound--- packing in place with dakin gauze --- minimal erythema around wound; minimal exudate A/P Assessment and Plan 51 year old male s/p I&D perirectal abscess -Continue dressing changes ---change BID and PRN; okay to shower in between dressing changes -Antibiotics per ID -1800 ADA diet -Pain control --[place] + Dilaudid PO; IV pain medications at time of dressing change -Will continue BID dressing changes -Dr. Vallecillo to evaluate to perform partial delayed primary closure this week Attending Note - Dr. Vallecillo Wounds fairly clean Discussed with patient and Will plan partial wound closure Saturday (no time available tomorrow) The exam, history, and the medical decision-making described in the above note were completed with the assistance of the mid-level provider. I reviewed and agree with the findings presented. I attest that I had a [id number] encounter with the patient on the same day, and personally performed and documented my assessment and findings in the medical record. Caty Matute Dec 03, 2016 15:53 Hiram Vallecillo MD Dec 03, 2016 18:49
[2016-12-03 16:00] VITALS: BP 105/71; PULSE 81; RESP 18; TEMP 97.6; O2SAT 96
[2016-12-03 20:00] VITALS: BP 108/56; PULSE 73; RESP 16; TEMP 97.6; O2SAT 96
[2016-12-03] MEDS ORDERED: INSULIN HUMAN NPH/R 70/30 1,000 UNITS/10 ML VIAL SQ SCH (21:00)
[2016-12-04] VITALS: BP 129/69; PULSE 71; RESP 16; TEMP 97.7; O2SAT 97
[2016-12-04] MEDS: DILTIAZEM HCL 30 MG TAB PO SCH ×4 (03:49→20:54)
[2016-12-04] MEDS: CHLORHEXIDINE GLUCONATE 2 % 1 PACK (2 CLOTHS) TOP SCH (03:52)
[2016-12-04] MEDS: CEFEPIME INJ 2,000 MG in SODIUM CHLORIDE 0.9% INJ 100 ML IV SCH (06:22)
[2016-12-04] MEDS: metroNIDAZOLE 500 MG TAB PO SCH ×3 (06:24→20:53)
[2016-12-04] MEDS: INSULIN ASPART SUPPLEMENTAL SCALE SQ SCH ×4 (06:28→21:29)
[2016-12-04] MEDS: ACETAMINOPHEN/HYDROcodone 325 MG/7.5 MG TAB PO PRN ×3 (06:34→20:52)
[2016-12-04] MEDS: INSULIN HUMAN REGULAR 1,000 UNITS/10 ML VIAL SQ SCH ×3 (07:00→17:31)
[2016-12-04 08:00] VITALS: BP 129/73; PULSE 67; RESP 18; TEMP 97; O2SAT 97
[2016-12-04] MEDS: GABAPENTIN 300 MG CAP PO SCH ×4 (08:58→20:54)
[2016-12-04] MEDS: METOPROLOL TARTRATE 50 MG TAB PO SCH ×2 (08:58→20:54)
[2016-12-04] MEDS: predniSONE 50 MG TAB PO SCH (08:59)
[2016-12-04] MEDS: PANTOPRAZOLE SOD 40 MG DELAYED RELEASE TAB PO SCH (08:59)
[2016-12-04] MEDS: HYDROmorphone HCL PF 1 MG/ML VIAL IV PUSH PRN ×4 (09:01→22:52)
[2016-12-04] MEDS: SODIUM HYPOCHLORITE 0.25% 500 ML BTL TOPICAL SCH ×2 (09:03→20:56)
[2016-12-04] MEDS: NYSTATIN 100,000 UNIT/GM CREAM 15 GM TOPICAL SCH ×2 (09:04→20:57)
[2016-12-04] MEDS: INSULIN HUMAN NPH/R 70/30 1,000 UNITS/10 ML VIAL SQ SCH ×2 (09:15→21:00)
[2016-12-04] MEDS: diphenhydrAMINE HCL 25 MG CAP PO PRN ×2 (10:39→22:51)
[2016-12-04] MEDS ORDERED: diphenhydrAMINE HCL 2%/ZINC ACETATE 0.1% CREAM 30 APPLIC/30 GM TUBE TOPICAL PRN (10:45)
--- NOTE | 2016-12-04 11:02 | HHI.PR ---
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 Patient seen and examined today. Sleeping and lying in bed comfortably. Denies any new acute complaints. Denies any itching and states resolution of rash. Tolerating PO intake, states he has been eating more since the steroids. Denies any recent fever, chills, headache, cough, shortness of breath, abdominal pain, n/v or dysuria. Received call from RN after seeing patient. Supposedly patient is 'skin is itching and feels irritation and rash coming again. States it is due to the good pads and detergent used here at the hospital". Patient requesting PRN steroids. Educated patient on inability to continue to give steroids PRN, can impede wound healing. Per RN, no rash is present at this time. No signs of respiratory distress. Benadryl cream ordered as needed. Will continue to monitor. Objective Vitals Vital Signs Date Time Temp Pulse Resp B/P Pulse Ox O2 Delivery O2 Flow Rate FiO2 12/04/16 08:00 97.0 67 18 129/73 97 12/04/16 00:00 97.7 71 16 129/69 97 12/03/16 20:00 97.6 73 16 108/56 96 12/03/16 16:00 97.6 81 18 105/71 96 12/03/16 12:00 97.7 66 18 104/57 97 I/O 12/03/16 12/03/16 12/03/16 12/04/16 12/04/16 12/04/16 07:00 15:00 23:00 07:00 15:00 23:00 Intake Total 240 ml 525 ml 360 ml 240 ml Output Total 600 ml 1325 ml 500 ml 400 ml Balance -360 ml -800 ml -140 ml -160 ml Intake Oral 240 ml 525 ml 360 ml 240 ml Output Urine Total 600 ml 1325 ml 500 ml 400 ml # Bowel Movements 1 1 2 Imaging Last Impressions Pelvis CT 11/16/16 0000 Signed Impressions: Service Date/Time: Wednesday, November 16, 2016 16:20 - CONCLUSION: 1. Fornier's gangrene of the perineal region as detailed above. This can be a life threatening condition. 2. Results were called to the emergency department (Dr. Bryan Cuellar) the time of this dictation. 3. 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 Elijah Álvarez MD Chest X-Ray 11/16/16 0000 Signed Impressions: Service Date/Time: Wednesday, November 16, 2016 17:48 - CONCLUSION: No evidence of acute cardiopulmonary disease. Previous median sternotomy. Magnus Steele MD Objective Remarks GENERAL: Well-nourished, well-developed patient in NAD. SKIN: Warm and dry. No rash. HEENT: Normocephalic. Atraumatic. Pupils equal and round. No scleral icterus. No injection or drainage. No nasal bleeding or discharge. Mucous membranes pink and moist. Neck supple. Trachea midline. CARDIOVASCULAR: Regular rate and rhythm. S1, S2 noted. No murmur appreciated. RESPIRATORY: No accessory muscle use. Clear to auscultation. Breath sounds equal bilaterally. GASTROINTESTINAL: Abdomen soft, non-tender, nondistended. Normoactive bowel sounds x4. MUSCULOSKELETAL: No obvious deformities. Extremities without clubbing, cyanosis , or edema. NEUROLOGICAL: Awake and alert. No obvious cranial nerve deficits. Normal speech. PSYCHIATRIC: Appropriate mood and affect; insight and judgment normal. A/P Problem List: (1) Dementia ICD Code: F03.90 Status: Acute (2) Postoperative pain ICD Code: G89.18 Status: Acute (3) DKA (diabetic ketoacidoses) ICD Code: E13.10 Status: Acute (4) Peripheral neuropathy ICD Code: G62.9 Status: Acute (5) Coronary artery disease ICD Code: I25.10 Status: Chronic (6) Hypertension ICD Code: I10 Status: Chronic (7) Hyperlipidemia ICD Code: E78.5 Status: Chronic (8) GERD (gastroesophageal reflux disease) ICD Code: K21.9 Status: Chronic (9) Anemia ICD Code: D64.9 Status: Acute (10) Sinus tachycardia ICD Code: R00.0 Status: Acute (11) Urticarial dermatitis ICD Code: L50.9 Status: Acute Assessment and Plan 51-year-old male presents to the emergency department for evaluation of pain to the perirectal area for about 12 days. Per patient this started as a small lump , but worsened approximate 10 days ago. He reports fever up to 102.7, but is unsure when that was. He states he went to the walk-in clinic today for evaluation and they sent him to the emergency department. Patient has history of [place] 5, cardiac bypass, hypertension, hyperlipidemia, diabetes, diabetic neuropathy. He is on Plavix. 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 Vallecillo 11/17/16. Postoperative surgical care per Dr. Vallecillo. s/p I&D and debridement, 11/21/16 - CT abdomen/pelvis 11/16 revealed diverticulosis without diverticulitis. 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 On cefepime and flagyl, s/p vanco, clindamycin and zosyn. - Blood cultures, NGTD. 11/17 Wound cx: Klebsiella (sens to cefepime), E. coli (sens to cefepime), MDR GBS - ID following. Upon discharge ID recommends Levaquin and Flagyl for 14 days. - Possible partial closure of wound, general surgery following. Contact dermatitis suspect secondary to irritation to hospital linens - Status post methylprednisolone 125 mg IV x 1 and Benadryl 25 mg PO PRN. Rash resolved. - Prednisone 50 mg PO daily x 3 days, continue. - Addendum: No rash present at this time. Patient complaint of itching all of a sudden. Benadryl cream ordered PRN. Will monitor. Dementia disorder NOS Postoperative pain Peripheral neuropathy/diabetic - pain management per - Continue home Gabapentin Sinus tachycardia Coronary disease status post CABG 5 Hypertension Dyslipidemia A fib with RVR, converted spontaneously. Cardiology evaluated patient, recommended metoprolol. Status post Cardizem gtt. - EF 50-55%. Apical akinesis. Mild MV regurg, TV regurg - On Lopressor 50mg Q12. monitor HR and BPs - on lovastatin Diabetes mellitus, uncontrolled A1c 13.6 on 10/15 - Blood sugars have been consistently increased in the am, 300's-400's. Increase HS novolin to 25 units and increase prandial to 14 units TIDAC. - Continue Novolin 35 u qAM. Accuchecks ACHS. SSI. Monitor. - Hold prandial if patient not eating well. Normocytic anemia - hemoglobin stable at 10.6 - currently holding aspirin 81 mg daily and Plavix any 5 mg by mouth daily. Resume when okay with general surgery GI prophylaxis: Protonix. DVT prophylaxis: SCDs/pharmacological prophylaxis per general surgery Discussed with the patient, nurse, and Dr. Napier Discharge Planning D/c pending further work-up, clinical improvement, and clearance by gen surg GS ff. Dr Vallecillo will evaluated wound plan for poss closing partially the wound. Continue cefepime and Flagyl per ID for now - when ready for D/C, would be able to use Levaquin and Flagyl for 14 days starting day of discharge per ID. PT recommending HHC upon discharge. Problem Qualifiers (1) DKA (diabetic ketoacidoses): Qualified Code: E13.10 - Diabetic ketoacidosis without coma associated with type 2 diabetes mellitus Winifred Gregory Dec 04, 2016 11:02 Yesi Napier MD Dec 04, 2016 17:24
[2016-12-04 12:00] VITALS: BP 101/71; PULSE 76; RESP 19; TEMP 98.4; O2SAT 96
[2016-12-04] MEDS: HYDROmorphone HCL 2 MG TAB PO PRN (12:41)
--- NOTE | 2016-12-04 13:27 | HHI.PR ---
Subjective Subjective Notes Anxious because he thinks he is having another allergic reaction to hospital issued supplies Objective Vitals/I&O Vital Signs Date Time Temp Pulse Resp B/P Pulse Ox O2 Delivery O2 Flow Rate FiO2 12/04/16 12:00 98.4 76 19 101/71 96 Cardiovascular: Regular Lungs: Clear Abdomen: Non-distended, Non-tender Extremities: No edema Narrative Exam buttocks wound--- packing in place with dakin gauze --- minimal erythema around wound; minimal exudate A/P Assessment and Plan 51 year old male s/p I&D perirectal abscess -Continue dressing changes ---change BID and PRN; okay to shower in between dressing changes -Antibiotics per ID -1800 ADA diet, NPO after MN -Plan for OR tomorrow for I&D and partial closure of wound; obtain consents -Pain control --[place] + Dilaudid PO; IV pain medications at time of dressing change -Will continue BID dressing changes Attending Note - Dr. Vallecillo Wounds clean Continue dressing changes The exam, history, and the medical decision-making described in the above note were completed with the assistance of the mid-level provider. I reviewed and agree with the findings presented. I attest that I had a [id number] encounter with the patient on the same day, and personally performed and documented my assessment and findings in the medical record. Caty Matute Dec 04, 2016 13:27 Hiram Vallecillo MD Dec 07, 2016 13:31
--- NOTE | 2016-12-04 14:03 | HHI.IDPN ---
Subjective Subjective Remarks 51 year old male, with DM, admitted and diagnosed to have Jessica's gangrene and perirectal abscess S/P extensive debridement and has open wounds with packing Notes reviewed Temps ok BP ok D/W K Giovani [employer] GAS - OR tomorrow, partial closure WBC normal No new complaint Antibiotics Cefepime Flagyl Lines PIV Past Medical History reviewed Allergies: Coded Allergies: CRESTOR (Verified Allergy, Severe, cardiac, 08/13/16) Lisinopril (Verified Allergy, Severe, Anaphylaxis, 08/13/16) Itching, lip swelling, throat closing. *MDRO Multi-Drug Resistant Organism (Verified Adverse Reaction, Unknown, ) MDR-E.Coli (perirectal abscess)-11/17/16 Uncoded Allergies: provacal (Allergy, Severe, 12/28/15) COZAR (Allergy, Intermediate, 03/11/16) Objective . Vital Signs Date Time Temp Pulse Resp B/P Pulse Ox O2 Delivery O2 Flow Rate FiO2 12/04/16 12:00 98.4 76 19 101/71 96 12/04/16 08:00 97.0 67 18 129/73 97 12/04/16 00:00 97.7 71 16 129/69 97 12/03/16 20:00 97.6 73 16 108/56 96 12/03/16 16:00 97.6 81 18 105/71 96 12/03/16 12/03/16 12/04/16 15:00 23:00 07:00 Intake Total 525 ml 360 ml 240 ml Output Total 1325 ml 500 ml 400 ml Balance -800 ml -140 ml -160 ml Intake Oral 525 ml 360 ml 240 ml Output Urine Total 1325 ml 500 ml 400 ml # Bowel Movements 1 [address] 11/16/16 0000 Signed Impressions: Service Date/Time: Wednesday, November 16, 2016 16:20 - CONCLUSION: 1. Fornier's gangrene of the perineal region as detailed above. This can be a life threatening condition. 2. Results were called to the emergency department (Dr. Bryan Cuellar) the time of this dictation. 3. 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 Elijah Álvarez MD Chest X-Ray 11/16/16 0000 Signed Impressions: Service Date/Time: Wednesday, November 16, 2016 17:48 - CONCLUSION: No evidence of acute cardiopulmonary disease. Previous median sternotomy. Magnus Steele MD Physical Exam GENERAL: awake and alert, NAD SKIN: Warm and dry. No generalized rash HEENT: [place] conjunctiva. No petechia or hemorrhage. No scleral icterus. No injection or drainage. Mucous membranes pink and moist. No oral lesions noted. NECK: Trachea midline. Supple and not tender, no meningeal signs CARDIOVASCULAR: Regular rate and rhythm. No murmurs, rubs or gallops heard RESPIRATORY: Clear to auscultation. Breath sounds equal bilaterally. No rales , wheezing or rhonchi ABDOMEN: Soft, non-tender, nondistended. Bowel sounds present and normoactive. No guarding. No rebound. EXTREMITIES: No clubbing, cyanosis, or edema. No calf tenderness. Well perfused and warm. NEUROLOGICAL: Grossly non-focal PSYCHIATRIC: Normal affect, calm and cooperative. LINE: No evidence of infection : Has packing in place in his large open wound in perineum, L groin and buttocks Assessment & Plan Remarks IMPRESSION Sepsis due to Jessica's gangrene, perirectal abscess - S/P extensive debridement x 2 - better - C/S polymicrobial Jessica's gangrene, perirectal abscess DKA Leukocytosis, resolved RECOMMENDATION Continue Flagyl Stop Cefepime PO Levaquin OR plans noted Give 14 more days oral Abx after closure of wound I will sign off Please call if with any other ID issue or question Noemí Amador MD Dec 04, 2016 14:03
[2016-12-04] MEDS: LEVOFLOXACIN 750 MG TAB PO SCH (14:45)
[2016-12-04 16:00] VITALS: BP 122/64; PULSE 75; RESP 19; TEMP 98.8; O2SAT 96
[2016-12-04 20:00] VITALS: BP 139/84; PULSE 84; RESP 20; TEMP 96.9; O2SAT 96
[2016-12-05] VITALS (8 sets, daily range): BP systolic 125–159; BP diastolic 61–83; PULSE 57–85; RESP 16–20; TEMP 97.2–98.8; O2SAT 93–99
[2016-12-05] MEDS: ACETAMINOPHEN/HYDROcodone 325 MG/7.5 MG TAB PO PRN ×4 (01:37→21:36)
[2016-12-05] MEDS: CHLORHEXIDINE GLUCONATE 2 % 1 PACK (2 CLOTHS) TOP SCH (04:00)
[2016-12-05] MEDS: metroNIDAZOLE 500 MG TAB PO SCH ×3 (05:34→20:23)
[2016-12-05] MEDS: DILTIAZEM HCL 30 MG TAB PO SCH ×4 (05:34→20:25)
[2016-12-05] MEDS: INSULIN ASPART SUPPLEMENTAL SCALE SQ SCH ×4 (05:47→17:50)
[2016-12-05] MEDS: INSULIN HUMAN REGULAR 1,000 UNITS/10 ML VIAL SQ SCH ×3 (06:18→16:36)
[2016-12-05] MEDS: INSULIN HUMAN NPH/R 70/30 1,000 UNITS/10 ML VIAL SQ SCH ×2 (07:32→20:28)
[2016-12-05] MEDS: predniSONE 50 MG TAB PO SCH (09:05)
[2016-12-05] MEDS: METOPROLOL TARTRATE 50 MG TAB PO SCH ×2 (09:05→20:25)
[2016-12-05] MEDS: GABAPENTIN 300 MG CAP PO SCH ×4 (09:05→20:24)
[2016-12-05] MEDS: PANTOPRAZOLE SOD 40 MG DELAYED RELEASE TAB PO SCH (09:05)
[2016-12-05] MEDS: SODIUM HYPOCHLORITE 0.25% 500 ML BTL TOPICAL SCH ×2 (09:08→20:24)
[2016-12-05] MEDS: NYSTATIN 100,000 UNIT/GM CREAM 15 GM TOPICAL SCH ×2 (09:10→20:24)
--- NOTE | 2016-12-05 09:15 | HHI.PR ---
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 Patient seen and examined today. States he feels much better since his allergic reaction to hospital linens. Continued steroids. Denies any new acute events. Denies any recent fever, chills, cough, headache, shortness of breath, abdominal pain, nausea, vomiting or dysuria. Plan for OR today with Dr. Vallecillo. Objective Vitals Vital Signs Date Time Temp Pulse Resp B/P Pulse Ox O2 Delivery O2 Flow Rate FiO2 12/05/16 08:00 97.8 57 17 125/69 96 12/05/16 00:00 97.9 66 16 148/77 98 12/04/16 20:00 96.9 84 20 139/84 96 12/04/16 16:00 98.8 75 19 122/64 96 12/04/16 12:00 98.4 76 19 101/71 96 I/O 12/04/16 12/04/16 12/04/16 12/05/16 12/05/16 12/05/16 07:00 15:00 23:00 07:00 15:00 23:00 Intake Total 240 ml 940 ml 480 ml Output Total 400 ml 1500 ml 450 ml Balance -160 ml -560 ml 30 ml Intake Oral 240 ml 940 ml 480 ml Output Urine Total 400 ml 1500 ml 450 ml # Bowel Movements 2 0 Imaging Last Impressions Pelvis CT 11/16/16 0000 Signed Impressions: Service Date/Time: Wednesday, November 16, 2016 16:20 - CONCLUSION: 1. Fornier's gangrene of the perineal region as detailed above. This can be a life threatening condition. 2. Results were called to the emergency department (Dr. Bryan Cuellar) the time of this dictation. 3. 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 Elijah Álvarez MD Chest X-Ray 11/16/16 0000 Signed Impressions: Service Date/Time: Wednesday, November 16, 2016 17:48 - CONCLUSION: No evidence of acute cardiopulmonary disease. Previous median sternotomy. Magnus Steele MD Objective Remarks GENERAL: Well-nourished, well-developed patient in NAD. SKIN: Warm and dry. No rash. Buttock wound with packing and dressing intact and clean. HEENT: Normocephalic. Atraumatic. Pupils equal and round. No scleral icterus. No injection or drainage. No nasal bleeding or discharge. Mucous membranes pink and moist. Neck supple. Trachea midline. CARDIOVASCULAR: Regular rate and rhythm. S1, S2 noted. No murmur appreciated. RESPIRATORY: No accessory muscle use. Clear to auscultation. Breath sounds equal bilaterally. GASTROINTESTINAL: Abdomen soft, non-tender, nondistended. Normoactive bowel sounds x4. MUSCULOSKELETAL: No obvious deformities. Extremities without clubbing, cyanosis , or edema. NEUROLOGICAL: Awake and alert. No obvious cranial nerve deficits. Normal speech. PSYCHIATRIC: Appropriate mood and affect; insight and judgment normal. A/P Problem List: (1) Dementia ICD Code: F03.90 Status: Acute (2) Postoperative pain ICD Code: G89.18 Status: Acute (3) DKA (diabetic ketoacidoses) ICD Code: E13.10 Status: Acute (4) Peripheral neuropathy ICD Code: G62.9 Status: Acute (5) Coronary artery disease ICD Code: I25.10 Status: Chronic (6) Hypertension ICD Code: I10 Status: Chronic (7) Hyperlipidemia ICD Code: E78.5 Status: Chronic (8) GERD (gastroesophageal reflux disease) ICD Code: K21.9 Status: Chronic (9) Anemia ICD Code: D64.9 Status: Acute (10) Sinus tachycardia ICD Code: R00.0 Status: Acute (11) Urticarial dermatitis ICD Code: L50.9 Status: Acute Assessment and Plan 51-year-old male presents to the emergency department for evaluation of pain to the perirectal area for about 12 days. Per patient this started as a small lump , but worsened approximate 10 days ago. He reports fever up to 102.7, but is unsure when that was. He states he went to the walk-in clinic today for evaluation and they sent him to the emergency department. Patient has history of [place] 5, cardiac bypass, hypertension, hyperlipidemia, diabetes, diabetic neuropathy. He is on Plavix. 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 Vallecillo 11/17/16. Postoperative surgical care per Dr. Vallecillo. s/p I&D and debridement, 11/21/16 - CT abdomen/pelvis 11/16 revealed diverticulosis without diverticulitis. 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 On cefepime and flagyl, s/p vanco, clindamycin and zosyn. - Blood cultures, NGTD. 11/17 Wound cx: Klebsiella (sens to cefepime), E. coli (sens to cefepime), MDR GBS - ID following. Continue Flagyl. Stop Cefepime. Start on PO levaquin. ID recommends Levaquin and Flagyl for 14 days post wound closure. - OR today 12/05/[address] Vallecillo for partial wound closure. Contact dermatitis suspect secondary to irritation to hospital linens - Status post methylprednisolone 125 mg IV x 1 and Benadryl 25 mg PO PRN. Rash resolved. - Prednisone 50 mg PO daily x 3 days, continue until 12/06. - Benadryl cream PRN. Dementia disorder NOS Postoperative pain Peripheral neuropathy/diabetic - pain management per GS - Continue home Gabapentin Sinus tachycardia Coronary disease status post CABG 5 Hypertension Dyslipidemia A fib with RVR, converted spontaneously. Cardiology evaluated patient, recommended metoprolol. Status post Cardizem gtt. - EF 50-55%. Apical akinesis. Mild MV regurg, TV regurg - On Lopressor 50mg Q12. monitor HR and BPs Diabetes mellitus, uncontrolled A1c 13.6 on 10/15 - Blood sugars have been consistently increased in the am, 300's-400's. Increase HS novolin to 25 units and increase prandial to 14 units TIDAC. - Continue Novolin 35 u qAM. Accuchecks ACHS. SSI. Monitor. - Hold prandial if patient not eating well. Normocytic anemia - hemoglobin stable at 10.6 - currently holding aspirin 81 mg daily and Plavix any 5 mg by mouth daily. Resume when okay with general surgery GI prophylaxis: Protonix. DVT prophylaxis: SCDs/pharmacological prophylaxis per general surgery Discussed with the patient, nurse, and Dr. Napier Discharge Planning D/c pending further work-up, clinical improvement, and clearance by gen surg GS ff. Dr Vallecillo will evaluated wound plan for poss closing partially the wound. Continue cefepime and Flagyl per ID for now - when ready for D/C, would be able to use Levaquin and Flagyl for 14 days starting day of discharge per ID. PT recommending HHC upon discharge. Problem Qualifiers (1) DKA (diabetic ketoacidoses): Qualified Code: E13.10 - Diabetic ketoacidosis without coma associated with type 2 diabetes mellitus Winifred Gregory Dec 05, 2016 09:14
[2016-12-05] MEDS: HYDROmorphone HCL PF 1 MG/ML VIAL IV PUSH PRN ×2 (10:53→20:04)
[2016-12-05 11:12] LABS: AUTOMATED NEUTROPHIL # 4.6 TH/MM3 (1.8-7.7); BASOPHIL % 0.1 % (0.0-2.0); EOSINOPHIL % 0.5 % (0.0-4.0); HEMATOCRIT 33.9 % (39.0-51.0); HEMO FLAGS DIFF FINAL; LYMPH % 21.9 % (9.0-44.0); LYMPHOCYTE # 1.4 TH/MM3 (1.0-4.8); MEAN CELL VOLUME 76.6 FL (80.0-100.0); MEAN CORPUSCULAR HEMOGLOBIN 25.5 PG (27.0-34.0); MEAN CORPUSCULAR HGB CONC 33.3 % (32.0-36.0); MONO % 6.7 % (0.0-8.0); NEUT % 70.8 % (16.0-70.0); PLATELET COUNT 257 TH/MM3 (150-450); RED BLOOD COUNT 4.42 MIL/MM3 (4.50-5.90); RED CELL DISTRIBUTION WIDTH 15.7 % (11.6-17.2); WHITE BLOOD COUNT 6.6 TH/MM3 (4.0-11.0)
[2016-12-05] MEDS ORDERED: PROPOFOL 200 MG/20 ML AMP IV ONE (12:00)
[2016-12-05] MEDS ORDERED: ePHEDrine/NS 25 MG/5 ML SYR IV ONE (12:00)
[2016-12-05] MEDS ORDERED: ONDANSETRON HCL 4 MG/2 ML VIAL IV PUSH ONE (12:00)
[2016-12-05] MEDS: LEVOFLOXACIN 750 MG TAB PO SCH (13:09)
[2016-12-05] MEDS ORDERED: LIDOCAINE HCL 1% 50 ML VIAL ONE (15:44)
[2016-12-05] MEDS ORDERED: ceFAZolin INJ 1,000 MG VIAL ONE (15:48)
[2016-12-05] MEDS ORDERED: fentaNYL CITRATE 250 MCG/5 ML AMP ONE (16:00)
[2016-12-05] MEDS ORDERED: NEOMYCIN/POLYMYXIN/BACITRACIN OINT 15 GM TUBE ONE (16:36)
[2016-12-05] MEDS ORDERED: DO NOT ADM ANY ANTICOAGULANT DRUGS PRN (16:52)
--- NOTE | 2016-12-05 16:52 | HHI.PR ---
cc: Hiram Vallecillo MD Immediate Post Op Note Procedure Date: Dec 05, 2016 Pre Op Diagnosis: Previous necrotizing fasciitis Post Op Diagnosis: Same Surgeon: Hiram Vallecillo Quality Assurance Auditor(s): Will Ballard CFA Procedure: Irrigation and debridement <25 cm2 subcutaneous tissue with partial wound closure perirectal region Complications: None Estimated blood loss: <10 ml Anesthesia: General Drains: None IVF (200 ml) Patient to: PACU Patient Condition: Good Date/Time of Procedure: SEE SURGICAL CARE RECORD Hiram Vallecillo MD Dec 05, 2016 16:52
[2016-12-05] MEDS ORDERED: *morphine SULFATE 8 MG/ML PERIprocedure ONLY ONE (17:42)
[2016-12-06] VITALS (7 sets, daily range): BP systolic 119–133; BP diastolic 61–78; PULSE 59–66; RESP 17–20; TEMP 96.7–98.2; O2SAT 96–98
[2016-12-06] MEDS: HYDROmorphone HCL PF 1 MG/ML VIAL IV PUSH PRN ×6 (01:11→22:41)
[2016-12-06] MEDS: ACETAMINOPHEN/HYDROcodone 325 MG/7.5 MG TAB PO PRN ×5 (04:00→21:12)
[2016-12-06] MEDS: CHLORHEXIDINE GLUCONATE 2 % 1 PACK (2 CLOTHS) TOP SCH (04:00)
[2016-12-06] MEDS: DILTIAZEM HCL 30 MG TAB PO SCH ×4 (04:04→21:34)
[2016-12-06] MEDS: metroNIDAZOLE 500 MG TAB PO SCH ×3 (05:17→21:34)
[2016-12-06] MEDS: INSULIN ASPART SUPPLEMENTAL SCALE SQ SCH ×4 (06:56→21:00)
[2016-12-06] MEDS: INSULIN HUMAN REGULAR 1,000 UNITS/10 ML VIAL SQ SCH ×3 (06:57→18:26)
[2016-12-06] MEDS: PANTOPRAZOLE SOD 40 MG DELAYED RELEASE TAB PO SCH (08:30)
[2016-12-06] MEDS: METOPROLOL TARTRATE 50 MG TAB PO SCH ×2 (08:31→21:33)
[2016-12-06] MEDS: INSULIN HUMAN NPH/R 70/30 1,000 UNITS/10 ML VIAL SQ SCH ×2 (08:42→21:55)
[2016-12-06] MEDS: GABAPENTIN 300 MG CAP PO SCH ×4 (08:43→21:33)
[2016-12-06] MEDS: NYSTATIN 100,000 UNIT/GM CREAM 15 GM TOPICAL SCH (08:44)
[2016-12-06] MEDS: SODIUM HYPOCHLORITE 0.25% 500 ML BTL TOPICAL SCH ×2 (08:44→21:00)
--- NOTE | 2016-12-06 10:24 | HHI.FF ---
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 My clinical findings support the need for the requested home health care services because: Limited ability to care for self High risk of falls I certify that my clinical findings support that this patient is homebound because: Post-op weakness Caty Matute Dec 06, 2016 10:24
[2016-12-06] MEDS ORDERED: DAKINSHST TOPICAL (10:25)
--- NOTE | 2016-12-06 11:26 | HHI.PR ---
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 Patient seen and examined today. Status post partial wound closure of perirectal region. Overall doing well, pain well controlled. Denies any new acute complaints. Rash resolved. Afebrile. Positive BM. Objective Vitals Vital Signs Date Time Temp Pulse Resp B/P Pulse Ox O2 Delivery O2 Flow Rate FiO2 12/06/16 08:57 96 21 12/06/16 08:00 98.2 66 18 119/61 96 12/06/16 04:03 97.1 63 18 128/74 98 12/06/16 00:00 97.7 59 20 129/76 98 12/05/16 20:11 96 2.00 12/05/16 20:00 97.2 85 20 128/76 93 12/05/16 18:10 98.8 63 18 159/83 99 12/05/16 17:45 63 14 163/77 100 Room Air 12/05/16 17:41 96 Nasal Cannula 2.00 12/05/16 17:30 58 14 138/81 99 Nasal Cannula 2 12/05/16 17:15 59 14 132/74 99 Nasal Cannula 2 12/05/16 17:00 67 14 148/81 100 Nasal Cannula 2 12/05/16 16:50 98.5 63 14 133/73 100 Nasal Cannula 2 12/05/16 16:00 97.2 71 17 139/80 98 12/05/16 12:00 98.5 59 17 126/61 95 I/O 12/05/16 12/05/16 12/05/16 12/06/16 12/06/16 12/06/16 07:00 15:00 23:00 07:00 15:00 23:00 Intake Total 0 ml 370 ml 720 ml Output Total 1850 ml 565 ml 1200 ml Balance -1850 ml -195 ml -480 ml Intake Oral 0 ml 120 ml 720 ml IV Total 0 ml 0 ml Other 250 ml Output Urine Total 1850 ml 525 ml 1200 ml Estimated Blood Loss 40 ml # Bowel Movements 0 1 Result Diagram: 12/05/16 1045 12/05/16 1045 Imaging Last Impressions Pelvis CT 11/16/16 0000 Signed Impressions: Service Date/Time: Wednesday, November 16, 2016 16:20 - CONCLUSION: 1. Fornier's gangrene of the perineal region as detailed above. This can be a life threatening condition. 2. Results were called to the emergency department (Dr. Bryan Cuellar) the time of this dictation. 3. 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 Elijah Álvarez MD Chest X-Ray 11/16/16 0000 Signed Impressions: Service Date/Time: Wednesday, November 16, 2016 17:48 - CONCLUSION: No evidence of acute cardiopulmonary disease. Previous median sternotomy. Magnus Steele MD Objective Remarks GENERAL: Well-nourished, well-developed patient in NAD. SKIN: Warm and dry. No rash. Buttock wound assessed, packing and dressing intact and clean, sutures in place. HEENT: Normocephalic. Atraumatic. Pupils equal and round. No scleral icterus. No injection or drainage. No nasal bleeding or discharge. Mucous membranes pink and moist. Neck supple. Trachea midline. CARDIOVASCULAR: Regular rate and rhythm. S1, S2 noted. No murmur appreciated. RESPIRATORY: No accessory muscle use. Clear to auscultation. Breath sounds equal bilaterally. GASTROINTESTINAL: Abdomen soft, non-tender, nondistended. Normoactive bowel sounds x4. MUSCULOSKELETAL: No obvious deformities. Extremities without clubbing, cyanosis , or edema. NEUROLOGICAL: Awake and alert. No obvious cranial nerve deficits. Normal speech. PSYCHIATRIC: Appropriate mood and affect; insight and judgment normal. A/P Problem List: (1) Dementia ICD Code: F03.90 Status: Acute (2) Postoperative pain ICD Code: G89.18 Status: Acute (3) DKA (diabetic ketoacidoses) ICD Code: E13.10 Status: Acute (4) Peripheral neuropathy ICD Code: G62.9 Status: Acute (5) Coronary artery disease ICD Code: I25.10 Status: Chronic (6) Hypertension ICD Code: I10 Status: Chronic (7) Hyperlipidemia ICD Code: E78.5 Status: Chronic (8) GERD (gastroesophageal reflux disease) ICD Code: K21.9 Status: Chronic (9) Anemia ICD Code: D64.9 Status: Acute (10) Sinus tachycardia ICD Code: R00.0 Status: Acute (11) Urticarial dermatitis ICD Code: L50.9 Status: Acute Assessment and Plan 51-year-old male presents to the emergency department for evaluation of pain to the perirectal area for about 12 days. Per patient this started as a small lump , but worsened approximate 10 days ago. He reports fever up to 102.7, but is unsure when that was. He states he went to the walk-in clinic today for evaluation and they sent him to the emergency department. Patient has history of [place] 5, cardiac bypass, hypertension, hyperlipidemia, diabetes, diabetic neuropathy. He is on Plavix. 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 Vallecillo 11/17/16. Postoperative surgical care per Dr. Vallecillo. s/p I&D and debridement, 11/21/16. - CT abdomen/pelvis 11/16 revealed diverticulosis without diverticulitis. 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 On cefepime and flagyl, s/p vanco, clindamycin and zosyn. - Blood cultures, NGTD. 11/17 Wound cx: Klebsiella (sens to cefepime), E. coli (sens to cefepime), MDR GBS - ID following. Continue Flagyl. Stop Cefepime. Start on PO levaquin. ID recommends Levaquin and Flagyl for 14 days post wound closure. - Partial wound closure on 12/05/[address] Vallecillo. Contact dermatitis suspect secondary to irritation to hospital linens - Status post methylprednisolone 125 mg IV x 1 and Benadryl 25 mg PO PRN. Rash resolved. - Prednisone 50 mg PO daily x 3 days, last dose today. - Benadryl cream PRN. Dementia disorder NOS Postoperative pain Peripheral neuropathy/diabetic - pain management per GS - Continue home Gabapentin Sinus tachycardia Coronary disease status post CABG 5 Hypertension Dyslipidemia A fib with RVR, converted spontaneously. Cardiology evaluated patient, recommended metoprolol. Status post Cardizem gtt. - EF 50-55%. Apical akinesis. Mild MV regurg, TV regurg - On Lopressor 50mg Q12. monitor HR and BPs Diabetes mellitus, uncontrolled A1c 13.6 on 10/15 - Blood sugars have been increased but now trending down. Novolin 25 units and prandial 14 units TIDAC. - Continue Novolin 35 u qAM. Accuchecks ACHS. SSI. Monitor. Normocytic anemia - hemoglobin stable at 10.6 - currently holding aspirin 81 mg daily and Plavix any 5 mg by mouth daily. Resume when okay with general surgery GI prophylaxis: Protonix. DVT prophylaxis: SCDs/pharmacological prophylaxis per general surgery Discussed with the patient, nurse, and Dr. Napier Discharge Planning Case management following. Patient is self pay, plan is for HHC if accepted. Recommendations from ID: 14 days of antibiotics from wound closure date . Last CM note 12/05/16 met with the attending and she has stated that this pt is for surgery today and is for discharge on saturday and will need hhc and dressings for wound care at home. i notified [facility] [phone] of the discharge for saturday Problem Qualifiers (1) DKA (diabetic ketoacidoses): Qualified Code: E13.10 - Diabetic ketoacidosis without coma associated with type 2 diabetes mellitus Winifred Gregory Dec 06, 2016 11:26
--- NOTE | 2016-12-06 12:15 | HHI.PR ---
Subjective Subjective Notes Resting in bed Just recently had dressing changed Patient seen with Winifred FRIAS Objective Vitals/I&O Vital Signs Date Time Temp Pulse Resp B/P Pulse Ox O2 Delivery O2 Flow Rate FiO2 12/06/16 08:57 96 21 12/06/16 08:00 98.2 66 18 119/61 12/05/16 20:11 2.00 12/05/16 17:45 Room Air Cardiovascular: Regular Lungs: Clear Abdomen: Non-distended, Non-tender Extremities: No edema Narrative Exam buttocks wound--- packing in place with dakin gauze --- minimal erythema around wound; minimal exudate; scrotal wound closed A/P Assessment and Plan 51 year old male s/p I&D perirectal abscess -Continue dressing changes ---change BID and PRN; okay to shower in between dressing changes -Antibiotics per ID -1800 ADA diet -Pain control -Face to face complete with list of supplies; CM working on getting patient some [facility] visits Attending Note - Dr. Vallecillo Wound service cleaner now Home in next few days to learn to do dressing changes The exam, history, and the medical decision-making described in the above note were completed with the assistance of the mid-level provider. I reviewed and agree with the findings presented. I attest that I had a [id number] encounter with the patient on the same day, and personally performed and documented my assessment and findings in the medical record. Caty Matute Dec 06, 2016 12:15 Hiram Vallecillo MD Dec 07, 2016 13:37
[2016-12-06] MEDS: LEVOFLOXACIN 750 MG TAB PO SCH (12:38)
[2016-12-06] MEDS: predniSONE 50 MG TAB PO SCH (12:40)
[2016-12-07] VITALS: BP 120/66; PULSE 64; RESP 17; TEMP 98.3; O2SAT 67
[2016-12-07] MEDS: CHLORHEXIDINE GLUCONATE 2 % 1 PACK (2 CLOTHS) TOP SCH (04:00)
[2016-12-07 04:37] VITALS: BP 113/67; PULSE 64; RESP 18; TEMP 97.8; O2SAT 96
[2016-12-07] MEDS: HYDROmorphone HCL PF 1 MG/ML VIAL IV PUSH PRN ×5 (04:39→23:10)
[2016-12-07] MEDS: DILTIAZEM HCL 30 MG TAB PO SCH ×4 (04:39→20:45)
[2016-12-07] MEDS: INSULIN ASPART SUPPLEMENTAL SCALE SQ SCH ×4 (06:48→21:00)
[2016-12-07] MEDS: metroNIDAZOLE 500 MG TAB PO SCH ×3 (06:48→20:46)
[2016-12-07] MEDS: ACETAMINOPHEN/HYDROcodone 325 MG/7.5 MG TAB PO PRN ×4 (06:48→20:44)
[2016-12-07] MEDS: INSULIN HUMAN REGULAR 1,000 UNITS/10 ML VIAL SQ SCH ×4 (06:51→18:41)
[2016-12-07 08:00] VITALS: BP 115/67; PULSE 70; RESP 18; TEMP 98.4; O2SAT 98
[2016-12-07] MEDS: INSULIN HUMAN NPH/R 70/30 1,000 UNITS/10 ML VIAL SQ SCH ×2 (08:02→21:09)
[2016-12-07] MEDS: PANTOPRAZOLE SOD 40 MG DELAYED RELEASE TAB PO SCH (09:12)
[2016-12-07] MEDS: GABAPENTIN 300 MG CAP PO SCH ×4 (09:12→20:49)
[2016-12-07] MEDS: METOPROLOL TARTRATE 50 MG TAB PO SCH ×2 (09:12→20:48)
[2016-12-07] MEDS: SODIUM HYPOCHLORITE 0.25% 500 ML BTL TOPICAL SCH ×2 (09:13→20:46)
[2016-12-07 12:00] VITALS: BP 117/63; PULSE 65; RESP 18; TEMP 98.2; O2SAT 96
--- NOTE | 2016-12-07 13:44 | HHI.PR ---
Subjective Subjective Notes Anxious to get home Objective Vitals/I&O Vital Signs Date Time Temp Pulse Resp B/P Pulse Ox O2 Delivery O2 Flow Rate FiO2 12/07/16 12:00 98.2 65 18 117/63 96 12/06/16 08:57 21 12/05/16 20:11 2.00 12/05/16 17:45 Room Air Lungs: Clear Narrative Exam Dressings removed and wound examined; granulation tissue present. No exudate. No drainage. A/P Assessment and Plan 51 year old male s/p I&D perirectal abscess -Continue dressing changes ---change BID and PRN; okay to shower in between dressing changes POD #2 I&D with partial wound closure Probable Discharge 12/09 if comfortable with dressing changes Hiram Vallecillo MD Dec 07, 2016 13:44
[2016-12-07] MEDS: LEVOFLOXACIN 750 MG TAB PO SCH (15:04)
[2016-12-07 16:00] VITALS: BP 136/66; PULSE 78; RESP 20; TEMP 96; O2SAT 95
--- NOTE | 2016-12-07 17:13 | HHI.PR ---
Subjective Remarks Patient in nad. Says he still has pain with dressing changes. He did have 4 BM today and dressings were changed. No fever or chills. No n/v/d/c. No rash. Objective Vitals Vital Signs Date Time Temp Pulse Resp B/P Pulse Ox O2 Delivery O2 Flow Rate FiO2 12/07/16 16:04 18 12/07/16 13:47 18 12/07/16 12:00 98.2 65 18 117/63 96 12/07/16 08:00 98.4 70 18 115/67 98 12/07/16 04:37 97.8 64 18 113/67 96 12/07/16 00:00 98.3 64 17 120/66 67 12/06/16 20:00 97.6 65 17 133/71 98 I/O 12/06/16 12/06/16 12/06/16 12/07/16 12/07/16 12/07/16 07:00 15:00 23:00 07:00 15:00 23:00 Intake Total 720 ml 400 ml 240 ml Output Total 1200 ml 400 ml 1300 ml Balance -480 ml 0 ml -1060 ml Intake Oral 720 ml 400 ml 240 ml IV Total 0 ml 0 ml Output Urine Total 1200 ml 400 ml 1300 ml # Voids 5 # Bowel Movements 1 Result Diagram: 12/05/16 1045 12/05/16 1045 Imaging Last Impressions Pelvis CT 11/16/16 0000 Signed Impressions: Service Date/Time: Wednesday, November 16, 2016 16:20 - CONCLUSION: 1. Fornier's gangrene of the perineal region as detailed above. This can be a life threatening condition. 2. Results were called to the emergency department (Dr. Bryan Cuellar) the time of this dictation. 3. 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 Elijah Álvarez MD Chest X-Ray 11/16/16 0000 Signed Impressions: Service Date/Time: Wednesday, November 16, 2016 17:48 - CONCLUSION: No evidence of acute cardiopulmonary disease. Previous median sternotomy. Magnus Steele MD Objective Remarks GENERAL: 51-year-old male resting in bed in no acute distress CARDIOVASCULAR: RRR. Normal S1 and S2. No murmurs. RESPIRATORY: Breath sounds equal bilaterally. No wheezing. No accessory muscle use. CTA bilat. GASTROINTESTINAL: Abdomen soft, non-tender, nondistended. MUSCULOSKELETAL: Without significant peripheral edema : wound with dressing in place, c/d/di. A/P Problem List: (1) Dementia ICD Code: F03.90 Status: Acute (2) Postoperative pain ICD Code: G89.18 Status: Acute (3) DKA (diabetic ketoacidoses) ICD Code: E13.10 Status: Acute (4) Peripheral neuropathy ICD Code: G62.9 Status: Acute (5) Coronary artery disease ICD Code: I25.10 Status: Chronic (6) Hypertension ICD Code: I10 Status: Chronic (7) Hyperlipidemia ICD Code: E78.5 Status: Chronic (8) GERD (gastroesophageal reflux disease) ICD Code: K21.9 Status: Chronic (9) Anemia ICD Code: D64.9 Status: Acute (10) Sinus tachycardia ICD Code: R00.0 Status: Acute (11) Urticarial dermatitis ICD Code: L50.9 Status: Acute Assessment and Plan 51-year-old male presents to the emergency department for evaluation of pain to the perirectal area for about 12 days. Per patient this started as a small lump , but worsened approximate 10 days ago. He reports fever up to 102.7, but is unsure when that was. He states he went to the walk-in clinic today for evaluation and they sent him to the emergency department. Patient has history of [place] 5, cardiac bypass, hypertension, hyperlipidemia, diabetes, diabetic neuropathy. He is on Plavix. 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 Vallecillo 11/17/16. Postoperative surgical care per Dr. Vallecillo. s/p I&D and debridement, 11/21/16. - CT abdomen/pelvis 11/16 revealed diverticulosis without diverticulitis. 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 On cefepime and flagyl, s/p vanco, clindamycin and zosyn. - Blood cultures, NGTD. 11/17 Wound cx: Klebsiella (sens to cefepime), E. coli (sens to cefepime), MDR GBS - ID following. Continue Flagyl. Stop Cefepime. Start on PO levaquin. ID recommends Levaquin and Flagyl for 14 days post wound closure. - Partial wound closure on 12/05/[address] Vallecillo. Contact dermatitis suspect secondary to irritation to hospital linens - Status post methylprednisolone 125 mg IV x 1 and Benadryl 25 mg PO PRN. Rash resolved. - Prednisone 50 mg PO daily x 3 days, last dose today. - Benadryl cream PRN. Dementia disorder NOS Postoperative pain Peripheral neuropathy/diabetic - pain management per GS - Continue home Gabapentin Sinus tachycardia Coronary disease status post CABG 5 Hypertension Dyslipidemia A fib with RVR, converted spontaneously. Cardiology evaluated patient, recommended metoprolol. Status post Cardizem gtt. - EF 50-55%. Apical akinesis. Mild MV regurg, TV regurg - On Lopressor 50mg Q12. monitor HR and BPs Diabetes mellitus, uncontrolled A1c 13.6 on 10/15 - Blood sugars have been increased but now trending down. Novolin 25 units and prandial 14 units TIDAC. - Continue Novolin 35 u qAM. Accuchecks ACHS. SSI. Monitor. Normocytic anemia - hemoglobin stable at 10.6 - currently holding aspirin 81 mg daily and Plavix any 5 mg by mouth daily. Resume when okay with general surgery GI prophylaxis: Protonix. DVT prophylaxis: SCDs/pharmacological prophylaxis per general surgery Discussed with the patient, nurse DC plan: I discussed with Dr Vallecillo will reassess on Saturday. He recommends both family and son to be taught dressing changes. Plan to DC home when cleared by surg Problem Qualifiers (1) DKA (diabetic ketoacidoses): Qualified Code: E13.10 - Diabetic ketoacidosis without coma associated with type 2 diabetes mellitus Yesi Napier MD Dec 07, 2016 17:13
[2016-12-07 20:00] VITALS: BP 119/83; PULSE 74; RESP 17; TEMP 96.4; O2SAT 98
[2016-12-08] VITALS: BP 126/66; PULSE 75; RESP 17; TEMP 98.3; O2SAT 97
[2016-12-08] MEDS: ACETAMINOPHEN/HYDROcodone 325 MG/7.5 MG TAB PO PRN ×5 (02:37→22:17)
[2016-12-08] MEDS: DILTIAZEM HCL 30 MG TAB PO SCH ×4 (02:38→21:00)
[2016-12-08] MEDS: HYDROmorphone HCL PF 1 MG/ML VIAL IV PUSH PRN ×4 (03:08→18:35)
[2016-12-08] MEDS: CHLORHEXIDINE GLUCONATE 2 % 1 PACK (2 CLOTHS) TOP SCH (04:00)
[2016-12-08] MEDS: INSULIN ASPART SUPPLEMENTAL SCALE SQ SCH ×4 (05:16→22:23)
[2016-12-08] MEDS: metroNIDAZOLE 500 MG TAB PO SCH ×3 (05:16→22:29)
[2016-12-08] MEDS: INSULIN HUMAN REGULAR 1,000 UNITS/10 ML VIAL SQ SCH ×3 (05:16→17:09)
[2016-12-08] MEDS: GABAPENTIN 300 MG CAP PO SCH ×4 (07:52→22:18)
[2016-12-08] MEDS: PANTOPRAZOLE SOD 40 MG DELAYED RELEASE TAB PO SCH (07:52)
[2016-12-08] MEDS: METOPROLOL TARTRATE 50 MG TAB PO SCH ×2 (07:52→22:19)
[2016-12-08] MEDS: SODIUM HYPOCHLORITE 0.25% 500 ML BTL TOPICAL SCH ×2 (07:53→22:27)
[2016-12-08] MEDS: INSULIN HUMAN NPH/R 70/30 1,000 UNITS/10 ML VIAL SQ SCH ×2 (07:54→22:22)
[2016-12-08 08:00] VITALS: BP 122/71; PULSE 61; RESP 15; TEMP 99; O2SAT 95
--- NOTE | 2016-12-08 13:01 | HHI.PR ---
Subjective Subjective Notes No complaints, except he has no insulin at home to treat his diabetes Objective Vitals/I&O Vital Signs Date Time Temp Pulse Resp B/P Pulse Ox O2 Delivery O2 Flow Rate FiO2 12/08/16 08:00 99.0 61 15 122/71 95 12/06/16 08:57 21 12/05/16 20:11 2.00 12/05/16 17:45 Room Air Narrative Exam Dressings removed and wound examined; granulation tissue present. No exudate. No drainage. Closed portion of wounds are dry, sutures intact A/P Assessment and Plan 51 year old male s/p I&D perirectal abscess, healing well. -Continue dressing changes ---change BID and PRN; okay to shower in between dressing changes POD #3 I&D with partial wound closure with good healing. Probable Discharge Saturday if comfortable with dressing changes AND patient has insulin for his diabetes. Hiram Vallecillo MD Dec 08, 2016 13:01
[2016-12-08] MEDS: LEVOFLOXACIN 750 MG TAB PO SCH (14:53)
[2016-12-08 16:00] VITALS: BP 109/59; PULSE 67; RESP 19; TEMP 96.6; O2SAT 98
--- NOTE | 2016-12-08 16:28 | HHI.PR ---
Subjective Remarks Margin of the bed appears in no acute distress started doesn't have any time. Overnight. Left bedside. is telling me he changed the dressing yesterday and she feels comfortable DOING so. Objective Vitals Vital Signs Date Time Temp Pulse Resp B/P Pulse Ox O2 Delivery O2 Flow Rate FiO2 12/08/16 16:00 96.6 67 19 109/59 98 12/08/16 08:00 99.0 61 15 122/71 95 12/08/16 00:00 98.3 75 17 126/66 97 12/07/16 20:00 96.4 74 17 119/83 98 12/07/16 18:38 18 I/O 12/07/16 12/07/16 12/07/16 12/08/16 12/08/16 12/08/16 07:00 15:00 23:00 07:00 15:00 23:00 Intake Total 240 ml 240 ml 240 ml 600 ml Output Total 1300 ml 600 ml 1000 ml 600 ml Balance -1060 ml -360 ml -760 ml 0 ml Intake Oral 240 ml 240 ml 240 ml 600 ml IV Total 0 ml Output Urine Total 1300 ml 600 ml 1000 ml 600 ml # Bowel Movements 1 1 Result Diagram: 12/05/16 1045 12/05/16 1045 Imaging Last Impressions Pelvis CT 11/16/16 0000 Signed Impressions: Service Date/Time: Wednesday, November 16, 2016 16:20 - CONCLUSION: 1. Fornier's gangrene of the perineal region as detailed above. This can be a life threatening condition. 2. Results were called to the emergency department (Dr. Bryan Cuellar) the time of this dictation. 3. 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 Elijah Álvarez MD Chest X-Ray 11/16/16 0000 Signed Impressions: Service Date/Time: Wednesday, November 16, 2016 17:48 - CONCLUSION: No evidence of acute cardiopulmonary disease. Previous median sternotomy. Magnus Steele MD Objective Remarks GENERAL: 51-year-old male resting in bed in no acute distress CARDIOVASCULAR: RRR. Normal S1 and S2. No murmurs. RESPIRATORY: Breath sounds equal bilaterally. No wheezing. No accessory muscle use. CTA bilat. GASTROINTESTINAL: Abdomen soft, non-tender, nondistended. MUSCULOSKELETAL: Without significant peripheral edema : wound with dressing in place, c/d/di. A/P Problem List: (1) Dementia ICD Code: F03.90 Status: Acute (2) Postoperative pain ICD Code: G89.18 Status: Acute (3) DKA (diabetic ketoacidoses) ICD Code: E13.10 Status: Acute (4) Peripheral neuropathy ICD Code: G62.9 Status: Acute (5) Coronary artery disease ICD Code: I25.10 Status: Chronic (6) Hypertension ICD Code: I10 Status: Chronic (7) Hyperlipidemia ICD Code: E78.5 Status: Chronic (8) GERD (gastroesophageal reflux disease) ICD Code: K21.9 Status: Chronic (9) Anemia ICD Code: D64.9 Status: Acute (10) Sinus tachycardia ICD Code: R00.0 Status: Acute (11) Urticarial dermatitis ICD Code: L50.9 Status: Acute Assessment and Plan 51-year-old male presents to the emergency department for evaluation of pain to the perirectal area for about 12 days. Per patient this started as a small lump , but worsened approximate 10 days ago. He reports fever up to 102.7, but is unsure when that was. He states he went to the walk-in clinic today for evaluation and they sent him to the emergency department. Patient has history of [place] 5, cardiac bypass, hypertension, hyperlipidemia, diabetes, diabetic neuropathy. He is on Plavix. 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 Vallecillo 11/17/16. Postoperative surgical care per Dr. Vallecillo. s/p I&D and debridement, 11/21/16. - CT abdomen/pelvis 11/16 revealed diverticulosis without diverticulitis. 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 On cefepime and flagyl, s/p vanco, clindamycin and zosyn. - Blood cultures, NGTD. 11/17 Wound cx: Klebsiella (sens to cefepime), E. coli (sens to cefepime), MDR GBS - ID following. Continue Flagyl. Stop Cefepime. Start on PO levaquin. ID recommends Levaquin and Flagyl for 14 days post wound closure. - Partial wound closure on 12/05/[address] Vallecillo. Contact dermatitis suspect secondary to irritation to hospital linens - Status post methylprednisolone 125 mg IV x 1 and Benadryl 25 mg PO PRN. Rash resolved. - Prednisone 50 mg PO daily x 3 days, last dose today. - Benadryl cream PRN. Dementia disorder NOS Postoperative pain Peripheral neuropathy/diabetic - pain management per GS - Continue home Gabapentin Sinus tachycardia Coronary disease status post CABG 5 Hypertension Dyslipidemia A fib with RVR, converted spontaneously. Cardiology evaluated patient, recommended metoprolol. Status post Cardizem gtt. - EF 50-55%. Apical akinesis. Mild MV regurg, TV regurg - On Lopressor 50mg Q12. monitor HR and BPs Diabetes mellitus, uncontrolled A1c 13.6 on 10/15 - Blood sugars have been increased but now trending down. Novolin 25 units and prandial 14 units TIDAC. - Continue Novolin 35 u qAM. Accuchecks ACHS. SSI. Monitor. Normocytic anemia - hemoglobin stable at 10.6 - currently holding aspirin 81 mg daily and Plavix any 5 mg by mouth daily. Resume when okay with general surgery GI prophylaxis: Protonix. DVT prophylaxis: SCDs/pharmacological prophylaxis per general surgery Discussed with the patient, nurse DC plan: I discussed with Dr Vallecillo will reassess on Saturday. He recommends both family and son to be taught dressing changes. Plan to DC home when cleared by surg Problem Qualifiers (1) DKA (diabetic ketoacidoses): Qualified Code: E13.10 - Diabetic ketoacidosis without coma associated with type 2 diabetes mellitus Yesi Napier MD Dec 08, 2016 16:28
[2016-12-08 20:00] VITALS: BP 118/68; PULSE 66; RESP 16; TEMP 98.1; O2SAT 98
--- NOTE | 2016-12-08 21:44 | MP ---
cc: LEONIE VALLECILLO MD DATE OF SURGERY 12/05/16 PROCEDURE Irrigation and debridement less than 25 cm2 subcutaneous tissue, perirectal and periscrotal region with partial wound closure. PREOPERATIVE DIAGNOSIS Perirectal abscess with necrotizing fasciitis. POSTOPERATIVE DIAGNOSIS Perirectal abscess with necrotizing fasciitis. ANESTHESIA LMA. SURGEON Nazia Vallecillo MD ESTIMATED BLOOD LOSS Less than 10 mL FLUIDS 200 mL Crystalloid COMPLICATIONS None. DRAINS None SPECIMEN None. PROCEDURE IN DETAIL The patient was taken to the operating room and placed on the operating table in the supine position. After laryngeal mask anesthesia was instituted, the patient was placed in candy cane stirrups and the perirectal region prepped and draped. Time-out was taken confirming the correct patient, site and procedure to be performed. The tissue around the edges of the skin was debrided back as well as any nonviable non-granulating tissue in the deeper tissues. A total of less than 25 cm2 of tissue was removed including subcutaneous tissues and skin. When this was completed, as the periscrotal region was now clean and there was minimal drainage and a good granulation base, the scrotal skin was closed with 2-0 Prolene sutures in a simple interrupted fashion. The right perirectal region was also partially closed with 2-0 Prolene sutures as well. The wounds were left open posteriorly, as there was still a fair depth to the wound in the perianal region. These were repacked with Betadine gauze as well as packing placed up the tunnel of the newly closed scrotal skin. The patient then had placement of ABD pads and a mesh panty. He was extubated and taken back to the recovery room in stable condition. He tolerated the procedure well. MD NOHEMI Mcdowell/ /1:22 PM /9:38 PM
[2016-12-09] VITALS: BP 117/64; PULSE 69; RESP 16; TEMP 98.2; O2SAT 97
[2016-12-09] MEDS: HYDROmorphone HCL PF 1 MG/ML VIAL IV PUSH PRN ×5 (00:04→21:53)
[2016-12-09] MEDS: DILTIAZEM HCL 30 MG TAB PO SCH ×4 (03:05→19:47)
[2016-12-09] MEDS: CHLORHEXIDINE GLUCONATE 2 % 1 PACK (2 CLOTHS) TOP SCH (04:00)
[2016-12-09] MEDS: metroNIDAZOLE 500 MG TAB PO SCH ×3 (05:17→21:44)
[2016-12-09] MEDS: INSULIN ASPART SUPPLEMENTAL SCALE SQ SCH ×4 (05:27→21:00)
[2016-12-09] MEDS: ACETAMINOPHEN/HYDROcodone 325 MG/7.5 MG TAB PO PRN ×4 (05:31→19:49)
[2016-12-09 08:00] VITALS: BP 140/79; PULSE 76; RESP 19; TEMP 98.2; O2SAT 98
[2016-12-09] MEDS: GABAPENTIN 300 MG CAP PO SCH ×4 (09:33→19:49)
[2016-12-09] MEDS: PANTOPRAZOLE SOD 40 MG DELAYED RELEASE TAB PO SCH (09:34)
[2016-12-09] MEDS: SODIUM HYPOCHLORITE 0.25% 500 ML BTL TOPICAL SCH ×2 (09:34→21:00)
[2016-12-09] MEDS: METOPROLOL TARTRATE 50 MG TAB PO SCH ×2 (09:34→19:49)
[2016-12-09] MEDS: INSULIN HUMAN REGULAR 1,000 UNITS/10 ML VIAL SQ SCH ×3 (09:37→17:13)
[2016-12-09] MEDS: INSULIN HUMAN NPH/R 70/30 1,000 UNITS/10 ML VIAL SQ SCH ×3 (09:38→22:23)
[2016-12-09 12:00] VITALS: BP 129/78; PULSE 69; RESP 18; TEMP 98.3; O2SAT 98
[2016-12-09] MEDS: LEVOFLOXACIN 750 MG TAB PO SCH (12:42)
--- NOTE | 2016-12-09 15:02 | HHI.PR ---
Subjective Remarks Mr. Diallo is a 51-year-old male. He was admitted Jessica gangrene on 11/16/06 , after 12 days of symptoms. He had to have surgical debridement while here. His most recent surgery has involved a partial closure of the wound but the rest will need to heal via secondary intention. He has become ambulatory recently and is able to function with wound care at home at this point. She does have diabetes mellitus type 1. DKA was present on admit. Insulin is not yet available at home, but will be available tomorrow. Plan for discharge to home tomorrow. Objective Vital Signs Date Time Temp Pulse Resp B/P Pulse Ox O2 Delivery O2 Flow Rate FiO2 12/09/16 12:00 98.3 69 18 129/78 98 12/09/16 08:00 98.2 76 19 140/79 98 12/09/16 00:00 98.2 69 16 117/64 97 12/08/16 20:00 98.1 66 16 118/68 98 12/08/16 16:00 96.6 67 19 109/59 98 I/O 12/08/16 12/08/16 12/08/16 12/09/16 12/09/16 12/09/16 07:00 15:00 23:00 07:00 15:00 23:00 Intake Total 240 ml 600 ml 240 ml 240 ml 480 ml Output Total 1000 ml 600 ml 850 ml 300 ml 1750 ml Balance -760 ml 0 ml -610 ml -60 ml -1270 ml Intake Oral 240 ml 600 ml 240 ml 240 ml 480 ml Output Urine Total 1000 ml 600 ml 850 ml 300 ml 1750 ml # Bowel Movements 1 1 0 0 1 Result Diagram: 12/05/16 1045 12/05/16 1045 Objective Remarks GENERAL: NAD, A&Ox3 HEAD: Normocephalic. NECK: Supple, trachea midline. No lymphadenopathy. EYES: No scleral icterus. No injection or drainage. CARDIOVASCULAR: Regular rate and rhythm without murmurs, gallops, or rubs. RESPIRATORY: Breath sounds equal bilaterally. No accessory muscle use. GASTROINTESTINAL: Abdomen soft, non-tender, nondistended. MUSCULOSKELETAL: No cyanosis, or edema. Pelvic area is bandaged SKIN: Warm and dry. NEURO: No focal neurological deficitis. Medications and IVs Administered Medications Medications (Trade) Dose Ordered Sig/Ronaldo Route PRN Reason Start Time Stop Time Status Last Admin Dose Admin Chlorhexidine Gluconate (Chlorhexidine 2% Cloth) 3 pack Taper DAILY@04 TOP 11/17/16 04:00 11/13/17 03:59 12/03/16 02:58 Acetaminophen (Tylenol) 650 mg Q6H PRN PO FEVER 11/16/16 20:15 11/17/16 22:02 Sodium Hypochlorite (Dakin'S 0.25% Soln) 500 ml BID TOPICAL 11/17/16 09:00 12/09/16 09:34 Metronidazole (Flagyl) 500 mg Q8HR PO 11/19/16 14:00 12/09/16 12:42 Metoprolol Tartrate (Lopressor) 50 mg Q12HR PO 11/20/16 10:45 12/09/16 09:34 Gabapentin (Neurontin) 600 mg QID PO 11/20/16 13:00 12/09/16 12:42 Pantoprazole Sodium (Protonix) 40 mg DAILY PO 11/23/16 09:00 12/09/16 09:34 Diltiazem HCl (Cardizem) 30 mg Q6H PO 11/22/16 15:00 12/09/16 09:34 Acetaminophen/ Hydrocodone Bitart ([place] 7.5-325 Mg) 1 tab Q4H PRN PO pain 1-5 11/22/16 17:45 12/04/16 16:12 Acetaminophen/ Hydrocodone Bitart ([place] 7.5-325 Mg) 2 tab Q4H PRN PO pain 6-10 11/22/16 17:45 12/09/16 09:34 Insulin Human Isoph/Insulin Regular (NovoLIN 70/30 INJ) 35 units DAILY@08 SQ 11/23/16 08:00 12/09/16 09:38 Hydromorphone HCl (Dilaudid) 1 mg Q6H PRN PO with dressing change only 11/29/16 07:45 12/04/16 12:41 Hydromorphone HCl (Dilaudid Pf Inj) 1 mg Q4H PRN IV PUSH BREAKTHROUGH PAIN 12/01/16 02:30 12/09/16 12:43 Diphenhydramine HCl (Benadryl) 25 mg Q6H PRN PO ITCHING 12/01/16 13:15 12/04/16 22:51 Insulin Human Regular (NovoLIN R INJ) 14 units DAILY@17 SQ 12/03/16 17:00 12/08/16 17:09 Insulin Human Isoph/Insulin Regular (NovoLIN 70/30 INJ) 25 units HS SQ 12/03/16 21:00 12/08/16 22:22 Diphenhydramine HCl (Benadryl 2% Cream) 1 applic Q8HR PRN TOPICAL ITCHING 12/04/16 10:45 12/04/16 12:03 Levofloxacin (Levaquin) 750 mg DAILY@14 PO 12/04/16 14:00 12/09/16 12:42 A/P Problem List: (1) 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 Jessica's gangrene Surgeon following I&D of perirectal abscess on 11/17/16 Status post I&D and [place] on 11/21/16 Partial wound closure on 12/05/16 Continue Flagyl Continue by mouth Levaquin Flagyl Levaquin will be continued until 14 days post wound closure Dementia disorder NOS supportive care Postoperative pain Peripheral neuropathy/diabetic Gabapentin As needed pain control Sinus tachycardia Coronary disease status post CABG 5 Hypertension Dyslipidemia A fib with RVR RVR resolved Continue Lopressor Aspirin Plavix Uncontrolled diabetes mellitus Diabetic diet Follow blood sugars Insulin sliding scale Continue long-acting insulins GI prophylaxis: Protonix. DVT prophylaxis SCDs Discharge planning Discharge pending for tomorrow if insulin is present at home Alexy Engel MD Dec 09, 2016 15:02
[2016-12-09 16:00] VITALS: BP_SYST 119; BP_SYST 97; BP_DIAS 55; BP_DIAS 68; PULSE 64; RESP 17; TEMP 98.2; O2SAT 96
[2016-12-09 20:00] VITALS: BP 114/66; PULSE 68; RESP 20; TEMP 98.5; O2SAT 99
[2016-12-10] VITALS: BP 106/62; PULSE 66; RESP 20; TEMP 98.6; O2SAT 98
[2016-12-10] MEDS: ACETAMINOPHEN/HYDROcodone 325 MG/7.5 MG TAB PO PRN ×3 (00:10→10:02)
[2016-12-10] MEDS: DILTIAZEM HCL 30 MG TAB PO SCH ×2 (02:16→08:24)
[2016-12-10] MEDS: HYDROmorphone HCL PF 1 MG/ML VIAL IV PUSH PRN ×3 (02:17→11:25)
[2016-12-10] MEDS: CHLORHEXIDINE GLUCONATE 2 % 1 PACK (2 CLOTHS) TOP SCH (02:59)
[2016-12-10] MEDS: metroNIDAZOLE 500 MG TAB PO SCH ×2 (05:08→12:59)
[2016-12-10] MEDS: INSULIN HUMAN REGULAR 1,000 UNITS/10 ML VIAL SQ SCH ×2 (07:00→11:17)
[2016-12-10] MEDS: INSULIN ASPART SUPPLEMENTAL SCALE SQ SCH ×2 (07:00→11:00)
[2016-12-10 08:00] VITALS: BP 119/70; PULSE 66; RESP 17; TEMP 98.5; O2SAT 95
[2016-12-10] MEDS: GABAPENTIN 300 MG CAP PO SCH ×2 (08:23→12:59)
[2016-12-10] MEDS: METOPROLOL TARTRATE 50 MG TAB PO SCH (08:23)
[2016-12-10] MEDS: PANTOPRAZOLE SOD 40 MG DELAYED RELEASE TAB PO SCH (08:23)
[2016-12-10] MEDS: SODIUM HYPOCHLORITE 0.25% 500 ML BTL TOPICAL SCH (08:25)
[2016-12-10] MEDS ORDERED: NOVORP2 SQ (09:04)
[2016-12-10] MEDS ORDERED: METR-1 PO (09:04)
[2016-12-10] MEDS ORDERED: LEVA750T9 PO (09:04)
[2016-12-10] MEDS ORDERED: NOVONP2 SQ (09:04)
[2016-12-10] MEDS ORDERED: LACTTAB8 PO (09:04)
--- NOTE | 2016-12-10 09:13 | HHI.DS ---
Discharge Summary Admission Date November 16, 2016 at 5:33 pm Discharge Date: Dec 10, 2016 Admitting Diagnosis Fornier's gangrene; DKA (1) Dementia ICD Code: F03.90 Diagnosis: Secondary (2) Postoperative pain ICD Code: G89.18 Diagnosis: Secondary (3) DKA (diabetic ketoacidoses) ICD Code: E13.10 Diagnosis: Principal (4) Peripheral neuropathy ICD Code: G62.9 Diagnosis: Principal (5) Coronary artery disease ICD Code: I25.10 Diagnosis: Principal (6) Hypertension ICD Code: I10 Diagnosis: Principal (7) Hyperlipidemia ICD Code: E78.5 Diagnosis: Secondary (8) GERD (gastroesophageal reflux disease) ICD Code: K21.9 Diagnosis: Secondary (9) Anemia ICD Code: D64.9 Diagnosis: Secondary (10) Sinus tachycardia ICD Code: R00.0 Diagnosis: Secondary (11) Urticarial dermatitis ICD Code: L50.9 Diagnosis: Principal (12) 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 Per patient this started as a small lump , but worsened approximate 10 days ago. He reports fever up to 102.7, but is unsure when that was. He states he went to the walk-in clinic today for evaluation and they sent him to the emergency department. Patient has history of [place] 5, cardiac bypass, hypertension, hyperlipidemia, diabetes, diabetic neuropathy. He is on Plavix. Patient denies any abdominal pain. No chest pain or shortness of breath. PE at Discharge GENERAL: NAD, A&Ox3 HEAD: Normocephalic. NECK: Supple, trachea midline. No lymphadenopathy. EYES: No scleral icterus. No injection or drainage. CARDIOVASCULAR: Regular rate and rhythm without murmurs, gallops, or rubs. RESPIRATORY: Breath sounds equal bilaterally. No accessory muscle use. GASTROINTESTINAL: Abdomen soft, non-tender, nondistended. MUSCULOSKELETAL: No cyanosis, or edema. SKIN: Warm and dry. Midline sternal scar. NEURO: No focal neurological deficitis. GENITOURINARY: No erythema. Area is bandaged, dressings in place. Hospital Course Mr. Diallo is a 51-year-old male. He was admitted Jessica's gangrene on , after 12 days of symptoms. He had to have surgical debridement while here and repeat I&D was necessary. His most recent surgery has involved a partial closure of the wound, on 12/05/13, the rest will need to heal via secondary intention. He has become ambulatory recently and is able to function with wound care at home at this point. She does have diabetes mellitus. DKA was present on admit. Insulin is now available at home. He is medically stable for discharge to home today with follow up as an outpatient with PCP and Surgeon. Pt Condition on Discharge: Stable Discharge Disposition: Disch w/ Home Health Serv Discharge Time: <= 30 minutes Discharge Instructions DIET: Follow Instructions for: As Tolerated, No Restrictions Activities you can perform: Regular-No Restrictions Follow up Referrals: PCP Follow-up - 1 Week SNF/CARE HOME/HH with [facility] Surgical - 1 Week with Hiram aVllecillo MD New Medications: Lactobacillus Acidophilus (Lactobacillus Acidophilus) 1 Tab Tab 1 TAB PO TIDAC Nutritional Supplement #30 Ref 0 TAB Levofloxacin (Levaquin) 750 Mg Tablet 750 MG PO DAILY@14 Infection #10 TAB Metronidazole (Flagyl) 500 Mg Tab 500 MG PO TID Infection #30 TAB Sodium Hypochlorite Topical (Dakins Solution Half Strength Topical) 0.2-0.25 % Soln 500 ML TOPICAL BID Wound Care Days 30 ML Changed Medications: Insulin Human NPH Inj (Novolin N Inj) 1,000 Unit/10 Ml Vial 60 UNITS SQ AC BREAKFAST Blood Sugar Management #10 Ref 0 ML (Changed from: 50 UNITS) Insulin Human Regular Inj (Novolin R Inj) 1,000 Unit/10 Ml Vial 10 UNITS SQ TIDAC Blood Sugar Management #10 Ref 0 ML (Changed from: 15 UNITS) Continued Medications: Amlodipine (Amlodipine) 5 Mg Tab 5 MG PO DAILY Blood Pressure Management #[address] (Ecotrin Low Strength) 81 Mg Tabdr 81 MG PO DAILY #30 Ref 0 TAB Clopidogrel (Clopidogrel) 75 Mg Tab 75 MG PO DAILY Blood Clot Prevention #30 Ref 0 TAB Gabapentin (Gabapentin) 600 Mg Tab 600 MG PO QID #90 Ref 0 TAB Insulin Human NPH Inj (Novolin N Inj) 1,000 Unit/10 Ml Vial 30 UNITS SQ HS Blood Sugar Management #10 Ref 0 ML Lovastatin (Lovastatin) 40 Mg Tab 40 MG PO BID #30 Ref 0 TAB Metoprolol Tartrate (Metoprolol Tartrate) 50 Mg Tab 50 MG PO BID #60 Ref 0 TAB Omeprazole (Prilosec) 20 Mg Cap 20 MG PO DAILY #30 Ref 0 CAP Potassium Chloride ER (Potassium Chloride ER) 10 Meq Cap 10 MEQ PO HS Electrolyte Replacement #30 Ref 0 CAP Alexy Engel MD Dec 10, 2016 9:13 am
[2016-12-10] MEDS: INSULIN HUMAN NPH/R 70/30 1,000 UNITS/10 ML VIAL SQ SCH (09:26)
[2016-12-10] MEDS ORDERED: NORC5TAB PO (09:30)
[2016-12-10 12:00] VITALS: BP 118/66; PULSE 70; RESP 16; TEMP 98.4; O2SAT 95
[2016-12-10] MEDS: LEVOFLOXACIN 750 MG TAB PO SCH (12:59)
--- NOTE | 2016-12-16 13:32 | PQ ---
Physician Query Response Document PATIENT: BEHZAD REYNOSO : 1965 ADMIT DATE: 11/16/2016 5:33 PM DISCH DATE: 12/10/2016 1:58 PM RESPONDING PROVIDER #: [place] QUERY TEXT: Conflicting Documentation Clarification Concerning the diagnosis Sepsis that was documented by I.D. 1)Fornier's gangrene WITHOUT Sepsis 1)Sepsis present on admission 3)Sepsis after admission 4)Other(please specify) If you gave any additonal questions/comments and/or concerns please call [facility]/[email or web address] The patient's Clinical Indicators include: Dr NAPIER, please clarify. I.D. has documented multiple time "SEPSIS due to Jessica's gangrene". Attending does not document Sepsis. Please review the question below and answer to the best of your ability. THANK YOU Query created by: Amaury Rodriguez on 12/11/2016 7:48 AM RESPONSE TEXT: Patient does not meet criteria for sepsis. Electronically signed by: Yesi Napier MD 12/16/2016 1:27 PM
== END 2016-12-10 13:58 | disposition home health service (06) | DRG 981 ==
LOC: NEPE 14:02 → NEDA 17:33 → HIMN 19:10 → N07A 11-19 18:37 → HCIS 11-20 10:46 → N07A 11-20 10:49 → N03B 11-20 11:50 → HCIS 11-20 16:58 → N03B 11-21 17:42 → N07A 11-22 18:20
PROVIDERS: ADMIT Hospitalist; ATTEND Hospitalist
PROC: 0Y960ZX Drainage of Left Inguinal Region, Open Approach, Diagnostic (ICD-10-PCS; 2016-11-17)
PROC: 0Y950ZX Drainage of Right Inguinal Region, Open Approach, Diagnostic (ICD-10-PCS; principal; 2016-11-17 00:47)
PROC: 0HDAXZZ Extraction of Inguinal Skin, External Approach (ICD-10-PCS; 2016-11-21)
PROC: 0JDB0ZZ Extraction of Perineum Subcutaneous Tissue and Fascia, Open Approach (ICD-10-PCS; 2016-12-05)
DX: N49.3 Fournier gangrene (principal); M72.6 Necrotizing fasciitis; E13.10 Other specified diabetes mellitus with ketoacidosis without coma; E11.22 Type 2 diabetes mellitus with diabetic chronic kidney disease; E11.42 Type 2 diabetes mellitus with diabetic polyneuropathy; I47.1 Supraventricular tachycardia; F03.90 Unspecified dementia, unspecified severity, without behavioral disturbance, psychotic disturbance, mood disturbance, and anxiety; E87.1 Hypo-osmolality and hyponatremia; K61.1 Rectal abscess; Z79.4 Long term (current) use of insulin; I25.2 Old myocardial infarction; I12.9 Hypertensive chronic kidney disease with stage 1 through stage 4 chronic kidney disease, or unspecified chronic kidney disease; K21.9 Gastro-esophageal reflux disease without esophagitis; E78.00 Pure hypercholesterolemia, unspecified; Z95.1 Presence of aortocoronary bypass graft; Z79.02 Long term (current) use of antithrombotics/antiplatelets; N18.9 Chronic kidney disease, unspecified; I25.10 Atherosclerotic heart disease of native coronary artery without angina pectoris; E78.5 Hyperlipidemia, unspecified; Z23 Encounter for immunization; I48.91 Unspecified atrial fibrillation; D64.9 Anemia, unspecified; E83.39 Other disorders of phosphorus metabolism; E87.6 Hypokalemia; K57.90 Diverticulosis of intestine, part unspecified, without perforation or abscess without bleeding; G89.18 Other acute postprocedural pain; L25.9 Unspecified contact dermatitis, unspecified cause
CPT/HCPCS: 71010; 72193; 76937; 80048; 80053; 80202; 81001; 82010; 82550; 82728; 82805; 82948; 83540; 83550; 83605; 83735; 84100; 84132; 84443; 84484; 85007; 85025; 85027; 85610; 85730; 86850; 86900; 86901; 86920; 87015; 87040; 87070; 87077; 87102; 87116; 87186; 87205; 87206; 87641; 90686; 93005; 94640; 96374; 96375; 96376; C9113; J0131; J0153; J0295; J0690; J0692; J1170; J1580; J1815; J1817; J2270; J2370; J2405; J2543; J2930; J3010; J3370; J3475; J3480; J7030; J7040; J7042; J7050; J7120; J7512; Q2038; Q9967

== ENCOUNTER 2017-07-01 13:35 | Emergency (ER) | payer SELFPAY ==
[~2017-07-01] VITALS: Ht 180.3 cm; Wt 100.0 kg
[~2017-07-01 13:35] MED LIST changes: +AMLO5TAB2 PO; +DAKINSHST TOPICAL; +LACTTAB8 PO; +LEVA750T9 PO; +METR-1 PO; +NORC5TAB PO
[2017-07-01 13:37] VITALS: BP 165/81; PULSE 91; RESP 20; TEMP 100.1; O2SAT 99
[2017-07-01] MEDS ORDERED: MORPHINE SULFATE 4 MG/ML INJ IV PUSH ONE (14:00)
[2017-07-01] MEDS ORDERED: ONDANSETRON HCL 4 MG/2 ML VIAL IVP ONE (14:00)
--- NOTE | 2017-07-01 14:02 | PD ---
HPI Chief Complaint: Edema Time Seen by Provider: 13:52 Travel History International Travel<30 days: No Contact w/Intl Traveler<30days: No Traveled to known affect area: No History of Present Illness HPI C/O INTERMITTENT RLE EDEMA WHICH HE HAS A HISTORY OF, OVER LAST PAST 2 DAYS , WORSENING EDEMA, NO SKIN CHANGES, NO FEVER/N/V/D/BLISTERS/COUGH...NO ALLEVIATING /AGGRAVATING FACTORS....PATIENT DOES STATE THAT HE FEELS SOME DISCOMFORT, RATES IT 5/10, NONRADIATING. PFSH Past Medical History Hx Anticoagulant Therapy: Yes (PLAVIX) Autoimmune Disease: No Blood Disorders: No Anxiety: No Depression: No Heart Rhythm Problems: No Cancer: No Cardiac Catheterization: Yes (10/14) Cardiovascular Problems: Yes ([place] X4) High Cholesterol: Yes Chest Pain: Yes Dementia: Yes Diabetes: Yes Diminished Hearing: No Endocrine: Yes Gastrointestinal Disorders: No GERD: Yes Genitourinary: No Hypertension: Yes Implanted Vascular Access Dvce: No Musculoskeletal: No Neurologic: No Psychiatric: No Respiratory: No Myocardial Infarction: Yes Pancreatitis: Yes Past Surgical History Abdominal Surgery: Yes (CHOLESTECTOMY, TONSILECTOMY VASTECTOMY) Cardiac Surgery: Yes (02-09-2016 OPEN HEART) Cholecystectomy: Yes Genitourinary Surgery: Yes (VASECTOMY) Tonsillectomy: Yes Other Surgery: Yes Family History Family Hypercholesterolemia: Yes Social History Alcohol Use: Yes (RARELY) Tobacco Use: No Substance Use: No Allergies-Medications (Allergen,Severity, Reaction): Coded Allergies: lisinopril (Unverified Allergy, Severe, Anaphylaxis, 07/01/17) Itching, lip swelling, throat closing. rosuvastatin (Unverified Allergy, Severe, cardiac, 07/01/17) *MDRO Multi-Drug Resistant Organism (Verified Adverse Reaction, Unknown, ) MDR-E.Coli (perirectal abscess)-11/17/16 Uncoded Allergies: provacal (Allergy, Severe, 12/28/15) COZAR (Allergy, Intermediate, 03/11/16) Reported Meds & Prescriptions Reported Meds & Active Scripts Active Hydrocodone-Acetaminophen 10-325 mg Tab 1 Tab PO Q6H PRN Novolin N Inj (Insulin Human NPH) 1,000 Unit/10 Ml Vial 60 Units SQ AC BREAKFAST Novolin R Inj (Insulin Human Regular) 1,000 Unit/10 Ml Vial 10 Units SQ TIDAC Reported Amlodipine (Amlodipine Besylate) 5 Mg Tab 5 Mg PO DAILY Potassium Chloride ER (Potassium Chloride) 10 Meq Cap 10 Meq PO HS Clopidogrel (Clopidogrel Bisulfate) 75 Mg Tab 75 Mg PO DAILY Novolin N Inj (Insulin Human NPH) 1,000 Unit/10 Ml Vial 30 Units SQ HS Gabapentin 600 Mg Tab 600 Mg PO QID Metoprolol Tartrate 50 Mg Tab 50 Mg PO BID Ecotrin Low Strength (Aspirin) 81 Mg Tabdr 81 Mg PO DAILY Lovastatin 40 Mg Tab 40 Mg PO BID Review of Systems Except as stated in HPI: all other systems reviewed are Neg Cardiovascular: Positive: Edema (RLE) Physical Exam Narrative GENERAL: SKIN: Warm and dry. HEAD: Atraumatic. Normocephalic. EYES: Pupils equal and round. No scleral icterus. No injection or drainage. ENT: No nasal bleeding or discharge. Mucous membranes pink and moist. NECK: Trachea midline. No JVD. CARDIOVASCULAR: Regular rate and rhythm. RESPIRATORY: No accessory muscle use. Clear to auscultation. Breath sounds equal bilaterally. GASTROINTESTINAL: Abdomen soft, non-tender, nondistended. MUSCULOSKELETAL: Extremities without clubbing, cyanosis, or RLE PITTING 2+ edema WITHOUT CELLULITIC CHANGES. No obvious deformities. NEUROLOGICAL: Awake and alert. No obvious cranial nerve deficits. Motor grossly within normal limits. Five out of 5 muscle strength in the arms and legs. Normal speech. PSYCHIATRIC: Appropriate mood and affect; insight and judgment normal. Data Data Last Documented VS Orders Orders Basic Metabolic Panel (Bmp) (07/01/17 13:58) Complete Blood Count With Diff (07/01/17 13:58) Iv Access Insert/Monitor (07/01/17 13:58) Ecg Monitoring (07/01/17 13:58) NPO (07/01/17 13:58) Morphine Inj (Morphine Inj) (07/01/17 14:00) Ondansetron Inj (Zofran Inj) (07/01/17 14:00) Us Leg Venous Doppler (07/01/17 13:58) B-Type Natriuretic Peptide (07/01/17 13:58) Morphine Inj (Morphine Inj) (07/01/17 14:15) Morphine Inj (Morphine Inj) (07/01/17 14:15) Ed Discharge Order (07/01/17 15:58) Labs Laboratory Tests Test 07/01/17 14:11 White Blood Count 10.3 TH/MM3 Red Blood Count 5.27 MIL/MM3 Hemoglobin 12.8 GM/DL Hematocrit 38.6 % Mean Corpuscular Volume 73.2 FL Mean Corpuscular Hemoglobin 24.3 PG Mean Corpuscular Hemoglobin Concent 33.2 % Red Cell Distribution Width 15.7 % Platelet Count 210 TH/MM3 Mean Platelet Volume 8.5 FL Neutrophils (%) (Auto) 80.8 % Lymphocytes (%) (Auto) 11.4 % Monocytes (%) (Auto) 6.5 % Eosinophils (%) (Auto) 1.0 % Basophils (%) (Auto) 0.3 % Neutrophils # (Auto) 8.3 TH/MM3 Lymphocytes # (Auto) 1.2 TH/MM3 Monocytes # (Auto) 0.7 TH/MM3 Eosinophils # (Auto) 0.1 TH/MM3 Basophils # (Auto) 0.0 TH/MM3 CBC Comment DIFF FINAL Differential Comment Blood Urea Nitrogen 14 MG/DL Creatinine 1.10 MG/DL Random Glucose 272 MG/DL Calcium Level 10.9 MG/DL Sodium Level 134 MEQ/L Potassium Level 4.2 MEQ/L Chloride Level 99 MEQ/L Carbon Dioxide Level 29.2 MEQ/L Anion Gap 6 MEQ/L Estimat Glomerular Filtration Rate 71 ML/MIN B-Type Natriuretic Peptide 81 PG/ML [facility] Medical Decision Making Medical Screen Exam Complete: Yes Emergency Medical Condition: Yes Medical Record Reviewed: Yes Differential Diagnosis PERIPHERAL EDEMA V DVT V RENAL DZ Narrative Course ULTRASOUND NEG FOR DVT, BNP NORMAL, NORMAL KIDNEY FUNCTIONS AND NORMAL ELECTROLYTES....PATIENT THEREFORE HAS PERIPHERAL EDEMA. Diagnosis Primary Impression: PERIPHERAL EDEMA Patient Instructions: General Instructions, Leg Edema (ED) Additional Instructions: USE MEDICAL HOSE TO ENHANCE CIRCULATION AND DECREASE THE AMOUNT OF SWELLING. Scripts Hydrocodone-Acetaminophen (Hydrocodone-Acetaminophen) 10-325 mg Tab 1 TAB PO Q6H Y for PAIN, #10 TAB 0 Refills Prov: Easton Sage MD 07/01/17 Disposition: 01 DISCHARGE HOME Condition: Stable Easton Saeg MD Jul 01, 2017 14:02
[2017-07-01] MEDS ORDERED: MORPHINE SULFATE 2 MG/ML INJ IV PUSH ONE ×2 (14:15)
[2017-07-01 14:23] LABS: AUTOMATED NEUTROPHIL # 8.3 TH/MM3 (1.8-7.7); BASOPHIL % 0.3 % (0.0-2.0); EOSINOPHIL # 0.1 TH/MM3 (0-0.4); HEMATOCRIT 38.6 % (39.0-51.0); HEMOGLOBIN 12.8 GM/DL (13.0-17.0); LYMPH % 11.4 % (9.0-44.0); LYMPHOCYTE # 1.2 TH/MM3 (1.0-4.8); MEAN CELL VOLUME 73.2 FL (80.0-100.0); MEAN CORPUSCULAR HEMOGLOBIN 24.3 PG (27.0-34.0); MEAN CORPUSCULAR HGB CONC 33.2 % (32.0-36.0); MEAN PLATELET VOLUME 8.5 FL (7.0-11.0); MONO % 6.5 % (0.0-8.0); MONOCYTE # 0.7 TH/MM3 (0-0.9); NEUT % 80.8 % (16.0-70.0); PLATELET COUNT 210 TH/MM3 (150-450); RED BLOOD COUNT 5.27 MIL/MM3 (4.50-5.90); RED CELL DISTRIBUTION WIDTH 15.7 % (11.6-17.2); WHITE BLOOD COUNT 10.3 TH/MM3 (4.0-11.0)
[2017-07-01 14:33] LABS: BICARBONATE 29.2 MEQ/L (21.0-32.0); CALCIUM 10.9 MG/DL (8.5-10.1); CREATININE 1.1 MG/DL (0.60-1.30)
--- NOTE | 2017-07-01 15:49 | RADRPT ---
EXAM DATE/TIME: 07/01/2017 14:44 [facility] COMPARISON: No previous studies available for comparison. INDICATIONS : Right leg swelling. MEDICAL HISTORY : Hypercholesterolemia. Congestive heart failure. Myocardial infarction. Dementia. Coronary artery d isease. Anticoagulant therapy. Hyperlipidemia. Hypertension. Pancreatitis. GERD. Diabetes. SURGICAL HISTORY : Tonsillectomy. Cholecystectomy. CABG Vasectomy. ENCOUNTER: Subsequent ACUITY: 2 day PAIN SCORE: 3/10 LOCATION: Right leg. TECHNIQUE: Venous ultrasound of the leg was performed from the inguinal ligament to the proximal calf. Real-catarino e, color Doppler and spectral tracing, compression and augmentation techniques were used. FINDINGS: There is normal compressibility of the deep venous system from the inguinal region to the proximal ca lf. No echogenic clot is seen in the lumen of the common femoral, femoral, popliteal, and posterior tibial veins. There is a normal response of the venous system to proximal and distal augmentation an d respiration. CONCLUSION: Normal examination. Mark Vargas MD on July 01, 2017 at 15:46 Board Certified Radiologist. This report was verified electronically.
[2017-07-01] MEDS ORDERED: HYDR-3583 PO (15:57)
[2017-07-01 16:07] VITALS: BP 139/70; PULSE 84; RESP 18; TEMP 100.4; O2SAT 98
== END 2017-07-01 16:48 | disposition home or self-care (01) ==
LOC: NEPE 13:35
DX: R60.0 Localized edema (principal); E78.00 Pure hypercholesterolemia, unspecified; E11.9 Type 2 diabetes mellitus without complications; I11.0 Hypertensive heart disease with heart failure; I50.9 Heart failure, unspecified; I25.10 Atherosclerotic heart disease of native coronary artery without angina pectoris; I25.2 Old myocardial infarction; F03.90 Unspecified dementia, unspecified severity, without behavioral disturbance, psychotic disturbance, mood disturbance, and anxiety; K21.9 Gastro-esophageal reflux disease without esophagitis
CPT/HCPCS: 80048; 83880; 85025; 93971; 96374; 99285; J2270

== ENCOUNTER 2017-08-10 11:20 | Emergency (ER) | payer SELFPAY ==
[~2017-08-10] VITALS: Ht 180.3 cm; Wt 100.0 kg
[~2017-08-10 11:20] MED LIST changes: -DAKINSHST TOPICAL; +HYDR-3583 PO; -LACTTAB8 PO; -LEVA750T9 PO; -METR-1 PO; -NORC5TAB PO; -PRIL20CA9 PO
[2017-08-10 11:23] VITALS: BP 156/84; PULSE 73; RESP 15; TEMP 98.7; O2SAT 99
--- NOTE | 2017-08-10 12:01 | PD ---
HPI Chief Complaint: Edema Time Seen by Provider: 11:29 Travel History International Travel<30 days: No Contact w/Intl Traveler<30days: No Traveled to known affect area: No History of Present Illness HPI This is a 51-year-old male who has a history of diabetes who presents to the emergency department with 2 months of swelling in his right foot and leg, constant, worsening, associated with pain in his right foot and warmth and redness. He was seen in the emergency department in July and had a normal ultrasound and was told this was likely dependent edema. He followed up in his outpatient clinic and it was thought that he had a cellulitis that he was started on clindamycin. He returned to his clinic and his doctor did not think it was cellulitis and they stopped the clindamycin. He says the clindamycin is the only thing that has really helped him. He denies any fevers or chills. He says his pain is getting worse and he is frustrated because he has been using compression stockings and it is not getting any better so he came back for reevaluation. He does have a history of necrotizing fasciitis involving the buttocks. PFSH Past Medical History Hx Anticoagulant Therapy: Yes (PLAVIX) Autoimmune Disease: No Blood Disorders: No Anxiety: No Depression: No Heart Rhythm Problems: No Cancer: No Cardiac Catheterization: Yes (10/14) Cardiovascular Problems: Yes ([facility] 2016, 5X CT) High Cholesterol: Yes Chest Pain: Yes Dementia: Yes Diabetes: Yes Patient Takes Glucophage: No Diminished Hearing: No Endocrine: Yes Gastrointestinal Disorders: No GERD: Yes Genitourinary: No Hypertension: Yes Implanted Vascular Access Dvce: No Musculoskeletal: No Neurologic: No Psychiatric: No Reproductive: No Respiratory: No Myocardial Infarction: Yes Pancreatitis: Yes Past Surgical History Abdominal Surgery: Yes (CHOLESTECTOMY, TONSILECTOMY VASTECTOMY) Cardiac Surgery: Yes (02-09-2016 OPEN HEART) Cholecystectomy: Yes Genitourinary Surgery: Yes (VASECTOMY) Tonsillectomy: Yes Other Surgery: Yes Family History Family Hypercholesterolemia: Yes Social History Alcohol Use: Yes (RARELY) Tobacco Use: No Substance Use: No Allergies-Medications (Allergen,Severity, Reaction): Coded Allergies: lisinopril (Unverified Allergy, Severe, Anaphylaxis, 07/01/17) Itching, lip swelling, throat closing. rosuvastatin (Unverified Allergy, Severe, cardiac, 07/01/17) *MDRO Multi-Drug Resistant Organism (Verified Adverse Reaction, Unknown, ) MDR-E.Coli (perirectal abscess)-11/17/16 Uncoded Allergies: provacal (Allergy, Severe, 12/28/15) COZAR (Allergy, Intermediate, 03/11/16) Reported Meds & Prescriptions Reported Meds & Active Scripts Active Hydrocodone-Acetaminophen 10-325 mg Tab 1 Tab PO Q6H PRN Novolin N Inj (Insulin Human NPH) 1,000 Unit/10 Ml Vial 60 Units SQ AC BREAKFAST Novolin R Inj (Insulin Human Regular) 1,000 Unit/10 Ml Vial 10 Units SQ TIDAC Reported Amlodipine (Amlodipine Besylate) 5 Mg Tab 5 Mg PO DAILY Potassium Chloride ER (Potassium Chloride) 10 Meq Cap 10 Meq PO HS Clopidogrel (Clopidogrel Bisulfate) 75 Mg Tab 75 Mg PO DAILY Novolin N Inj (Insulin Human NPH) 1,000 Unit/10 Ml Vial 30 Units SQ HS Gabapentin 600 Mg Tab 600 Mg PO QID Metoprolol Tartrate 50 Mg Tab 50 Mg PO BID Ecotrin Low Strength (Aspirin) 81 Mg Tabdr 81 Mg PO DAILY Lovastatin 40 Mg Tab 40 Mg PO BID Review of Systems Except as stated in HPI: all other systems reviewed are Neg Physical Exam Narrative GENERAL:Well appearing, no acute distress SKIN: warmth and erythema of the dorsal aspect of the right foot HEAD: Atraumatic. Normocephalic. EYES: Pupils equal and round. No injection or drainage. ENT: Moist mucous membranes NECK: Trachea midline. CARDIOVASCULAR: Regular rate and rhythm. No murmur appreciated. 3+ pitting edema in the right lower extremity from the calf down to the foot. Right foot is well perfused. RESPIRATORY: Clear to auscultation. Breath sounds equal bilaterally. GASTROINTESTINAL: Abdomen soft, non-tender, nondistended. MUSCULOSKELETAL: Tender to palpation along the dorsal aspect of the foot, minimal pain with range of motion of the right ankle. NEUROLOGICAL: Awake and alert. No obvious cranial nerve deficits. Moving all extremities. PSYCHIATRIC: Appropriate mood and affect; insight and judgment normal. Data Data Last Documented VS Vital Signs Date Time Temp Pulse Resp B/P (MAP) Pulse Ox O2 Delivery O2 Flow Rate FiO2 08/10/17 11:23 98.7 73 15 156/84 (108) 99 Orders Orders Complete Blood Count With Diff (08/10/17 11:43) Comprehensive Metabolic Panel (08/10/17 11:43) Westergren Sedimentation Rate (08/10/17 11:43) C-Reactive Protein (Crp) (08/10/17 11:43) ^ Insert Iv (08/10/17 11:43) Us Leg Venous Doppler (08/10/17 ) Foot, Complete ([id number]) (08/10/17 ) Labs Laboratory Tests Test 08/10/17 12:13 White Blood Count 6.1 TH/MM3 Red Blood Count 5.19 MIL/MM3 Hemoglobin 12.7 GM/DL Hematocrit 37.7 % Mean Corpuscular Volume 72.7 FL Mean Corpuscular Hemoglobin 24.4 PG Mean Corpuscular Hemoglobin Concent 33.6 % Red Cell Distribution Width 15.1 % Platelet Count 240 TH/MM3 Mean Platelet Volume 8.5 FL Neutrophils (%) (Auto) 68.7 % Lymphocytes (%) (Auto) 21.7 % Monocytes (%) (Auto) 7.0 % Eosinophils (%) (Auto) 1.9 % Basophils (%) (Auto) 0.7 % Neutrophils # (Auto) 4.2 TH/MM3 Lymphocytes # (Auto) 1.3 TH/MM3 Monocytes # (Auto) 0.4 TH/MM3 Eosinophils # (Auto) 0.1 TH/MM3 Basophils # (Auto) 0.0 TH/MM3 CBC Comment DIFF FINAL Differential Comment MDM Medical Decision Making Medical Screen Exam Complete: Yes Emergency Medical Condition: Yes Differential Diagnosis DVT, cellulitis, abscess, osteomyelitis, edema Narrative Course This is a 51-year-old male who presents to the emergency department with swelling of his right foot and leg. He has impressive edema involving the foot and calf and has some warmth and redness of the foot. He is nontoxic appearing. My impression is this is likely infectious. Labs will be obtained including inflammatory markers. Ultrasound will be repeated as the patient continues to be symptomatic. Patient was signed out to Dr. Torres for disposition. If labs are consistent with infection and ultrasound is negative patient may be a candidate for Yoko Cardozo MD Aug 10, 2017 12:01
--- NOTE | 2017-08-10 12:34 | RADRPT ---
EXAM DATE/TIME: 08/10/2017 12:13 [facility] COMPARISON: No previous studies available for comparison. INDICATIONS : Pain. MEDICAL HISTORY : None. SURGICAL HISTORY : None. ENCOUNTER: Initial ACUITY: 1 month PAIN SCORE: 9/10 LOCATION: Right Foot. FINDINGS: 3 views of the right foot demonstrate a transverse fracture through the fourth digit base of proximal phalanx. There is adjacent callus formation present. Dorsal soft tissue edema is noted. The remainde r of the osseous structures appear intact. CONCLUSION: Healing fracture of the fourth digit base of the proximal phalanx.. Mehnaz Sam MD on August 10, 2017 at 12:31 Board Certified Radiologist. This report was verified electronically.
[2017-08-10 12:51] LABS: AUTOMATED NEUTROPHIL # 4.2 TH/MM3 (1.8-7.7); BASOPHIL % 0.7 % (0.0-2.0); EOSINOPHIL # 0.1 TH/MM3 (0-0.4); EOSINOPHIL % 1.9 % (0.0-4.0); HEMATOCRIT 37.7 % (39.0-51.0); HEMOGLOBIN 12.7 GM/DL (13.0-17.0); LYMPH % 21.7 % (9.0-44.0); LYMPHOCYTE # 1.3 TH/MM3 (1.0-4.8); MEAN CELL VOLUME 72.7 FL (80.0-100.0); MEAN CORPUSCULAR HEMOGLOBIN 24.4 PG (27.0-34.0); MEAN CORPUSCULAR HGB CONC 33.6 % (32.0-36.0); MEAN PLATELET VOLUME 8.5 FL (7.0-11.0); MONOCYTE # 0.4 TH/MM3 (0-0.9); NEUT % 68.7 % (16.0-70.0); PLATELET COUNT 240 TH/MM3 (150-450); RED BLOOD COUNT 5.19 MIL/MM3 (4.50-5.90); RED CELL DISTRIBUTION WIDTH 15.1 % (11.6-17.2); WHITE BLOOD COUNT 6.1 TH/MM3 (4.0-11.0)
[2017-08-10 13:13] VITALS: BP 153/81; PULSE 68; RESP 16; O2SAT 97
[2017-08-10 13:15] LABS: ALBUMIN 4.1 GM/DL (3.4-5.0); ALKALINE PHOSPHATASE 144 U/L (45-117); ALT (GPT) 26 U/L (12-78); AST (GOT) 30 U/L (15-37); BICARBONATE 26.9 MEQ/L (21.0-32.0); BLOOD UREA NITROGEN 11 MG/DL (7-18); C-REACTIVE PROTEIN 4.61 MG/DL (0.00-0.30); CALCIUM 10.1 MG/DL (8.5-10.1); CHLORIDE 103 MEQ/L (98-107); CREATININE 0.96 MG/DL (0.60-1.30); GLOMERULAR FILTRATION RATE 83 ML/MIN (>89); GLUCOSE,RANDOM 206 MG/DL (74-106); SODIUM (NA) 136 MEQ/L (136-145); TOTAL BILIRUBIN ADULT 0.6 MG/DL (0.2-1.0); TOTAL PROTEIN 9.1 GM/DL (6.4-8.2)
--- NOTE | 2017-08-10 13:30 | RADRPT ---
EXAM DATE/TIME: 08/10/2017 12:52 [facility] COMPARISON: US LEG RIGHT VENOUS DOPPLER, July 01, 2017, 14:44. FOOT RIGHT COMPLETE ([id number]), August 10 18, 12:13. INDICATIONS : Right leg edema. MEDICAL HISTORY : Hypercholesterolemia. Myocardial infarction. Congestive heart failure. Coronary artery disease. De mentia. Hyperlipidemia. HTN. Chest pain. Pancreatitis. GERD. Diabetes. E.Coli. Anticoagulant therapy, Plavix. SURGICAL HISTORY : Tonsillectomy. Cholecystectomy. CABG. Cardiac cath. Vastectomy. ENCOUNTER: Subsequent ACUITY: 2 months PAIN SCORE: 9/10 LOCATION: Right leg. TECHNIQUE: Venous ultrasound of the leg was performed from the inguinal ligament to the proximal calf. Real-catarino e, color Doppler and spectral tracing, compression and augmentation techniques were used. FINDINGS: There is normal compressibility of the deep venous system from the inguinal region to the proximal ca lf. No echogenic clot is seen in the lumen of the common femoral, femoral, popliteal, and posterior tibial veins. There is a normal response of the venous system to proximal and distal augmentation an d respiration. Iliac vein is open and patent CONCLUSION: Normal examination. No evidence DVT Jayro Aguirre MD on August 10, 2017 at 13:26 Board Certified Radiologist. This report was verified electronically.
[2017-08-10] MEDS ORDERED: CEPH-460 PO (14:05)
--- NOTE | 2017-08-10 14:05 | PD ---
Data Data Last Documented VS Vital Signs Date Time Temp Pulse Resp B/P (MAP) Pulse Ox O2 Delivery O2 Flow Rate FiO2 08/10/17 13:13 68 16 153/81 (105) 97 Room Air 08/10/17 11:23 98.7 Orders Orders Complete Blood Count With Diff (08/10/17 11:43) Comprehensive Metabolic Panel (08/10/17 11:43) Westergren Sedimentation Rate (08/10/17 11:43) C-Reactive Protein (Crp) (08/10/17 11:43) ^ Insert Iv (08/10/17 11:43) Us Leg Venous Doppler (08/10/17 ) Foot, Complete (Dcr0ret) (08/10/17 ) Labs Laboratory Tests Test 08/10/17 12:13 White Blood Count 6.1 TH/MM3 Red Blood Count 5.19 MIL/MM3 Hemoglobin 12.7 GM/DL Hematocrit 37.7 % Mean Corpuscular Volume 72.7 FL Mean Corpuscular Hemoglobin 24.4 PG Mean Corpuscular Hemoglobin Concent 33.6 % Red Cell Distribution Width 15.1 % Platelet Count 240 TH/MM3 Mean Platelet Volume 8.5 FL Neutrophils (%) (Auto) 68.7 % Lymphocytes (%) (Auto) 21.7 % Monocytes (%) (Auto) 7.0 % Eosinophils (%) (Auto) 1.9 % Basophils (%) (Auto) 0.7 % Neutrophils # (Auto) 4.2 TH/MM3 Lymphocytes # (Auto) 1.3 TH/MM3 Monocytes # (Auto) 0.4 TH/MM3 Eosinophils # (Auto) 0.1 TH/MM3 Basophils # (Auto) 0.0 TH/MM3 CBC Comment DIFF FINAL Differential Comment Erythrocyte Sedimentation Rate 65 mm/hr Blood Urea Nitrogen 11 MG/DL Creatinine 0.96 MG/DL Random Glucose 206 MG/DL Total Protein 9.1 GM/DL Albumin 4.1 GM/DL Calcium Level 10.1 MG/DL Alkaline Phosphatase 144 U/L Aspartate Amino Transf (AST/SGOT) 30 U/L Alanine Aminotransferase (ALT/SGPT) 26 U/L Total Bilirubin 0.6 MG/DL Sodium Level 136 MEQ/L Potassium Level 4.2 MEQ/L Chloride Level 103 MEQ/L Carbon Dioxide Level 26.9 MEQ/L Anion Gap 6 MEQ/L Estimat Glomerular Filtration Rate 83 ML/MIN C-Reactive Protein 4.61 MG/DL MDM Supervised Visit with REYNOLD: No Narrative Course 51-year-old man, recurrent right lower extremity swelling, negative for DVT. Inflammatory markers will be elevated. I think he has chronic edema of unclear etiology leading to some cellulitis and infection. Recommend compression, elevation, Keflex. Departure Forms: Tests/Procedures, Work Release Enter return to work date: Aug 14, 2017 Additional Instruction: Keep leg elevated as discussed. Use compression stockings or Lencho wrap as discussed to reduce swelling. Take Keflex as prescribed. Return to the emergency department for any new or worsening symptoms. Med/Other Pt SpecificInfo: Prescription(s) given Scripts Cephalexin (Keflex) 500 Mg Cap 500 MG PO Q8H for Infection, #30 CAP 0 Refills Prov: Victoriano Torres MD 08/10/17 Disposition: 01 DISCHARGE HOME Condition: Stable Victoriano Torres MD Aug 10, 2017 14:05
[2017-08-10] MEDS ORDERED: CEPHALEXIN MONOHYDRATE 500 MG CAP PO ONE (14:15)
[2017-08-10 15:02] VITALS: BP 149/78
== END 2017-08-10 15:02 | disposition home or self-care (01) ==
LOC: NEPC 11:20
DX: M79.89 Other specified soft tissue disorders (principal); L03.115 Cellulitis of right lower limb; E11.9 Type 2 diabetes mellitus without complications; I25.2 Old myocardial infarction; F03.90 Unspecified dementia, unspecified severity, without behavioral disturbance, psychotic disturbance, mood disturbance, and anxiety; I50.9 Heart failure, unspecified; I11.0 Hypertensive heart disease with heart failure; Z79.01 Long term (current) use of anticoagulants; Z79.4 Long term (current) use of insulin; Z86.718 Personal history of other venous thrombosis and embolism
CPT/HCPCS: 73630; 80053; 85025; 85652; 86140; 93971; 99285

== ENCOUNTER 2017-11-07 14:10 | Emergency (ER) | payer SELFPAY ==
[~2017-11-07] VITALS: Ht 180.3 cm; Wt 100.0 kg
[~2017-11-07 14:10] MED LIST changes: +CEPH-460 PO
[2017-11-07] MEDS ORDERED: IOHEXOL 350 MG/ML 10 ML VIAL (for RAD DIAG) IVCONTRAST ONE (14:11)
[2017-11-07 14:35] VITALS: BP 151/82; PULSE 77; RESP 18; TEMP 98.7; O2SAT 98
--- NOTE | 2017-11-07 18:25 | PD ---
HPI Chief Complaint: Injury Time Seen by Provider: 17:45 Travel History International Travel<30 days: No Contact w/Intl Traveler<30days: No Traveled to known affect area: No History of Present Illness HPI 51yo M with PMH of DM here with c/o pain in plantar surface of right foot. Said there is a growth there since last . Went to PMD last week and he had no idea what it was. Went to automotive welder yesterday and they have no idea what it was. Denies any fever, chest pain, sob, n/v, abdominal pain, recent trauma, focal weakness or numbness. PFSH Past Medical History Hx Anticoagulant Therapy: Yes (PLAVIX) Autoimmune Disease: No Blood Disorders: No Anxiety: No Depression: No Heart Rhythm Problems: No Cancer: No Cardiac Catheterization: Yes (10/14) Cardiovascular Problems: Yes High Cholesterol: Yes Chest Pain: Yes Dementia: Yes Diabetes: Yes Diminished Hearing: No Endocrine: Yes Gastrointestinal Disorders: No GERD: Yes Genitourinary: No Hypertension: Yes Implanted Vascular Access Dvce: No Musculoskeletal: No Neurologic: No Psychiatric: No Reproductive: No Respiratory: No Myocardial Infarction: Yes Pancreatitis: Yes Past Surgical History Abdominal Surgery: Yes (CHOLESTECTOMY, TONSILECTOMY VASTECTOMY) Cardiac Surgery: Yes (02-09-2016 OPEN HEART) Cholecystectomy: Yes Genitourinary Surgery: Yes (VASECTOMY) Tonsillectomy: Yes Other Surgery: Yes Family History Family Hypercholesterolemia: Yes Social History Alcohol Use: Yes (RARELY) Tobacco Use: No Substance Use: No Allergies-Medications (Allergen,Severity, Reaction): Coded Allergies: lisinopril (Unverified Allergy, Severe, Anaphylaxis, 08/10/17) Itching, lip swelling, throat closing. rosuvastatin (Unverified Allergy, Severe, cardiac, 08/10/17) *MDRO Multi-Drug Resistant Organism (Verified Adverse Reaction, Unknown, ) MDR-E.Coli (perirectal abscess)-11/17/16 Uncoded Allergies: provacal (Allergy, Severe, 12/28/15) COZAR (Allergy, Intermediate, 03/11/16) Reported Meds & Prescriptions Reported Meds & Active Scripts Active Tramadol (Tramadol HCl) 50 Mg Tab 50 Mg PO Q8H PRN Keflex (Cephalexin) 500 Mg Cap 500 Mg PO Q8H Hydrocodone-Acetaminophen 10-325 mg Tab 1 Tab PO Q6H PRN Novolin N Inj (Insulin Human NPH) 1,000 Unit/10 Ml Vial 60 Units SQ AC BREAKFAST Novolin R Inj (Insulin Human Regular) 1,000 Unit/10 Ml Vial 10 Units SQ TIDAC Reported Amlodipine (Amlodipine Besylate) 5 Mg Tab 5 Mg PO DAILY Potassium Chloride ER (Potassium Chloride) 10 Meq Cap 10 Meq PO HS Clopidogrel (Clopidogrel Bisulfate) 75 Mg Tab 75 Mg PO DAILY Novolin N Inj (Insulin Human NPH) 1,000 Unit/10 Ml Vial 30 Units SQ HS Gabapentin 600 Mg Tab 600 Mg PO QID Metoprolol Tartrate 50 Mg Tab 50 Mg PO BID Ecotrin Low Strength (Aspirin) 81 Mg Tabdr 81 Mg PO DAILY Lovastatin 40 Mg Tab 40 Mg PO BID Review of Systems Except as stated in HPI: all other systems reviewed are Neg Physical Exam Narrative GENERAL: 51yo M in mild distress. SKIN: Focused skin assessment warm/dry. HEAD: Atraumatic. Normocephalic. CARDIOVASCULAR: Regular rate and rhythm. No murmur appreciated. RESPIRATORY: No accessory muscle use. Clear to auscultation. Breath sounds equal bilaterally. GASTROINTESTINAL: Abdomen soft, non-tender, nondistended. MUSCULOSKELETAL: Right foot: DP 2+. Plantar surface there is a skin color induration that is tender to palpation with discoloration on one side and it appears like a ruptured blister. Although, pt said that is no drainage. NEUROLOGICAL: Awake and alert. No obvious cranial nerve deficits. Motor grossly within normal limits. Normal speech. PSYCHIATRIC: Appropriate mood and affect; insight and judgment normal. Data Data Last Documented VS Vital Signs Date Time Temp Pulse Resp B/P (MAP) Pulse Ox O2 Delivery O2 Flow Rate FiO2 11/07/17 23:44 11/07/17 23:25 84 16 11/07/17 18:39 Room Air 11/07/17 14:35 98.7 98 Orders Orders Complete Blood Count With Diff (11/07/17 17:52) Basic Metabolic Panel (Bmp) (11/07/17 17:52) Lactic Acid Sepsis Protocol (11/07/17 17:52) Ct Foot W Iv Contrast (11/07/17 ) Ketorolac Inj (Toradol Inj) (11/07/17 18:30) Iohexol 350 Inj (Omnipaque 350 Inj) (11/07/17 14:11) Sodium Chlor 0.9% 1000 Ml Inj (Ns 1000 M (11/07/17 21:30) Insulin Human Regular Inj (Novolin R Inj (11/07/17 21:30) Splint Or Brace Apply/Monitor (11/07/17 22:37) Crutches (11/07/17 22:38) Mandatory Outpatient Referral (11/07/17 23:14) Ed Discharge Order (11/07/17 23:27) Labs Laboratory Tests Test 11/07/17 18:30 White Blood Count 5.8 TH/MM3 Red Blood Count 5.59 MIL/MM3 Hemoglobin 12.8 GM/DL Hematocrit 40.0 % Mean Corpuscular Volume 71.5 FL Mean Corpuscular Hemoglobin 22.8 PG Mean Corpuscular Hemoglobin Concent 31.9 % Red Cell Distribution Width 16.2 % Platelet Count 100 TH/MM3 Mean Platelet Volume 8.8 FL Neutrophils (%) (Auto) 61.7 % Lymphocytes (%) (Auto) 28.8 % Monocytes (%) (Auto) 7.0 % Eosinophils (%) (Auto) 2.1 % Basophils (%) (Auto) 0.4 % Neutrophils # (Auto) 3.6 TH/MM3 Lymphocytes # (Auto) 1.7 TH/MM3 Monocytes # (Auto) 0.4 TH/MM3 Eosinophils # (Auto) 0.1 TH/MM3 Basophils # (Auto) 0.0 TH/MM3 CBC Comment DIFF FINAL Differential Comment Blood Urea Nitrogen 13 MG/DL Creatinine 1.07 MG/DL Random Glucose 307 MG/DL Calcium Level 10.7 MG/DL Sodium Level 135 MEQ/L Potassium Level 5.3 MEQ/L Chloride Level 101 MEQ/L Carbon Dioxide Level 27.8 MEQ/L Anion Gap 6 MEQ/L Estimat Glomerular Filtration Rate 73 ML/MIN Lactic Acid Level 2.0 mmol/L MDM Medical Decision Making Medical Screen Exam Complete: Yes Emergency Medical Condition: Yes Differential Diagnosis Abscess vs. blister vs. tumor vs. cellulitis Narrative Course 51yo M with pain in plantar surface of right foot. Denies trauma. No fluctuance. Labs reviewed, no leukocytosis. H/H normal. Thrombocytopenic at 100,000. Potassium mildly elevated at 5.3. Glucose elevated at 307. Normal CO2. Normal anion gap. Calcium mildly elevated at 10.7. Will give NS IVF and regular insulin. Lactic acid normal. Pt's nurse recheck the glucose before giving the insulin and it was 217 so insulin was held. Pt given NS IVF. Xray right foot showed extensive fragmentation, dislocation fo the bases of the metatarsals, and extensive soft tissue prominence consistent with Charcot Joint. I discussed with tire recapping machine operator transition program manager Dr. Huber and she recommends placing foot in Cam walker and nonweightbearing and following up with her in clinic. Will do mandatory referral for podiatry. Return precautions given. Diagnosis Primary Impression: Charcot foot due to diabetes mellitus Referrals: Winifred Huber DPWill call for appointment Patient Instructions: General Instructions Departure Forms: Tests/Procedures Additional Instructions: Please follow up with podiatry as soon as you can. Please use the Cam walker and crutches provided and do not bear weight on right leg if possible. Please follow up with your primary care physician regarding low platelet count and better control of your diabetes. Return to the ED if symptoms worsen. Med/Other Pt SpecificInfo: Prescription(s) given Scripts Tramadol (Tramadol) 50 Mg Tab 50 MG PO Q8H Y for PAIN, #10 TAB 0 Refills Prov: Leela Patel DO 11/07/17 Disposition: 01 DISCHARGE HOME Condition: Stable Leela Patel DO November 07, 2017 18:25
[2017-11-07] MEDS ORDERED: KETOROLAC TROMETHAMINE 30 MG/ML (IVP) VIAL IV PUSH ONE (18:30)
[2017-11-07 18:54] LABS: AUTOMATED NEUTROPHIL # 3.6 TH/MM3 (1.8-7.7); BASOPHIL % 0.4 % (0.0-2.0); EOSINOPHIL # 0.1 TH/MM3 (0-0.4); EOSINOPHIL % 2.1 % (0.0-4.0); HEMOGLOBIN 12.8 GM/DL (13.0-17.0); LYMPH % 28.8 % (9.0-44.0); LYMPHOCYTE # 1.7 TH/MM3 (1.0-4.8); MEAN CELL VOLUME 71.5 FL (80.0-100.0); MEAN CORPUSCULAR HEMOGLOBIN 22.8 PG (27.0-34.0); MEAN CORPUSCULAR HGB CONC 31.9 % (32.0-36.0); MEAN PLATELET VOLUME 8.8 FL (7.0-11.0); MONOCYTE # 0.4 TH/MM3 (0-0.9); NEUT % 61.7 % (16.0-70.0); PLATELET COUNT 100 TH/MM3 (150-450); RED BLOOD COUNT 5.59 MIL/MM3 (4.50-5.90); RED CELL DISTRIBUTION WIDTH 16.2 % (11.6-17.2); WHITE BLOOD COUNT 5.8 TH/MM3 (4.0-11.0)
[2017-11-07 19:16] LABS: BICARBONATE 27.8 MEQ/L (21.0-32.0); CALCIUM 10.7 MG/DL (8.5-10.1); CREATININE 1.07 MG/DL (0.60-1.30)
[2017-11-07] MEDS ORDERED: INSULIN HUMAN REGULAR 1,000 UNITS/10 ML VIAL SQ ONE (21:30)
[2017-11-07] MEDS ORDERED: SODIUM CHLOR 0.9% 1000 ML INJ 1,000 ML IV ONE (21:30)
--- NOTE | 2017-11-07 21:46 | RADRPT ---
EXAM DATE/TIME: 11/07/2017 21:16 [facility] COMPARISON: FOOT RIGHT COMPLETE ([id number]), August 10, 2017, 12:13. INDICATIONS : Growth on bottom of right foot. IV CONTRAST: 71 cc Omnipaque 350 (iohexol) IV RADIATION DOSE: 7.24 CTDIvol (mGy) MEDICAL HISTORY : Cardiovascular disease. Hypertension. Diabetes mellitus type 2.GERD SURGICAL HISTORY : Cholecystectomy. ENCOUNTER: Initial ACUITY: 4 - 6 days PAIN SCALE: 0/10 LOCATION: Right foot TECHNIQUE: Volumetric scanning of the foot was performed. Using automated exposure control and adjustment of th e mA and/or kV according to patient size, radiation dose was kept as low as reasonably achievable to obtain optimal diagnostic quality images. DICOM format image data is available electronically for re view and comparison. FINDINGS: BONES: Multiple fragments of the bases of the metatarsals with dislocation of the metatarsals. Extensive sof t tissue swelling and phlegmon reaction. Oral fracture fourth toe. SOFT TISSUES: Extensive soft tissue swelling in the Lisfranc region CONCLUSION: Extensive fragmentation, dislocation of the bases of the metatarsals, and extensive soft tissue promi nence consistent with Charcot joint. Del Trevizo MD on November 07, 2017 at 21:32 Board Certified Radiologist. This report was verified electronically.
[2017-11-07] MEDS ORDERED: TRAM50TA PO (23:08)
[2017-11-07 23:25] VITALS: BP 180/89; PULSE 84; RESP 16
== END 2017-11-07 23:45 | disposition home or self-care (01) ==
LOC: NEPD 14:10
DX: E11.610 Type 2 diabetes mellitus with diabetic neuropathic arthropathy (principal); D69.6 Thrombocytopenia, unspecified; E78.00 Pure hypercholesterolemia, unspecified; F03.90 Unspecified dementia, unspecified severity, without behavioral disturbance, psychotic disturbance, mood disturbance, and anxiety; K21.9 Gastro-esophageal reflux disease without esophagitis; I10 Essential (primary) hypertension; I25.2 Old myocardial infarction; Z87.19 Personal history of other diseases of the digestive system; Z79.4 Long term (current) use of insulin
CPT/HCPCS: 29515; 73701; 80048; 83605; 85025; 96361; 96374; 99284; E0113; J1885; J7030; Q9967

== ENCOUNTER 2017-12-01 14:24 | Inpatient (IN) | payer SELFPAY ==
[2017-12-01] VITALS (7 sets, daily range): BP systolic 122–171; BP diastolic 64–79; PULSE 79–96; RESP 16–20; TEMP 97.8–102.2; O2SAT 93–99
[~2017-12-01] VITALS: Ht 172.7 cm; Wt 105.3 kg
[~2017-12-01 14:24] MED LIST changes: +TRAM50TA PO
[2017-12-01] MEDS ORDERED: SODIUM CHLOR 0.9% 1000 ML INJ 1,000 ML IV ONE ×2 (14:44→16:30)
[2017-12-01] MEDS ORDERED: MORPHINE SULFATE 4 MG/ML INJ IV PUSH ONE ×2 (14:45→16:30)
[2017-12-01] MEDS ORDERED: VANCOMYCIN INJ 1,250 MG in SODIUM CHLOR 0.9% 250 ML INJ 250 ML IV ONE (14:45)
[2017-12-01] MEDS ORDERED: ACETAMINOPHEN 325 MG TAB PO ONE (14:45)
[2017-12-01] MEDS ORDERED: PIPERACIL-TAZO 3.375 GM PREMIX 50 ML IV ONE (14:45)
[2017-12-01] MEDS ORDERED: NOVORP2 SQ (14:51)
[2017-12-01] MEDS ORDERED: NOVONP2 SQ ×2 (14:51)
[2017-12-01 15:50] LABS: AUTOMATED NEUTROPHIL # 5.6 TH/MM3 (1.8-7.7); BASOPHIL % 0.1 % (0.0-2.0); EOSINOPHIL % 0.1 % (0.0-4.0); HEMATOCRIT 37.9 % (39.0-51.0); HEMOGLOBIN 12.1 GM/DL (13.0-17.0); LACTIC ACID SEPSIS PROTOCOL 3.2 mmol/L (0.4-2.0); LYMPH % 4.7 % (9.0-44.0); LYMPHOCYTE # 0.3 TH/MM3 (1.0-4.8); MEAN CORPUSCULAR HEMOGLOBIN 23.1 PG (27.0-34.0); MEAN CORPUSCULAR HGB CONC 32.1 % (32.0-36.0); MEAN PLATELET VOLUME 9.4 FL (7.0-11.0); MONO % 4.8 % (0.0-8.0); MONOCYTE # 0.3 TH/MM3 (0-0.9); NEUT % 90.3 % (16.0-70.0); PLATELET COUNT 156 TH/MM3 (150-450); RED BLOOD COUNT 5.26 MIL/MM3 (4.50-5.90); RED CELL DISTRIBUTION WIDTH 17.7 % (11.6-17.2); WHITE BLOOD COUNT 6.2 TH/MM3 (4.0-11.0)
--- NOTE | 2017-12-01 15:50 | RADRPT ---
EXAM DATE: 12/01/2017 3:46 PM EDT AGE/SEX: 52 years / Male INDICATIONS: Shortness of breath. CLINICAL DATA: This is the patient's initial encounter. Patient reports that signs and symptoms have been present for 1 month and indicates a pain score of 10/10. MEDICAL/SURGICAL HISTORY: Diabetes. . [place] [facility] [place] . FINDINGS: No infiltrate, effusion or pneumothorax. Trace scarring again seen on the left at the base. Heart size stable, upper limits of normal. Patient has had previous median sternotomy. CONCLUSION: No evidence of acute cardiopulmonary disease. Electronically signed by: Magnus Steele MD 12/01/2017 3:49 PM EDT
[2017-12-01 15:55] LABS: BILIRUBIN, URINE NEG (NEG); BLOOD, URINE SMALL (NEG); GLUCOSE,URINE 1000 mg/dL (NEG); KETONE, URINE 40 mg/dL (NEG); NITRITE,URINE NEG (NEG); PH, URINE 5.5 (5.0-8.5); URINE COLOR YELLOW (YELLW/STRAW); URINE LEUKOCYTE ESTERASE NEG (NEG)
[2017-12-01 16:09] LABS: PROTHROMBIN TIME - PATIENT 10.4 SEC (9.8-11.6)
--- NOTE | 2017-12-01 16:11 | RADRPT ---
EXAM DATE: 12/01/2017 3:49 PM EDT AGE/SEX: 52 years / Male INDICATIONS: Right foot pain, swelling, and ulcers. CLINICAL DATA: This is the patient's initial encounter. Patient reports that signs and symptoms have been present for 1 month and indicates a pain score of 10/10. MEDICAL/SURGICAL HISTORY: Diabetes. . Right foot surgery COMPAR[place]: [facility] [place] ([id number]), 08/10/2017. . FINDINGS: Soft tissue swelling and ulceration seen plantar and dorsal to Lisfranc joint. Marked worsening chron ic Lisfranc arthropathy and there is associated lateral subluxation developing. Large amount of destr uction as well as surrounding density and hypertrophic bone. Findings could be neuropathic or related to chronic osteomyelitis. There is periosteal reaction of the metatarsals, most conspicuous of the fourth and fifth. CONCLUSION: 1. Marked worsening Lisfranc arthropathy and instability, neuropathic versus infectious. 2. Periosteal reaction of the metatarsals, especially the fourth and fifth, also of concern for oste omyelitis. 3. Extensive soft tissue swelling and ulceration centered around the mid foot. Electronically signed by: Magnus Steele MD 12/01/2017 4:10 PM EDT
[2017-12-01 16:14] LABS: ALBUMIN 2.8 GM/DL (3.4-5.0); ALKALINE PHOSPHATASE 132 U/L (45-117); ALT (GPT) 30 U/L (12-78); AST (GOT) 33 U/L (15-37); BICARBONATE 26.9 MEQ/L (21.0-32.0); BLOOD UREA NITROGEN 31 MG/DL (7-18); CALCIUM 10.4 MG/DL (8.5-10.1); CHLORIDE 89 MEQ/L (98-107); CREATININE 1.31 MG/DL (0.60-1.30); GLOMERULAR FILTRATION RATE 58 ML/MIN (>89); SODIUM (NA) 131 MEQ/L (136-145); TOTAL BILIRUBIN ADULT 0.7 MG/DL (0.2-1.0)
[2017-12-01 16:18] LABS: GLUCOSE,RANDOM 468 MG/DL (74-106)
[2017-12-01] MEDS ORDERED: INSULIN HUMAN REGULAR 1,000 UNITS/10 ML VIAL IV PUSH ONE (16:30)
[2017-12-01] MEDS ORDERED: KETOROLAC TROMETHAMINE 30 MG/ML (IVP) VIAL IV PUSH ONE (16:30)
--- NOTE | 2017-12-01 16:44 | PD ---
HPI Chief Complaint: Fever Time Seen by Provider: 14:38 Travel History International Travel<30 days: No Contact w/Intl Traveler<30days: No Traveled to known affect area: No History of Present Illness HPI Patient is a 52-year-old male who comes in complaining of fevers and pain to his foot. He says this has been going on since Saturday. He has had a wound to the foot for a while, but it has recently gotten bad. He has tried to keep his foot clean at home. He is tried Tylenol for his fevers. He says nothing is helping. He denies chest pain or shortness of breath. He has had some nausea and vomiting. He denies any abdominal pain. Severity is moderate. PFSH Past Medical History Hx Anticoagulant Therapy: Yes (PLAVIX) Autoimmune Disease: No Blood Disorders: No Anxiety: No Depression: No Heart Rhythm Problems: No Cancer: No Cardiac Catheterization: Yes (10/14) Cardiovascular Problems: Yes High Cholesterol: Yes Chest Pain: Yes Dementia: Yes Diabetes: Yes Patient Takes Glucophage: No Diminished Hearing: No Endocrine: Yes Gastrointestinal Disorders: No GERD: Yes Genitourinary: No Hypertension: Yes Implanted Vascular Access Dvce: No Musculoskeletal: Yes Neurologic: No Psychiatric: No Reproductive: No Respiratory: No Integumentary: Yes Myocardial Infarction: Yes Pancreatitis: Yes Tetanus Vaccination: < 5 Years Influenza Vaccination: Yes Past Surgical History Abdominal Surgery: Yes (CHOLESTECTOMY, TONSILECTOMY VASTECTOMY) Cardiac Surgery: Yes (02-09-2016 OPEN HEART) Cholecystectomy: Yes Genitourinary Surgery: Yes (VASECTOMY) Tonsillectomy: Yes Other Surgery: Yes Family History Family Hypercholesterolemia: Yes Social History Alcohol Use: Yes (RARELY) Tobacco Use: No Substance Use: No Allergies-Medications (Allergen,Severity, Reaction): Coded Allergies: lisinopril (Verified Allergy, Severe, Anaphylaxis, 12/01/17) Itching, lip swelling, throat closing. 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 Reported Meds & Prescriptions Reported Meds & Active Scripts Active Tramadol (Tramadol HCl) 50 Mg Tab 50 Mg PO Q8H PRN Reported Novolin N Inj (Insulin Human NPH) 1,000 Unit/10 Ml Vial 60 Units SQ DAILY NEB Novolin N Inj (Insulin Human NPH) 1,000 Unit/10 Ml Vial 20 Units SQ HS Novolin R Inj (Insulin Human Regular) 1,000 Unit/10 Ml Vial 20 Units SQ ACHS Max dose at bedtime:( )units; sugars less than 70,(0) units; sugars 150-199,(2)unit; sugars 200-249,(4)units; sugars 250-299,(7) units; sugars 300-349,(10)units; sugars greater than 349,(12)units Potassium Chloride ER (Potassium Chloride) 10 Meq Cap 10 Meq PO HS Clopidogrel (Clopidogrel Bisulfate) 75 Mg Tab 75 Mg PO DAILY Gabapentin 600 Mg Tab 600 Mg PO QID Metoprolol Tartrate 50 Mg Tab 50 Mg PO BID Ecotrin Low Strength (Aspirin) 81 Mg Tabdr 81 Mg PO DAILY Lovastatin 40 Mg Tab 40 Mg PO BID Review of Systems Except as stated in HPI: all other systems reviewed are Neg General / Constitutional: Positive: Fever, Chills HENT: No: Headaches, Lightheadedness Cardiovascular: No: Chest Pain or Discomfort Respiratory: No: Shortness of Breath Gastrointestinal: Positive: Nausea, Vomiting, No: Abdominal Pain Musculoskeletal: Positive: Edema Skin: Positive Lesions Neurologic: No: Weakness, Dizziness Physical Exam Narrative GENERAL: Awake and alert, in no acute distress. SKIN: Large edema to the right foot, wound to the bottom of the foot, leaking serosanguineous fluid. HEAD: Atraumatic. Normocephalic. EYES: Pupils equal and round. No scleral icterus. ENT: No nasal bleeding or discharge. Mucous membranes pink and moist. NECK: Trachea midline. No JVD. CARDIOVASCULAR: Regular rate and rhythm. No murmur appreciated. RESPIRATORY: No accessory muscle use. Clear to auscultation. Breath sounds equal bilaterally. GASTROINTESTINAL: Abdomen soft, non-tender, nondistended. MUSCULOSKELETAL: No obvious deformities. No clubbing. No cyanosis. Large edema of the right foot. Tender to palpation. NEUROLOGICAL: Awake and alert. No obvious cranial nerve deficits. Motor grossly within normal limits. Normal speech. PSYCHIATRIC: Appropriate mood and affect; insight and judgment normal. Data Data Last Documented VS Vital Signs Date Time Temp Pulse Resp B/P (MAP) Pulse Ox O2 Delivery O2 Flow Rate FiO2 6/3/18 16:45 16 12/01/17 16:00 102.1 96 122/66 (84) 98 Room Air Orders Orders Sepsis Workup Initiated (12/01/17 ) Complete Blood Count With Diff (12/01/17 14:44) Comprehensive Metabolic Panel (12/01/17 14:44) Prothrombin Time / Inr (Pt) (12/01/17 14:44) Act Partial Throm Time (Ptt) (12/01/17 14:44) Lactic Acid Sepsis Protocol (12/01/17 14:44) Lipase (12/01/17 14:44) Urinalysis - C+S If Indicated (12/01/17 14:44) Blood Culture (12/01/17 14:44) Wound Culture And Gram Stain (12/01/17 14:44) Chest, Single Ap (12/01/17 14:44) Blood Glucose (12/01/17 14:44) Ecg Monitoring (12/01/17 14:44) Iv Access Insert/Monitor (12/01/17 14:44) Oximetry (12/01/17 14:44) Oxygen Administration (12/01/17 14:44) Acetaminophen (Tylenol) (12/01/17 14:45) Sodium Chlor 0.9% 1000 Ml Inj (Ns 1000 M (12/01/17 14:44) Foot, Complete ([id number]) (12/01/17 ) Piperacil-Tazo 3.375 Gm Premix (Zosyn 3. (12/01/17 14:45) Vancomycin Inj (Vancomycin Inj) (12/01/17 14:45) Morphine Inj (Morphine Inj) (12/01/17 14:45) Morphine Inj (Morphine Inj) (12/01/17 16:30) Ketorolac Inj (Toradol Inj) (12/01/17 16:30) Sodium Chlor 0.9% 1000 Ml Inj (Ns 1000 M (12/01/17 16:30) Insulin Human Regular Inj (Novolin R Inj (12/01/17 16:30) Consent (12/01/17 16:26) Mri Foot W&W/O Contrast (12/01/17 ) Westergren Sedimentation Rate (12/01/17 16:28) Admit Order (Ed Use Only) (12/01/17 ) Labs Laboratory Tests Test 12/01/17 15:20 White Blood Count 6.2 TH/MM3 Red Blood Count 5.26 MIL/MM3 Hemoglobin 12.1 GM/DL Hematocrit 37.9 % Mean Corpuscular Volume 72.0 FL Mean Corpuscular Hemoglobin 23.1 PG Mean Corpuscular Hemoglobin Concent 32.1 % Red Cell Distribution Width 17.7 % Platelet Count 156 TH/MM3 Mean Platelet Volume 9.4 FL Neutrophils (%) (Auto) 90.3 % Lymphocytes (%) (Auto) 4.7 % Monocytes (%) (Auto) 4.8 % Eosinophils (%) (Auto) 0.1 % Basophils (%) (Auto) 0.1 % Neutrophils # (Auto) 5.6 TH/MM3 Lymphocytes # (Auto) 0.3 TH/MM3 Monocytes # (Auto) 0.3 TH/MM3 Eosinophils # (Auto) 0.0 TH/MM3 Basophils # (Auto) 0.0 TH/MM3 CBC Comment DIFF FINAL Differential Comment Erythrocyte Sedimentation Rate 59 mm/hr Prothrombin Time 10.4 SEC Prothromb Time International Ratio 1.0 RATIO Activated Partial Thromboplast Time 27.4 SEC Urine Color YELLOW Urine Turbidity CLEAR Urine pH 5.5 Urine Specific [place] 1.034 Urine Protein 30 mg/dL Urine Glucose (UA) 1000 mg/dL Urine Ketones 40 mg/dL Urine Occult Blood SMALL Urine Nitrite NEG Urine Bilirubin NEG Urine Urobilinogen 2.0 MG/DL Urine Leukocyte Esterase NEG Urine RBC 5 /hpf Microscopic Urinalysis Comment CULT NOT INDICATED Blood Urea Nitrogen 31 MG/DL Creatinine 1.31 MG/DL Random Glucose 468 MG/DL Total Protein 8.0 GM/DL Albumin 2.8 GM/DL Calcium Level 10.4 MG/DL Alkaline Phosphatase 132 U/L Aspartate Amino Transf (AST/SGOT) 33 U/L Alanine Aminotransferase (ALT/SGPT) 30 U/L Total Bilirubin 0.7 MG/DL Sodium Level 131 MEQ/L Potassium Level 3.7 MEQ/L Chloride Level 89 MEQ/L Carbon Dioxide Level 26.9 MEQ/L Anion Gap 15 MEQ/L Estimat Glomerular Filtration Rate 58 ML/MIN Lactic Acid Level 3.2 mmol/L Lipase 47 U/L MDM Medical Decision Making Medical Screen Exam Complete: Yes Emergency Medical Condition: Yes Medical Record Reviewed: Yes Differential Diagnosis Sepsis versus osteomyelitis versus abscess versus cellulitis Narrative Course Patient is a 52-year-old male who comes in complaining of fever chills, pain and swelling to the right foot. Exam shows large edema of the right foot with a draining wound. IV established, labs sent. Labs show an elevated lactic acid. X-ray is concerning for osteomyelitis. Last 24 hours Impressions Chest X-Ray 12/01/17 1444 Signed Impressions: CONCLUSION: No evidence of acute cardiopulmonary disease. Foot X-Ray 12/01/17 0000 Signed Impressions: CONCLUSION: 1. Marked worsening Lisfranc arthropathy and instability, neuropathic versus i nfectious. 2. Periosteal reaction of the metatarsals, especially the fourth and fifth, al so of concern for osteomyelitis. 3. Extensive soft tissue swelling and ulceration centered around the mid foot . Foot MRI 12/01/17 0000 Signed Impressions: CONCLUSION: 1. Destructive arthropathy of Lisfranc joint, presumably infectious. 2. Associated osteomyelitis diffusely of the cuneiforms, cuboid and navicular. Extensive osteomyelitis of the metatarsals as delineated above. There is also osteomyelitis of the distal halves of the talus and calcaneus. Suspected osteom yelitis of the proximal phalanx of the fourth toe as well. 3. Multiple fluid collections typical of abscesses as described above, some dr rose to the skin. Podiatry consulted. Patient given vancomycin and Zosyn. Given IV fluids, pain medicine. He will be admitted to medicine for further management. Diagnosis Primary Impression: Osteomyelitis Qualified Codes: M86.9 - Osteomyelitis, unspecified Admitting Information Admitting Physician Requests: it Winifred Harvey MD Dec 01, 2017 16:44
[2017-12-01] MEDS: INSULIN ASPART SUPPLEMENTAL SCALE SQ SCH ×2 (17:00→20:21)
[2017-12-01] MEDS ORDERED: DEXTROSE 50% IN WATER 50 ML VIAL(D50) IV PUSH PRN (17:00)
[2017-12-01] MEDS ORDERED: GLUCAGON 1 MG/ML VIAL OTHER PRN (17:00)
--- NOTE | 2017-12-01 17:00 | PD.CONS ---
History of Present Illness Service Podiatry Consult Requested By ED Reason for Consult Right foot infection, charcot vs osteomyelitis Primary Care Physician No Primary Care Physician Diagnoses: History of Present Illness Patient has had drainage and redness/swelling increasing to right medial plantar foot. Podiatry consulted due to xray findings and infection for further treatment recommendations. Past Family Social History Allergies: Coded Allergies: lisinopril (Verified Allergy, Severe, Anaphylaxis, 12/01/17) Itching, lip swelling, throat closing. 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 Past Medical History History of cardiac catheterization 09/2015 Cardiovascular issues, history of [place] Hypercholesterolemia CHest pain Diabetes GERD HTN Pancreatitis Past Surgical History Cholecystectomy Tonsillectomy Vasectomy Open heart surgery Active Ordered Medications Current Medications Medications (Trade) Dose Ordered Sig/Ronaldo Route Start Time Stop Time Status Last Admin Sodium Chloride 1,000 ml @ 999 mls/hr BOLUS ONCE IV 12/01/17 16:30 12/01/17 17:30 12/01/17 16:39 (D50w (Vial) Inj) 50 ml UNSCH PRN IV PUSH 12/01/17 17:00 UNV (Glucagon Inj) 1 mg UNSCH PRN OTHER 12/01/17 17:00 UNV (NovoLOG SUPPLEMENTAL SCALE) 1 ACHS SLIDING SCALE SQ 12/01/17 17:00 UNV Family History Hypercholesterolemia Social History Denies drug use, rare alcohol use, denies smoking Physical Exam Vital Signs Vital Signs Date Time Temp Pulse Resp B/P (MAP) Pulse Ox O2 Delivery O2 Flow Rate FiO2 12/01/17 16:00 102.1 96 18 122/66 (84) 98 Room Air 12/01/17 15:06 96 18 144/72 (96) 97 Room Air 12/01/17 15:05 18 97 Room Air 12/01/17 15:05 97 Room Air 12/01/17 15:05 16 12/01/17 14:55 96 18 98 Room Air 12/01/17 14:29 102.2 95 20 171/79 (109) 98 Physical Exam Right foot with wound to plantar central midfoot. erythema extending medially in arch and to medial/dorsal TMTJ area with palpable crepitus present here and fluctuance. Rocker bottom foot type. Erythema and edema present with purulent drainage coming from wound. Laboratory Laboratory Tests Test 12/01/17 15:20 White Blood Count 6.2 Red Blood Count 5.26 Hemoglobin 12.1 Hematocrit 37.9 Mean Corpuscular Volume 72.0 Mean Corpuscular Hemoglobin 23.1 Mean Corpuscular Hemoglobin Concent 32.1 Red Cell Distribution Width 17.7 Platelet Count 156 Mean Platelet Volume 9.4 Neutrophils (%) (Auto) 90.3 Lymphocytes (%) (Auto) 4.7 Monocytes (%) (Auto) 4.8 Eosinophils (%) (Auto) 0.1 Basophils (%) (Auto) 0.1 Neutrophils # (Auto) 5.6 Lymphocytes # (Auto) 0.3 Monocytes # (Auto) 0.3 Eosinophils # (Auto) 0.0 Basophils # (Auto) 0.0 CBC Comment DIFF FINAL Differential Comment Prothrombin Time 10.4 Prothromb Time International Ratio 1.0 Activated Partial Thromboplast Time 27.4 Urine Color YELLOW Urine Turbidity CLEAR Urine pH 5.5 Urine Specific [place] 1.034 Urine Protein 30 Urine Glucose (UA) 1000 Urine Ketones 40 Urine Occult Blood SMALL Urine Nitrite NEG Urine Bilirubin NEG Urine Urobilinogen 2.0 Urine Leukocyte Esterase NEG Urine RBC 5 Microscopic Urinalysis Comment CULT NOT INDICATED Blood Urea Nitrogen 31 Creatinine 1.31 Random Glucose 468 Total Protein 8.0 Albumin 2.8 Calcium Level 10.4 Alkaline Phosphatase 132 Aspartate Amino Transf (AST/SGOT) 33 Alanine Aminotransferase (ALT/SGPT) 30 Total Bilirubin 0.7 Sodium Level 131 Potassium Level 3.7 Chloride Level 89 Carbon Dioxide Level 26.9 Anion Gap 15 Estimat Glomerular Filtration Rate 58 Lactic Acid Level 3.2 Lipase 47 Date/Time Source Procedure Growth Status 12/01/17 15:00 Blood Peripheral Aerobic Blood Culture Pending Received 12/01/17 15:00 Blood Peripheral Anaerobic Blood Culture Pending Received 12/01/17 14:45 Wound Skin Gram Stain Pending Received 12/01/17 14:45 Wound Skin Wound Culture Pending Received Result Diagram: 12/01/17 1520 12/01/17 1520 Imaging Last 72 hours Impressions Chest X-Ray 12/01/17 1444 Signed Impressions: CONCLUSION: No evidence of acute cardiopulmonary disease. Foot X-Ray 12/01/17 0000 Signed Impressions: CONCLUSION: 1. Marked worsening Lisfranc arthropathy and instability, neuropathic versus i nfectious. 2. Periosteal reaction of the metatarsals, especially the fourth and fifth, al so of concern for osteomyelitis. 3. Extensive soft tissue swelling and ulceration centered around the mid foot . Assessment and Plan Assessment and Plan Right foot abscess/infection Patient consented to bedside I&D Right foot after discussion of risks, benefits, alternatives to treatment. Local anesthesia with 10mL 2% lidocaine plain. Right foot area of drainage to plantar central midfoot probed to extend medially and dorsally at level of midfoot dorsally. Small incision made with # 11 blade over medial TMT joint area. Copious purulent drainage drained from thearea, followed by irrigation and packing with 1/2'' iodoform gauze packing and dry sterile dressing. Deep Culture taken of wound. Continue IV antibiotics Plan to OR saturday with Dr Huber for I&D R foot with likely bone biopsy to determine osteomyelitis vs charcot and guide treatment. MRI R foot with and without contrast pending NPO after midnight Saturday night Demetris Duffy DPM Dec 01, 2017 17:00
[2017-12-01] MEDS ORDERED: GADODIAMIDE PF 287 MG/ML 20 ML VIAL (for RAD MRI) IVCONTRAST ONE (17:13)
[2017-12-01] MEDS ORDERED: LIDOCAINE HCL 1% PF 30 ML VIAL ONE (17:38)
--- NOTE | 2017-12-01 17:39 | RADRPT ---
EXAM DATE: 12/01/2017 5:24 PM EDT AGE/SEX: 52 years / Male INDICATIONS: . Mid foot infection. CLINICAL DATA: This is the patient's initial encounter. Patient reports that signs and symptoms have been present for 1 day and indicates a pain score of 0/10. MEDICAL/SURGICAL HISTORY: Diabetes mellitus type II. Hypertension. Cardiovascular disease. CA BG. Cholecystectomy. COMPARISON: No prior [facility] exams available for comparison. TECHNIQUE: Multiplanar, multisequence MRI examination was performed without contrast and after th e intravenous administration of 16 ml Omniscan (gadodiamide) single exam dose. FINDINGS: Severe destructive arthropathy that is presumably infectious is seen of Lisfranc joint. There is dest ruction and signal changes of multiple bones consistent with osteomyelitis. This diffusely involves t he cuneiforms, the navicular and the cuboid. The proximal portions of each metatarsal are involved. T here is near diffuse involvement of the third metatarsal, including the head. There is also involveme nt of the distal halves of the calcaneus and talus. Calcaneal signal changes are plantar predominant. . Signal changes of the proximal shaft of the fourth toe are also of concern for osteomyelitis. Other rolle, the toes appear spared. Organized fluid and air collections are seen dorsal to Lisfranc joint and measuring roughly 2.0 x 4.0 x 3.9 cm. There is also a multiloculated, rim-enhancing fluid collection containing bubbles of gas p lantar to the proximal shafts of the first and second metatarsals that measures approximately 25 mm. This appears to be draining to the overlying skin medially. A rim-enhancing fluid collection is seen between the mid shafts of the second and third metatarsals, measures approximately 15 mm in size. 12 mm rim-enhancing fluid collection seen plantar/medial to the distal calcaneus and also appears to be draining to the plantar skin. Large amount of fluid seen in the peroneal tendon sheaths, potentially infected. CONCLUSION: 1. Destructive arthropathy of Lisfranc joint, presumably infectious. 2. Associated osteomyelitis diffusely of the cuneiforms, cuboid and navicular. Extensive osteomyelit is of the metatarsals as delineated above. There is also osteomyelitis of the distal halves of the ta pérez and calcaneus. Suspected osteomyelitis of the proximal phalanx of the fourth toe as well. 3. Multiple fluid collections typical of abscesses as described above, some draining to the skin. Electronically signed by: Magnus Steele MD 12/01/2017 5:38 PM EDT
[2017-12-01] MEDS ORDERED: LIDOCAINE HCL 1% 50 ML VIAL INFIL ONE (17:45)
[2017-12-01] MEDS: GABAPENTIN 300 MG CAP PO SCH ×2 (17:50→19:24)
[2017-12-01] MEDS ORDERED: Vancomycin Consult Pharmacy 1 EA OTHER SCH (18:00)
[2017-12-01] MEDS ORDERED: ACETAMINOPHEN 325 MG TAB PO PRN (18:00)
--- NOTE | 2017-12-01 18:16 | HHI.HP ---
[facility] No Primary Care Physician Admission Diagnosis osteomyelitis Diagnoses: (1) Right foot infection Diagnosis: Principal Chief Complaint: right foot infection Travel History International Travel<30 Days: No Contact w/Intl Traveler <30 Da: No Traveled to Known Affected Are: No Sepsis Criteria SIRS Criteria (2 or more): Temp > 100.9 or < 96.8, Heart rate over 90 Severe Sepsis (+one): Lactate >2 Criteria Outcome: Meets severe sepsis criteria History of Present Illness patient is a 52 y/o male with history of diabetes mellitus, CAD, hypertension, dyslipidemia, who presented to ER with infection of the right foot. he says that the infection started about four weeks ago after he was told that he he had Charcot joint. it started with some swelling of the right foot. it gradually got worse and in fact started to drain a bit three days ago. he had some fever and night sweats at home. pain at the time of my evaluation was mild to moderate. Review of Systems Constitutional: COMPLAINS OF: Fever, Night Sweats, DENIES: Weight loss, Chills Eyes: DENIES: Blurred vision, Diplopia, Vision loss, Double Vision Ears, nose, mouth, throat: DENIES: Tinnitus, Vertigo, Throat pain, Epistaxis Respiratory: DENIES: Apneas, Cough, Snoring, Wheezing, Hemoptysis, Sputum production, Shortness of breath Cardiovascular: DENIES: Chest pain, Palpitations, Syncope, Dyspnea on Exertion , PND, Lower Extremity Edema, Orthopnea, Claudication Gastrointestinal: DENIES: Abdominal pain, Black stools, Bloody stools, Constipation, Diarrhea, Nausea, Vomiting, Difficulty Swallowing, Anorexia Genitourinary: DENIES: Urinary frequency, Urgency, Hematuria, Dysuria Musculoskeletal: COMPLAINS OF: Joint pain (right foot.), DENIES: Muscle aches, Stiffness, Joint Swelling Integumentary: DENIES: Rash Neurologic: DENIES: Abnormal gait, Headache, Localized weakness, Paresthesias, Seizures, Speech Problems, Tremor, Poor Balance Psychiatric: DENIES: Anxiety, Confusion, Mood changes, Depression, Hallucinations, Agitation, Suicidal Ideation, Homicidal Ideation, Delusions Past Family Social History Past Medical History CAD/ hypertension/ diabetes / dyslipidemia. Past Surgical History CABG Reported Medications Novolin N Inj (Insulin Human NPH) 1,000 Unit/10 Ml Vial 60 Units SQ DAILY NEB Novolin N Inj (Insulin Human NPH) 1,000 Unit/10 Ml Vial 20 Units SQ HS Novolin R Inj (Insulin Human Regular) 1,000 Unit/10 Ml Vial 20 Units SQ ACHS Max dose at bedtime:( )units; sugars less than 70,(0) units; sugars 150-199,(2)unit; sugars 200-249,(4)units; sugars 250-299,(7) units; sugars 300-349,(10)units; sugars greater than 349,(12)units Potassium Chloride ER (Potassium Chloride) 10 Meq Cap 10 Meq PO HS Clopidogrel (Clopidogrel Bisulfate) 75 Mg Tab 75 Mg PO DAILY Gabapentin 600 Mg Tab 600 Mg PO QID Metoprolol Tartrate 50 Mg Tab 50 Mg PO BID Ecotrin Low Strength (Aspirin) 81 Mg Tabdr 81 Mg PO DAILY Lovastatin 40 Mg Tab 40 Mg PO BID Allergies: Coded Allergies: lisinopril (Verified Allergy, Severe, Anaphylaxis, 12/01/17) Itching, lip swelling, throat closing. 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 Ordered Medications Inpatient Medications Acetaminophen (Tylenol) 650 mg ONCE ONCE PO Last administered on 12/01/17at 15: 00; Start 12/01/17 at 14:45; Stop 12/01/17 at 14:47; Status DC Dextrose (D50w (Vial) Inj) 50 ml UNSCH PRN IV PUSH HYPOGLYCEMIA-SEE COMMENTS; Start 12/01/17 at 17:00 Gabapentin (Neurontin) 600 mg QID PO Last administered on 12/01/17at 17:50; Start 12/01/17 at 18:00 Glucagon (Glucagon Inj) 1 mg UNSCH PRN OTHER HYPOGLYCEMIA-SEE COMMENTS; Start 12/01/17 at 17:00 Insulin Aspart (NovoLOG SUPPLEMENTAL SCALE) 1 ACHS SLIDING SCALE SQ ; Start 12/01/17 at 17:00 Insulin Human Regular (NovoLIN R INJ) 6 units ONCE ONCE IV PUSH Last administered on 12/01/17at 16:40; Start 12/01/17 at 16:30; Stop 12/01/17 at 16:31; Status DC Insulin Human NPH (NovoLIN N INJ) 60 units DAILY NEB SQ ; Start 12/02/17 at 08: 00 Ketorolac Tromethamine (Toradol Inj) 30 mg ONCE ONCE IV PUSH Last administered on 12/01/17at 16:40; Start 12/01/17 at 16:30; Stop 12/01/17 at 16:31; Status DC Lidocaine HCl (Xylocaine 1% Inj (50 ml)) 10 ml ONCE ONCE INFIL ; Start 12/01/17 at 17:45; Stop 12/01/17 at 17:46; Status DC Metoprolol Tartrate (Lopressor) 50 mg BID PO ; Start 12/01/17 at 21:00 Morphine Sulfate (Morphine Inj) 4 mg ONCE ONCE IV PUSH Last administered on 12/01/17at 16:40; Start 12/01/17 at 16:30; Stop 12/01/17 at 16:31; Status DC Piperacillin Sod/ Tazobactam Sod 50 ml @ 100 mls/hr ONCE ONCE IV Last administered on 12/01/17at 14:59; Start 12/01/17 at 14:45; Stop 12/01/17 at 15:14; Status DC Pravastatin Sodium (Pravachol) 40 mg BID PO ; Start 12/01/17 at 21:00 Sodium Chloride 1,000 ml @ 999 mls/hr BOLUS ONCE IV Last administered on at 16:39; Start 12/01/17 at 16:30; Stop 12/01/17 at 17:30; Status DC Vancomycin HCl 1250 mg/Sodium Chloride 262.5 ml @ 250 mls/hr ONCE ONCE IV Last administered on 12/01/17at 16:13; Start 12/01/17 at 14:45; Stop 12/01/17 at 15: 47; Status DC Social History doesn't smoke. drinks rarely. Physical Exam Vital Signs Vital Signs Date Time Temp Pulse Resp B/P (MAP) Pulse Ox O2 Delivery O2 Flow Rate FiO2 12/01/17 17:46 100.0 86 16 124/68 (86) 99 Room Air 12/01/17 17:43 16 12/01/17 16:45 16 12/01/17 16:00 102.1 96 18 122/66 (84) 98 Room Air 12/01/17 15:06 96 18 144/72 (96) 97 Room Air 12/01/17 15:05 18 97 Room Air 12/01/17 15:05 97 Room Air 12/01/17 15:05 16 12/01/17 14:55 96 18 98 Room Air 12/01/17 14:29 102.2 95 20 171/79 (109) 98 Physical Exam GENERAL: This is a well-nourished, well-developed patient, in no apparent distress. SKIN: No rashes, ecchymoses or lesions. Cool and dry. HEAD: Atraumatic. Normocephalic. No temporal or scalp tenderness. EYES: Pupils equal round and reactive. Extraocular motions intact. No scleral icterus. No injection or drainage. ENT: Nose without bleeding, purulent drainage or septal hematoma. Throat without erythema, tonsillar hypertrophy or exudate. Uvula midline. Airway patent. NECK: Trachea midline. No JVD or lymphadenopathy. Supple, nontender, no meningeal signs. CARDIOVASCULAR: Regular rate and rhythm without murmurs, gallops, or rubs. RESPIRATORY: Clear to auscultation. Breath sounds equal bilaterally. No wheezes , rales, or rhonchi. GASTROINTESTINAL: Abdomen soft, non-tender, nondistended. No hepato-splenomegaly , or palpable masses. No guarding. MUSCULOSKELETAL: Extremities without clubbing, cyanosis, or edema. No joint tenderness, effusion, or edema noted. No calf tenderness. Negative Homans sign bilaterally. NEUROLOGICAL: Awake and alert. Cranial nerves II through XII intact. Motor and sensory grossly within normal limits. Five out of 5 muscle strength in all muscle groups. Normal speech. Laboratory Laboratory Tests Test 12/01/17 15:20 White Blood Count 6.2 Red Blood Count 5.26 Hemoglobin 12.1 Hematocrit 37.9 Mean Corpuscular Volume 72.0 Mean Corpuscular Hemoglobin 23.1 Mean Corpuscular Hemoglobin Concent 32.1 Red Cell Distribution Width 17.7 Platelet Count 156 Mean Platelet Volume 9.4 Neutrophils (%) (Auto) 90.3 Lymphocytes (%) (Auto) 4.7 Monocytes (%) (Auto) 4.8 Eosinophils (%) (Auto) 0.1 Basophils (%) (Auto) 0.1 Neutrophils # (Auto) 5.6 Lymphocytes # (Auto) 0.3 Monocytes # (Auto) 0.3 Eosinophils # (Auto) 0.0 Basophils # (Auto) 0.0 CBC Comment DIFF FINAL Differential Comment Erythrocyte Sedimentation Rate 59 Prothrombin Time 10.4 Prothromb Time International Ratio 1.0 Activated Partial Thromboplast Time 27.4 Urine Color YELLOW Urine Turbidity CLEAR Urine pH 5.5 Urine Specific [place] 1.034 Urine Protein 30 Urine Glucose (UA) 1000 Urine Ketones 40 Urine Occult Blood SMALL Urine Nitrite NEG Urine Bilirubin NEG Urine Urobilinogen 2.0 Urine Leukocyte Esterase NEG Urine RBC 5 Microscopic Urinalysis Comment CULT NOT INDICATED Blood Urea Nitrogen 31 Creatinine 1.31 Random Glucose 468 Total Protein 8.0 Albumin 2.8 Calcium Level 10.4 Alkaline Phosphatase 132 Aspartate Amino Transf (AST/SGOT) 33 Alanine Aminotransferase (ALT/SGPT) 30 Total Bilirubin 0.7 Sodium Level 131 Potassium Level 3.7 Chloride Level 89 Carbon Dioxide Level 26.9 Anion Gap 15 Estimat Glomerular Filtration Rate 58 Lactic Acid Level 3.2 Lipase 47 Date/Time Source Procedure Growth Status 12/01/17 15:00 Blood Peripheral Aerobic Blood Culture Pending Received 12/01/17 15:00 Blood Peripheral Anaerobic Blood Culture Pending Received 12/01/17 14:45 Wound Skin Gram Stain Pending Received 12/01/17 14:45 Wound Skin Wound Culture Pending Received Result Diagram: 12/01/17 1520 12/01/17 1520 Imaging Last Impressions Chest X-Ray 12/01/17 1444 Signed Impressions: CONCLUSION: No evidence of acute cardiopulmonary disease. Foot X-Ray 12/01/17 0000 Signed Impressions: CONCLUSION: 1. Marked worsening Lisfranc arthropathy and instability, neuropathic versus i nfectious. 2. Periosteal reaction of the metatarsals, especially the fourth and fifth, al so of concern for osteomyelitis. 3. Extensive soft tissue swelling and ulceration centered around the mid foot . Foot MRI 12/01/17 0000 Signed Impressions: CONCLUSION: 1. Destructive arthropathy of Lisfranc joint, presumably infectious. 2. Associated osteomyelitis diffusely of the cuneiforms, cuboid and navicular. Extensive osteomyelitis of the metatarsals as delineated above. There is also osteomyelitis of the distal halves of the talus and calcaneus. Suspected osteom yelitis of the proximal phalanx of the fourth toe as well. 3. Multiple fluid collections typical of abscesses as described above, some dr rose to the skin. Caprini VTE Risk Assessment Caprini VTE Risk Assessment: Mod/High Risk (score >= 2) Caprini Risk Assessment Model Point Value = 1 Point Value = 2 Point Value = 3 Point Value = 5 Age 41-60 Minor surgery BMI > 25 kg/m2 Swollen legs Varicose veins or History of unexplained or recurrent spontaneous Oral contraceptives or hormone replacement Sepsis (< 1 month) Serious lung disease, including pneumonia (< 1 month) Abnormal pulmonary function Acute myocardial infarction Congestive heart failure (< 1 month) History of inflammatory bowel disease Medical patient at bed rest Age 61-74 Arthroscopic surgery Major open surgery (> 45 min) Laparoscopic surgery (> 45 min) Malignancy Confined to bed (> 72 hours) Immobilizing plaster cast Central venous access Age >= 75 History of VTE Family history of VTE Factor V Leiden Prothrombin 05250H Lupus anticoagulant Anticardiolipin antibodies Elevated serum homocysteine Heparin-induced thrombocytopenia Other congenital or acquired thrombophilia Stroke (< 1 month) Elective arthroplasty Hip, pelvis, or leg fracture Acute spinal cord injury (< 1 month) Prophylaxis Regimen Total Risk Factor Score Risk Level Prophylaxis Regimen 0-1 Low Early ambulation 2 Moderate Order ONE of the following: *Sequential Compression Device (SCD) *Heparin 5000 units SQ BID 3-4 Higher Order ONE of the following medications: *Heparin 5000 units SQ TID *Enoxaparin/Lovenox 40 mg SQ daily (WT < 150 kg, CrCl > 30 mL/min) *Enoxaparin/Lovenox 30 mg SQ daily (WT < 150 kg, CrCl > 10-29 mL/min) *Enoxaparin/Lovenox 30 mg SQ BID (WT < 150 kg, CrCl > 30 mL/min) AND/OR *Sequential Compression Device (SCD) 5 or more Highest Order ONE of the following medications: *Heparin 5000 units SQ TID (Preferred with Epidurals) *Enoxaparin/Lovenox 40 mg SQ daily (WT < 150 kg, CrCl > 30 mL/min) *Enoxaparin/Lovenox 30 mg SQ daily (WT < 150 kg, CrCl > 10-29 mL/min) *Enoxaparin/Lovenox 30 mg SQ BID (WT < 150 kg, CrCl > 30 mL/min) AND *Sequential Compression Device (SCD) Assessment and Plan Assessment and Plan A/P -severe sepsis due to right foot osteomyelitis s/p I/D at the bedside by podiatry- plan for bone biopsy in OR- continue with IV antibiotics- follow the cultures. will consult ID. -acute kidney injury; start on IV fluid and monitor the renal function; BMP tomorrow. -diabetes mellitus; resume NPH- start on accu-check with SSI. -CAD- s/p CABG; resume aspirin and plavix ( antiplatelet therapy was d/w ; suggested that the antiplatelets to be continued at this time). -hypertension/ dyslipidemia; resume home meds. -DVT prophylaxis; pending podiatry surgical intervention. Discussed Condition With ER physician, the patient, RN and . Physician Certification 2 Midnight Certification Type: Admission for Inpatient Services Order for Inpatient Services The services are ordered in accordance with Medicare regulations or non- Medicare payer requirements, as applicable. In the case of services not specified as inpatient-only, they are appropriately provided as inpatient services in accordance with the 2-midnight benchmark. Estimated LOS (days): 2 days is the estimated time the patient will need to remain in the hospital, assuming treatment plan goals are met and no additional complications. Post-Hospital Plan: Not yet determined Sylvain Ruiz MD Dec 01, 2017 18:16
[2017-12-01] MEDS: METOPROLOL TARTRATE 50 MG TAB PO SCH (19:24)
[2017-12-01] MEDS: PRAVASTATIN SOD 40 MG TAB PO SCH (19:24)
[2017-12-01] MEDS: ACETAMINOPHEN/HYDROcodone 325 MG/5 MG TAB PO PRN ×2 (19:24→23:53)
[2017-12-01] MEDS: SODIUM CHLOR 0.9% 1000 ML INJ 1,000 ML IV SCH (19:25)
[2017-12-01] MEDS: INSULIN HUMAN NPH 1,000 UNITS/10 ML VIAL SQ SCH (20:21)
[2017-12-01] MEDS: PIPERACIL-TAZO 3.375 GM PREMIX 50 ML IV SCH (20:21)
[2017-12-02] VITALS: BP 112/59; PULSE 72; RESP 20; TEMP 100.2; O2SAT 91
[2017-12-02] MEDS ORDERED: VANCOMYCIN INJ 1,250 MG in SODIUM CHLOR 0.9% 250 ML INJ 250 ML IV SCH (04:00)
[2017-12-02] MEDS: PIPERACIL-TAZO 3.375 GM PREMIX 50 ML IV SCH ×2 (04:04→08:28)
[2017-12-02] MEDS: ACETAMINOPHEN/HYDROcodone 325 MG/5 MG TAB PO PRN ×4 (04:05→18:01)
[2017-12-02 08:00] VITALS: BP 142/76; PULSE 79; RESP 17; TEMP 101; O2SAT 91
--- NOTE | 2017-12-02 08:17 | HHI.PR ---
Subjective Remarks In bed appears in nad at this time Has pain at his left foot Says he had fevers and chills overnight no n/v/d/c. Objective Vitals Vital Signs Date Time Temp Pulse Resp B/P (MAP) Pulse Ox O2 Delivery O2 Flow Rate FiO2 12/02/17 00:00 100.2 72 20 112/59 (76) 91 12/01/17 20:00 100.9 79 20 122/64 (83) 93 12/01/17 18:40 97.8 81 16 122/76 (91) 98 12/01/17 17:46 100.0 86 16 124/68 (86) 99 Room Air 12/01/17 17:43 16 12/01/17 16:45 16 12/01/17 16:00 102.1 96 18 122/66 (84) 98 Room Air 12/01/17 15:06 96 18 144/72 (96) 97 Room Air 12/01/17 15:05 18 97 Room Air 12/01/17 15:05 97 Room Air 12/01/17 15:05 16 12/01/17 14:55 96 18 98 Room Air 12/01/17 14:29 102.2 95 20 171/79 (109) 98 I/O 12/01/17 12/01/17 12/01/17 12/02/17 12/02/17 12/02/17 07:00 15:00 23:00 07:00 15:00 23:00 Intake Total 2362.5 ml Output Total 800 ml Balance 2362.5 ml -800 ml Intake IV Total 2362.5 ml Output Urine Total 800 ml Result Diagram: 12/01/17 1520 12/01/17 1520 Imaging Last Impressions Chest X-Ray 12/01/17 1444 Signed Impressions: CONCLUSION: No evidence of acute cardiopulmonary disease. Foot X-Ray 12/01/17 0000 Signed Impressions: CONCLUSION: 1. Marked worsening Lisfranc arthropathy and instability, neuropathic versus i nfectious. 2. Periosteal reaction of the metatarsals, especially the fourth and fifth, al so of concern for osteomyelitis. 3. Extensive soft tissue swelling and ulceration centered around the mid foot . Foot MRI 12/01/17 0000 Signed Impressions: CONCLUSION: 1. Destructive arthropathy of Lisfranc joint, presumably infectious. 2. Associated osteomyelitis diffusely of the cuneiforms, cuboid and navicular. Extensive osteomyelitis of the metatarsals as delineated above. There is also osteomyelitis of the distal halves of the talus and calcaneus. Suspected osteom yelitis of the proximal phalanx of the fourth toe as well. 3. Multiple fluid collections typical of abscesses as described above, some dr rose to the skin. Objective Remarks GENERAL: This is a well-nourished, well-developed patient, in no apparent distress. CARDIOVASCULAR: Regular rate and rhythm without murmurs, gallops, or rubs. RESPIRATORY: Clear to auscultation. Breath sounds equal bilaterally. No wheezes , rales, or rhonchi. GASTROINTESTINAL: Abdomen soft, non-tender, nondistended. No hepato-splenomegaly , or palpable masses. No guarding. MUSCULOSKELETAL: Extremities without clubbing, cyanosis, or edema. No joint tenderness, effusion, or edema noted. No calf tenderness. Negative Homans sign bilaterally. NEUROLOGICAL: Awake and alert. Cranial nerves II through XII intact. Motor and sensory grossly within normal limits. Five out of 5 muscle strength in all muscle groups. Normal speech. A/P Problem List: (1) Right foot infection ICD Code: L08.9 - Local infection of the skin and subcutaneous tissue, unspecified Assessment and Plan Severe sepsis due to right foot osteomyelitis/abscess S/p I/D at the bedside by podiatry- plan for bone biopsy in OR. Plan to OR with Dr Huber for I&D R foot with likely bone biopsy to determine osteomyelitis vs Charcot and guide treatment. NPO after midnight Saturday night as plan for OR on 12/03/17. Continue with IV antibiotics- follow the cultures. Consult ID appreciate recs I&D Right foot area of drainage to plantar central midfoot probed to extend medially and dorsally at level of midfoot dorsally. MRI R foot with and without contrast reviewed, shows osteo Acute kidney injury: start on IV fluid and monitor the renal function. Avoid nephrotoxins. BMP tomorrow. Diabetes mellitus 2 resume NPH- start on accu-check with SSI. CAD- s/p CABG: resume aspirin and plavix ( antiplatelet therapy was d/w ; suggested that the antiplatelets to be continued at this time). Hypertension HLD Stable. Monitor. Resume home meds. DVT prophylaxis per surgeon, pending podiatry surgical intervention. Discussed Condition With Patient, nurse Yesi Napier MD Dec 02, 2017 08:17
[2017-12-02] MEDS: PRAVASTATIN SOD 40 MG TAB PO SCH ×2 (08:29→19:32)
[2017-12-02] MEDS: ASPIRIN EC 81 MG TABEC PO SCH (08:29)
[2017-12-02] MEDS: METOPROLOL TARTRATE 50 MG TAB PO SCH ×2 (08:29→19:32)
[2017-12-02] MEDS: CLOPIDOGREL 75 MG TAB PO SCH (08:29)
[2017-12-02] MEDS: GABAPENTIN 300 MG CAP PO SCH ×4 (08:29→19:32)
[2017-12-02] MEDS: INSULIN HUMAN NPH 1,000 UNITS/10 ML VIAL SQ SCH ×2 (08:30→19:33)
[2017-12-02] MEDS: SODIUM CHLOR 0.9% 1000 ML INJ 1,000 ML IV SCH ×2 (08:31→16:06)
[2017-12-02] MEDS: INSULIN ASPART SUPPLEMENTAL SCALE SQ SCH ×4 (08:31→19:37)
[2017-12-02 10:42] LABS: AUTOMATED NEUTROPHIL # 4.8 TH/MM3 (1.8-7.7); BASOPHIL % 0.1 % (0.0-2.0); EOSINOPHIL # 0.1 TH/MM3 (0-0.4); EOSINOPHIL % 1.1 % (0.0-4.0); HEMATOCRIT 31.8 % (39.0-51.0); HEMOGLOBIN 10.3 GM/DL (13.0-17.0); LYMPH % 7.7 % (9.0-44.0); LYMPHOCYTE # 0.5 TH/MM3 (1.0-4.8); MEAN CELL VOLUME 70.5 FL (80.0-100.0); MEAN CORPUSCULAR HEMOGLOBIN 22.9 PG (27.0-34.0); MEAN CORPUSCULAR HGB CONC 32.5 % (32.0-36.0); MEAN PLATELET VOLUME 8.7 FL (7.0-11.0); MONOCYTE # 0.8 TH/MM3 (0-0.9); NEUT % 78.1 % (16.0-70.0); PLATELET COUNT 131 TH/MM3 (150-450); RED BLOOD COUNT 4.51 MIL/MM3 (4.50-5.90); RED CELL DISTRIBUTION WIDTH 17.4 % (11.6-17.2); WHITE BLOOD COUNT 6.1 TH/MM3 (4.0-11.0)
[2017-12-02 11:09] LABS: BICARBONATE 28.2 MEQ/L (21.0-32.0); CALCIUM 9.3 MG/DL (8.5-10.1); CREATININE 0.82 MG/DL (0.60-1.30)
[2017-12-02 12:00] VITALS: BP 130/68; PULSE 56; RESP 18; TEMP 99.3; O2SAT 94
--- NOTE | 2017-12-02 13:11 | PD.CONS ---
History of Present Illness Service Infectious Disease Consult Requested By Dr Ruiz Reason for Consult Evaluate patient with diabetic foot infection Primary Care Physician No Primary Care Physician Diagnoses: History of Present Illness Patient seen and examined. Records reviewed. Patient is a 52-year-old male, with known diabetes, started having problem about 5 days ago when he started having nausea and vomiting. Due to the vomiting, his p.o. intake has been poor. One day prior to admission, he developed increasing swelling, redness, and drainage from the wound on the bottom of his right foot. He apparently started having problem with that foot around the first week of October. He went to the emergency room, and had evaluation , and he was told that he is developing a Charcot foot. He was referred to a clipper automatic, and around November 07 he was seen, and there was some area on the midfoot that the clipper automatic did some debridement. There was no mention that there was any concern for infection. The day prior to admission, he started noticing swelling, redness, and increasing pain. It also started draining, so the patient presented to the hospital for further evaluation and treatment. Patient has had fever since admission. His WBC is normal. His sed rate is 56. Podiatry saw the patient, and did some bedside debridement, and patient is scheduled for more surgery tomorrow in the operating room. Patient stated that he is still having problem with nausea and vomiting. He has not had any bowel movement since he has very poor p.o. intake. Denies any sore throat and at or any respiratory complaint. Denies any urinary complaints. 2 blood cultures done on admission are now reported as growing Streptococcus. Patient is on vancomycin and Zosyn. Infectious disease consultation has been requested to evaluate the patient. Review of Systems Constitutional: COMPLAINS OF: Fever, Chills, Night Sweats Eyes: DENIES: Eye pain Ears, nose, mouth, throat: DENIES: Nasal discharge, Oral lesions, Throat pain, Sinus Pain Respiratory: DENIES: Cough, Shortness of breath Cardiovascular: COMPLAINS OF: Lower Extremity Edema, DENIES: Chest pain, Palpitations, Dyspnea on Exertion Gastrointestinal: COMPLAINS OF: Constipation, Nausea, Vomiting, DENIES: Abdominal pain, Difficulty Swallowing Genitourinary: DENIES: Urgency, Dysuria Musculoskeletal: COMPLAINS OF: Joint pain, Joint Swelling Integumentary: DENIES: Pruritus, Rash Hematologic/lymphatic: DENIES: Lymphadenopathy Neurologic: DENIES: Localized weakness Psychiatric: DENIES: Hallucinations Past Family Social History Allergies: Coded Allergies: lisinopril (Verified Allergy, Severe, Anaphylaxis, 12/01/17) Itching, lip swelling, throat closing. 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 abscess 2017 Lap cholecystectomy 2003 Active Ordered Medications Current Medications Medications (Trade) Dose Ordered Sig/Ronaldo Route Start Time Stop Time Status Last Admin (D50w (Vial) Inj) 50 ml UNSCH PRN IV PUSH 12/01/17 17:00 (Glucagon Inj) 1 mg UNSCH PRN OTHER 12/01/17 17:00 (NovoLOG SUPPLEMENTAL SCALE) 1 ACHS SLIDING SCALE SQ 12/01/17 17:00 12/02/17 11:22 (Neurontin) 600 mg QID PO 12/01/17 18:00 12/02/17 11:22 (NovoLIN N INJ) 20 units HS SQ 12/01/17 21:00 12/01/17 20:21 (NovoLIN N INJ) 60 units DAILY NEB SQ 12/02/17 08:00 12/02/17 08:30 (Pravachol) 40 mg BID PO 12/01/17 21:00 12/02/17 08:29 (Lopressor) 50 mg BID PO 12/01/17 21:00 12/02/17 08:29 (Ecotrin Ec) 81 mg DAILY PO 12/02/17 09:00 12/02/17 08:29 (Plavix) 75 mg DAILY PO 12/02/17 09:00 12/02/17 08:29 Pharmacy Profile Note 0 ml @ 0 mls/hr UNSCH OTHER 12/01/17 18:00 Piperacillin Sod/ Tazobactam Sod 50 ml @ 100 mls/hr Q6H IV 12/01/17 21:00 12/02/17 08:28 (Tylenol) 650 mg Q4H PRN PO 12/01/17 18:00 12/02/17 09:13 ([place] 5-325 Mg) 1 tab Q4H PRN PO 12/01/17 18:00 ([place] 5-325 Mg) 2 tab Q4H PRN PO 12/01/17 18:00 12/02/17 08:29 Sodium Chloride 1,000 ml @ 100 mls/hr Q10H IV 12/01/17 20:00 12/02/17 08:31 (Morphine Inj) 2 mg Q4H PRN IV PUSH 12/01/17 18:30 Vancomycin HCl 1500 mg/Sodium Chloride 515 ml @ 257.5 mls/ hr Q12H IV 12/02/17 14:00 [place] [place] Info[place] SPECIFIC LAB TO BE ... ONCE ONCE .XX 12/03/17 13:45 12/03/17 13:46 Family History Non-contributory Social History No smoking Rare ETOH Denies illicit drugs Physical Exam Vital Signs Vital Signs Date Time Temp Pulse Resp B/P (MAP) Pulse Ox O2 Delivery O2 Flow Rate FiO2 12/02/17 08:00 101.0 79 17 142/76 (98) 91 12/02/17 00:00 100.2 72 20 112/59 (76) 91 12/01/17 20:00 100.9 79 20 122/64 (83) 93 12/01/17 18:40 97.8 81 16 122/76 (91) 98 12/01/17 17:46 100.0 86 16 124/68 (86) 99 Room Air 12/01/17 17:43 16 12/01/17 16:45 16 12/01/17 16:00 102.1 96 18 122/66 (84) 98 Room Air 12/01/17 15:06 96 18 144/72 (96) 97 Room Air 12/01/17 15:05 18 97 Room Air 12/01/17 15:05 97 Room Air 12/01/17 15:05 16 12/01/17 14:55 96 18 98 Room Air 12/01/17 14:29 102.2 95 20 171/79 (109) 98 Physical Exam GENERAL: Patient is a well-nourished, well-developed male, awake and alert, not in respiratory distress. SKIN: Warm and dry. No generalized rash, no ecchymoses and no evidence of embolic lesions. HEAD: Atraumatic. Normocephalic. No temporal wasting, or tenderness. EYES: [place] conjunctiva. No petechia or hemorrhage. Pupils equal, round and reactive to light. Extraocular movements full and intact. No scleral icterus. No injection or drainage. EARS, NOSE AND THROAT: Nose without bleeding or purulent nasal discharge. No sinus tenderness. Mucous membranes pink and moist. No oral lesions noted. No exudate. No oral thrush. NECK: Trachea midline. Supple and not tender, no meningeal signs CARDIOVASCULAR: Regular rate and rhythm. No murmurs, rubs or gallops heard RESPIRATORY: Clear to auscultation. Breath sounds equal bilaterally. No rales , wheezing or rhonchi ABDOMEN: Soft, non-tender, nondistended. Bowel sounds present and normoactive. No guarding. No rebound. No organomegaly. EXTREMITIES: No clubbing, cyanosis. R foot is swollen, has dressing in place with breakthrough blood in the dressing. Some erytghema on dorsum of foot with pitting edema. There is also mild erythema in R ankle area. LLE - normal. No calf tenderness. Well perfused and warm. NEUROLOGICAL: Awake and alert. Cranial nerves grossly intact. Motor grossly within normal limits. PSYCHIATRIC: Normal affect, calm and cooperative. LINE: No evidence of infection Laboratory Laboratory Tests Test 12/01/17 15:20 12/01/17 18:10 12/01/17 21:33 12/02/17 10:18 White Blood Count 6.2 6.1 Red Blood Count 5.26 4.51 Hemoglobin 12.1 10.3 Hematocrit 37.9 31.8 Mean Corpuscular Volume 72.0 70.5 Mean Corpuscular Hemoglobin 23.1 22.9 Mean Corpuscular Hemoglobin Concent 32.1 32.5 Red Cell Distribution Width 17.7 17.4 Platelet Count 156 131 Mean Platelet Volume 9.4 8.7 Neutrophils (%) (Auto) 90.3 78.1 Lymphocytes (%) (Auto) 4.7 7.7 Monocytes (%) (Auto) 4.8 13.0 Eosinophils (%) (Auto) 0.1 1.1 Basophils (%) (Auto) 0.1 0.1 Neutrophils # (Auto) 5.6 4.8 Lymphocytes # (Auto) 0.3 0.5 Monocytes # (Auto) 0.3 0.8 Eosinophils # (Auto) 0.0 0.1 Basophils # (Auto) 0.0 0.0 CBC Comment DIFF FINAL DIFF FINAL Differential Comment Erythrocyte Sedimentation Rate 59 Prothrombin Time 10.4 Prothromb Time International Ratio 1.0 Activated Partial Thromboplast Time 27.4 Urine Color YELLOW Urine Turbidity CLEAR Urine pH 5.5 Urine Specific [place] 1.034 Urine Protein 30 Urine Glucose (UA) 1000 Urine Ketones 40 Urine Occult Blood SMALL Urine Nitrite NEG Urine Bilirubin NEG Urine Urobilinogen 2.0 Urine Leukocyte Esterase NEG Urine RBC 5 Microscopic Urinalysis Comment CULT NOT INDICATED Blood Urea Nitrogen 31 20 Creatinine 1.31 0.82 Random Glucose 468 271 Total Protein 8.0 Albumin 2.8 Calcium Level 10.4 9.3 Alkaline Phosphatase 132 Aspartate Amino Transf (AST/SGOT) 33 Alanine Aminotransferase (ALT/SGPT) 30 Total Bilirubin 0.7 Sodium Level 131 135 Potassium Level 3.7 3.2 Chloride Level 89 97 Carbon Dioxide Level 26.9 28.2 Anion Gap 15 10 Estimat Glomerular Filtration Rate 58 99 Lactic Acid Level 3.2 2.0 1.5 1.2 Lipase 47 Date/Time Source Procedure Growth Status 12/01/17 15:00 Blood Peripheral Aerobic Blood Culture - Preliminary NO GROWTH IN 1 DAY Resulted 12/01/17 15:00 Anaerobic Blood Culture - Preliminary Gram Positive Cocci Resulted 12/01/17 17:50 Wound Foot Gram Stain - Final Resulted 12/01/17 17:50 Wound Foot Wound Culture Pending Resulted Result Diagram: 12/02/17 1018 12/02/17 1018 Imaging RADIOLOGY STUDIES/FILMS REVIEWED Chest X-Ray 12/01/17 1444 Signed Impressions: CONCLUSION: No evidence of acute cardiopulmonary disease. Foot X-Ray 12/01/17 0000 Signed Impressions: CONCLUSION: 1. Marked worsening Lisfranc arthropathy and instability, neuropathic versus i nfectious. 2. Periosteal reaction of the metatarsals, especially the fourth and fifth, al so of concern for osteomyelitis. 3. Extensive soft tissue swelling and ulceration centered around the mid foot . Foot MRI 12/01/17 0000 Signed Impressions: CONCLUSION: 1. Destructive arthropathy of Lisfranc joint, presumably infectious. 2. Associated osteomyelitis diffusely of the cuneiforms, cuboid and navicular. Extensive osteomyelitis of the metatarsals as delineated above. There is also osteomyelitis of the distal halves of the talus and calcaneus. Suspected osteom yelitis of the proximal phalanx of the fourth toe as well. 3. Multiple fluid collections typical of abscesses as described above, some dr rose to the skin. Assessment and Plan Assessment and Plan IMPRESSION Sepsis, Strep, present on admission due to DFI R Diabetic foot infection R, has Charcot foot, ?abscess, ?osteo DM Renal insufficiency due to sepsis, and dehydration, resolved Nausea and Vomiting, ?has diabetic gastroparesis RECOMMENDATION Repeat 2 BC today Get echo OR plans noted for tomorrow Continue Vanco Continue Zosyn Follow C/S and adjust Abx I will determine course of Abx depending on results of work-up and surgical intervention done Follow temps Monitor progress I will follow along with you Thank you for this consultation Discussed Condition With Explained plan to the patient Noemí Amador MD Dec 02, 2017 13:11
[2017-12-02] MEDS: VANCOMYCIN INJ 1,500 MG in SODIUM CHLORID 0.9% 500 ML INJ 500 ML IV SCH (14:51)
[2017-12-02 16:00] VITALS: BP 132/73; PULSE 71; RESP 16; TEMP 99.3; O2SAT 93
[2017-12-02] MEDS: PIPERACIL-TAZO 4.5 GM PREMIX 100 ML IV SCH ×2 (16:06→21:32)
[2017-12-02] MEDS: MORPHINE SULFATE 4 MG/ML INJ IV PUSH PRN (19:33)
--- NOTE | 2017-12-02 19:37 | HHI.PR ---
Subjective Remarks Patient seen bedside with son. Reports N,V. States he has been weight bearing, he is trying to keep off of it as much as possible. Objective Vital Signs Date Time Temp Pulse Resp B/P (MAP) Pulse Ox O2 Delivery O2 Flow Rate FiO2 12/02/17 16:00 99.3 71 16 132/73 (92) 93 12/02/17 12:00 99.3 56 18 130/68 (88) 94 12/02/17 08:00 101.0 79 17 142/76 (98) 91 12/02/17 00:00 100.2 72 20 112/59 (76) 91 12/01/17 20:00 100.9 79 20 122/64 (83) 93 I/O 12/01/17 12/01/17 12/01/17 12/02/17 12/02/17 12/02/17 07:00 15:00 23:00 07:00 15:00 23:00 Intake Total 2362.5 ml 362.5 ml 1590 ml Output Total 800 ml 1204 ml Balance 2362.5 ml -800 ml 362.5 ml 386 ml Intake Oral 375 ml IV Total 2362.5 ml 362.5 ml 1215 ml Output Urine Total 800 ml 1204 ml # Bowel Movements 0 Result Diagram: 12/02/17 1018 12/02/17 1018 Imaging Last Impressions Chest X-Ray 12/01/17 1444 Signed Impressions: CONCLUSION: No evidence of acute cardiopulmonary disease. Foot X-Ray 12/01/17 0000 Signed Impressions: CONCLUSION: 1. Marked worsening Lisfranc arthropathy and instability, neuropathic versus i nfectious. 2. Periosteal reaction of the metatarsals, especially the fourth and fifth, al so of concern for osteomyelitis. 3. Extensive soft tissue swelling and ulceration centered around the mid foot . Foot MRI 12/01/17 0000 Signed Impressions: CONCLUSION: 1. Destructive arthropathy of Lisfranc joint, presumably infectious. 2. Associated osteomyelitis diffusely of the cuneiforms, cuboid and navicular. Extensive osteomyelitis of the metatarsals as delineated above. There is also osteomyelitis of the distal halves of the talus and calcaneus. Suspected osteom yelitis of the proximal phalanx of the fourth toe as well. 3. Multiple fluid collections typical of abscesses as described above, some dr rose to the skin. Other Results Microbiology Date/Time Source Procedure Growth Status 12/02/17 14:45 Blood Peripheral Aerobic Blood Culture Pending Received 12/02/17 14:45 Blood Peripheral Anaerobic Blood Culture Pending Received 12/01/17 17:50 Wound Foot Gram Stain - Final Resulted 12/01/17 17:50 Wound Foot Wound Culture - Preliminary HEAVY GROWTH NORMAL SKIN DUSTIN AT 24HRS Resulted Objective Remarks Right foot with packing present. Sanguinous/fibrous drainage present. Mild seropurulent drainage noted. Increased edema and erythema noted to right foot. Bounding pulses noted to DP and PT. TUBE LASER OPERATOR under 3 secs and WNL to digits x5. Medications and IVs Current Medications Medications (Trade) Dose Ordered Sig/Ronaldo Route Start Time Stop Time Status Last Admin (D50w (Vial) Inj) 50 ml UNSCH PRN IV PUSH 12/01/17 17:00 (Glucagon Inj) 1 mg UNSCH PRN OTHER 12/01/17 17:00 (NovoLOG SUPPLEMENTAL SCALE) 1 ACHS SLIDING SCALE SQ 12/01/17 17:00 12/02/17 16:52 (Neurontin) 600 mg QID PO 12/01/17 18:00 12/02/17 16:52 (NovoLIN N INJ) 20 units HS SQ 12/01/17 21:00 12/01/17 20:21 (NovoLIN N INJ) 60 units DAILY NEB SQ 12/02/17 08:00 12/02/17 08:30 (Pravachol) 40 mg BID PO 12/01/17 21:00 12/02/17 08:29 (Lopressor) 50 mg BID PO 12/01/17 21:00 12/02/17 08:29 (Ecotrin Ec) 81 mg DAILY PO 12/02/17 09:00 12/02/17 08:29 (Plavix) 75 mg DAILY PO 12/02/17 09:00 12/02/17 08:29 Pharmacy Profile Note 0 ml @ 0 mls/hr UNSCH OTHER 12/01/17 18:00 (Tylenol) 650 mg Q4H PRN PO 12/01/17 18:00 12/02/17 09:13 ([place] 5-325 Mg) 1 tab Q4H PRN PO 12/01/17 18:00 ([place] 5-325 Mg) 2 tab Q4H PRN PO 12/01/17 18:00 12/02/17 18:01 Sodium Chloride 1,000 ml @ 100 mls/hr Q10H IV 12/01/17 20:00 12/02/17 16:06 (Morphine Inj) 2 mg Q4H PRN IV PUSH 12/01/17 18:30 Vancomycin HCl 1500 mg/Sodium Chloride 515 ml @ 257.5 mls/ hr Q12H IV 12/02/17 14:00 12/02/17 14:51 ([facility] [place] [facility] Ordered Lab Info) SPECIFIC LAB TO BE MADISYN... ONCE ONCE .XX 12/03/17 13:45 12/03/17 13:46 Piperacillin Sod/ Tazobactam Sod 100 ml @ 200 mls/hr Q6H IV 12/02/17 15:00 12/02/17 16:06 Assessment and Plan Assessment and Plan 52 y/o male with MRI positive for OM in talus, calc, diffusely through TMTJ Patient examined and evaluated with all questions answered WBC scan to differentiate OM versus Charcot although secondary to degree of injection in foot OM has high likelihood Discussed with patient limb loss and possible BKA due to degree of infection Due to patients co morbidities he may benefit from one definitive procedure Will await WBC scan before moving forward with any surgical intervention Will consult vascular surgery Winifred Huber DPM Dec 02, 2017 19:37
[2017-12-02 20:00] VITALS: BP 127/67; PULSE 71; RESP 18; TEMP 99.4; O2SAT 96
[2017-12-02] MEDS: ONDANSETRON ODT 4 MG TAB SL PRN (23:57)
[2017-12-03] VITALS: BP 146/72; PULSE 80; RESP 18; TEMP 102.6; O2SAT 93
[2017-12-03] MEDS: ACETAMINOPHEN/HYDROcodone 325 MG/5 MG TAB PO PRN ×5 (01:02→23:51)
[2017-12-03] MEDS: VANCOMYCIN INJ 1,500 MG in SODIUM CHLORID 0.9% 500 ML INJ 500 ML IV SCH ×2 (02:19→14:36)
[2017-12-03] MEDS: SODIUM CHLOR 0.9% 1000 ML INJ 1,000 ML IV SCH ×3 (02:19→23:51)
[2017-12-03] MEDS: PIPERACIL-TAZO 4.5 GM PREMIX 100 ML IV SCH ×4 (04:19→20:06)
[2017-12-03] MEDS ORDERED: LACTATED RINGER'S 1000 ML IV PRN (06:45)
[2017-12-03 08:00] VITALS: BP 137/63; PULSE 75; RESP 17; TEMP 101.2; O2SAT 97
[2017-12-03] MEDS: INSULIN ASPART SUPPLEMENTAL SCALE SQ SCH ×4 (08:00→20:12)
[2017-12-03 08:17] LABS: BASOPHIL % 0.5 % (0.0-2.0); EOSINOPHIL # 0.2 TH/MM3 (0-0.4); EOSINOPHIL % 2.5 % (0.0-4.0); HEMATOCRIT 36.5 % (39.0-51.0); HEMOGLOBIN 11.7 GM/DL (13.0-17.0); LYMPHOCYTE # 0.9 TH/MM3 (1.0-4.8); MEAN CELL VOLUME 71.2 FL (80.0-100.0); MEAN CORPUSCULAR HEMOGLOBIN 22.8 PG (27.0-34.0); MEAN PLATELET VOLUME 9.2 FL (7.0-11.0); MONO % 14.2 % (0.0-8.0); NEUT % 69.8 % (16.0-70.0); PLATELET COUNT 166 TH/MM3 (150-450); RED BLOOD COUNT 5.13 MIL/MM3 (4.50-5.90); RED CELL DISTRIBUTION WIDTH 17.5 % (11.6-17.2); WHITE BLOOD COUNT 7.1 TH/MM3 (4.0-11.0)
[2017-12-03 08:46] LABS: BICARBONATE 26.8 MEQ/L (21.0-32.0); CREATININE 0.67 MG/DL (0.60-1.30)
[2017-12-03] MEDS: METOPROLOL TARTRATE 50 MG TAB PO SCH ×2 (08:55→20:06)
[2017-12-03] MEDS: CLOPIDOGREL 75 MG TAB PO SCH (08:55)
[2017-12-03] MEDS: ONDANSETRON ODT 4 MG TAB SL PRN (08:56)
[2017-12-03] MEDS: GABAPENTIN 300 MG CAP PO SCH ×4 (08:57→20:06)
[2017-12-03] MEDS: PRAVASTATIN SOD 40 MG TAB PO SCH ×2 (08:57→20:06)
[2017-12-03] MEDS: INSULIN HUMAN NPH 1,000 UNITS/10 ML VIAL SQ SCH ×2 (08:58→20:07)
[2017-12-03] MEDS: ASPIRIN EC 81 MG TABEC PO SCH (08:58)
[2017-12-03 10:40] LABS: INTERNATIONAL NORMALIZED RATIO 1.1 RATIO; PROTHROMBIN TIME - PATIENT 10.8 SEC (9.8-11.6)
--- NOTE | 2017-12-03 11:12 | HHI.IDPN ---
Subjective Subjective Remarks Patient is a 52-year-old male, with known diabetes, started having problem about 5 days ago when he started having nausea and vomiting. Due to the vomiting, his p.o. intake has been poor. One day prior to admission, he developed increasing swelling, redness, and drainage from the wound on the bottom of his right foot. He apparently started having problem with that foot around the first week of October. He went to the emergency room, and had evaluation , and he was told that he is developing a Charcot foot. He was referred to a armament aircraft mechanic, and around November 07 he was seen, and there was some area on the midfoot that the armament aircraft mechanic did some debridement. There was no mention that there was any concern for infection. The day prior to admission, he started noticing swelling, redness, and increasing pain. It also started draining, so the patient presented to the hospital for further evaluation and treatment. Patient has had fever since admission. His WBC is normal. His sed rate is 56. Podiatry saw the patient, and did some bedside debridement, and patient is scheduled for more surgery tomorrow in the operating room. Patient stated that he is still having problem with nausea and vomiting. He has not had any bowel movement since he has very poor p.o. intake. Denies any sore throat and at or any respiratory complaint. Denies any urinary complaints. 2 blood cultures done on admission are now reported as growing Streptococcus. Patient is on vancomycin and Zosyn. Infectious disease consultation has been requested to evaluate the patient. Notes reviewed Continues to have fevers 2 BC with Strep Echo pending Wound C/S - MRSA Podiatry notes reviewed WBC scan and vascular consult has been ordered C/O pain R foot Antibiotics Vancomycin Zosyn Current Medications Medications (Trade) Dose Ordered Sig/Ronaldo Route Start Time Stop Time Status Last Admin (D50w (Vial) Inj) 50 ml UNSCH PRN IV PUSH 12/01/17 17:00 (Glucagon Inj) 1 mg UNSCH PRN OTHER 12/01/17 17:00 (NovoLOG SUPPLEMENTAL SCALE) 1 ACHS SLIDING SCALE SQ 12/01/17 17:00 12/02/17 19:37 (Neurontin) 600 mg QID PO 12/01/17 18:00 12/03/17 08:57 (NovoLIN N INJ) 20 units HS SQ 12/01/17 21:00 12/02/17 19:33 (NovoLIN N INJ) 60 units DAILY NEB SQ 12/02/17 08:00 12/03/17 08:58 (Pravachol) 40 mg BID PO 12/01/17 21:00 12/03/17 08:57 (Lopressor) 50 mg BID PO 12/01/17 21:00 12/03/17 08:55 (Ecotrin Ec) 81 mg DAILY PO 12/02/17 09:00 12/03/17 08:58 (Plavix) 75 mg DAILY PO 12/02/17 09:00 12/03/17 08:55 Pharmacy Profile Note 0 ml @ 0 mls/hr UNSCH OTHER 12/01/17 18:00 (Tylenol) 650 mg Q4H PRN PO 12/01/17 18:00 12/02/17 09:13 (Breese 5-325 Mg) 1 tab Q4H PRN PO 12/01/17 18:00 (Breese 5-325 Mg) 2 tab Q4H PRN PO 12/01/17 18:00 12/03/17 08:57 Sodium Chloride 1,000 ml @ 100 mls/hr Q10H IV 12/01/17 20:00 12/03/17 08:59 (Morphine Inj) 2 mg Q4H PRN IV PUSH 12/01/17 18:30 12/02/17 19:33 Vancomycin HCl 1500 mg/Sodium Chloride 515 ml @ 257.5 mls/ hr Q12H IV 12/02/17 14:00 12/03/17 02:19 ([facility] [facility] Info[place] SPECIFIC LAB TO BE MADISYN... 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 Objective . Vital Signs Date Time Temp Pulse Resp B/P (MAP) Pulse Ox O2 Delivery O2 Flow Rate FiO2 12/03/17 08:00 101.2 75 17 137/63 (87) 97 12/03/17 02:02 18 12/03/17 00:00 102.6 80 18 146/72 (96) 93 12/02/17 20:00 99.4 71 18 127/67 (87) 96 12/02/17 19:38 17 12/02/17 16:00 99.3 71 16 132/73 (92) 93 12/02/17 12:00 99.3 56 18 130/68 (88) 94 . Laboratory Tests Test 12/01/17 15:20 12/02/17 10:18 12/03/17 07:13 White Blood Count 6.2 TH/MM3 6.1 TH/MM3 7.1 TH/MM3 Red Blood Count 5.26 MIL/MM3 4.51 MIL/MM3 5.13 MIL/MM3 Hemoglobin 12.1 GM/DL 10.3 GM/DL 11.7 GM/DL Hematocrit 37.9 % 31.8 % 36.5 % Mean Corpuscular Volume 72.0 FL 70.5 FL 71.2 FL Mean Corpuscular Hemoglobin 23.1 PG 22.9 PG 22.8 PG Mean Corpuscular Hemoglobin Concent 32.1 % 32.5 % 32.0 % Red Cell Distribution Width 17.7 % 17.4 % 17.5 % Platelet Count 156 TH/MM3 131 TH/MM3 166 TH/MM3 Mean Platelet Volume 9.4 FL 8.7 FL 9.2 FL Neutrophils (%) (Auto) 90.3 % 78.1 % 69.8 % Lymphocytes (%) (Auto) 4.7 % 7.7 % 13.0 % Monocytes (%) (Auto) 4.8 % 13.0 % 14.2 % Eosinophils (%) (Auto) 0.1 % 1.1 % 2.5 % Basophils (%) (Auto) 0.1 % 0.1 % 0.5 % Neutrophils # (Auto) 5.6 TH/MM3 4.8 TH/MM3 5.0 TH/MM3 Lymphocytes # (Auto) 0.3 TH/MM3 0.5 TH/MM3 0.9 TH/MM3 Monocytes # (Auto) 0.3 TH/MM3 0.8 TH/MM3 1.0 TH/MM3 Eosinophils # (Auto) 0.0 TH/MM3 0.1 TH/MM3 0.2 TH/MM3 Basophils # (Auto) 0.0 TH/MM3 0.0 TH/MM3 0.0 TH/MM3 CBC Comment DIFF FINAL DIFF FINAL DIFF FINAL Differential Comment Erythrocyte Sedimentation Rate 59 mm/hr Laboratory Tests Test 12/01/17 15:20 12/01/17 18:10 12/01/17 21:33 12/02/17 10:18 Blood Urea Nitrogen 31 MG/DL 20 MG/DL Creatinine 1.31 MG/DL 0.82 MG/DL Random Glucose 468 MG/DL 271 MG/DL Total Protein 8.0 GM/DL Albumin 2.8 GM/DL Calcium Level 10.4 MG/DL 9.3 MG/DL Alkaline Phosphatase 132 U/L Aspartate Amino Transf (AST/SGOT) 33 U/L Alanine Aminotransferase (ALT/SGPT) 30 U/L Total Bilirubin 0.7 MG/DL Sodium Level 131 MEQ/L 135 MEQ/L Potassium Level 3.7 MEQ/L 3.2 MEQ/L Chloride Level 89 MEQ/L 97 MEQ/L Carbon Dioxide Level 26.9 MEQ/L 28.2 MEQ/L Anion Gap 15 MEQ/L 10 MEQ/L Estimat Glomerular Filtration Rate 58 ML/MIN 99 ML/MIN Lactic Acid Level 3.2 mmol/L 2.0 mmol/L 1.5 mmol/L 1.2 mmol/L Lipase 47 U/L Test 12/03/17 07:13 Blood Urea Nitrogen 11 MG/DL Creatinine 0.67 MG/DL Random Glucose 121 MG/DL Calcium Level 10.0 MG/DL Sodium Level 135 MEQ/L Potassium Level 3.1 MEQ/L Chloride Level 99 MEQ/L Carbon Dioxide Level 26.8 MEQ/L Anion Gap 9 MEQ/L Estimat Glomerular Filtration Rate 125 ML/MIN C-Reactive Protein 15.00 MG/DL Microbiology Date/Time Source Procedure Growth Status 12/02/17 14:45 Blood Peripheral Aerobic Blood Culture - Preliminary NO GROWTH IN 1 DAY Resulted 12/02/17 14:45 Blood Peripheral Anaerobic Blood Culture - Preliminary NO GROWTH IN 1 DAY Resulted 12/02/17 14:40 Blood Peripheral Aerobic Blood Culture - Preliminary NO GROWTH IN 1 DAY Resulted 12/02/17 14:40 Blood Peripheral Anaerobic Blood Culture - Preliminary NO GROWTH IN 1 DAY Resulted 12/01/17 15:00 Blood Peripheral Aerobic Blood Culture - Preliminary Gram Positive Cocci Resulted 12/01/17 15:00 Anaerobic Blood Culture - Preliminary Gram Positive Cocci Resulted 12/01/17 14:50 Blood Peripheral Aerobic Blood Culture - Preliminary Gram Positive Cocci Resulted 12/01/17 14:50 Anaerobic Blood Culture - Preliminary Strep Anginosus/Milleri Resulted 12/01/17 17:50 Wound Foot Gram Stain - Final Resulted 12/01/17 17:50 Wound Foot Wound Culture - Preliminary HEAVY GROWTH NORMAL SKIN DUSTIN AT 24HRS Resulted 12/01/17 14:45 Wound Skin Gram Stain - Final Resulted 12/01/17 14:45 Wound Skin Wound Culture - Preliminary HEAVY GROWTH NORMAL SKIN DUSTIN AT 24HRS Resulted Imaging Last Impressions Chest X-Ray 12/01/17 1444 Signed Impressions: CONCLUSION: No evidence of acute cardiopulmonary disease. Foot X-Ray 12/01/17 0000 Signed Impressions: CONCLUSION: 1. Marked worsening Lisfranc arthropathy and instability, neuropathic versus i nfectious. 2. Periosteal reaction of the metatarsals, especially the fourth and fifth, al so of concern for osteomyelitis. 3. Extensive soft tissue swelling and ulceration centered around the mid foot . Foot MRI 12/01/17 0000 Signed Impressions: CONCLUSION: 1. Destructive arthropathy of Lisfranc joint, presumably infectious. 2. Associated osteomyelitis diffusely of the cuneiforms, cuboid and navicular. Extensive osteomyelitis of the metatarsals as delineated above. There is also osteomyelitis of the distal halves of the talus and calcaneus. Suspected osteom yelitis of the proximal phalanx of the fourth toe as well. 3. Multiple fluid collections typical of abscesses as described above, some dr rose to the skin. Physical Exam GENERAL: Patient is a well-nourished, well-developed male, awake and alert, not in respiratory distress. SKIN: Warm and dry. No generalized rash, no ecchymoses and no evidence of embolic lesions. HEAD: Atraumatic. Normocephalic. No temporal wasting, or tenderness. EYES: [place] conjunctiva. No petechia or hemorrhage. Pupils equal, round and reactive to light. Extraocular movements full and intact. No scleral icterus. No injection or drainage. EARS, NOSE AND THROAT: Nose without bleeding or purulent nasal discharge. No sinus tenderness. Mucous membranes pink and moist. No oral lesions noted. No exudate. No oral thrush. NECK: Trachea midline. Supple and not tender, no meningeal signs CARDIOVASCULAR: Regular rate and rhythm. No murmurs, rubs or gallops heard RESPIRATORY: Clear to auscultation. Breath sounds equal bilaterally. No rales , wheezing or rhonchi ABDOMEN: Soft, non-tender, nondistended. Bowel sounds present and normoactive. No guarding. No rebound. No organomegaly. EXTREMITIES: No clubbing, cyanosis. R foot has swelling on midfoot, has copious bloody drainage soaking the dressings, no odor, tender to touch at plantar aspect, has 2 wounds packed with iodoform gauze, redness on dorsum and medial ankle much improved. LLE - normal. No calf tenderness. Well perfused and warm. NEUROLOGICAL: Awake and alert. Cranial nerves grossly intact. Motor grossly within normal limits. PSYCHIATRIC: Normal affect, calm and cooperative. LINE: No evidence of infection Assessment & Plan Remarks IMPRESSION Sepsis, Strep, present on admission due to DFI R Diabetic foot infection R, has Charcot foot, ?abscess, ?osteo DM Renal insufficiency due to sepsis, and dehydration, resolved Nausea and Vomiting, ?has diabetic gastroparesis RECOMMENDATION Follow repeat BC Await echo Continue Vanco Continue Zosyn Follow C/S and adjust Abx Vascular consult ordered by podiatry WBC scan ordered by podiatry - await results I will determine course of Abx depending on results of work-up and surgical intervention done Follow temps Monitor progress D/W Noemí Maki MD Dec 03, 2017 11:11
--- NOTE | 2017-12-03 11:14 | HHI.PR ---
Subjective Remarks In bed Says he has some pain at the right foot. Dressing was changes last night by Dr Huber podiatry Patient has constipation No n/v/d/c. Denies chest pain or sob No fever or chills. Objective Vitals Vital Signs Date Time Temp Pulse Resp B/P (MAP) Pulse Ox O2 Delivery O2 Flow Rate FiO2 12/03/17 08:00 101.2 75 17 137/63 (87) 97 12/03/17 02:02 18 12/03/17 00:00 102.6 80 18 146/72 (96) 93 12/02/17 20:00 99.4 71 18 127/67 (87) 96 12/02/17 19:38 17 12/02/17 16:00 99.3 71 16 132/73 (92) 93 12/02/17 12:00 99.3 56 18 130/68 (88) 94 I/O 12/02/17 12/02/17 12/02/17 12/03/17 12/03/17 12/03/17 07:00 15:00 23:00 07:00 15:00 23:00 Intake Total 362.5 ml 1690 ml 915 ml Output Total 800 ml 1204 ml 1800 ml Balance -800 ml 362.5 ml 486 ml -885 ml Intake Oral 375 ml 0 ml IV Total 362.5 ml 1315 ml 915 ml Output Urine Total 800 ml 1204 ml 1800 ml # Bowel Movements 0 0 Result Diagram: 12/03/17 0713 12/03/17 0713 Imaging Last Impressions Chest X-Ray 12/01/17 1444 Signed Impressions: CONCLUSION: No evidence of acute cardiopulmonary disease. Foot X-Ray 12/01/17 0000 Signed Impressions: CONCLUSION: 1. Marked worsening Lisfranc arthropathy and instability, neuropathic versus i nfectious. 2. Periosteal reaction of the metatarsals, especially the fourth and fifth, al so of concern for osteomyelitis. 3. Extensive soft tissue swelling and ulceration centered around the mid foot . Foot MRI 12/01/17 0000 Signed Impressions: CONCLUSION: 1. Destructive arthropathy of Lisfranc joint, presumably infectious. 2. Associated osteomyelitis diffusely of the cuneiforms, cuboid and navicular. Extensive osteomyelitis of the metatarsals as delineated above. There is also osteomyelitis of the distal halves of the talus and calcaneus. Suspected osteom yelitis of the proximal phalanx of the fourth toe as well. 3. Multiple fluid collections typical of abscesses as described above, some dr rose to the skin. Objective Remarks GENERAL: This is a well-nourished, well-developed patient, in no apparent distress. CARDIOVASCULAR: Regular rate and rhythm without murmurs, gallops, or rubs. RESPIRATORY: Clear to auscultation. Breath sounds equal bilaterally. No wheezes , rales, or rhonchi. GASTROINTESTINAL: Abdomen soft, non-tender, nondistended. No hepato-splenomegaly , or palpable masses. No guarding. MUSCULOSKELETAL: Extremities without clubbing, cyanosis, or edema. No joint tenderness, effusion, or edema noted. No calf tenderness. Negative Homans sign bilaterally. NEUROLOGICAL: Awake and alert. Cranial nerves II through XII intact. Motor and sensory grossly within normal limits. Five out of 5 muscle strength in all muscle groups. Normal speech. A/P Problem List: (1) Right foot infection ICD Code: L08.9 - Local infection of the skin and subcutaneous tissue, unspecified Assessment and Plan Severe sepsis due to right foot osteomyelitis/abscess S/p I/D at the bedside by podiatry- plan for bone biopsy in OR. Dr Huber for I &D. WBC scan to differentiate OM versus Charcot although most likely OM Consult vascular surgery for evaluation. Possible BKA due to degree of infection. Continue with IV antibiotics- follow the cultures. Consult ID appreciate recs S/P bedside I&D Right foot area of drainage to plantar central midfoot probed to extend medially and dorsally at level of midfoot dorsally. MRI R foot with and without contrast reviewed, shows osteo Acute kidney injury: start on IV fluid and monitor renal function. Avoid nephrotoxins. Check BMP Diabetes mellitus 2 resume NPH- start on accu-check with SSI. CAD- s/p CABG: resume aspirin and plavix ( antiplatelet therapy was d/w ; suggested that the antiplatelets to be continued at this time). Hypertension HLD Stable. Monitor. Resume home meds. DVT prophylaxis per surgeon, pending podiatry and surgical intervention. Discussed Condition With Patient, nurse Yesi Napier MD Dec 03, 2017 11:14
[2017-12-03 12:00] VITALS: BP 141/73; PULSE 63; RESP 17; TEMP 99.1; O2SAT 96
[2017-12-03] MEDS ORDERED: POTASSIUM CHLORIDE 10 MEQ CONTROLLED RELEASE TAB PO ONE (12:00)
[2017-12-03] MEDS ORDERED: PHARMACY ORDERED LAB ONE ×2 (13:45→15:45)
--- NOTE | 2017-12-03 15:44 | EKG ---
Date Performed: 12/03/2017 Time Performed: 07:02:54 PTAGE: 52 years EKG: Sinus rhythm BORDERLINE LEFT AXIS DEVIATION LOW QRS VOLTAGE IN PRECORDIAL LEADS INCOMPLETE RIGHT BUNDLE BRANCH BL OCK BORDERLINE ECG INTERPRETATION BASED ON A DEFAULT AGE OF 40 YEARS Since the PREVIOUS TRACING , no significant change noted PREVIOUS TRACIN11/20/2016 23.00 DOCTOR: Olive Huynh Interpretating Date/Time 12/03/2017 15:43:59
[2017-12-03 16:00] VITALS: BP 147/71; PULSE 74; RESP 18; TEMP 99.1; O2SAT 97
--- NOTE | 2017-12-03 18:11 | PD.CAR.PN ---
CVT Progress Note Subjective/Hospital Course: Patient seen and full consult dictated This gentleman has irreversible infection of his right foot and osteomyelitis involving tarsal bones including calcaneus talus cuneiform navicular and the metatarsals metatarsals In addition he has a Charcot joint Based on his systemic diseases including diabetes mellitus and this situation patient should have right below-knee amputation as soon as possible I discussed this with Dr. Mckay, and Dr. Engel on this is the only way to safely fix this because there is no cure for the situation as it is We will proceed with surgery tomorrow Objective: Vital Signs Date Time Temp Pulse Resp B/P (MAP) Pulse Ox O2 Delivery O2 Flow Rate FiO2 12/03/17 16:00 99.1 74 18 147/71 (96) 97 12/03/17 12:00 99.1 63 17 141/73 (95) 96 12/03/17 08:00 101.2 75 17 137/63 (87) 97 12/03/17 02:02 18 12/03/17 00:00 102.6 80 18 146/72 (96) 93 12/02/17 20:00 99.4 71 18 127/67 (87) 96 12/02/17 19:38 17 Labs: Laboratory Tests Test 12/03/17 07:13 12/03/17 09:24 White Blood Count 7.1 TH/MM3 (4.0-11.0) Red Blood Count 5.13 MIL/MM3 (4.50-5.90) Hemoglobin 11.7 GM/DL (13.0-17.0) Hematocrit 36.5 % (39.0-51.0) Mean Corpuscular Volume 71.2 FL (80.0-100.0) Mean Corpuscular Hemoglobin 22.8 PG (27.0-34.0) Mean Corpuscular Hemoglobin Concent 32.0 % (32.0-36.0) Red Cell Distribution Width 17.5 % (11.6-17.2) Platelet Count 166 TH/MM3 (150-450) Mean Platelet Volume 9.2 FL (7.0-11.0) Neutrophils (%) (Auto) 69.8 % (16.0-70.0) Lymphocytes (%) (Auto) 13.0 % (9.0-44.0) Monocytes (%) (Auto) 14.2 % (0.0-8.0) Eosinophils (%) (Auto) 2.5 % (0.0-4.0) Basophils (%) (Auto) 0.5 % (0.0-2.0) Neutrophils # (Auto) 5.0 TH/MM3 (1.8-7.7) Lymphocytes # (Auto) 0.9 TH/MM3 (1.0-4.8) Monocytes # (Auto) 1.0 TH/MM3 (0-0.9) Eosinophils # (Auto) 0.2 TH/MM3 (0-0.4) Basophils # (Auto) 0.0 TH/MM3 (0-0.2) CBC Comment DIFF FINAL Differential Comment Blood Urea Nitrogen 11 MG/DL (7-18) Creatinine 0.67 MG/DL (0.60-1.30) Random Glucose 121 MG/DL (74-106) Calcium Level 10.0 MG/DL (8.5-10.1) Sodium Level 135 MEQ/L (136-145) Potassium Level 3.1 MEQ/L (3.5-5.1) Chloride Level 99 MEQ/L (98-107) Carbon Dioxide Level 26.8 MEQ/L (21.0-32.0) Anion Gap 9 MEQ/L (5-15) Estimat Glomerular Filtration Rate 125 ML/MIN (>89) C-Reactive Protein 15.00 MG/DL (0.00-0.30) Prothrombin Time 10.8 SEC (9.8-11.6) Prothromb Time International Ratio 1.1 RATIO Result Diagram: 12/03/17 0713 12/03/17 0713 Ochoa Rehman MD Dec 03, 2017 18:11
--- NOTE | 2017-12-03 18:28 | MB ---
cc: Ochoa Rehman MD DATE: 12/03/2017 REFERRING PHYSICIAN: Dr. Winiferd Mckay, Podiatry. REASON FOR CONSULTATION: Osteomyelitis of the right foot, diabetes mellitus, Charcot joint of the right. HISTORY OF PRESENT ILLNESS: This 52-year-old female presents to the hospital with swelling and redness and crepitus of the right foot. The patient states that this has been going on for about a month, saw somebody in the meantime somewhere either in the office or the emergency room. The patient states that at the time, nobody thought the patient had infection, but clearly there is a purulent infection present now. The patient is now admitted for further care. PAST MEDICAL HISTORY: It is important to understand the patient's past medical history to have been that of diabetes mellitus, neuropathy and Jessica's gangrene just last year, for which the patient was here; also coronary artery disease and previous myocardial infarction. PAST SURGICAL HISTORY: Laparoscopic cholecystectomy in 2003. MEDICATIONS: The patient is on antidiabetic medication. ALLERGIES: ALLERGIC TO LISINOPRIL. PHYSICAL EXAMINATION: GENERAL: Reveals a 52-year-old male. HEENT: Normocephalic. No trauma the head. Pupils are equal, reactive. Extraocular muscles intact. NECK: Bilateral carotid pulses. No bruits. CHEST: Bilateral breath sounds, decreased in both bases. The patient does not smoke. States he does not drink. HEART: Regular rate and rhythm. ABDOMEN: Soft. No rebound, no guarding, no masses. EXTREMITIES: The patient actually has palpable femoral and palpable popliteal pulses. He has palpable dorsalis pedis and posterior tibials on the left. On the right side, foot is wrapped up. I looked at the foot and partially unwrapped it. This now I and D'd. There is seropurulent material draining out of it. The patient has a bandaged Charcot joint. NEUROLOGIC: Grossly intact. IMPRESSION AND RECOMMENDATIONS: I reviewed laboratory and diagnostic procedures. This gentleman has an infected foot with destructive arthropathy of Lisfranc joint, osteomyelitis of the tarsal bones as extensive osteomyelitis of metatarsals and talus and calcaneus are also infected and partially desiccated. There are several collections of fluid at the present that are still draining. Based on all of the above, there is no reasonable chance of meaningful recovery of this foot. This infection cannot be cured and only can be slowed down. The presence of the arthropathy of the Lisfranc joint in sense of a Charcot joint is an irreversible process. The only reasonable chance of recovery the patient has is below-knee amputation at this point and I have described this in detail to the patient. If we continue this process, the patient has a very high risk of developing systemic infection including endocarditis and distant abscesses, so I believe a below-knee amputation is the only viable option at this time that would get the patient back on his feet and prevent further possibly deadly complications. I thank you very much for referral. MD JENNIFER Smith/MARTITA , 06:06 PM , 06:27 PM
[2017-12-03 20:00] VITALS: BP 170/108; PULSE 86; RESP 20; TEMP 100.8; O2SAT 96
[2017-12-03] MEDS: MORPHINE SULFATE 4 MG/ML INJ IV PUSH PRN (21:58)
[2017-12-04] VITALS: BP 142/73; PULSE 74; RESP 20; TEMP 101; O2SAT 97
[2017-12-04] MEDS: VANCOMYCIN INJ 1,500 MG in SODIUM CHLORID 0.9% 500 ML INJ 500 ML IV SCH ×3 (01:48→14:48)
[2017-12-04] MEDS: PIPERACIL-TAZO 4.5 GM PREMIX 100 ML IV SCH ×5 (03:51→20:23)
[2017-12-04] MEDS: ACETAMINOPHEN/HYDROcodone 325 MG/5 MG TAB PO PRN ×3 (03:52→20:08)
[2017-12-04 05:03] VITALS: BP 159/71; PULSE 77; RESP 18; TEMP 101; O2SAT 98
[2017-12-04] MEDS: MORPHINE SULFATE 4 MG/ML INJ IV PUSH PRN ×3 (06:14→22:55)
[2017-12-04 08:00] VITALS: BP 146/71; PULSE 71; RESP 18; TEMP 98.7; O2SAT 96
[2017-12-04] MEDS: INSULIN HUMAN NPH 1,000 UNITS/10 ML VIAL SQ SCH ×2 (08:00→20:13)
[2017-12-04] MEDS: INSULIN ASPART SUPPLEMENTAL SCALE SQ SCH ×4 (08:00→20:24)
[2017-12-04] MEDS: ASPIRIN EC 81 MG TABEC PO SCH (09:00)
[2017-12-04] MEDS: PRAVASTATIN SOD 40 MG TAB PO SCH ×2 (09:05→20:07)
[2017-12-04] MEDS: CLOPIDOGREL 75 MG TAB PO SCH (09:05)
[2017-12-04] MEDS: GABAPENTIN 300 MG CAP PO SCH ×4 (09:05→20:08)
[2017-12-04] MEDS: METOPROLOL TARTRATE 50 MG TAB PO SCH ×2 (09:05→20:08)
--- NOTE | 2017-12-04 09:26 | HHI.PR ---
Subjective Remarks The patient is in bed. He has significant pain right foot, pain is fairly controlled by medications. Plan for below the knee amputation today by Dr. Seaman which around 2:00 PM. Patient still with constipation. No nausea vomiting. No fever or chills. Objective Vitals Vital Signs Date Time Temp Pulse Resp B/P (MAP) Pulse Ox O2 Delivery O2 Flow Rate FiO2 12/04/17 08:00 98.7 71 18 146/71 (96) 96 12/04/17 06:19 18 12/04/17 05:03 101.0 77 18 159/71 (100) 98 12/04/17 04:52 18 12/04/17 00:00 101.0 74 20 142/73 (96) 97 12/03/17 20:00 100.8 86 20 170/108 (128) 96 12/03/17 16:00 99.1 74 18 147/71 (96) 97 12/03/17 12:00 99.1 63 17 141/73 (95) 96 I/O 12/03/17 12/03/17 12/03/17 12/04/17 12/04/17 12/04/17 07:00 15:00 23:00 07:00 15:00 23:00 Intake Total 915 ml 400 ml 1615 ml Output Total 1800 ml 1350 ml 1800 ml Balance -885 ml -950 ml -185 ml Intake Oral 0 ml 300 ml IV Total 915 ml 100 ml 1615 ml Output Urine Total 1800 ml 1350 ml 1800 ml # Bowel Movements 0 0 Result Diagram: 12/03/17 0713 12/03/17 0713 Imaging Last Impressions Tumor Localization 12/03/17 0000 Signed Impressions: CONCLUSION: 1. Fairly significant destructive lytic lesions of the tarsometatarsal junctio ns with gas bubbles surrounding them the worst areas involve the middle and lat eral cuneiforms and these areas demonstrate abnormal white blood cell uptake co nsistent with osteomyelitis, however some of the destructive lesions could also represent Charcot's phenomenon as they demonstrate very mild uptake. Extremity Arterial Study 12/02/17 0000 Signed Impressions: CONCLUSION: 1. ABIs and TBIs within the normal range. Chest X-Ray 12/01/17 1444 Signed Impressions: CONCLUSION: No evidence of acute cardiopulmonary disease. Foot X-Ray 12/01/17 0000 Signed Impressions: CONCLUSION: 1. Marked worsening Lisfranc arthropathy and instability, neuropathic versus i nfectious. 2. Periosteal reaction of the metatarsals, especially the fourth and fifth, al so of concern for osteomyelitis. 3. Extensive soft tissue swelling and ulceration centered around the mid foot . Foot MRI 12/01/17 0000 Signed Impressions: CONCLUSION: 1. Destructive arthropathy of Lisfranc joint, presumably infectious. 2. Associated osteomyelitis diffusely of the cuneiforms, cuboid and navicular. Extensive osteomyelitis of the metatarsals as delineated above. There is also osteomyelitis of the distal halves of the talus and calcaneus. Suspected osteom yelitis of the proximal phalanx of the fourth toe as well. 3. Multiple fluid collections typical of abscesses as described above, some dr rose to the skin. Objective Remarks GENERAL: This is a well-nourished, well-developed patient, in no apparent distress. CARDIOVASCULAR: Regular rate and rhythm without murmurs, gallops, or rubs. RESPIRATORY: Clear to auscultation. Breath sounds equal bilaterally. No wheezes , rales, or rhonchi. GASTROINTESTINAL: Abdomen soft, non-tender, nondistended. No hepato-splenomegaly , or palpable masses. No guarding. MUSCULOSKELETAL: Extremities without clubbing, cyanosis, or edema. No joint tenderness, effusion, or edema noted. No calf tenderness. Negative Homans sign bilaterally. NEUROLOGICAL: Awake and alert. Cranial nerves II through XII intact. Motor and sensory grossly within normal limits. Five out of 5 muscle strength in all muscle groups. Normal speech. A/P Problem List: (1) Right foot infection ICD Code: L08.9 - Local infection of the skin and subcutaneous tissue, unspecified Assessment and Plan Severe sepsis due to right foot osteomyelitis/abscess S/p I/D at the bedside by podiatry- plan for bone biopsy in OR. Dr Huber for I &D. WBC scan to differentiate OM versus Charcot although most likely OM Consult vascular surgery for evaluation. Possible BKA due to degree of infection. Continue with IV antibiotics- follow the cultures. Consult ID appreciate recs S/P bedside I&D Right foot area of drainage to plantar central midfoot probed to extend medially and dorsally at level of midfoot dorsally. MRI R foot with and without contrast reviewed, shows osteo Plan for right below the knee amputation by Dr. Rehman 12/04/17 Acute kidney injury: start on IV fluid and monitor renal function. Avoid nephrotoxins. Check BMP Diabetes mellitus 2 resume NPH- start on accu-check with SSI. CAD- s/p CABG: resume aspirin and plavix ( antiplatelet therapy was d/w ; suggested that the antiplatelets to be continued at this time). Hypertension HLD Stable. Monitor. Resume home meds. DVT prophylaxis per surgeon, pending podiatry and surgical intervention. Discussed Condition With Patient, nurse DC plan Plan for right below the knee amputation by Dr. Rehman 12/04/17 Discharge when improved and cleared by [employer] consultant Yesi Napier MD Dec 04, 2017 09:26
--- NOTE | 2017-12-04 10:40 | RADRPT ---
EXAM DATE: 12/04/2017 9:12 AM EDT AGE/SEX: 52 years / Male INDICATIONS: Right medial plantar foot ulcer. Osteomyelitis. CLINICAL DATA: This is the patient's initial encounter. Patient reports that signs and symptoms have been present for 1 day and indicates a pain score of 0/10. Location: , Laterality: MEDICAL/SURGICAL HISTORY: Diabetes mellitus type II. Gastroesophageal reflux disease. Hyperte nsion. Myocardial infarction. Cholecystectomy. Tonsillectomy. CABG. COMPARISON: No prior [facility] exams available for comparison. DOSE: 20.2 mCi Tc99m Ceretec labeled white blood cells IV IMAGING TIMES: 3 hrs IMAGING: Spect/CT imaging with fusion was performed. RADIATION DOSE: 2.66 CTDIvol(mGy) TECHNIQUE: Following the in vitro labeling of autologous white cells and reinjection, whole body sca n was performed at the specified times. SPECT imaging was performed at the specified time in sagittal , axial and coronal planes. Attenuation correction was performed with the computed tomography and filipe th the attenuation correction and non-attenuation corrected data sets were reviewed. FINDINGS: Extensive destruction and lytic lesions of the tarsometatarsal junctions are identified as discussed in detail on the patient's prior MRI examination. There are gas bubbles in the soft tissues of the pa tient's metatarsals particularly around the second and third metatarsal bones extending to the tarsal joints in the region of the destructive lytic lesions. There is moderate white blood cell uptake par ticularly involving the middle and lateral cuneiforms. CONCLUSION: 1. Fairly significant destructive lytic lesions of the tarsometatarsal junctions with gas bubbles rader rrounding them the worst areas involve the middle and lateral cuneiforms and these areas demonstrate abnormal white blood cell uptake consistent with osteomyelitis, however some of the destructive lesio ns could also represent Charcot's phenomenon as they demonstrate very mild uptake. Electronically signed by: Cheryl Vargas MD 12/04/2017 10:39 AM EDT
--- NOTE | 2017-12-04 10:51 | RADRPT ---
EXAM DATE: 12/04/2017 10:41 AM EDT AGE/SEX: 52 years / Male INDICATIONS: Right foot infection CLINICAL DATA: This is the patient's initial encounter. Patient reports that signs and symptoms have been present for 1 month and indicates a pain score of 10/10. MEDICAL/SURGICAL HISTORY: . History of myocardial infarction, hypercholesterolemia, chest pain, diabetes, GERD, hypertension, CAD, pancreatitis, right foot infection . cardiac cath, cholecystecto my, tonsillectomy, vasectomy, open heart surgery COMPARISON: No prior [facility] exams available for comparison. TECHNIQUE: Five-station segmental examination of the lower extremities was performed. Pulsed-cuff wa veform tracings and pressures were recorded. Ankle-brachial indices and toe-brachial indices were damien culated. PRESSURES (mmHg): Brachial (arm) : RIGHT: IV SITE, LEFT: 156 Lower Thigh : RIGHT: 178, LEFT: 183 Calf : RIGHT: 186, LEFT: 193 Ankle : RIGHT: 158, LEFT: 171 MINDY : RIGHT: 1.01, LEFT: 1.10 Toe : RIGHT: 107, LEFT: 108 TBI : RIGHT: 0.69, LEFT: 0.69 PULSED CUFF WAVEFORMS: Demonstrate normal amplitude bilaterally. CONCLUSION: 1. ABIs and TBIs within the normal range. Electronically signed by: Phong Weiner MD 12/04/2017 10:50 AM EDT
[2017-12-04 12:00] VITALS: BP 146/65; PULSE 66; RESP 19; TEMP 98.4; O2SAT 97
[2017-12-04] MEDS ORDERED: ONDANSETRON HCL 4 MG/2 ML VIAL IV ONE (12:00)
[2017-12-04] MEDS ORDERED: LACTATED RINGER'S 1000 ML INJ 1,000 ML IV ONE (12:00)
[2017-12-04] MEDS ORDERED: ePHEDrine/NS 25 MG/5 ML SYRINGE IV ONE (12:00)
[2017-12-04] MEDS ORDERED: PROPOFOL 200 MG/20 ML AMP IV ONE (12:00)
[2017-12-04] MEDS ORDERED: LIDOCAINE HCL 1% PF 5 ML SYRINGE OTHER ONE (12:00)
[2017-12-04] MEDS ORDERED: PHENYLEPH/NS 1000 MCG/10 ML SYR IV ONE (12:00)
[2017-12-04] MEDS: SODIUM CHLOR 0.9% 1000 ML INJ 1,000 ML IV SCH ×2 (12:01→17:56)
--- NOTE | 2017-12-04 12:50 | HHI.IDPN ---
Subjective Subjective Remarks Patient is a 52-year-old male, with known diabetes, started having problem about 5 days ago when he started having nausea and vomiting. Due to the vomiting, his p.o. intake has been poor. One day prior to admission, he developed increasing swelling, redness, and drainage from the wound on the bottom of his right foot. He apparently started having problem with that foot around the first week of October. He went to the emergency room, and had evaluation , and he was told that he is developing a Charcot foot. He was referred to a log tumbler, and around November 07 he was seen, and there was some area on the midfoot that the log tumbler did some debridement. There was no mention that there was any concern for infection. The day prior to admission, he started noticing swelling, redness, and increasing pain. It also started draining, so the patient presented to the hospital for further evaluation and treatment. Patient has had fever since admission. His WBC is normal. His sed rate is 56. Podiatry saw the patient, and did some bedside debridement, and patient is scheduled for more surgery tomorrow in the operating room. Patient stated that he is still having problem with nausea and vomiting. He has not had any bowel movement since he has very poor p.o. intake. Denies any sore throat and at or any respiratory complaint. Denies any urinary complaints. 2 blood cultures done on admission are now reported as growing Streptococcus. Patient is on vancomycin and Zosyn. Infectious disease consultation has been requested to evaluate the patient. Notes reviewed D/W RN Continues to have fevers Going for BKA this afternoon 2 BC with Strep Echo pending Wound C/S - MRSA and PSAE C/O pain R foot Antibiotics Vancomycin Zosyn Current Medications Medications (Trade) Dose Ordered Sig/Ronaldo Route Start Time Stop Time Status Last Admin (D50w (Vial) Inj) 50 ml UNSCH PRN IV PUSH 12/01/17 17:00 (Glucagon Inj) 1 mg UNSCH PRN OTHER 12/01/17 17:00 (NovoLOG SUPPLEMENTAL SCALE) 1 ACHS SLIDING SCALE SQ 12/01/17 17:00 12/02/17 19:37 (Neurontin) 600 mg QID PO 12/01/17 18:00 12/04/17 12:10 (NovoLIN N INJ) 20 units HS SQ 12/01/17 21:00 12/03/17 20:07 (NovoLIN N INJ) 60 units DAILY NEB SQ 12/02/17 08:00 12/03/17 08:58 (Pravachol) 40 mg BID PO 12/01/17 21:00 12/04/17 09:05 (Lopressor) 50 mg BID PO 12/01/17 21:00 12/04/17 09:05 (Ecotrin Ec) 81 mg DAILY PO 12/02/17 09:00 12/03/17 08:58 (Plavix) 75 mg DAILY PO 12/02/17 09:00 12/04/17 09:05 Pharmacy Profile Note 0 ml @ 0 mls/hr UNSCH OTHER 12/01/17 18:00 (Tylenol) 650 mg Q4H PRN PO 12/01/17 18:00 12/02/17 09:13 (Merritt 5-325 Mg) 1 tab Q4H PRN PO 12/01/17 18:00 (Merritt 5-325 Mg) 2 tab Q4H PRN PO 12/01/17 18:00 12/04/17 09:06 Sodium Chloride 1,000 ml @ 100 mls/hr Q10H IV 12/01/17 20:00 12/04/17 12:01 (Morphine Inj) 2 mg Q4H PRN IV PUSH 12/01/17 18:30 12/04/17 12:01 Vancomycin HCl 1500 mg/Sodium Chloride 515 ml @ 257.5 mls/ hr Q12H IV 12/02/17 14:00 12/04/17 01:48 Piperacillin Sod/ Tazobactam Sod 100 ml @ 200 mls/hr Q6H IV 12/02/17 15:00 12/04/17 09:07 (Zofran Odt) 4 mg Q6H PRN SL 12/02/17 23:45 12/03/17 08:56 Lactated Ringer's 1,000 ml @ 30 mls/hr Q24H PRN IV 12/03/17 06:45 12/06/17 06:44 ([facility] Ordered Lab Info) SPECIFIC LAB TO BE MADISYN... 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 Objective . Vital Signs Date Time Temp Pulse Resp B/P (MAP) Pulse Ox O2 Delivery O2 Flow Rate FiO2 12/04/17 08:00 98.7 71 18 146/71 (96) 96 12/04/17 06:19 18 12/04/17 05:03 101.0 77 18 159/71 (100) 98 12/04/17 04:52 18 12/04/17 00:00 101.0 74 20 142/73 (96) 97 12/03/17 20:00 100.8 86 20 170/108 (128) 96 12/03/17 16:00 99.1 74 18 147/71 (96) 97 . Laboratory Tests Test 12/03/17 07:13 White Blood Count 7.1 TH/MM3 Red Blood Count 5.13 MIL/MM3 Hemoglobin 11.7 GM/DL Hematocrit 36.5 % Mean Corpuscular Volume 71.2 FL Mean Corpuscular Hemoglobin 22.8 PG Mean Corpuscular Hemoglobin Concent 32.0 % Red Cell Distribution Width 17.5 % Platelet Count 166 TH/MM3 Mean Platelet Volume 9.2 FL Neutrophils (%) (Auto) 69.8 % Lymphocytes (%) (Auto) 13.0 % Monocytes (%) (Auto) 14.2 % Eosinophils (%) (Auto) 2.5 % Basophils (%) (Auto) 0.5 % Neutrophils # (Auto) 5.0 TH/MM3 Lymphocytes # (Auto) 0.9 TH/MM3 Monocytes # (Auto) 1.0 TH/MM3 Eosinophils # (Auto) 0.2 TH/MM3 Basophils # (Auto) 0.0 TH/MM3 CBC Comment DIFF FINAL Differential Comment Laboratory Tests Test 12/03/17 07:13 Blood Urea Nitrogen 11 MG/DL Creatinine 0.67 MG/DL Random Glucose 121 MG/DL Calcium Level 10.0 MG/DL Sodium Level 135 MEQ/L Potassium Level 3.1 MEQ/L Chloride Level 99 MEQ/L Carbon Dioxide Level 26.8 MEQ/L Anion Gap 9 MEQ/L Estimat Glomerular Filtration Rate 125 ML/MIN C-Reactive Protein 15.00 MG/DL Microbiology Date/Time Source Procedure Growth Status 12/02/17 14:45 Blood Peripheral Aerobic Blood Culture - Preliminary NO GROWTH IN 2 DAYS Resulted 12/02/17 14:45 Blood Peripheral Anaerobic Blood Culture - Preliminary NO GROWTH IN 2 DAYS Resulted 12/02/17 14:40 Blood Peripheral Aerobic Blood Culture - Preliminary NO GROWTH IN 2 DAYS Resulted 12/02/17 14:40 Blood Peripheral Anaerobic Blood Culture - Preliminary NO GROWTH IN 2 DAYS Resulted 12/01/17 15:00 Blood Peripheral Aerobic Blood Culture - Final Viridans Streptococcus Grp Complete 12/01/17 15:00 Anaerobic Blood Culture - Final Viridans Streptococcus Grp Complete 12/01/17 14:50 Blood Peripheral Aerobic Blood Culture - Final Viridans Streptococcus Grp Resulted 12/01/17 14:50 Anaerobic Blood Culture - Preliminary Strep Anginosus/Milleri Resulted 12/01/17 17:50 Wound Foot Gram Stain - Final Complete 12/01/17 17:50 Wound Foot Wound Culture - Final HEAVY GROWTH NORMAL SKIN DUSTIN... Complete 12/01/17 14:45 Wound Skin Gram Stain - Final Complete 12/01/17 14:45 Wound Culture - Final S. Aureus Mrsa Pseudomonas Aeruginosa Complete Imaging Last Impressions Chest X-Ray 12/01/17 1444 Signed Impressions: CONCLUSION: No evidence of acute cardiopulmonary disease. Foot X-Ray 12/01/17 0000 Signed Impressions: CONCLUSION: 1. Marked worsening Lisfranc arthropathy and instability, neuropathic versus i nfectious. 2. Periosteal reaction of the metatarsals, especially the fourth and fifth, al so of concern for osteomyelitis. 3. Extensive soft tissue swelling and ulceration centered around the mid foot . Foot MRI 12/01/17 0000 Signed Impressions: CONCLUSION: 1. Destructive arthropathy of Lisfranc joint, presumably infectious. 2. Associated osteomyelitis diffusely of the cuneiforms, cuboid and navicular. Extensive osteomyelitis of the metatarsals as delineated above. There is also osteomyelitis of the distal halves of the talus and calcaneus. Suspected osteom yelitis of the proximal phalanx of the fourth toe as well. 3. Multiple fluid collections typical of abscesses as described above, some dr desiraening to the skin. Physical Exam GENERAL: awake and alert, not in respiratory distress. SKIN: Warm and dry. No generalized rash, no ecchymoses and no evidence of embolic lesions. HEAD: Atraumatic. Normocephalic. No temporal wasting, or tenderness. EYES: [place] conjunctiva. No petechia or hemorrhage. Pupils equal, round and reactive to light. Extraocular movements full and intact. No scleral icterus. No injection or drainage. EARS, NOSE AND THROAT: Nose without bleeding or purulent nasal discharge. No sinus tenderness. Mucous membranes pink and moist. No oral lesions noted. No exudate. No oral thrush. NECK: Trachea midline. Supple and not tender, no meningeal signs CARDIOVASCULAR: Regular rate and rhythm. No murmurs, rubs or gallops heard RESPIRATORY: Clear to auscultation. Breath sounds equal bilaterally. No rales , wheezing or rhonchi ABDOMEN: Soft, non-tender, nondistended. Bowel sounds present and normoactive. No guarding. No rebound. No organomegaly. EXTREMITIES: No clubbing, cyanosis. R foot with dressing in place. LLE - normal. No calf tenderness. Well perfused and warm. NEUROLOGICAL: Non-focal. PSYCHIATRIC: Normal affect, calm and cooperative. LINE: No evidence of infection Assessment & Plan Remarks IMPRESSION Sepsis, Strep, present on admission due to DFI R - suspicious for IE - wound C/S from foot has different organism Diabetic foot infection R, has Charcot foot, ?abscess, ?osteo - C/S with MRSA and PSAE DM Renal insufficiency due to sepsis, and dehydration, resolved Nausea and Vomiting, ?has diabetic gastroparesis RECOMMENDATION Follow repeat BC Await echo Continue Vanco Continue Zosyn Follow C/S and adjust Abx OR plans for today - BKA Follow temps Monitor progress D/W Noemí Maki MD Dec 04, 2017 12:50
[2017-12-04] MEDS ORDERED: PHARMACY ORDERED LAB ONE (13:45)
[2017-12-04] MEDS ORDERED: HYDROmorphone HCL PF 2 MG/ML VIAL ONE (17:02)
[2017-12-04] MEDS ORDERED: KETAMINE HCL 500 MG/10 ML VIAL ONE (17:02)
[2017-12-04] MEDS ORDERED: MIDAZOLAM HCL 2 MG/2 ML VIAL ONE (18:01)
[2017-12-04] MEDS ORDERED: *morphine SULFATE 8 MG/ML PERIprocedure ONLY ONE ×3 (18:05→18:18)
[2017-12-04] MEDS ORDERED: DO NOT ADM ANY ANTICOAGULANT DRUGS PRN (18:08)
[2017-12-04] MEDS ORDERED: *MEPERIDINE 25 MG INJ VIAL PERIprocedural Use ONLY ONE (18:25)
[2017-12-04] MEDS ORDERED: HYDROmorphone HCL PF 0.5 MG/0.5 ML SYRINGE ONE ×3 (18:33→18:59)
--- NOTE | 2017-12-04 18:51 | MP ---
cc: Ochoa Rehman MD, Slobodan MD DATE OF OPERATION: 12/04/2017 PREOPERATIVE DIAGNOSIS: Osteomyelitis of the right foot, Charcot joint, diabetes mellitus. POSTOPERATIVE DIAGNOSES: Osteomyelitis of the right foot, Charcot joint, diabetes mellitus. OPERATIVE PROCEDURE: Right below-knee amputation. SURGEON: Ochoa Rehman MD ANESTHESIA: General. ESTIMATED BLOOD LOSS: 300 mL INDICATIONS: This 52-year-old man presents to the hospital with advanced infection of his right foot involving tarsal bones including talus, calcaneus, navicular and cuneiform as well as metatarsal bones and phalanges. The patient has draining pus out of his foot. In addition, he has a Charcot joint with diabetes and systemic infection. At this point, there is no remedy for it and the patient is scheduled for right below knee amputation. PROCEDURE IN DETAIL: The patient is prepped and draped in usual fashion. The line of the incision is marked with indentation with a silk stitch and then incision is made with #10 blade anteriorly, carried laterally and then posteriorly into a posterior flap. This is deepened down with cautery to the fascia and then through the fascia. The incision is deepened medially to the tibia and then laterally to the tibia and fibula. Anterior tibial artery and veins are clamped, divided, ligated with 0 Vicryl stick ties. The tibia is now freed up to about 2 inches above the level of the original incision and so is the fibula. A tourniquet is inflated and then both bones are transected with the oscillating saw and then posterior flap created with amputation knife and specimen removed. The trifurcation vessels are now ligated with 0 Vicryl stick ties and small bleeders are addressed with 2-0 Vicryl [id number]. Tourniquet is taken down about 4 minutes later. Meticulous hemostasis is obtained. The posterior flap is irrigated with saline. The tibia is cut under oblique angle and then the rasp down to eliminate any hard and sharp edges or points. Anterior tibial nerve is allowed to retract. The posterior flap is now brought anteriorly after the area is irrigated with copious amounts of saline and then stump is closed deep fascia to deep fascia, superficial fascia to superficial fascia with 0 Vicryl and then skin with 2-0 Prolene interrupted stitches. Dressing applied. The patient tolerated the procedure well. MD JENNIFER Smith/ , 06:35 PM , 06:50 PM
[2017-12-04 20:00] VITALS: BP 173/81; PULSE 81; RESP 17; TEMP 98.5; O2SAT 94
[2017-12-05] VITALS: BP 157/70; PULSE 76; RESP 17; TEMP 98.1; O2SAT 97
[2017-12-05] MEDS ORDERED: HYDROmorphone HCL PF 2 MG/ML VIAL IV PUSH ONE (00:30)
[2017-12-05] MEDS ORDERED: PHARMACY ORDERED LAB ONE (01:45)
[2017-12-05] MEDS: VANCOMYCIN INJ 1,500 MG in SODIUM CHLORID 0.9% 500 ML INJ 500 ML IV SCH (02:23)
[2017-12-05] MEDS: PIPERACIL-TAZO 4.5 GM PREMIX 100 ML IV SCH ×4 (02:23→21:23)
[2017-12-05] MEDS: ACETAMINOPHEN/HYDROcodone 325 MG/5 MG TAB PO PRN ×6 (02:26→23:13)
[2017-12-05 04:00] VITALS: BP 140/74; PULSE 79; RESP 17; TEMP 98.7; O2SAT 99
[2017-12-05] MEDS: SODIUM CHLOR 0.9% 1000 ML INJ 1,000 ML IV SCH ×2 (04:00→14:00)
[2017-12-05] MEDS: MORPHINE SULFATE 4 MG/ML INJ IV PUSH PRN ×5 (04:32→21:24)
[2017-12-05 08:00] VITALS: BP 163/78; PULSE 75; RESP 19; TEMP 98.5; O2SAT 96
[2017-12-05] MEDS: INSULIN HUMAN NPH 1,000 UNITS/10 ML VIAL SQ SCH ×2 (08:00→21:00)
[2017-12-05] MEDS: PRAVASTATIN SOD 40 MG TAB PO SCH ×2 (08:31→21:23)
[2017-12-05] MEDS: METOPROLOL TARTRATE 50 MG TAB PO SCH ×2 (08:31→21:23)
[2017-12-05] MEDS: CLOPIDOGREL 75 MG TAB PO SCH (08:31)
[2017-12-05] MEDS: GABAPENTIN 300 MG CAP PO SCH ×4 (08:31→21:23)
[2017-12-05] MEDS: ASPIRIN EC 81 MG TABEC PO SCH (08:32)
[2017-12-05] MEDS: INSULIN ASPART SUPPLEMENTAL SCALE SQ SCH ×4 (08:36→21:00)
[2017-12-05 08:37] LABS: AUTOMATED NEUTROPHIL # 5.9 TH/MM3 (1.8-7.7); BASOPHIL # 0.1 TH/MM3 (0-0.2); BASOPHIL % 0.7 % (0.0-2.0); EOSINOPHIL # 0.3 TH/MM3 (0-0.4); EOSINOPHIL % 3.1 % (0.0-4.0); HEMATOCRIT 30.3 % (39.0-51.0); HEMOGLOBIN 9.9 GM/DL (13.0-17.0); LYMPH % 12.8 % (9.0-44.0); LYMPHOCYTE # 1.1 TH/MM3 (1.0-4.8); MEAN CELL VOLUME 70.5 FL (80.0-100.0); MEAN CORPUSCULAR HEMOGLOBIN 22.9 PG (27.0-34.0); MEAN CORPUSCULAR HGB CONC 32.5 % (32.0-36.0); MEAN PLATELET VOLUME 8.3 FL (7.0-11.0); MONO % 13.1 % (0.0-8.0); MONOCYTE # 1.1 TH/MM3 (0-0.9); NEUT % 70.3 % (16.0-70.0); PLATELET COUNT 254 TH/MM3 (150-450); RED BLOOD COUNT 4.31 MIL/MM3 (4.50-5.90); RED CELL DISTRIBUTION WIDTH 17.4 % (11.6-17.2); WHITE BLOOD COUNT 8.4 TH/MM3 (4.0-11.0)
[2017-12-05 08:53] LABS: BICARBONATE 24.1 MEQ/L (21.0-32.0); CALCIUM 9.3 MG/DL (8.5-10.1); CREATININE 0.65 MG/DL (0.60-1.30)
[2017-12-05 09:40] LABS: ACANTHOCYTES OCC (NORMAL); OVALOCYTES 1+ (NORMAL)
--- NOTE | 2017-12-05 11:49 | HHI.IDPN ---
Subjective Subjective Remarks Patient is a 52-year-old male, with known diabetes, started having problem about 5 days ago when he started having nausea and vomiting. Due to the vomiting, his p.o. intake has been poor. One day prior to admission, he developed increasing swelling, redness, and drainage from the wound on the bottom of his right foot. He apparently started having problem with that foot around the first week of October. He went to the emergency room, and had evaluation , and he was told that he is developing a Charcot foot. He was referred to a puddler helper, and around November 07 he was seen, and there was some area on the midfoot that the puddler helper did some debridement. There was no mention that there was any concern for infection. The day prior to admission, he started noticing swelling, redness, and increasing pain. It also started draining, so the patient presented to the hospital for further evaluation and treatment. Patient has had fever since admission. His WBC is normal. His sed rate is 56. Podiatry saw the patient, and did some bedside debridement, and patient is scheduled for more surgery tomorrow in the operating room. Patient stated that he is still having problem with nausea and vomiting. He has not had any bowel movement since he has very poor p.o. intake. Denies any sore throat and at or any respiratory complaint. Denies any urinary complaints. 2 blood cultures done on admission are now reported as growing Streptococcus. Patient is on vancomycin and Zosyn. Infectious disease consultation has been requested to evaluate the patient. Notes reviewed D/W RN Temps better Had R BKA yesterday C/O pain at stump, pain med not enough Echo done today, report pending No new (+) BC Wound C/S - MRSA and PSAE Antibiotics Vancomycin Zosyn Current Medications Medications (Trade) Dose Ordered Sig/Ronaldo Route Start Time Stop Time Status Last Admin (D50w (Vial) Inj) 50 ml UNSCH PRN IV PUSH 12/01/17 17:00 (Glucagon Inj) 1 mg UNSCH PRN OTHER 12/01/17 17:00 (NovoLOG SUPPLEMENTAL SCALE) 1 ACHS SLIDING SCALE SQ 12/01/17 17:00 12/05/17 08:36 (Neurontin) 600 mg QID PO 12/01/17 18:00 12/05/17 08:31 (NovoLIN N INJ) 20 units HS SQ 12/01/17 21:00 12/04/17 20:13 (NovoLIN N INJ) 60 units DAILY NEB SQ 12/02/17 08:00 12/05/17 08:00 (Pravachol) 40 mg BID PO 12/01/17 21:00 12/05/17 08:31 (Lopressor) 50 mg BID PO 12/01/17 21:00 12/05/17 08:31 (Ecotrin Ec) 81 mg DAILY PO 12/02/17 09:00 12/05/17 08:32 (Plavix) 75 mg DAILY PO 12/02/17 09:00 12/05/17 08:31 Pharmacy Profile Note 0 ml @ 0 mls/hr UNSCH OTHER 12/01/17 18:00 (Tylenol) 650 mg Q4H PRN PO 12/01/17 18:00 12/02/17 09:13 ([place] 5-325 Mg) 1 tab Q4H PRN PO 12/01/17 18:00 ([place] 5-325 Mg) 2 tab Q4H PRN PO 12/01/17 18:00 12/05/17 10:26 Sodium Chloride 1,000 ml @ 100 mls/hr Q10H IV 12/01/17 20:00 12/04/17 12:01 (Morphine Inj) 2 mg Q4H PRN IV PUSH 12/01/17 18:30 12/05/17 08:32 Piperacillin Sod/ Tazobactam Sod 100 ml @ 200 mls/hr Q6H IV 12/02/17 15:00 12/05/17 08:31 (Zofran Odt) 4 mg Q6H PRN SL 12/02/17 23:45 12/03/17 08:56 Lactated Ringer's 1,000 ml @ 30 mls/hr Q24H PRN IV 12/03/17 06:45 12/06/17 06:44 12/04/17 14:05 ([facility] Nursing Information) ALL NURSING DEPARTME... UNSCH PRN .XX 12/04/17 18:08 12/05/17 18:07 Vancomycin HCl 2000 mg/Sodium Chloride 520 ml @ 257.5 mls/ hr Q12H IV 12/05/17 14:00 ([facility] [place] Ordered Lab Info) SPECIFIC LAB TO BE DRAWN:VANCO TROUGH DATE TO BE DRRodrigo. 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 Objective . Vital Signs Date Time Temp Pulse Resp B/P (MAP) Pulse Ox O2 Delivery O2 Flow Rate FiO2 12/05/17 08:00 98.5 75 19 163/78 (106) 96 12/05/17 04:00 98.7 79 17 140/74 (96) 99 12/05/17 00:00 98.1 76 17 157/70 (99) 97 12/04/17 20:00 98.5 81 17 173/81 (111) 94 12/04/17 18:45 84 16 167/76 (106) 95 Nasal Cannula 3 12/04/17 18:30 82 16 156/64 (94) 97 Nasal Cannula 3 12/04/17 18:15 87 13 161/80 (107) 99 Nasal Cannula 3 12/04/17 18:00 87 17 140/65 (90) 96 Nasal Cannula 3 12/04/17 17:56 100.1 83 17 114/56 (75) 95 Nasal Cannula 3 12/04/17 12:00 98.4 66 19 146/65 (92) 97 12/05/17 12/05/17 12/06/17 15:00 23:00 07:00 Output Total 700 ml Balance -700 ml Output Urine Total 700 ml . Laboratory Tests Test 12/05/17 07:23 White Blood Count 8.4 TH/MM3 Red Blood Count 4.31 MIL/MM3 Hemoglobin 9.9 GM/DL Hematocrit 30.3 % Mean Corpuscular Volume 70.5 FL Mean Corpuscular Hemoglobin 22.9 PG Mean Corpuscular Hemoglobin Concent 32.5 % Red Cell Distribution Width 17.4 % Platelet Count 254 TH/MM3 Mean Platelet Volume 8.3 FL Neutrophils (%) (Auto) 70.3 % Lymphocytes (%) (Auto) 12.8 % Monocytes (%) (Auto) 13.1 % Eosinophils (%) (Auto) 3.1 % Basophils (%) (Auto) 0.7 % Neutrophils # (Auto) 5.9 TH/MM3 Lymphocytes # (Auto) 1.1 TH/MM3 Monocytes # (Auto) 1.1 TH/MM3 Eosinophils # (Auto) 0.3 TH/MM3 Basophils # (Auto) 0.1 TH/MM3 CBC Comment AUTO DIFF Differential Comment AUTO DIFF CONFIRMED Platelet Estimate NORMAL Platelet Morphology Comment NORMAL Ovalocytes 1+ Acanthocytes OCC Laboratory Tests Test 12/05/17 07:23 Blood Urea Nitrogen 7 MG/DL Creatinine 0.65 MG/DL Random Glucose 234 MG/DL Calcium Level 9.3 MG/DL Sodium Level 135 MEQ/L Potassium Level 3.4 MEQ/L Chloride Level 100 MEQ/L Carbon Dioxide Level 24.1 MEQ/L Anion Gap 11 MEQ/L Estimat Glomerular Filtration Rate 130 ML/MIN Microbiology Date/Time Source Procedure Growth Status 12/02/17 14:45 Blood Peripheral Aerobic Blood Culture - Preliminary NO GROWTH IN 3 DAYS Resulted 12/02/17 14:45 Blood Peripheral Anaerobic Blood Culture - Preliminary NO GROWTH IN 3 DAYS Resulted 12/02/17 14:40 Blood Peripheral Aerobic Blood Culture - Preliminary NO GROWTH IN 3 DAYS Resulted 12/02/17 14:40 Blood Peripheral Anaerobic Blood Culture - Preliminary NO GROWTH IN 3 DAYS Resulted Imaging Last Impressions Chest X-Ray 12/01/17 1444 Signed Impressions: CONCLUSION: No evidence of acute cardiopulmonary disease. Foot X-Ray 12/01/17 0000 Signed Impressions: CONCLUSION: 1. Marked worsening Lisfranc arthropathy and instability, neuropathic versus i nfectious. 2. Periosteal reaction of the metatarsals, especially the fourth and fifth, al so of concern for osteomyelitis. 3. Extensive soft tissue swelling and ulceration centered around the mid foot . Foot MRI 12/01/17 0000 Signed Impressions: CONCLUSION: 1. Destructive arthropathy of Lisfranc joint, presumably infectious. 2. Associated osteomyelitis diffusely of the cuneiforms, cuboid and navicular. Extensive osteomyelitis of the metatarsals as delineated above. There is also osteomyelitis of the distal halves of the talus and calcaneus. Suspected osteom yelitis of the proximal phalanx of the fourth toe as well. 3. Multiple fluid collections typical of abscesses as described above, some dr rose to the skin. Physical Exam GENERAL: awake and alert, not in respiratory distress. SKIN: Warm and dry. No generalized rash, no ecchymoses and no evidence of embolic lesions. HEAD: Atraumatic. Normocephalic. No temporal wasting, or tenderness. EYES: [place] conjunctiva. No petechia or hemorrhage. Pupils equal, round and reactive to light. Extraocular movements full and intact. No scleral icterus. No injection or drainage. EARS, NOSE AND THROAT: Nose without bleeding or purulent nasal discharge. No sinus tenderness. Mucous membranes pink and moist. NECK: Trachea midline. Supple and not tender, no meningeal signs CARDIOVASCULAR: Regular rate and rhythm. No murmurs, rubs or gallops heard RESPIRATORY: Clear to auscultation. Breath sounds equal bilaterally. No rales , wheezing or rhonchi ABDOMEN: Soft, non-tender, nondistended. Bowel sounds present and normoactive. No guarding. No rebound. No organomegaly. EXTREMITIES: No clubbing, cyanosis. LLE - normal. Has bulky dry intact dressing to his RBKA stump NEUROLOGICAL: Non-focal. PSYCHIATRIC: Normal affect, calm and cooperative. LINE: No evidence of infection Assessment & Plan Remarks IMPRESSION Sepsis, Strep, present on ?due to DFI R - suspicious for IE - wound C/S from foot has different organism Diabetic foot infection R, has Charcot foot, ?abscess, ?osteo - C/S with MRSA and PSAE - S/P RBKA DM Renal insufficiency due to sepsis, and dehydration, resolved Nausea and Vomiting, ?has diabetic gastroparesis RECOMMENDATION Follow repeat BC Await echo Continue Vanco Continue Zosyn Follow C/S and adjust Abx He will not need residential Abx for the MRSA and PSAE He will need Rx for the Strep sepsis - will determine course once echo, and repeat BC available Follow temps Monitor progress D/W Noemí Maki MD Dec 05, 2017 11:49
[2017-12-05 12:00] VITALS: BP 136/74; PULSE 70; RESP 18; TEMP 99; O2SAT 96
--- NOTE | 2017-12-05 12:57 | HHI.PR ---
Subjective Remarks Patient says he has pain at the surgical site. Feels very tired. No fever or chills. No n/v/d/c. Denies chest pain or sob. Objective Vitals Vital Signs Date Time Temp Pulse Resp B/P (MAP) Pulse Ox O2 Delivery O2 Flow Rate FiO2 12/05/17 12:00 99.0 70 18 136/74 (94) 96 12/05/17 08:00 98.5 75 19 163/78 (106) 96 12/05/17 04:00 98.7 79 17 140/74 (96) 99 12/05/17 00:00 98.1 76 17 157/70 (99) 97 12/04/17 20:00 98.5 81 17 173/81 (111) 94 12/04/17 18:45 84 16 167/76 (106) 95 Nasal Cannula 3 12/04/17 18:30 82 16 156/64 (94) 97 Nasal Cannula 3 12/04/17 18:15 87 13 161/80 (107) 99 Nasal Cannula 3 12/04/17 18:00 87 17 140/65 (90) 96 Nasal Cannula 3 12/04/17 17:56 100.1 83 17 114/56 (75) 95 Nasal Cannula 3 I/O 12/04/17 12/04/17 12/04/17 12/05/17 12/05/17 12/05/17 06:59 14:59 22:59 06:59 14:59 22:59 Intake Total 1615 ml 100 ml 900 ml 855 ml Output Total 1800 ml 1850 ml 600 ml 1700 ml 700 ml Balance -185 ml -1750 ml 300 ml -845 ml -700 ml Intake Oral 240 ml IV Total 1615 ml 100 ml 100 ml 615 ml Other 800 ml Output Urine Total 1800 ml 1850 ml 300 ml 1700 ml 700 ml Estimated Blood Loss 300 ml # Voids 3 Result Diagram: 12/05/17 0723 12/05/17 0723 Imaging Last Impressions Tumor Localization 12/03/17 0000 Signed Impressions: CONCLUSION: 1. Fairly significant destructive lytic lesions of the tarsometatarsal junctio ns with gas bubbles surrounding them the worst areas involve the middle and lat eral cuneiforms and these areas demonstrate abnormal white blood cell uptake co nsistent with osteomyelitis, however some of the destructive lesions could also represent Charcot's phenomenon as they demonstrate very mild uptake. Extremity Arterial Study 12/02/17 0000 Signed Impressions: CONCLUSION: 1. ABIs and TBIs within the normal range. Chest X-Ray 12/01/17 1444 Signed Impressions: CONCLUSION: No evidence of acute cardiopulmonary disease. Foot X-Ray 12/01/17 Signed Impressions: CONCLUSION: 1. Marked worsening Lisfranc arthropathy and instability, neuropathic versus i nfectious. 2. Periosteal reaction of the metatarsals, especially the fourth and fifth, al so of concern for osteomyelitis. 3. Extensive soft tissue swelling and ulceration centered around the mid foot . Foot MRI 12/01/17 Signed Impressions: CONCLUSION: 1. Destructive arthropathy of Lisfranc joint, presumably infectious. 2. Associated osteomyelitis diffusely of the cuneiforms, cuboid and navicular. Extensive osteomyelitis of the metatarsals as delineated above. There is also osteomyelitis of the distal halves of the talus and calcaneus. Suspected osteom yelitis of the proximal phalanx of the fourth toe as well. 3. Multiple fluid collections typical of abscesses as described above, some dr rose to the skin. Objective Remarks GENERAL: This is a well-nourished, well-developed patient, in no apparent distress. CARDIOVASCULAR: Regular rate and rhythm without murmurs, gallops, or rubs. RESPIRATORY: Clear to auscultation. Breath sounds equal bilaterally. No wheezes , rales, or rhonchi. GASTROINTESTINAL: Abdomen soft, non-tender, nondistended. No hepato-splenomegaly , or palpable masses. No guarding. MUSCULOSKELETAL: S/P right below the knee amputation, dressing c/d/i. No joint tenderness, effusion. NEUROLOGICAL: Awake and alert. Cranial nerves II through XII intact. Motor and sensory grossly within normal limits. Five out of 5 muscle strength in all muscle groups. Normal speech. A/P Problem List: (1) Right foot infection ICD Code: L08.9 - Local infection of the skin and subcutaneous tissue, unspecified Assessment and Plan Severe sepsis due to right foot osteomyelitis/abscess S/p I/D at the bedside by podiatry- plan for bone biopsy in OR. Dr Huber for I &D. WBC scan to differentiate OM versus Charcot although most likely OM Consult vascular surgery for evaluation. Possible BKA due to degree of infection. Continue with IV antibiotics- follow the cultures. Consult ID appreciate recs S/P bedside I&D Right foot area of drainage to plantar central midfoot probed to extend medially and dorsally at level of midfoot dorsally. MRI R foot with and without contrast reviewed, shows osteo S/p right below the knee amputation by Dr. Rehman 12/04/17. Management per surgeon Acute kidney injury: start on IV fluid and monitor renal function. Avoid nephrotoxins. Check BMP Diabetes mellitus 2 resume NPH- start on accu-check with SSI. CAD- s/p CABG: resume aspirin and plavix ( antiplatelet therapy was d/w ; suggested that the antiplatelets to be continued at this time). Hypertension HLD Stable. Monitor. Resume home meds. DVT prophylaxis per surgeon, pending podiatry and surgical intervention. Discussed Condition With Patient, nurse DC plan: S/P right below the knee amputation by Dr. Rehman 12/04/17 Discharge when improved and cleared by executive search consultant Yesi Napier MD Dec 05, 2017 12:57
[2017-12-05] MEDS: VANCOMYCIN INJ 2,000 MG in SODIUM CHLORID 0.9% 500 ML INJ 500 ML IV SCH (14:32)
[2017-12-05 16:00] VITALS: BP 159/72; PULSE 76; RESP 18; TEMP 99.6; O2SAT 96
--- NOTE | 2017-12-05 16:38 | ECHRPT ---
Indication: eval for veg- bacteremia CONCLUSIONS Mildly dilated left ventricle. Wall thickness is normal. The left ventricular systolic function is normal with an estimated ejection fraction in the range of 50-55%. BP: / HR: Rhythm: MEASUREMENTS (Male / Female) Normal Values Technical Quality: 2D ECHO LV Diastolic Diameter PLAX 5.4 cm 4.2 - 5.9 / 3.9 - 5.3 cm LV Systolic Diameter PLAX 4.1 cm IVS Diastolic Thickness 1.2 cm 0.6 - 1.0 / 0.6 - 0.9 cm LVPW Diastolic Thickness 0.7 cm 0.6 - 1.0 / 0.6 - 0.9 cm LV Relative Wall Thickness 0.4 LA Systolic Diameter LX 3.7 cm 3.0 - 4.0 / 2.7 - 3.8 cm M-MODE Aortic Root Diameter MM 3.4 cm AV Cusp Separation MM 2.3 cm DOPPLER Mitral E Point Velocity 114.0 cm/s Mitral A Point Velocity 58.6 cm/s Mitral E to A Ratio 1.9 TR Peak Velocity 263.0 cm/s TR Peak Gradient 27.7 mmHg Right Atrial Pressure 5.0 mmHg Pulmonary Artery Systolic Pressu 32.7 mmHg Right Ventricular Systolic Press 32.7 mmHg FINDINGS LEFT VENTRICLE Mildly dilated left ventricle. Wall thickness is normal. The left ventricular systolic function is normal with an estimated ejection fraction in the range of 50-55%. RIGHT VENTRICLE Normal right ventricular size and systolic function. LEFT ATRIUM The left atrial size is normal. RIGHT ATRIUM The right atrial size is normal. ATRIAL SEPTUM Normal atrial septal thickness without atrial level shunting by limited color doppler interrogation. AORTA The aortic root and proximal ascending aorta are normal in size on limited imaging. MITRAL VALVE Structurally normal mitral valve. No mitral valve stenosis or regurgitation. AORTIC VALVE Trileaflet aortic valve. No aortic valve stenosis or regurgitation. TRICUSPID VALVE Structurally normal tricuspid valve. No tricuspid valve stenosis or regurgitation. PULMONARY VALVE No pulmonary valve regurgitation or stenosis. VESSELS The inferior vena cava is normal in size. PERICARDIUM No pericardial effusion. Victoriano Posadas MD, FACC (Electronically Signed) Final Date:05 December 2017 16:37
--- NOTE | 2017-12-05 18:35 | PD.CAR.PN ---
CVT Progress Note Subjective/Hospital Course: Patient seen and full consult dictated This gentleman has irreversible infection of his right foot and osteomyelitis involving tarsal bones including calcaneus talus cuneiform navicular and the metatarsals metatarsals In addition he has a Charcot joint Based on his systemic diseases including diabetes mellitus and this situation patient should have right below-knee amputation as soon as possible I discussed this with Dr. Huber, and Dr. Duffy this is the only way to safely fix this because there is no cure for the situation as it is We will proceed with surgery tomorrow 12/05/2017 Status post right below-knee amputation Dressing is clean and dry We will leave the original dressing on until Saturday and then remove Nothing to add at this time Objective: Vital Signs Date Time Temp Pulse Resp B/P (MAP) Pulse Ox O2 Delivery O2 Flow Rate FiO2 12/05/17 16:00 99.6 76 18 159/72 (101) 96 12/05/17 12:00 99.0 70 18 136/74 (94) 96 12/05/17 08:00 98.5 75 19 163/78 (106) 96 12/05/17 04:00 98.7 79 17 140/74 (96) 99 12/05/17 00:00 98.1 76 17 157/70 (99) 97 12/04/17 20:00 98.5 81 17 173/81 (111) 94 12/04/17 18:45 84 16 167/76 (106) 95 Nasal Cannula 3 Labs: Laboratory Tests Test 12/05/17 07:23 White Blood Count 8.4 TH/MM3 (4.0-11.0) Red Blood Count 4.31 MIL/MM3 (4.50-5.90) Hemoglobin 9.9 GM/DL (13.0-17.0) Hematocrit 30.3 % (39.0-51.0) Mean Corpuscular Volume 70.5 FL (80.0-100.0) Mean Corpuscular Hemoglobin 22.9 PG (27.0-34.0) Mean Corpuscular Hemoglobin Concent 32.5 % (32.0-36.0) Red Cell Distribution Width 17.4 % (11.6-17.2) Platelet Count 254 TH/MM3 (150-450) Mean Platelet Volume 8.3 FL (7.0-11.0) Neutrophils (%) (Auto) 70.3 % (16.0-70.0) Lymphocytes (%) (Auto) 12.8 % (9.0-44.0) Monocytes (%) (Auto) 13.1 % (0.0-8.0) Eosinophils (%) (Auto) 3.1 % (0.0-4.0) Basophils (%) (Auto) 0.7 % (0.0-2.0) Neutrophils # (Auto) 5.9 TH/MM3 (1.8-7.7) Lymphocytes # (Auto) 1.1 TH/MM3 (1.0-4.8) Monocytes # (Auto) 1.1 TH/MM3 (0-0.9) Eosinophils # (Auto) 0.3 TH/MM3 (0-0.4) Basophils # (Auto) 0.1 TH/MM3 (0-0.2) CBC Comment AUTO DIFF Differential Comment AUTO DIFF CONFIRMED Platelet Estimate NORMAL (NORMAL) Platelet Morphology Comment NORMAL (NORMAL) Ovalocytes 1+ (NORMAL) Acanthocytes OCC (NORMAL) Blood Urea Nitrogen 7 MG/DL (7-18) Creatinine 0.65 MG/DL (0.60-1.30) Random Glucose 234 MG/DL (74-106) Calcium Level 9.3 MG/DL (8.5-10.1) Sodium Level 135 MEQ/L (136-145) Potassium Level 3.4 MEQ/L (3.5-5.1) Chloride Level 100 MEQ/L (98-107) Carbon Dioxide Level 24.1 MEQ/L (21.0-32.0) Anion Gap 11 MEQ/L (5-15) Estimat Glomerular Filtration Rate 130 ML/MIN (>89) Result Diagram: 12/05/17 0723 12/05/17 0723 Ochoa Rehman MD Dec 05, 2017 18:35
[2017-12-05 20:00] VITALS: BP 147/68; PULSE 76; RESP 17; TEMP 99; O2SAT 97
[2017-12-06] VITALS: BP 143/86; PULSE 72; RESP 17; TEMP 98.7; O2SAT 97
[2017-12-06] MEDS: VANCOMYCIN INJ 2,000 MG in SODIUM CHLORID 0.9% 500 ML INJ 500 ML IV SCH (01:15)
[2017-12-06] MEDS: MORPHINE SULFATE 4 MG/ML INJ IV PUSH PRN ×6 (01:16→22:12)
[2017-12-06] MEDS: PIPERACIL-TAZO 4.5 GM PREMIX 100 ML IV SCH ×2 (03:51→09:16)
[2017-12-06] MEDS: ACETAMINOPHEN/HYDROcodone 325 MG/5 MG TAB PO PRN ×5 (03:52→20:13)
[2017-12-06 08:00] VITALS: BP 156/72; PULSE 73; RESP 19; TEMP 98; O2SAT 94
[2017-12-06] MEDS: INSULIN HUMAN NPH 1,000 UNITS/10 ML VIAL SQ SCH ×2 (09:14→20:15)
[2017-12-06] MEDS: INSULIN ASPART SUPPLEMENTAL SCALE SQ SCH ×4 (09:15→20:17)
[2017-12-06] MEDS: GABAPENTIN 300 MG CAP PO SCH ×4 (09:17→20:13)
[2017-12-06] MEDS: CLOPIDOGREL 75 MG TAB PO SCH (09:17)
[2017-12-06] MEDS: ASPIRIN EC 81 MG TABEC PO SCH (09:17)
[2017-12-06] MEDS: METOPROLOL TARTRATE 50 MG TAB PO SCH ×2 (09:18→20:13)
[2017-12-06] MEDS: PRAVASTATIN SOD 40 MG TAB PO SCH ×2 (09:18→20:13)
[2017-12-06] MEDS: SODIUM CHLOR 0.9% 1000 ML INJ 1,000 ML IV SCH ×3 (10:00→20:16)
--- NOTE | 2017-12-06 11:27 | HHI.IDPN ---
Subjective Subjective Remarks Patient is a 52-year-old male, with known diabetes, started having problem about 5 days ago when he started having nausea and vomiting. Due to the vomiting, his p.o. intake has been poor. One day prior to admission, he developed increasing swelling, redness, and drainage from the wound on the bottom of his right foot. He apparently started having problem with that foot around the first week of October. He went to the emergency room, and had evaluation , and he was told that he is developing a Charcot foot. He was referred to a die storage clerk, and around November 07 he was seen, and there was some area on the midfoot that the die storage clerk did some debridement. There was no mention that there was any concern for infection. The day prior to admission, he started noticing swelling, redness, and increasing pain. It also started draining, so the patient presented to the hospital for further evaluation and treatment. Patient has had fever since admission. His WBC is normal. His sed rate is 56. Podiatry saw the patient, and did some bedside debridement, and patient is scheduled for more surgery tomorrow in the operating room. Patient stated that he is still having problem with nausea and vomiting. He has not had any bowel movement since he has very poor p.o. intake. Denies any sore throat and at or any respiratory complaint. Denies any urinary complaints. 2 blood cultures done on admission are now reported as growing Streptococcus. Patient is on vancomycin and Zosyn. Infectious disease consultation has been requested to evaluate the patient. 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 C/O pain at stump, pain med not enough Echo ok No new (+) BC Wound C/S - MRSA, skin serene and PSAE Antibiotics Vancomycin Zosyn Current Medications Medications (Trade) Dose Ordered Sig/Ronaldo Route Start Time Stop Time Status Last Admin (D50w (Vial) Inj) 50 ml UNSCH PRN IV PUSH 12/01/17 17:00 (Glucagon Inj) 1 mg UNSCH PRN OTHER 12/01/17 17:00 (NovoLOG SUPPLEMENTAL SCALE) 1 ACHS SLIDING SCALE SQ 12/01/17 17:00 12/06/17 09:15 (Neurontin) 600 mg QID PO 12/01/17 18:00 12/06/17 09:17 (NovoLIN N INJ) 20 units HS SQ 12/01/17 21:00 12/05/17 21:00 (NovoLIN N INJ) 60 units DAILY NEB SQ 12/02/17 08:00 12/06/17 09:14 (Pravachol) 40 mg BID PO 12/01/17 21:00 12/06/17 09:18 (Lopressor) 50 mg BID PO 12/01/17 21:00 12/06/17 09:18 (Ecotrin Ec) 81 mg DAILY PO 12/02/17 09:00 12/06/17 09:17 (Plavix) 75 mg DAILY PO 12/02/17 09:00 12/06/17 09:17 Pharmacy Profile Note 0 ml @ 0 mls/hr UNSCH OTHER 12/01/17 18:00 (Tylenol) 650 mg Q4H PRN PO 12/01/17 18:00 12/02/17 09:13 ([place] 5-325 Mg) 1 tab Q4H PRN PO 12/01/17 18:00 12/06/17 03:52 ([place] 5-325 Mg) 2 tab Q4H PRN PO 12/01/17 18:00 12/06/17 08:06 Sodium Chloride 1,000 ml @ 100 mls/hr Q10H IV 12/01/17 20:00 12/06/17 00:00 (Morphine Inj) 2 mg Q4H PRN IV PUSH 12/01/17 18:30 12/06/17 10:13 Piperacillin Sod/ Tazobactam Sod 100 ml @ 200 mls/hr Q6H IV 12/02/17 15:00 12/06/17 09:16 (Zofran Odt) 4 mg Q6H PRN SL 12/02/17 23:45 12/03/17 08:56 Vancomycin HCl 2000 mg/Sodium Chloride 520 ml @ 257.5 mls/ hr Q12H IV 12/05/17 14:00 12/06/17 01:15 ([facility] Ordered Lab Info) SPECIFIC LAB TO BE DRAWN:VANCO TROUGH DATE TO BE DRRodrigo. 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 Objective . Vital Signs Date Time Temp Pulse Resp B/P (MAP) Pulse Ox O2 Delivery O2 Flow Rate FiO2 12/06/17 10:17 18 12/06/17 09:06 18 12/06/17 08:00 98.0 73 19 156/72 (100) 94 12/06/17 05:04 18 12/06/17 00:00 98.7 72 17 143/86 (105) 97 12/05/17 20:00 99.0 76 17 147/68 (94) 97 12/05/17 16:00 99.6 76 18 159/72 (101) 96 12/05/17 12:00 99.0 70 18 136/74 (94) 96 . Laboratory Tests Test 12/05/17 07:23 White Blood Count 8.4 TH/MM3 Red Blood Count 4.31 MIL/MM3 Hemoglobin 9.9 GM/DL Hematocrit 30.3 % Mean Corpuscular Volume 70.5 FL Mean Corpuscular Hemoglobin 22.9 PG Mean Corpuscular Hemoglobin Concent 32.5 % Red Cell Distribution Width 17.4 % Platelet Count 254 TH/MM3 Mean Platelet Volume 8.3 FL Neutrophils (%) (Auto) 70.3 % Lymphocytes (%) (Auto) 12.8 % Monocytes (%) (Auto) 13.1 % Eosinophils (%) (Auto) 3.1 % Basophils (%) (Auto) 0.7 % Neutrophils # (Auto) 5.9 TH/MM3 Lymphocytes # (Auto) 1.1 TH/MM3 Monocytes # (Auto) 1.1 TH/MM3 Eosinophils # (Auto) 0.3 TH/MM3 Basophils # (Auto) 0.1 TH/MM3 CBC Comment AUTO DIFF Differential Comment AUTO DIFF CONFIRMED Platelet Estimate NORMAL Platelet Morphology Comment NORMAL Ovalocytes 1+ Acanthocytes OCC Laboratory Tests Test 12/05/17 07:23 Blood Urea Nitrogen 7 MG/DL Creatinine 0.65 MG/DL Random Glucose 234 MG/DL Calcium Level 9.3 MG/DL Sodium Level 135 MEQ/L Potassium Level 3.4 MEQ/L Chloride Level 100 MEQ/L Carbon Dioxide Level 24.1 MEQ/L Anion Gap 11 MEQ/L Estimat Glomerular Filtration Rate 130 ML/MIN Imaging Last Impressions Chest X-Ray 12/01/17 1444 Signed Impressions: CONCLUSION: No evidence of acute cardiopulmonary disease. Foot X-Ray 12/01/17 0000 Signed Impressions: CONCLUSION: 1. Marked worsening Lisfranc arthropathy and instability, neuropathic versus i nfectious. 2. Periosteal reaction of the metatarsals, especially the fourth and fifth, al so of concern for osteomyelitis. 3. Extensive soft tissue swelling and ulceration centered around the mid foot . Foot MRI 12/01/17 0000 Signed Impressions: CONCLUSION: 1. Destructive arthropathy of Lisfranc joint, presumably infectious. 2. Associated osteomyelitis diffusely of the cuneiforms, cuboid and navicular. Extensive osteomyelitis of the metatarsals as delineated above. There is also osteomyelitis of the distal halves of the talus and calcaneus. Suspected osteom yelitis of the proximal phalanx of the fourth toe as well. 3. Multiple fluid collections typical of abscesses as described above, some dr rose to the skin. Physical Exam GENERAL: awake and alert, not in respiratory distress. SKIN: Warm and dry. No generalized rash, no ecchymoses and no evidence of embolic lesions. HEAD: Atraumatic. Normocephalic. No temporal wasting, or tenderness. EYES: [place] conjunctiva. No petechia or hemorrhage. Extraocular movements full and intact. No scleral icterus. No injection or drainage. EARS, NOSE AND THROAT: Nose without bleeding or purulent nasal discharge. Mucous membranes pink and moist. NECK: Trachea midline. Supple and not tender, no meningeal signs CARDIOVASCULAR: Regular rate and rhythm. No murmurs, rubs or gallops heard RESPIRATORY: Clear to auscultation. Breath sounds equal bilaterally. No rales , wheezing or rhonchi ABDOMEN: Soft, non-tender, nondistended. Bowel sounds present and normoactive. No guarding. No rebound. No organomegaly. EXTREMITIES: No clubbing, cyanosis. LLE - normal. Has bulky dry intact dressing to his RBKA stump NEUROLOGICAL: Non-focal. PSYCHIATRIC: Normal affect, calm and cooperative. LINE: No evidence of infection Assessment & Plan Remarks IMPRESSION Sepsis, Strep, present on admission, likely due to DFI R - suspicious for IE - wound C/S from foot has MRSA, skin serene nad PSAE Diabetic foot infection R, has Charcot foot, ?abscess, ?osteo - C/S with MRSA, skin serene and PSAE - S/P RBKA DM Renal insufficiency due to sepsis, and dehydration, resolved Nausea and Vomiting, ?has diabetic gastroparesis RECOMMENDATION Follow repeat BC Stop Vanco Stop Zosyn Give oral Abx x 6 days post op for the (+) C/S Use Rocephin for the Strep bacteremia - likely 14 days IV Rx from date of surgery - anticipated end date 12/17 Follow temps Monitor progress D/W RN Explained plan to the patient Noemí Amador MD Dec 06, 2017 11:26
[2017-12-06] MEDS: LINEZOLID 600 MG TAB PO SCH ×2 (11:52→20:13)
[2017-12-06] MEDS: LEVOFLOXACIN 750 MG TAB PO SCH (11:52)
[2017-12-06] MEDS: cefTRIAXone INJ 2,000 MG in SODIUM CHLORIDE 0.9% INJ 100 ML IV SCH (11:54)
[2017-12-06 12:00] VITALS: BP 146/71; PULSE 71; RESP 19; TEMP 98.5; O2SAT 96
[2017-12-06 16:00] VITALS: BP 141/65; PULSE 78; RESP 18; TEMP 98.6; O2SAT 93
--- NOTE | 2017-12-06 17:31 | HHI.PR ---
Subjective Remarks The patient was seen earlier today. He denies having any shortness of breath or chest pain. However he says his stomach is upset and he wants to take Prilosec as he is taking at home. Resume Prilosec. Says he still has significant pain at the surgical site at the stump site. No nausea or vomiting. No constipation. Objective Vitals Vital Signs Date Time Temp Pulse Resp B/P (MAP) Pulse Ox O2 Delivery O2 Flow Rate FiO2 12/06/17 16:00 98.6 78 18 141/65 (90) 93 12/06/17 13:56 18 12/06/17 12:53 18 12/06/17 12:00 98.5 71 19 146/71 (96) 96 12/06/17 08:00 98.0 73 19 156/72 (100) 94 12/06/17 05:04 18 12/06/17 00:00 98.7 72 17 143/86 (105) 97 12/05/17 20:00 99.0 76 17 147/68 (94) 97 I/O 12/05/17 12/05/17 12/05/17 12/06/17 12/06/17 12/06/17 07:00 15:00 23:00 07:00 15:00 23:00 Intake Total 855 ml 1680 ml 1760 ml Output Total 1700 ml 700 ml 4500 ml 3650 ml Balance -845 ml -700 ml -2820 ml -1890 ml Intake Oral 240 ml 960 ml 840 ml IV Total 615 ml 720 ml 920 ml Output Urine Total 1700 ml 700 ml 4500 ml 3650 ml # Bowel Movements 0 Result Diagram: 12/05/17 0723 12/05/17 0723 Imaging Last Impressions Tumor Localization 12/03/17 0000 Signed Impressions: CONCLUSION: 1. Fairly significant destructive lytic lesions of the tarsometatarsal junctio ns with gas bubbles surrounding them the worst areas involve the middle and lat eral cuneiforms and these areas demonstrate abnormal white blood cell uptake co nsistent with osteomyelitis, however some of the destructive lesions could also represent Charcot's phenomenon as they demonstrate very mild uptake. Extremity Arterial Study 12/02/17 0000 Signed Impressions: CONCLUSION: 1. ABIs and TBIs within the normal range. Chest X-Ray 12/01/17 1444 Signed Impressions: CONCLUSION: No evidence of acute cardiopulmonary disease. Foot X-Ray 12/01/17 0000 Signed Impressions: CONCLUSION: 1. Marked worsening Lisfranc arthropathy and instability, neuropathic versus i nfectious. 2. Periosteal reaction of the metatarsals, especially the fourth and fifth, al so of concern for osteomyelitis. 3. Extensive soft tissue swelling and ulceration centered around the mid foot . Foot MRI 12/01/17 0000 Signed Impressions: CONCLUSION: 1. Destructive arthropathy of Lisfranc joint, presumably infectious. 2. Associated osteomyelitis diffusely of the cuneiforms, cuboid and navicular. Extensive osteomyelitis of the metatarsals as delineated above. There is also osteomyelitis of the distal halves of the talus and calcaneus. Suspected osteom yelitis of the proximal phalanx of the fourth toe as well. 3. Multiple fluid collections typical of abscesses as described above, some dr rose to the skin. Objective Remarks GENERAL: This is a well-nourished, well-developed patient, in no apparent distress. CARDIOVASCULAR: Regular rate and rhythm without murmurs, gallops, or rubs. RESPIRATORY: Clear to auscultation. Breath sounds equal bilaterally. No wheezes , rales, or rhonchi. GASTROINTESTINAL: Abdomen soft, non-tender, nondistended. No hepato-splenomegaly , or palpable masses. No guarding. MUSCULOSKELETAL: S/P right below the knee amputation, dressing c/d/i. No joint tenderness, effusion. NEUROLOGICAL: Awake and alert. Cranial nerves II through XII intact. Motor and sensory grossly within normal limits. Five out of 5 muscle strength in all muscle groups. Normal speech. A/P Problem List: (1) Right foot infection ICD Code: L08.9 - Local infection of the skin and subcutaneous tissue, unspecified Assessment and Plan Severe sepsis due to right foot osteomyelitis/abscess S/p I/D at the bedside by podiatry- plan for bone biopsy in OR. Dr Huber for I &D. WBC scan to differentiate OM versus Charcot although most likely OM Consult vascular surgery for evaluation. Possible BKA due to degree of infection. Continue with IV antibiotics- follow the cultures. Consult ID appreciate recs S/P bedside I&D Right foot area of drainage to plantar central midfoot probed to extend medially and dorsally at level of midfoot dorsally. MRI R foot with and without contrast reviewed, shows osteo S/p right below the knee amputation by Dr. Rehman 12/04/17. Management per surgeon Acute kidney injury: start on IV fluid and monitor renal function. Avoid nephrotoxins. Check BMP Diabetes mellitus 2 resume NPH- start on accu-check with SSI. CAD- s/p CABG: resume aspirin and plavix ( antiplatelet therapy was d/w ; suggested that the antiplatelets to be continued at this time). Hypertension HLD Stable. Monitor. Resume home meds. GERD resume home Prilosec. DVT prophylaxis per surgeon, pending podiatry and surgical intervention. Discussed Condition With Patient, nurse DC plan: S/P right below the knee amputation by Dr. Rehman 12/04/17 Discharge when improved and cleared by reporting process consultant Yesi Napier MD Dec 06, 2017 17:31
[2017-12-06 20:26] VITALS: BP 152/70; PULSE 81; RESP 18; TEMP 98.8; O2SAT 96
[2017-12-07] MEDS: ACETAMINOPHEN/HYDROcodone 325 MG/5 MG TAB PO PRN ×3 (00:03→09:48)
[2017-12-07 00:09] VITALS: BP 143/73; PULSE 72; RESP 18; TEMP 99.6; O2SAT 96
[2017-12-07] MEDS ORDERED: PHARMACY ORDERED LAB ONE (01:45)
[2017-12-07] MEDS: MORPHINE SULFATE 4 MG/ML INJ IV PUSH PRN ×5 (02:08→21:22)
[2017-12-07] MEDS: SODIUM CHLOR 0.9% 1000 ML INJ 1,000 ML IV SCH ×2 (04:52→14:43)
[2017-12-07 07:30] LABS: AUTOMATED NEUTROPHIL # 7.3 TH/MM3 (1.8-7.7); BASOPHIL # 0.1 TH/MM3 (0-0.2); BASOPHIL % 0.7 % (0.0-2.0); EOSINOPHIL # 0.2 TH/MM3 (0-0.4); EOSINOPHIL % 2.1 % (0.0-4.0); HEMATOCRIT 27.8 % (39.0-51.0); HEMOGLOBIN 9.4 GM/DL (13.0-17.0); LYMPH % 13.1 % (9.0-44.0); LYMPHOCYTE # 1.2 TH/MM3 (1.0-4.8); MEAN CELL VOLUME 70.9 FL (80.0-100.0); MEAN CORPUSCULAR HGB CONC 33.9 % (32.0-36.0); MEAN PLATELET VOLUME 8.1 FL (7.0-11.0); MONO % 5.9 % (0.0-8.0); MONOCYTE # 0.5 TH/MM3 (0-0.9); NEUT % 78.2 % (16.0-70.0); PLATELET COUNT 316 TH/MM3 (150-450); RED BLOOD COUNT 3.92 MIL/MM3 (4.50-5.90); WHITE BLOOD COUNT 9.3 TH/MM3 (4.0-11.0)
[2017-12-07 07:54] LABS: BICARBONATE 23.4 MEQ/L (21.0-32.0); CALCIUM 8.9 MG/DL (8.5-10.1); CREATININE 0.62 MG/DL (0.60-1.30); MAGNESIUM 1.9 MG/DL (1.5-2.5)
[2017-12-07 08:00] VITALS: BP 167/80; PULSE 69; RESP 18; TEMP 98.5; O2SAT 96
[2017-12-07] MEDS: INSULIN ASPART SUPPLEMENTAL SCALE SQ SCH ×4 (08:05→19:35)
[2017-12-07] MEDS: INSULIN HUMAN NPH 1,000 UNITS/10 ML VIAL SQ SCH ×2 (08:05→19:35)
[2017-12-07] MEDS: METOPROLOL TARTRATE 50 MG TAB PO SCH ×2 (08:06→19:33)
[2017-12-07] MEDS: ASPIRIN EC 81 MG TABEC PO SCH (08:06)
[2017-12-07] MEDS: LEVOFLOXACIN 750 MG TAB PO SCH (08:06)
[2017-12-07] MEDS: GABAPENTIN 300 MG CAP PO SCH ×4 (08:07→19:32)
[2017-12-07] MEDS: CLOPIDOGREL 75 MG TAB PO SCH (08:07)
[2017-12-07] MEDS: PRAVASTATIN SOD 40 MG TAB PO SCH ×2 (08:08→19:32)
[2017-12-07] MEDS: LINEZOLID 600 MG TAB PO SCH ×2 (08:08→19:32)
[2017-12-07 08:48] LABS: BANDS 7 % (0-6); LYMPHOCYTES 5 % (9-44); METAMYELOCYTES 2 % (0-1); MONOCYTES 4 % (0-8); MYELOCYTES 1 % (0-0); NEUTROPHIL # MANUAL DIFF 8.4 TH/MM3 (1.8-7.7); POLYS (SEG NEUTROPHILS) 80 % (16-70)
[2017-12-07 08:49] LABS: OVALOCYTES 1+ (NORMAL); POLYCHROMASIA 2.1 % (0.0-1.9)
[2017-12-07] MEDS: cefTRIAXone INJ 2,000 MG in SODIUM CHLORIDE 0.9% INJ 100 ML IV SCH (11:13)
--- NOTE | 2017-12-07 11:25 | HHI.PR ---
Subjective Remarks 6-8 The patient was seen earlier today. He denies having any shortness of breath or chest pain. However he says his stomach is upset and he wants to take Prilosec as he is taking at home. Resume Prilosec. Says he still has significant pain at the surgical site at the stump site. No nausea or vomiting. No constipation. 6-9 STATES HAS SOME PAIN IN RIGHT LEG STATES PAIN MEDICATIONS NOT WORKING WELL ENOUGH WILL ADJUST DW RN NEEDS PT AND OT Objective Vitals Vital Signs Date Time Temp Pulse Resp B/P (MAP) Pulse Ox O2 Delivery O2 Flow Rate FiO2 12/07/17 08:00 98.5 69 18 167/80 (109) 96 12/07/17 00:09 99.6 72 18 143/73 (96) 96 12/06/17 20:26 98.8 81 18 152/70 (97) 96 12/06/17 18:13 18 12/06/17 17:03 18 12/06/17 16:00 98.6 78 18 141/65 (90) 93 12/06/17 12:00 98.5 71 19 146/71 (96) 96 I/O 12/06/17 12/06/17 12/06/17 12/07/17 12/07/17 12/07/17 07:00 15:00 23:00 07:00 15:00 23:00 Intake Total 1760 ml 1200 ml 760 ml Output Total 3650 ml 3000 ml 2500 ml 500 ml Balance -1890 ml -1800 ml -1740 ml -500 ml Intake Oral 840 ml 1200 ml 760 ml IV Total 920 ml Output Urine Total 3650 ml 3000 ml 2500 ml 500 ml # Bowel Movements 0 0 Result Diagram: 12/07/17 0645 12/07/17 0645 Other Results Laboratory Tests Test 12/05/17 03:00 12/05/17 07:23 12/07/17 06:45 Vancomycin Level Trough 7.8 MCG/ML White Blood Count 8.4 TH/MM3 9.3 TH/MM3 Red Blood Count 4.31 MIL/MM3 3.92 MIL/MM3 Hemoglobin 9.9 GM/DL 9.4 GM/DL Hematocrit 30.3 % 27.8 % Mean Corpuscular Volume 70.5 FL 70.9 FL Mean Corpuscular Hemoglobin 22.9 PG 24.0 PG Mean Corpuscular Hemoglobin Concent 32.5 % 33.9 % Red Cell Distribution Width 17.4 % 18.0 % Platelet Count 254 TH/MM3 316 TH/MM3 Mean Platelet Volume 8.3 FL 8.1 FL Neutrophils (%) (Auto) 70.3 % 78.2 % Lymphocytes (%) (Auto) 12.8 % 13.1 % Monocytes (%) (Auto) 13.1 % 5.9 % Eosinophils (%) (Auto) 3.1 % 2.1 % Basophils (%) (Auto) 0.7 % 0.7 % Neutrophils # (Auto) 5.9 TH/MM3 7.3 TH/MM3 Lymphocytes # (Auto) 1.1 TH/MM3 1.2 TH/MM3 Monocytes # (Auto) 1.1 TH/MM3 0.5 TH/MM3 Eosinophils # (Auto) 0.3 TH/MM3 0.2 TH/MM3 Basophils # (Auto) 0.1 TH/MM3 0.1 TH/MM3 CBC Comment AUTO DIFF AUTO DIFF Differential Comment AUTO DIFF CONFIRMED FINAL DIFF MANUAL Platelet Estimate NORMAL NORMAL Platelet Morphology Comment NORMAL NORMAL Ovalocytes 1+ 1+ Acanthocytes OCC Blood Urea Nitrogen 7 MG/DL 8 MG/DL Creatinine 0.65 MG/DL 0.62 MG/DL Random Glucose 234 MG/DL 190 MG/DL Calcium Level 9.3 MG/DL 8.9 MG/DL Sodium Level 135 MEQ/L 139 MEQ/L Potassium Level 3.4 MEQ/L 3.6 MEQ/L Chloride Level 100 MEQ/L 106 MEQ/L Carbon Dioxide Level 24.1 MEQ/L 23.4 MEQ/L Anion Gap 11 MEQ/L 10 MEQ/L Estimat Glomerular Filtration Rate 130 ML/MIN 137 ML/MIN Differential Total Cells Counted 100 Neutrophils % (Manual) 80 % Band Neutrophils % 7 % Lymphocytes % 5 % Monocytes % 4 % Eosinophils % 1 % Neutrophils # (Manual) 8.4 TH/MM3 Metamyelocytes 2 % Myelocytes 1 % Polychromasia 2.1 % Magnesium Level 1.9 MG/DL Imaging Last Impressions Tumor Localization 12/03/17 0000 Signed Impressions: CONCLUSION: 1. Fairly significant destructive lytic lesions of the tarsometatarsal junctio ns with gas bubbles surrounding them the worst areas involve the middle and lat eral cuneiforms and these areas demonstrate abnormal white blood cell uptake co nsistent with osteomyelitis, however some of the destructive lesions could also represent Charcot's phenomenon as they demonstrate very mild uptake. Extremity Arterial Study 12/02/17 0000 Signed Impressions: CONCLUSION: 1. ABIs and TBIs within the normal range. Chest X-Ray 12/01/17 1444 Signed Impressions: CONCLUSION: No evidence of acute cardiopulmonary disease. Foot X-Ray 12/01/17 0000 Signed Impressions: CONCLUSION: 1. Marked worsening Lisfranc arthropathy and instability, neuropathic versus i nfectious. 2. Periosteal reaction of the metatarsals, especially the fourth and fifth, al so of concern for osteomyelitis. 3. Extensive soft tissue swelling and ulceration centered around the mid foot . Foot MRI 12/01/17 0000 Signed Impressions: CONCLUSION: 1. Destructive arthropathy of Lisfranc joint, presumably infectious. 2. Associated osteomyelitis diffusely of the cuneiforms, cuboid and navicular. Extensive osteomyelitis of the metatarsals as delineated above. There is also osteomyelitis of the distal halves of the talus and calcaneus. Suspected osteom yelitis of the proximal phalanx of the fourth toe as well. 3. Multiple fluid collections typical of abscesses as described above, some dr rose to the skin. Objective Remarks GENERAL: Awake alert and oriented 3 talkative and cooperative Has right below the knee amputation that is dressed SKIN: Warm and dry. Right below the knee amputation it remains dressed HEAD: Atraumatic. Normocephalic. EYES: Pupils equal and round. No scleral icterus. No injection or drainage. ENT: No nasal bleeding or discharge. Mucous membranes pink and moist. NECK: Trachea midline. No JVD. CARDIOVASCULAR: Regular rate and rhythm. S1-S2 no S3 or S4 RESPIRATORY: No accessory muscle use. Clear to auscultation. Breath sounds equal bilaterally. GASTROINTESTINAL: Abdomen soft, non-tender, nondistended. Hepatic and splenic margins not palpable. MUSCULOSKELETAL: Extremities without clubbing, cyanosis, or edema. No obvious deformities. Right below the knee amputation that is dressed NEUROLOGICAL: Awake and alert. No obvious cranial nerve deficits. Motor grossly within normal limits. Five out of 5 muscle strength in the arms and legs. Normal speech. Right below the knee amputation that is dressed PSYCHIATRIC: Appropriate mood and affect; insight and judgment normal. Procedures 12/04/2017 PREOPERATIVE DIAGNOSIS: Osteomyelitis of the right foot, Charcot joint, diabetes mellitus. POSTOPERATIVE DIAGNOSES: Osteomyelitis of the right foot, Charcot joint, diabetes mellitus. OPERATIVE PROCEDURE: Right below-knee amputation. Medications and IVs Current Medications Acetaminophen (Tylenol) 650 mg ONCE ONCE PO Last administered on 12/01/17 15: 00; Start 12/01/17 at 14:45; Stop 12/01/17 at 14:47; Status DC Sodium Chloride 1,000 ml @ 1,000 mls/hr Q1H ONCE IV Last administered on 14:59; Start 12/01/17 at 14:44; Stop 12/01/17 at 15:43; Status DC Piperacillin Sod/ Tazobactam Sod 50 ml @ 100 mls/hr ONCE ONCE IV Last administered on 12/01/17 14:59; Start 12/01/17 at 14:45; Stop 12/01/17 at 15:14; Status DC Vancomycin HCl 1250 mg/Sodium Chloride 262.5 ml @ 250 mls/hr ONCE ONCE IV Last administered on 12/01/17 16:13; Start 12/01/17 at 14:45; Stop 12/01/17 at 15: 47; Status DC Morphine Sulfate (Morphine Inj) 4 mg ONCE ONCE IV PUSH Last administered on 15:00; Start 12/01/17 at 14:45; Stop 12/01/17 at 14:47; Status DC Morphine Sulfate (Morphine Inj) 4 mg ONCE ONCE IV PUSH Last administered on 16:40; Start 12/01/17 at 16:30; Stop 12/01/17 at 16:31; Status DC Ketorolac Tromethamine (Toradol Inj) 30 mg ONCE ONCE IV PUSH Last administered on 12/01/17 16:40; Start 12/01/17 at 16:30; Stop 12/01/17 at 16:31; Status DC Sodium Chloride 1,000 ml @ 999 mls/hr BOLUS ONCE IV Last administered on 16:39; Start 12/01/17 at 16:30; Stop 12/01/17 at 17:30; Status DC Insulin Human Regular (NovoLIN R INJ) 6 units ONCE ONCE IV PUSH Last administered on 12/01/17 16:40; Start 12/01/17 at 16:30; Stop 12/01/17 at 16:31; Status DC Dextrose (D50w (Vial) Inj) 50 ml UNSCH PRN IV PUSH HYPOGLYCEMIA-SEE COMMENTS; Start 12/01/17 at 17:00 Glucagon (Glucagon Inj) 1 mg UNSCH PRN OTHER HYPOGLYCEMIA-SEE COMMENTS; Start 12/01/17 at 17:00 Insulin Aspart (NovoLOG SUPPLEMENTAL SCALE) 1 ACHS SLIDING SCALE SQ Last administered on 12/07/17 08:05; Start 12/01/17 at 17:00 Gadodiamide (Omniscan Pf Inj) 18 ml STK-MED ONCE IVCONTRAST Last administered on 12/01/17 17:13; Start 12/01/17 at 17:13; Stop 12/01/17 at 17:14; Status DC Gabapentin (Neurontin) 600 mg QID PO Last administered on 12/07/17 08:07; Start 12/01/17 at 18:00 Insulin Human NPH (NovoLIN N INJ) 20 units HS SQ Last administered on 12/06/17 20:15; Start 12/01/17 at 21:00 Insulin Human NPH (NovoLIN N INJ) 60 units DAILY NEB SQ Last administered on 08:05; Start 12/02/17 at 08:00 Pravastatin Sodium (Pravachol) 40 mg BID PO Last administered on 12/07/17 08:08 ; Start 12/01/17 at 21:00 Metoprolol Tartrate (Lopressor) 50 mg BID PO Last administered on 12/07/17 08: 06; Start 12/01/17 at 21:00 Lidocaine HCl (Xylocaine 1% Inj (50 ml)) 10 ml ONCE ONCE INFIL ; Start 12/01/17 at 17:45; Stop 12/01/17 at 17:46; Status DC Lidocaine HCl (Xylocaine-Mpf 1% Inj) 30 ml STK-MED ONCE .ROUTE Last administered on 12/01/17at 17:44; Start 12/01/17 at 17:38; Stop 12/01/17 at 17:39; Status DC Aspirin (Ecotrin Ec) 81 mg DAILY PO Last administered on 12/07/17 08:06; Start 12/02/17 at 09:00 Clopidogrel Bisulfate (Plavix) 75 mg DAILY PO Last administered on 12/07/17 08: 07; Start 12/02/17 at 09:00 Pharmacy Profile Note 0 ml @ 0 mls/hr UNSCH OTHER ; Start 12/01/17 at 18:00; Stop 12/06/17 at 11:23; Status DC Piperacillin Sod/ Tazobactam Sod 50 ml @ 100 mls/hr Q6H IV Last administered on 12/02/17 08:28; Start 12/01/17 at 21:00; Stop 12/02/17 at 13:14; Status DC Acetaminophen (Tylenol) 650 mg Q4H PRN PO FEVER/PAIN 1-3 Last administered on 09:13; Start 12/01/17 at 18:00 Acetaminophen/ Hydrocodone Bitart (Nubieber 5-325 Mg) 1 tab Q4H PRN PO PAIN 4-7 Last administered on 12/06/17 03:52; Start 12/01/17 at 18:00 Acetaminophen/ Hydrocodone Bitart (Nubieber 5-325 Mg) 2 tab Q4H PRN PO PAIN 8-10 Last administered on 12/07/17 09:48; Start 12/01/17 at 18:00 Sodium Chloride 1,000 ml @ 100 mls/hr Q10H IV Last administered on 12/07/17 04 :52; Start 12/01/17 at 20:00 Vancomycin HCl 1250 mg/Sodium Chloride 262.5 ml @ 250 mls/hr Q12H IV Last administered on 12/02/17at 04:04; Start 12/02/17 at 04:00; Stop 12/02/17 at 11:33; Status DC Morphine Sulfate (Morphine Inj) 2 mg Q4H PRN IV PUSH BREAKTHROUGH PAIN Last administered on 12/07/17at 08:09; Start 12/01/17 at 18:30 Miscellaneous Information ([facility] Ordered Lab Info) SPECIFIC LAB TO BE DRAWN: VANCO TROUGH DATE TO... ONCE ONCE .XX ; Start 12/03/17 at 15:45; Stop 12/03/17 at 15:45; Status DC Vancomycin HCl 1500 mg/Sodium Chloride 515 ml @ 257.5 mls/ hr Q12H IV Last administered on 12/05/17at 02:23; Start 12/02/17 at 14:00; Stop 12/05/17 at 10:06; Status DC Miscellaneous Information ([facility] Ordered Lab Info) SPECIFIC LAB TO BE MADISYN.Rodrigo ONCE ONCE .XX ; Start 12/03/17 at 13:45; Stop 12/03/17 at 13:46; Status DC Piperacillin Sod/ Tazobactam Sod 100 ml @ 200 mls/hr Q6H IV Last administered on 12/06/17at 09:16; Start 12/02/17 at 15:00; Stop 12/06/17 at 11:23; Status DC Ondansetron HCl (Zofran Odt) 4 mg Q6H PRN SL NAUSEA Last administered on at 08:56; Start 12/02/17 at 23:45 Lactated Ringer's 1,000 ml @ 30 mls/hr Q24H PRN IV SEE LABEL COMMENTS Last administered on 12/04/17at 14:05; Start 12/03/17 at 06:45; Stop 12/06/17 at 06:44; Status DC Potassium Chloride (KCl) 40 meq ONCE ONCE PO Last administered on 12/03/17at 14: 35; Start 12/03/17 at 12:00; Stop 12/03/17 at 12:01; Status DC Miscellaneous Information ([facility] Ordered Lab Info) SPECIFIC LAB TO BE ONCE ONCE .XX ; Start 12/04/17 at 13:45; Stop 12/04/17 at 13:46; Status DC Miscellaneous Information ([facility] Ordered Lab Info) SPECIFIC LAB TO BE DRAWN:VANCO TROUGH DATE TO BE ONCE ONCE .XX Last administered on at 03:10; Start 12/05/17 at 01:45; Stop 12/05/17 at 01:46; Status DC Hydromorphone HCl (Dilaudid Pf Inj) 4 mg STK-MED ONCE .ROUTE ; Start 12/04/17 at 17:02; Stop 12/04/17 at 17:03; Status DC Ketamine HCl (Ketalar Inj) 500 mg STK-MED ONCE .ROUTE ; Start 12/04/17 at 17:02; Stop 12/04/17 at 17:03; Status DC Midazolam HCl (Versed Inj) 2 mg STK-MED ONCE .ROUTE ; Start 12/04/17 at 18:01; Stop 12/04/17 at 18:02; Status DC Fentanyl Citrate (fentaNYL INJ) 400 mcg STK-MED ONCE .ROUTE ; Start 12/04/17 at 18:01; Stop 12/04/17 at 18:02; Status DC Morphine Sulfate (*morphine INJ PERIprocedure ONLY) 8 mg STK-MED ONCE .ROUTE Last administered on 12/04/17 18:05; Start 12/04/17 at 18:05; Stop 12/04/17 at 18: 06; Status DC Morphine Sulfate (*morphine INJ PERIprocedure ONLY) 8 mg STK-MED ONCE .ROUTE Last administered on 12/04/17 18:12; Start 12/04/17 at 18:12; Stop 12/04/17 at 18: 13; Status DC Morphine Sulfate (*morphine INJ PERIprocedure ONLY) 8 mg STK-MED ONCE .ROUTE Last administered on 12/04/17 18:18; Start 12/04/17 at 18:18; Stop 12/04/17 at 18: 19; Status DC Meperidine HCl (*DEMEROL INJ PERIprocedural ONLY) 25 mg STK-MED ONCE .ROUTE Last administered on 12/04/17 18:25; Start 12/04/17 at 18:25; Stop 12/04/17 at 18: 26; Status DC Miscellaneous Information ([facility] Nursing Information) ALL NURSING DEPARTME... UNSCH PRN .XX SEE LABEL COMMENTS; Start 12/04/17 at 18:08; Stop 12/05/17 at 18:07 ; Status DC Hydromorphone HCl (Dilaudid Pf Inj) 0.5 mg STK-MED ONCE .ROUTE Last administered on 12/04/17 18:33; Start 12/04/17 at 18:33; Stop 12/04/17 at 18:34; Status DC Hydromorphone HCl (Dilaudid Pf Inj) 0.5 mg STK-MED ONCE .ROUTE Last administered on 12/04/17 18:42; Start 12/04/17 at 18:42; Stop 12/04/17 at 18:43; Status DC Hydromorphone HCl (Dilaudid Pf Inj) 0.5 mg STK-MED ONCE .ROUTE ; Start 12/04/17 at 18:59; Stop 12/04/17 at 19:00; Status DC Hydromorphone HCl (Dilaudid Pf Inj) 1 mg ONCE ONCE IV PUSH Last administered on 12/05/17at 00:45; Start 12/05/17 at 00:30; Stop 12/05/17 at 00:31; Status DC Vancomycin HCl 2000 mg/Sodium Chloride 520 ml @ 257.5 mls/ hr Q12H IV Last administered on 12/06/17at 01:15; Start 12/05/17 at 14:00; Stop 12/06/17 at 11:23; Status DC Miscellaneous Information ([facility] Ordered Lab Info) SPECIFIC LAB TO BE DRAWN:VANCO TROUGH DATE TO BE DR... ONCE ONCE .XX ; Start 12/07/17 at 01:45; Stop 12/07/17 at 01:46; Status Cancel Lactated Ringer's 1,000 ml @ As Directed STK-MED ONCE IV ; Start 12/04/17 at 12: 00; Stop 12/05/17 at 16:09; Status DC Lidocaine HCl (Xylocaine-Mpf 1% Inj) 5 ml STK-MED ONCE OTHER ; Start 12/04/17 at 12:00; Stop 12/05/17 at 16:09; Status DC Phenylephrine HCl (Neosynephrine/ NS 1000 Mcg/10ml Syr) 1,000 mcg STK-MED ONCE IV ; Start 12/04/17 at 12:00; Stop 12/05/17 at 16:09; Status DC Ephedrine Sulfate (ePHEDrine/NS 25 MG/5 ML SYR) 25 mg STK-MED ONCE IV ; Start at 12:00; Stop 12/05/17 at 16:09; Status DC Ondansetron HCl (Zofran Inj) 4 mg STK-MED ONCE IV ; Start 12/04/17 at 12:00; Stop 12/05/17 at 16:09; Status DC Propofol (Diprivan 200 Mg/20 ml Inj) 200 mg STK-MED ONCE IV ; Start 12/04/17 at 12:00; Stop 12/05/17 at 16:09; Status DC Ceftriaxone Sodium 2000 mg/ Sodium Chloride 100 ml @ 200 mls/hr Q24H IV Last administered on 12/07/17at 11:13; Start 12/06/17 at 12:00; Stop 12/17/17 at 11:59 Linezolid (Zyvox) 600 mg Q12HR PO Last administered on 12/07/17at 08:08; Start at 11:45; Stop 12/10/17 at 11:44 Levofloxacin (Levaquin) 750 mg DAILY PO Last administered on 12/07/17at 08:06; Start 12/06/17 at 11:30; Stop 12/10/17 at 23:00 Pantoprazole Sodium (Protonix) 20 mg DAILY PO ; Start 12/07/17 at 13:00 A/P Problem List: (1) Right foot infection ICD Code: L08.9 - Local infection of the skin and subcutaneous tissue, unspecified Assessment and Plan Severe sepsis due to right foot osteomyelitis/abscess S/p I/D at the bedside by podiatry- plan for bone biopsy in OR. Dr Huber for I &D. WBC scan to differentiate OM versus Charcot although most likely OM Consult vascular surgery for evaluation. Possible BKA due to degree of infection. Continue with IV antibiotics- follow the cultures. Consult ID lisa recs S/P bedside I&D Right foot area of drainage to plantar central midfoot probed to extend medially and dorsally at level of midfoot dorsally. MRI R foot with and without contrast reviewed, shows osteo S/p right below the knee amputation by Dr. Rehman 12/04/17. Management per surgeon We will adjust pain control since patient states it is not at goal Acute kidney injury: start on IV fluid and monitor renal function. Avoid nephrotoxins. Check BMP Diabetes mellitus 2 resume NPH- start on accu-check with SSI. CAD- s/p CABG: resume aspirin and plavix ( antiplatelet therapy was d/w ; suggested that the antiplatelets to be continued at this time). Hypertension HLD Stable. Monitor. Resume home meds. GERD resume home Prilosec. Pain control not at goal we will adjust DVT prophylaxis per surgeon, pending podiatry and surgical intervention. Discussed Condition With Patient, nurse DC plan: S/P right below the knee amputation by Dr. Rehman 12/04/17 Discharge when improved and cleared by regulatory services consultant Discharge Planning Pending clearance by podiatry and ID Oziel Peterson DO Dec 07, 2017 11:25
[2017-12-07] MEDS: PANTOPRAZOLE SOD 20 MG DELAYED RELEASE TAB PO SCH (11:28)
[2017-12-07] MEDS ORDERED: NALOXONE HCL 0.4 MG/ML AMP IV PUSH PRN (11:30)
[2017-12-07] MEDS ORDERED: BISACODYL 10 MG SUPP RECTAL PRN (11:30)
[2017-12-07] MEDS ORDERED: SENNOSIDES 8.6 MG TAB PO PRN (11:30)
[2017-12-07] MEDS ORDERED: oxyCODONE/ACETAMINOPHEN 5 MG/325 MG TAB PO PRN (11:30)
[2017-12-07] MEDS ORDERED: LACTULOSE SYRUP 20 GM/30 ML CUP PO PRN (11:30)
[2017-12-07] MEDS ORDERED: MAGNESIUM HYDROXIDE SUSP 30 ML CUP PO PRN (11:30)
[2017-12-07 12:00] VITALS: BP 152/73; PULSE 63; RESP 17; TEMP 98.4; O2SAT 95
[2017-12-07] MEDS: oxyCODONE/ACETAMINOPHEN 10 MG/325 MG TAB PO PRN ×2 (13:23→19:33)
[2017-12-07 16:00] VITALS: BP 153/74; PULSE 57; RESP 16; TEMP 98.5; O2SAT 95
--- NOTE | 2017-12-07 17:42 | PD.CAR.PN ---
CVT Progress Note Subjective/Hospital Course: Patient seen and full consult dictated This gentleman has irreversible infection of his right foot and osteomyelitis involving tarsal bones including calcaneus talus cuneiform navicular and the metatarsals metatarsals In addition he has a Charcot joint Based on his systemic diseases including diabetes mellitus and this situation patient should have right below-knee amputation as soon as possible I discussed this with Dr. Huber, and Dr. Duffy this is the only way to safely fix this because there is no cure for the situation as it is We will proceed with surgery tomorrow 12/05/2017 Status post right below-knee amputation Dressing is clean and dry We will leave the original dressing on until Saturday and then remove Nothing to add at this time 12/07/2017 Status post below-knee amputation. Original dressing removed Stump is clean dry and incision is nicely healing without any drainage or ischemic areas Orders for redressing given From my point patient can be discharged any time with instructions for follow- up in my office in about 3 weeks It should be noted that I explained to the patient it is imperative for him not to fall on this time and even as I was talking patient tried to climb out of bed so I am not sure how this is going to go once he gets home Either way this is healing very nicely now I will see patient in about 3 weeks in the office and at that point we will start process of shrinking and preparing for the prosthesis Objective: Vital Signs Date Time Temp Pulse Resp B/P (MAP) Pulse Ox O2 Delivery O2 Flow Rate FiO2 12/07/17 16:00 98.5 57 16 153/74 (100) 95 12/07/17 12:00 98.4 63 17 152/73 (99) 95 12/07/17 08:00 98.5 69 18 167/80 (109) 96 12/07/17 00:09 99.6 72 18 143/73 (96) 96 12/06/17 20:26 98.8 81 18 152/70 (97) 96 12/06/17 18:13 18 Labs: Laboratory Tests Test 12/07/17 06:45 White Blood Count 9.3 TH/MM3 (4.0-11.0) Red Blood Count 3.92 MIL/MM3 (4.50-5.90) Hemoglobin 9.4 GM/DL (13.0-17.0) Hematocrit 27.8 % (39.0-51.0) Mean Corpuscular Volume 70.9 FL (80.0-100.0) Mean Corpuscular Hemoglobin 24.0 PG (27.0-34.0) Mean Corpuscular Hemoglobin Concent 33.9 % (32.0-36.0) Red Cell Distribution Width 18.0 % (11.6-17.2) Platelet Count 316 TH/MM3 (150-450) Mean Platelet Volume 8.1 FL (7.0-11.0) Neutrophils (%) (Auto) 78.2 % (16.0-70.0) Lymphocytes (%) (Auto) 13.1 % (9.0-44.0) Monocytes (%) (Auto) 5.9 % (0.0-8.0) Eosinophils (%) (Auto) 2.1 % (0.0-4.0) Basophils (%) (Auto) 0.7 % (0.0-2.0) Neutrophils # (Auto) 7.3 TH/MM3 (1.8-7.7) Lymphocytes # (Auto) 1.2 TH/MM3 (1.0-4.8) Monocytes # (Auto) 0.5 TH/MM3 (0-0.9) Eosinophils # (Auto) 0.2 TH/MM3 (0-0.4) Basophils # (Auto) 0.1 TH/MM3 (0-0.2) CBC Comment AUTO DIFF Differential Total Cells Counted 100 Neutrophils % (Manual) 80 % (16-70) Band Neutrophils % 7 % (0-6) Lymphocytes % 5 % (9-44) Monocytes % 4 % (0-8) Eosinophils % 1 % (0-4) Neutrophils # (Manual) 8.4 TH/MM3 (1.8-7.7) Metamyelocytes 2 % (0-1) Myelocytes 1 % (0-0) Differential Comment FINAL DIFF MANUAL Platelet Estimate NORMAL (NORMAL) Platelet Morphology Comment NORMAL (NORMAL) Polychromasia 2.1 % (0.0-1.9) Ovalocytes 1+ (NORMAL) Blood Urea Nitrogen 8 MG/DL (7-18) Creatinine 0.62 MG/DL (0.60-1.30) Random Glucose 190 MG/DL (74-106) Calcium Level 8.9 MG/DL (8.5-10.1) Magnesium Level 1.9 MG/DL (1.5-2.5) Sodium Level 139 MEQ/L (136-145) Potassium Level 3.6 MEQ/L (3.5-5.1) Chloride Level 106 MEQ/L (98-107) Carbon Dioxide Level 23.4 MEQ/L (21.0-32.0) Anion Gap 10 MEQ/L (5-15) Estimat Glomerular Filtration Rate 137 ML/MIN (>89) Result Diagram: 12/07/17 0645 12/07/17 0645 Ochoa Rehman MD Dec 07, 2017 17:42
[2017-12-07 19:00] VITALS: BP 142/73; PULSE 70; RESP 17; TEMP 98.3; O2SAT 98
[2017-12-07] MEDS: DOCUSATE SODIUM 50 MG/SENNA 8.6 MG TAB PO SCH (19:33)
[2017-12-08] VITALS: BP 151/71; PULSE 69; RESP 17; TEMP 98.8; O2SAT 97
[2017-12-08] MEDS: SODIUM CHLOR 0.9% 1000 ML INJ 1,000 ML IV SCH ×2 (03:14→11:08)
[2017-12-08] MEDS: oxyCODONE/ACETAMINOPHEN 10 MG/325 MG TAB PO PRN ×4 (03:14→21:39)
[2017-12-08 07:27] LABS: AUTOMATED NEUTROPHIL # 6.7 TH/MM3 (1.8-7.7); BASOPHIL # 0.1 TH/MM3 (0-0.2); BASOPHIL % 0.7 % (0.0-2.0); EOSINOPHIL # 0.1 TH/MM3 (0-0.4); EOSINOPHIL % 1.7 % (0.0-4.0); HEMATOCRIT 28.9 % (39.0-51.0); HEMOGLOBIN 9.9 GM/DL (13.0-17.0); LYMPH % 14.8 % (9.0-44.0); LYMPHOCYTE # 1.3 TH/MM3 (1.0-4.8); MEAN CELL VOLUME 70.9 FL (80.0-100.0); MEAN CORPUSCULAR HEMOGLOBIN 24.2 PG (27.0-34.0); MEAN CORPUSCULAR HGB CONC 34.2 % (32.0-36.0); MEAN PLATELET VOLUME 7.9 FL (7.0-11.0); MONOCYTE # 0.4 TH/MM3 (0-0.9); NEUT % 77.8 % (16.0-70.0); PLATELET COUNT 310 TH/MM3 (150-450); RED BLOOD COUNT 4.07 MIL/MM3 (4.50-5.90); RED CELL DISTRIBUTION WIDTH 17.8 % (11.6-17.2); WHITE BLOOD COUNT 8.6 TH/MM3 (4.0-11.0)
[2017-12-08] MEDS ORDERED: INSULIN HUMAN NPH 1,000 UNITS/10 ML VIAL SQ SCH (08:00)
[2017-12-08 08:01] LABS: ALBUMIN 2.3 GM/DL (3.4-5.0); ALT (GPT) 31 U/L (12-78); AST (GOT) 28 U/L (15-37); BICARBONATE 22.8 MEQ/L (21.0-32.0); BLOOD UREA NITROGEN 8 MG/DL (7-18); CALCIUM 9.5 MG/DL (8.5-10.1); CHLORIDE 106 MEQ/L (98-107); CREATININE 0.79 MG/DL (0.60-1.30); GLOMERULAR FILTRATION RATE 103 ML/MIN (>89); GLUCOSE,RANDOM 198 MG/DL (74-106); SODIUM (NA) 139 MEQ/L (136-145)
[2017-12-08 08:03] LABS: ALKALINE PHOSPHATASE 144 U/L (45-117); PHOSPHORUS 2.5 MG/DL (2.5-4.9); TOTAL BILIRUBIN ADULT 0.3 MG/DL (0.2-1.0); TOTAL PROTEIN 7.4 GM/DL (6.4-8.2)
[2017-12-08] MEDS: INSULIN ASPART SUPPLEMENTAL SCALE SQ SCH ×4 (09:17→21:55)
[2017-12-08] MEDS: DOCUSATE SODIUM 50 MG/SENNA 8.6 MG TAB PO SCH ×2 (09:18→21:00)
[2017-12-08] MEDS: PRAVASTATIN SOD 40 MG TAB PO SCH ×2 (09:18→21:39)
[2017-12-08] MEDS: PANTOPRAZOLE SOD 20 MG DELAYED RELEASE TAB PO SCH (09:18)
[2017-12-08] MEDS: LINEZOLID 600 MG TAB PO SCH ×2 (09:19→21:39)
[2017-12-08] MEDS: METOPROLOL TARTRATE 50 MG TAB PO SCH ×2 (09:19→21:39)
[2017-12-08] MEDS: LEVOFLOXACIN 750 MG TAB PO SCH (09:19)
[2017-12-08] MEDS: ASPIRIN EC 81 MG TABEC PO SCH (09:19)
[2017-12-08 09:20] VITALS: BP 169/80; PULSE 71; RESP 16; TEMP 97.3; O2SAT 96
[2017-12-08] MEDS: CLOPIDOGREL 75 MG TAB PO SCH (09:20)
[2017-12-08] MEDS: GABAPENTIN 300 MG CAP PO SCH ×4 (09:20→21:40)
[2017-12-08] MEDS: MORPHINE SULFATE 4 MG/ML INJ IV PUSH PRN ×3 (10:20→22:42)
[2017-12-08] MEDS: cefTRIAXone INJ 2,000 MG in SODIUM CHLORIDE 0.9% INJ 100 ML IV SCH (11:07)
[2017-12-08 12:00] VITALS: RESP 18
--- NOTE | 2017-12-08 12:03 | HHI.PR ---
Subjective Remarks 6-8 The patient was seen earlier today. He denies having any shortness of breath or chest pain. However he says his stomach is upset and he wants to take Prilosec as he is taking at home. Resume Prilosec. Says he still has significant pain at the surgical site at the stump site. No nausea or vomiting. No constipation. 6-9 STATES HAS SOME PAIN IN RIGHT LEG STATES PAIN MEDICATIONS NOT WORKING WELL ENOUGH WILL ADJUST DW RN NEEDS PT AND OT 6-10 STATES IS MUCH MORE IMPROVED SINCE I TWEAKED HIS MEDICATIONS YESTERDAY FOR PAIN DW RN AND PT AM LABS ANTIBIOTICS PER ID Objective Vitals Vital Signs Date Time Temp Pulse Resp B/P (MAP) Pulse Ox O2 Delivery O2 Flow Rate FiO2 12/08/17 09:20 97.3 71 16 169/80 (109) 96 12/08/17 00:00 98.8 69 17 151/71 (97) 97 12/07/17 19:00 98.3 70 17 142/73 (96) 98 12/07/17 16:00 98.5 57 16 153/74 (100) 95 I/O 12/07/17 12/07/17 12/07/17 12/08/17 12/08/17 12/08/17 07:00 15:00 23:00 07:00 15:00 23:00 Intake Total 760 ml 720 ml 1240 ml Output Total 2500 ml 1000 ml 1400 ml 2600 ml Balance -1740 ml -1000 ml -680 ml -1360 ml Intake Oral 760 ml 720 ml 240 ml IV Total 1000 ml Output Urine Total 2500 ml 1000 ml 1400 ml 2600 ml # Voids 4 # Bowel Movements 0 0 0 1 Result Diagram: 12/08/1727 12/08/1727 Other Results Laboratory Tests Test 12/07/17 06:45 12/08/17 06:27 White Blood Count 9.3 TH/MM3 8.6 TH/MM3 Red Blood Count 3.92 MIL/MM3 4.07 MIL/MM3 Hemoglobin 9.4 GM/DL 9.9 GM/DL Hematocrit 27.8 % 28.9 % Mean Corpuscular Volume 70.9 FL 70.9 FL Mean Corpuscular Hemoglobin 24.0 PG 24.2 PG Mean Corpuscular Hemoglobin Concent 33.9 % 34.2 % Red Cell Distribution Width 18.0 % 17.8 % Platelet Count 316 TH/MM3 310 TH/MM3 Mean Platelet Volume 8.1 FL 7.9 FL Neutrophils (%) (Auto) 78.2 % 77.8 % Lymphocytes (%) (Auto) 13.1 % 14.8 % Monocytes (%) (Auto) 5.9 % 5.0 % Eosinophils (%) (Auto) 2.1 % 1.7 % Basophils (%) (Auto) 0.7 % 0.7 % Neutrophils # (Auto) 7.3 TH/MM3 6.7 TH/MM3 Lymphocytes # (Auto) 1.2 TH/MM3 1.3 TH/MM3 Monocytes # (Auto) 0.5 TH/MM3 0.4 TH/MM3 Eosinophils # (Auto) 0.2 TH/MM3 0.1 TH/MM3 Basophils # (Auto) 0.1 TH/MM3 0.1 TH/MM3 CBC Comment AUTO DIFF DIFF FINAL Differential Total Cells Counted 100 Neutrophils % (Manual) 80 % Band Neutrophils % 7 % Lymphocytes % 5 % Monocytes % 4 % Eosinophils % 1 % Neutrophils # (Manual) 8.4 TH/MM3 Metamyelocytes 2 % Myelocytes 1 % Differential Comment FINAL DIFF MANUAL Platelet Estimate NORMAL Platelet Morphology Comment NORMAL Polychromasia 2.1 % Ovalocytes 1+ Blood Urea Nitrogen 8 MG/DL 8 MG/DL Creatinine 0.62 MG/DL 0.79 MG/DL Random Glucose 190 MG/DL 198 MG/DL Calcium Level 8.9 MG/DL 9.5 MG/DL Magnesium Level 1.9 MG/DL 2.0 MG/DL Sodium Level 139 MEQ/L 139 MEQ/L Potassium Level 3.6 MEQ/L 4.0 MEQ/L Chloride Level 106 MEQ/L 106 MEQ/L Carbon Dioxide Level 23.4 MEQ/L 22.8 MEQ/L Anion Gap 10 MEQ/L 10 MEQ/L Estimat Glomerular Filtration Rate 137 ML/MIN 103 ML/MIN Total Protein 7.4 GM/DL Albumin 2.3 GM/DL Phosphorus Level 2.5 MG/DL Alkaline Phosphatase 144 U/L Aspartate Amino Transf (AST/SGOT) 28 U/L Alanine Aminotransferase (ALT/SGPT) 31 U/L Total Bilirubin 0.3 MG/DL Imaging Last Impressions Tumor Localization 12/03/17 0000 Signed Impressions: CONCLUSION: 1. Fairly significant destructive lytic lesions of the tarsometatarsal junctio ns with gas bubbles surrounding them the worst areas involve the middle and lat eral cuneiforms and these areas demonstrate abnormal white blood cell uptake co nsistent with osteomyelitis, however some of the destructive lesions could also represent Charcot's phenomenon as they demonstrate very mild uptake. Extremity Arterial Study 12/02/17 0000 Signed Impressions: CONCLUSION: 1. ABIs and TBIs within the normal range. Chest X-Ray 12/01/17 1444 Signed Impressions: CONCLUSION: No evidence of acute cardiopulmonary disease. Foot X-Ray 12/01/17 0000 Signed Impressions: CONCLUSION: 1. Marked worsening Lisfranc arthropathy and instability, neuropathic versus i nfectious. 2. Periosteal reaction of the metatarsals, especially the fourth and fifth, al so of concern for osteomyelitis. 3. Extensive soft tissue swelling and ulceration centered around the mid foot . Foot MRI 12/01/17 Signed Impressions: CONCLUSION: 1. Destructive arthropathy of Lisfranc joint, presumably infectious. 2. Associated osteomyelitis diffusely of the cuneiforms, cuboid and navicular. Extensive osteomyelitis of the metatarsals as delineated above. There is also osteomyelitis of the distal halves of the talus and calcaneus. Suspected osteom yelitis of the proximal phalanx of the fourth toe as well. 3. Multiple fluid collections typical of abscesses as described above, some dr rose to the skin. Objective Remarks GENERAL: Awake alert and oriented 3 talkative and cooperative Has right below the knee amputation that is dressed SKIN: Warm and dry. Right below the knee amputation it remains dressed HEAD: Atraumatic. Normocephalic. EYES: Pupils equal and round. No scleral icterus. No injection or drainage. ENT: No nasal bleeding or discharge. Mucous membranes pink and moist. NECK: Trachea midline. No JVD. CARDIOVASCULAR: Regular rate and rhythm. S1-S2 no S3 or S4 RESPIRATORY: No accessory muscle use. Clear to auscultation. Breath sounds equal bilaterally. GASTROINTESTINAL: Abdomen soft, non-tender, nondistended. Hepatic and splenic margins not palpable. MUSCULOSKELETAL: Extremities without clubbing, cyanosis, or edema. No obvious deformities. Right below the knee amputation that is dressed NEUROLOGICAL: Awake and alert. No obvious cranial nerve deficits. Motor grossly within normal limits. Five out of 5 muscle strength in the arms and legs. Normal speech. Right below the knee amputation that is dressed PSYCHIATRIC: Appropriate mood and affect; insight and judgment normal. Procedures 12/04/2017 PREOPERATIVE DIAGNOSIS: Osteomyelitis of the right foot, Charcot joint, diabetes mellitus. POSTOPERATIVE DIAGNOSES: Osteomyelitis of the right foot, Charcot joint, diabetes mellitus. OPERATIVE PROCEDURE: Right below-knee amputation. Medications and IVs Current Medications Acetaminophen (Tylenol) 650 mg ONCE ONCE PO Last administered on 12/01/17 15: 00; Start 12/01/17 at 14:45; Stop 12/01/17 at 14:47; Status DC Sodium Chloride 1,000 ml @ 1,000 mls/hr Q1H ONCE IV Last administered on 14:59; Start 12/01/17 at 14:44; Stop 12/01/17 at 15:43; Status DC Piperacillin Sod/ Tazobactam Sod 50 ml @ 100 mls/hr ONCE ONCE IV Last administered on 12/01/17 14:59; Start 12/01/17 at 14:45; Stop 12/01/17 at 15:14; Status DC Vancomycin HCl 1250 mg/Sodium Chloride 262.5 ml @ 250 mls/hr ONCE ONCE IV Last administered on 12/01/17 16:13; Start 12/01/17 at 14:45; Stop 12/01/17 at 15: 47; Status DC Morphine Sulfate (Morphine Inj) 4 mg ONCE ONCE IV PUSH Last administered on 15:00; Start 12/01/17 at 14:45; Stop 12/01/17 at 14:47; Status DC Morphine Sulfate (Morphine Inj) 4 mg ONCE ONCE IV PUSH Last administered on 16:40; Start 12/01/17 at 16:30; Stop 12/01/17 at 16:31; Status DC Ketorolac Tromethamine (Toradol Inj) 30 mg ONCE ONCE IV PUSH Last administered on 12/01/17 16:40; Start 12/01/17 at 16:30; Stop 12/01/17 at 16:31; Status DC Sodium Chloride 1,000 ml @ 999 mls/hr BOLUS ONCE IV Last administered on 16:39; Start 12/01/17 at 16:30; Stop 12/01/17 at 17:30; Status DC Insulin Human Regular (NovoLIN R INJ) 6 units ONCE ONCE IV PUSH Last administered on 12/01/17at 16:40; Start 12/01/17 at 16:30; Stop 12/01/17 at 16:31; Status DC Dextrose (D50w (Vial) Inj) 50 ml UNSCH PRN IV PUSH HYPOGLYCEMIA-SEE COMMENTS; Start 12/01/17 at 17:00 Glucagon (Glucagon Inj) 1 mg UNSCH PRN OTHER HYPOGLYCEMIA-SEE COMMENTS; Start 12/01/17 at 17:00 Insulin Aspart (NovoLOG SUPPLEMENTAL SCALE) 1 ACHS SLIDING SCALE SQ Last administered on 12/08/17 11:52; Start 12/01/17 at 17:00 Gadodiamide (Omniscan Pf Inj) 18 ml STK-MED ONCE IVCONTRAST Last administered on 12/01/17 17:13; Start 12/01/17 at 17:13; Stop 12/01/17 at 17:14; Status DC Gabapentin (Neurontin) 600 mg QID PO Last administered on 12/08/17 11:52; Start 12/01/17 at 18:00 Insulin Human NPH (NovoLIN N INJ) 20 units HS SQ Last administered on 12/07/17at 19:35; Start 12/01/17 at 21:00 Insulin Human NPH (NovoLIN N INJ) 60 units DAILY NEB SQ Last administered on 08:05; Start 12/02/17 at 08:00; Stop 12/07/17 at 11:57; Status DC Pravastatin Sodium (Pravachol) 40 mg BID PO Last administered on 12/08/17 09: 18; Start 12/01/17 at 21:00 Metoprolol Tartrate (Lopressor) 50 mg BID PO Last administered on 12/08/17 09: 19; Start 12/01/17 at 21:00 Lidocaine HCl (Xylocaine 1% Inj (50 ml)) 10 ml ONCE ONCE INFIL ; Start 12/01/17 at 17:45; Stop 12/01/17 at 17:46; Status DC Lidocaine HCl (Xylocaine-Mpf 1% Inj) 30 ml STK-MED ONCE .ROUTE Last administered on 12/01/17at 17:44; Start 12/01/17 at 17:38; Stop 12/01/17 at 17:39; Status DC Aspirin (Ecotrin Ec) 81 mg DAILY PO Last administered on 12/08/17 09:19; Start 12/02/17 at 09:00 Clopidogrel Bisulfate (Plavix) 75 mg DAILY PO Last administered on 12/08/17 09 :20; Start 12/02/17 at 09:00 Pharmacy Profile Note 0 ml @ 0 mls/hr UNSCH OTHER ; Start 12/01/17 at 18:00; Stop 12/06/17 at 11:23; Status DC Piperacillin Sod/ Tazobactam Sod 50 ml @ 100 mls/hr Q6H IV Last administered on 12/02/17 08:28; Start 12/01/17 at 21:00; Stop 12/02/17 at 13:14; Status DC Acetaminophen (Tylenol) 650 mg Q4H PRN PO FEVER/PAIN 1-3 Last administered on 09:13; Start 12/01/17 at 18:00 Acetaminophen/ Hydrocodone Bitart (Gilbert 5-325 Mg) 1 tab Q4H PRN PO PAIN 4-7 Last administered on 12/06/17 03:52; Start 12/01/17 at 18:00; Stop 12/07/17 at 11: 23; Status DC Acetaminophen/ Hydrocodone Bitart (Gilbert 5-325 Mg) 2 tab Q4H PRN PO PAIN 8-10 Last administered on 12/07/17 09:48; Start 12/01/17 at 18:00; Stop 12/07/17 at 11: 23; Status DC Sodium Chloride 1,000 ml @ 100 mls/hr Q10H IV Last administered on 12/08/17 11:08; Start 12/01/17 at 20:00 Vancomycin HCl 1250 mg/Sodium Chloride 262.5 ml @ 250 mls/hr Q12H IV Last administered on 12/02/17 04:04; Start 12/02/17 at 04:00; Stop 12/02/17 at 11:33; Status DC Morphine Sulfate (Morphine Inj) 2 mg Q4H PRN IV PUSH BREAKTHROUGH PAIN Last administered on 12/07/17at 11:54; Start 12/01/17 at 18:30; Stop 12/07/17 at 12:13; Status DC Miscellaneous Information ([facility]) SPECIFIC LAB TO BE DRAWN: VANCO TROUGH DATE TO... ONCE ONCE .XX ; Start 12/03/17 at 15:45; Stop 12/03/17 at 15:45; Status DC Vancomycin HCl 1500 mg/Sodium Chloride 515 ml @ 257.5 mls/ hr Q12H IV Last administered on 12/05/17at 02:23; Start 12/02/17 at 14:00; Stop 12/05/17 at 10:06; Status DC Miscellaneous Information ([facility]) SPECIFIC LAB TO BE MADISYN... ONCE ONCE .XX ; Start 12/03/17 at 13:45; Stop 12/03/17 at 13:46; Status DC Piperacillin Sod/ Tazobactam Sod 100 ml @ 200 mls/hr Q6H IV Last administered on 12/06/17at 09:16; Start 12/02/17 at 15:00; Stop 12/06/17 at 11:23; Status DC Ondansetron HCl (Zofran Odt) 4 mg Q6H PRN SL NAUSEA Last administered on at 08:56; Start 12/02/17 at 23:45 Lactated Ringer's 1,000 ml @ 30 mls/hr Q24H PRN IV SEE LABEL COMMENTS Last administered on 12/04/17at 14:05; Start 12/03/17 at 06:45; Stop 12/06/17 at 06:44; Status DC Potassium Chloride (KCl) 40 meq ONCE ONCE PO Last administered on 12/03/17at 14: 35; Start 12/03/17 at 12:00; Stop 12/03/17 at 12:01; Status DC Miscellaneous Information ([facility]) SPECIFIC LAB TO BE MADISYN... ONCE ONCE .XX ; Start 12/04/17 at 13:45; Stop 12/04/17 at 13:46; Status DC Miscellaneous Information ([facility]) SPECIFIC LAB TO BE DRAWN:VANCO TROUGH DATE TO BE DRCameron ONCE ONCE .XX Last administered on at 03:10; Start 12/05/17 at 01:45; Stop 12/05/17 at 01:46; Status DC Hydromorphone HCl (Dilaudid Pf Inj) 4 mg STK-MED ONCE .ROUTE ; Start 12/04/17 at 17:02; Stop 12/04/17 at 17:03; Status DC Ketamine HCl (Ketalar Inj) 500 mg STK-MED ONCE .ROUTE ; Start 12/04/17 at 17:02; Stop 12/04/17 at 17:03; Status DC Midazolam HCl (Versed Inj) 2 mg STK-MED ONCE .ROUTE ; Start 12/04/17 at 18:01; Stop 12/04/17 at 18:02; Status DC Fentanyl Citrate (fentaNYL INJ) 400 mcg STK-MED ONCE .ROUTE ; Start 12/04/17 at 18:01; Stop 12/04/17 at 18:02; Status DC Morphine Sulfate (*morphine INJ PERIprocedure ONLY) 8 mg STK-MED ONCE .ROUTE Last administered on 12/04/17at 18:05; Start 12/04/17 at 18:05; Stop 12/04/17 at 18: 06; Status DC Morphine Sulfate (*morphine INJ PERIprocedure ONLY) 8 mg STK-MED ONCE .ROUTE Last administered on 12/04/17at 18:12; Start 12/04/17 at 18:12; Stop 12/04/17 at 18: 13; Status DC Morphine Sulfate (*morphine INJ PERIprocedure ONLY) 8 mg STK-MED ONCE .ROUTE Last administered on 12/04/17at 18:18; Start 12/04/17 at 18:18; Stop 12/04/17 at 18: 19; Status DC Meperidine HCl (*DEMEROL INJ PERIprocedural ONLY) 25 mg STK-MED ONCE .ROUTE Last administered on 12/04/17at 18:25; Start 12/04/17 at 18:25; Stop 12/04/17 at 18: 26; Status DC Miscellaneous Information ([facility] ALL NURSING DEPARTME... UNSCH PRN .XX SEE LABEL COMMENTS; Start 12/04/17 at 18:08; Stop 12/05/17 at 18:07 ; Status DC Hydromorphone HCl (Dilaudid Pf Inj) 0.5 mg STK-MED ONCE .ROUTE Last administered on 12/04/17at 18:33; Start 12/04/17 at 18:33; Stop 12/04/17 at 18:34; Status DC Hydromorphone HCl (Dilaudid Pf Inj) 0.5 mg STK-MED ONCE .ROUTE Last administered on 12/04/17at 18:42; Start 12/04/17 at 18:42; Stop 12/04/17 at 18:43; Status DC Hydromorphone HCl (Dilaudid Pf Inj) 0.5 mg STK-MED ONCE .ROUTE ; Start 12/04/17 at 18:59; Stop 12/04/17 at 19:00; Status DC Hydromorphone HCl (Dilaudid Pf Inj) 1 mg ONCE ONCE IV PUSH Last administered on 12/05/17at 00:45; Start 12/05/17 at 00:30; Stop 12/05/17 at 00:31; Status DC Vancomycin HCl 2000 mg/Sodium Chloride 520 ml @ 257.5 mls/ hr Q12H IV Last administered on 12/06/17at 01:15; Start 12/05/17 at 14:00; Stop 12/06/17 at 11:23; Status DC Miscellaneous Information ([facility]) SPECIFIC LAB TO BE DRAWN:VANCO TROUGH DATE TO BE DR... ONCE ONCE .XX ; Start 12/07/17 at 01:45; Stop 12/07/17 at 01:46; Status Cancel Lactated Ringer's 1,000 ml @ As Directed STK-MED ONCE IV ; Start 12/04/17 at 12: 00; Stop 12/05/17 at 16:09; Status DC Lidocaine HCl (Xylocaine-Mpf 1% Inj) 5 ml STK-MED ONCE OTHER ; Start 12/04/17 at 12:00; Stop 12/05/17 at 16:09; Status DC Phenylephrine HCl (Neosynephrine/ NS 1000 Mcg/10ml Syr) 1,000 mcg STK-MED ONCE IV ; Start 12/04/17 at 12:00; Stop 12/05/17 at 16:09; Status DC Ephedrine Sulfate (ePHEDrine/NS 25 MG/5 ML SYR) 25 mg STK-MED ONCE IV ; Start at 12:00; Stop 12/05/17 at 16:09; Status DC Ondansetron HCl (Zofran Inj) 4 mg STK-MED ONCE IV ; Start 12/04/17 at 12:00; Stop 12/05/17 at 16:09; Status DC Propofol (Diprivan 200 Mg/20 ml Inj) 200 mg STK-MED ONCE IV ; Start 12/04/17 at 12:00; Stop 12/05/17 at 16:09; Status DC Ceftriaxone Sodium 2000 mg/ Sodium Chloride 100 ml @ 200 mls/hr Q24H IV Last administered on 12/08/17at 11:07; Start 12/06/17 at 12:00; Stop 12/17/17 at 11:59 Linezolid (Zyvox) 600 mg Q12HR PO Last administered on 12/08/17at 09:19; Start 12/06/17 at 11:45; Stop 12/10/17 at 11:44 Levofloxacin (Levaquin) 750 mg DAILY PO Last administered on 12/08/17at 09:19; Start 12/06/17 at 11:30; Stop 12/10/17 at 23:00 Pantoprazole Sodium (Protonix) 20 mg DAILY PO Last administered on 12/08/17at 09 :18; Start 12/07/17 at 13:00 Oxycodone/ Acetaminophen (Percocet 5-325 Mg) 1 tab Q6H PRN PO PAIN SCALE 3 TO 5; Start 12/07/17 at 11:30 Oxycodone/ Acetaminophen (Percocet 10-325 Mg) 1 tab Q6H PRN PO PAIN SCALE 6 TO 10 Last administered on 12/08/17at 09:19; Start 12/07/17 at 11:30 Morphine Sulfate (Morphine Inj) 4 mg Q3H PRN IV PUSH BREAKTHROUGH PAIN Last administered on 12/08/17at 10:20; Start 12/07/17 at 12:15 Naloxone HCl (Narcan Inj) 0.4 mg UNSCH PRN IV PUSH SEE LABEL COMMENTS; Start at 11:30 Senna/Docusate Sodium (Rahel-Colace) 1 tab BID PO Last administered on at 09:18; Start 12/07/17 at 21:00 Magnesium Hydroxide (Milk Of Magnesia Liq) 30 ml Q12H PRN PO Mild constipation ; Start 12/07/17 at 11:30 Sennosides (Senokot) 17.2 mg Q12H PRN PO Moderate constipation; Start 12/07/17 at 11:30 Bisacodyl (Dulcolax Supp) 10 mg DAILY PRN RECTAL SEVERE CONSITIPATION; Start at 11:30 Lactulose (Lactulose Liq) 30 ml DAILY PRN PO SEVERE CONSITIPATION; Start at 11:30 Insulin Human NPH (NovoLIN N INJ) 60 units DAILY@0800 SQ Last administered on at 09:18; Start 12/08/17 at 08:00 A/P Problem List: (1) Right foot infection ICD Code: L08.9 - Local infection of the skin and subcutaneous tissue, unspecified Assessment and Plan Severe sepsis due to right foot osteomyelitis/abscess S/p I/D at the bedside by podiatry- plan for bone biopsy in OR. Dr Huber for I &D. WBC scan to differentiate OM versus Charcot although most likely OM Consult vascular surgery for evaluation. Possible BKA due to degree of infection. Continue with IV antibiotics- follow the cultures. Consult ID lisa recs S/P bedside I&D Right foot area of drainage to plantar central midfoot probed to extend medially and dorsally at level of midfoot dorsally. MRI R foot with and without contrast reviewed, shows osteo S/p right below the knee amputation by Dr. Rehman 12/04/17. Management per surgeon We will adjust pain control since patient states it is not at goal ON ROCEPHIN LEVAQUIN AND ZYVOX Acute kidney injury: start on IV fluid and monitor renal function. Avoid nephrotoxins. Check BMP Diabetes mellitus 2 resume NPH- start on accu-check with SSI. CAD- s/p CABG: resume aspirin and plavix ( antiplatelet therapy was d/w ; suggested that the antiplatelets to be continued at this time). Hypertension HLD Stable. Monitor. Resume home meds. GERD resume home Prilosec. Pain control not at goal we will adjust DVT prophylaxis per surgeon, pending podiatry and surgical intervention. Discussed Condition With Patient, nurse DC plan: S/P right below the knee amputation by Dr. Rehman 12/04/17 Discharge when improved and cleared by continuous improvement consultant Discharge Planning Pending clearance by podiatry and Oziel Simpson DO Dec 08, 2017 12:03
[2017-12-08] MEDS ORDERED: amLODIPine BESYLATE 5 MG TAB PO ONE (13:00)
[2017-12-08] MEDS ORDERED: diphenhydrAMINE HCL 50 MG CAP PO PRN (13:00)
[2017-12-08 13:04] VITALS: BP 150/70; PULSE 63; TEMP 98.3; O2SAT 97
[2017-12-08] MEDS ORDERED: methylPREDNISolone SOD SUCC 125 MG/2 ML VIAL IV PUSH ONE (13:30)
[2017-12-08 16:29] VITALS: BP 153/75; PULSE 69; RESP 16; TEMP 97.9; O2SAT 93
[2017-12-08 20:00] VITALS: BP 131/60; PULSE 67; RESP 17; TEMP 98.5; O2SAT 92
[2017-12-08] MEDS: INSULIN HUMAN NPH 1,000 UNITS/10 ML VIAL SQ SCH (21:55)
--- NOTE | 2017-12-08 22:28 | HHI.PR ---
Subjective Remarks NOT SEEN Objective Vitals Vital Signs Date Time Temp Pulse Resp B/P (MAP) Pulse Ox O2 Delivery O2 Flow Rate FiO2 12/08/17 20:00 98.5 67 17 131/60 (83) 92 12/08/17 16:29 97.9 69 16 153/75 (101) 93 12/08/17 13:04 98.3 63 150/70 (96) 97 12/08/17 12:00 18 12/08/17 09:20 97.3 71 16 169/80 (109) 96 12/08/17 00:00 98.8 69 17 151/71 (97) 97 I/O 12/07/17 12/07/17 12/07/17 12/08/17 12/08/17 12/08/17 07:00 15:00 23:00 07:00 15:00 23:00 Intake Total 760 ml 720 ml 1240 ml 100 ml 960 ml Output Total 2500 ml 1000 ml 1400 ml 2600 ml 1675 ml Balance -1740 ml -1000 ml -680 ml -1360 ml 100 ml -715 ml Intake Oral 760 ml 720 ml 240 ml 960 ml IV Total 1000 ml 100 ml Output Urine Total 2500 ml 1000 ml 1400 ml 2600 ml 1675 ml # Voids 4 # Bowel Movements 0 0 0 1 2 Result Diagram: 12/08/1762612/08/17626 Imaging Last Impressions Tumor Localization 12/03/17 0000 Signed Impressions: CONCLUSION: 1. Fairly significant destructive lytic lesions of the tarsometatarsal junctio ns with gas bubbles surrounding them the worst areas involve the middle and lat eral cuneiforms and these areas demonstrate abnormal white blood cell uptake co nsistent with osteomyelitis, however some of the destructive lesions could also represent Charcot's phenomenon as they demonstrate very mild uptake. Extremity Arterial Study 12/02/17 0000 Signed Impressions: CONCLUSION: 1. ABIs and TBIs within the normal range. Chest X-Ray 12/01/17 1444 Signed Impressions: CONCLUSION: No evidence of acute cardiopulmonary disease. Foot X-Ray 12/01/17 0000 Signed Impressions: CONCLUSION: 1. Marked worsening Lisfranc arthropathy and instability, neuropathic versus i nfectious. 2. Periosteal reaction of the metatarsals, especially the fourth and fifth, al so of concern for osteomyelitis. 3. Extensive soft tissue swelling and ulceration centered around the mid foot . Foot MRI 12/01/17 0000 Signed Impressions: CONCLUSION: 1. Destructive arthropathy of Lisfranc joint, presumably infectious. 2. Associated osteomyelitis diffusely of the cuneiforms, cuboid and navicular. Extensive osteomyelitis of the metatarsals as delineated above. There is also osteomyelitis of the distal halves of the talus and calcaneus. Suspected osteom yelitis of the proximal phalanx of the fourth toe as well. 3. Multiple fluid collections typical of abscesses as described above, some dr rose to the skin. Objective Remarks GENERAL: Awake alert and oriented 3 talkative and cooperative Has right below the knee amputation that is dressed SKIN: Warm and dry. Right below the knee amputation it remains dressed HEAD: Atraumatic. Normocephalic. EYES: Pupils equal and round. No scleral icterus. No injection or drainage. ENT: No nasal bleeding or discharge. Mucous membranes pink and moist. NECK: Trachea midline. No JVD. CARDIOVASCULAR: Regular rate and rhythm. S1-S2 no S3 or S4 RESPIRATORY: No accessory muscle use. Clear to auscultation. Breath sounds equal bilaterally. GASTROINTESTINAL: Abdomen soft, non-tender, nondistended. Hepatic and splenic margins not palpable. MUSCULOSKELETAL: Extremities without clubbing, cyanosis, or edema. No obvious deformities. Right below the knee amputation that is dressed NEUROLOGICAL: Awake and alert. No obvious cranial nerve deficits. Motor grossly within normal limits. Five out of 5 muscle strength in the arms and legs. Normal speech. Right below the knee amputation that is dressed PSYCHIATRIC: Appropriate mood and affect; insight and judgment normal. Procedures 12/04/2017 Right below-knee amputation. A/P Problem List: (1) Right foot infection ICD Code: L08.9 - Local infection of the skin and subcutaneous tissue, unspecified Assessment and Plan Severe sepsis due to right foot osteomyelitis/abscess S/p I/D at the bedside by podiatry S/p WBC scan to differentiate OM versus Charcot although most likely OM Consult vascular surgery for evaluation. Possible BKA due to degree of infection. S/P bedside I&D Right foot area of drainage to plantar central midfoot probed to extend medially and dorsally at level of midfoot dorsally. MRI R foot with and without contrast reviewed, shows osteo S/p right below the knee amputation by Dr. Rehman 12/04/17. Management per surgeon We will adjust pain control as needed Per ID Stop Vanco and Zosyn Give oral Abx x 6 days post op for the (+) C/S Use Rocephin for the Strep bacteremia - likely 14 days IV Rx from date of surgery - anticipated end date 12/17 Acute kidney injury: IV fluid and monitor renal function. Avoid nephrotoxins. Check BMP Diabetes mellitus 2 resume NPH- ct accu-check with SSI. CAD- s/p CABG: resume aspirin and plavix ( antiplatelet therapy was d/w ; suggested that the antiplatelets to be continued at this time). Hypertension HLD Stable. Monitor. Resume home meds. GERD resume home Prilosec. DVT prophylaxis per surgeon Teddy Bhandari MD Dec 08, 2017 22:28
[2017-12-09] VITALS: BP 133/64; PULSE 69; RESP 17; TEMP 98.3; O2SAT 94
[2017-12-09] MEDS: oxyCODONE/ACETAMINOPHEN 10 MG/325 MG TAB PO PRN ×3 (05:28→22:18)
[2017-12-09 08:00] VITALS: BP 134/64; PULSE 66; RESP 16; TEMP 97.8; O2SAT 97
[2017-12-09] MEDS: INSULIN HUMAN NPH 1,000 UNITS/10 ML VIAL SQ SCH (08:00)
[2017-12-09] MEDS: INSULIN ASPART SUPPLEMENTAL SCALE SQ SCH ×4 (08:00→22:21)
[2017-12-09] MEDS: LEVOFLOXACIN 750 MG TAB PO SCH (08:55)
[2017-12-09] MEDS: PANTOPRAZOLE SOD 20 MG DELAYED RELEASE TAB PO SCH (08:55)
[2017-12-09] MEDS: GABAPENTIN 300 MG CAP PO SCH ×4 (08:55→20:32)
[2017-12-09] MEDS: METOPROLOL TARTRATE 50 MG TAB PO SCH ×2 (08:55→20:33)
[2017-12-09] MEDS: ASPIRIN EC 81 MG TABEC PO SCH (08:55)
[2017-12-09] MEDS: CLOPIDOGREL 75 MG TAB PO SCH (08:55)
[2017-12-09] MEDS: LINEZOLID 600 MG TAB PO SCH ×2 (08:56→20:33)
[2017-12-09] MEDS: PRAVASTATIN SOD 40 MG TAB PO SCH ×2 (08:56→20:32)
[2017-12-09] MEDS: amLODIPine BESYLATE 5 MG TAB PO SCH (08:56)
[2017-12-09] MEDS: DOCUSATE SODIUM 50 MG/SENNA 8.6 MG TAB PO SCH ×2 (08:57→20:32)
[2017-12-09] MEDS: MORPHINE SULFATE 4 MG/ML INJ IV PUSH PRN ×3 (10:23→20:32)
[2017-12-09 12:00] VITALS: BP 163/76; PULSE 70; RESP 18; TEMP 97.3; O2SAT 96
[2017-12-09] MEDS: cefTRIAXone INJ 2,000 MG in SODIUM CHLORIDE 0.9% INJ 100 ML IV SCH (12:00)
--- NOTE | 2017-12-09 12:51 | HHI.PR ---
Subjective Remarks Follow-up osteomyelitis of the right lower extremity. States he developed allergic reaction to Rocephin yesterday when he complained of generalized itching and swelling of the fingers and tongue relieved with Benadryl and IV Solu-Medrol. At this time he has no complaints but refuses IV Rocephin. Discussed with nursing to alert infectious disease. Discussed with case management Objective Vitals Vital Signs Date Time Temp Pulse Resp B/P (MAP) Pulse Ox O2 Delivery O2 Flow Rate FiO2 12/09/17 08:00 97.8 66 16 134/64 (87) 97 12/09/17 00:00 98.3 69 17 133/64 (87) 94 12/08/17 20:00 98.5 67 17 131/60 (83) 92 12/08/17 16:29 97.9 69 16 153/75 (101) 93 12/08/17 13:04 98.3 63 150/70 (96) 97 I/O 12/08/17 12/08/17 12/08/17 12/09/17 12/09/17 12/09/17 07:00 15:00 23:00 07:00 15:00 23:00 Intake Total 1240 ml 100 ml 960 ml 1380 ml Output Total 2600 ml 1675 ml 2200 ml Balance -1360 ml 100 ml -715 ml -820 ml Intake Oral 240 ml 960 ml 480 ml IV Total 1000 ml 100 ml 900 ml Output Urine Total 2600 ml 1675 ml 2200 ml # Bowel Movements 0 1 2 0 Result Diagram: 12/08/1727 12/08/17 06 Imaging Last Impressions Tumor Localization 12/03/17 0000 Signed Impressions: CONCLUSION: 1. Fairly significant destructive lytic lesions of the tarsometatarsal junctio ns with gas bubbles surrounding them the worst areas involve the middle and lat eral cuneiforms and these areas demonstrate abnormal white blood cell uptake co nsistent with osteomyelitis, however some of the destructive lesions could also represent Charcot's phenomenon as they demonstrate very mild uptake. Extremity Arterial Study 12/02/17 0000 Signed Impressions: CONCLUSION: 1. ABIs and TBIs within the normal range. Chest X-Ray 12/01/17 1444 Signed Impressions: CONCLUSION: No evidence of acute cardiopulmonary disease. Foot X-Ray 12/01/17 0000 Signed Impressions: CONCLUSION: 1. Marked worsening Lisfranc arthropathy and instability, neuropathic versus i nfectious. 2. Periosteal reaction of the metatarsals, especially the fourth and fifth, al so of concern for osteomyelitis. 3. Extensive soft tissue swelling and ulceration centered around the mid foot . Foot MRI 12/01/17 0000 Signed Impressions: CONCLUSION: 1. Destructive arthropathy of Lisfranc joint, presumably infectious. 2. Associated osteomyelitis diffusely of the cuneiforms, cuboid and navicular. Extensive osteomyelitis of the metatarsals as delineated above. There is also osteomyelitis of the distal halves of the talus and calcaneus. Suspected osteom yelitis of the proximal phalanx of the fourth toe as well. 3. Multiple fluid collections typical of abscesses as described above, some dr rose to the skin. Objective Remarks GENERAL: Awake alert and oriented well-developed well-nourished SKIN: Warm and dry. No rash CARDIOVASCULAR: Regular rate and rhythm. S1-S2 no S3 or S4 RESPIRATORY: No accessory muscle use. Clear to auscultation. Breath sounds equal bilaterally. GASTROINTESTINAL: Abdomen soft, non-tender, nondistended. MUSCULOSKELETAL: Extremities without clubbing, cyanosis, or edema. No obvious deformities. Right below the knee amputation that is dressed NEUROLOGICAL: Awake and alert. No obvious cranial nerve deficits. Motor grossly within normal limits. Five out of 5 muscle strength in the arms and legs. Normal speech. Procedures 12/04/2017 Right below-knee amputation. A/P Problem List: (1) Right foot infection ICD Code: L08.9 - Local infection of the skin and subcutaneous tissue, unspecified Assessment and Plan Severe sepsis due to right foot osteomyelitis/abscess S/p I/D at the bedside by podiatry S/p WBC scan to differentiate OM versus Charcot although most likely OM Consult vascular surgery for evaluation. Possible BKA due to degree of infection. S/P bedside I&D Right foot area of drainage to plantar central midfoot probed to extend medially and dorsally at level of midfoot dorsally. MRI R foot with and without contrast reviewed, shows osteo S/p right below the knee amputation by Dr. Rehman 12/04/17. Management per surgeon We will adjust pain control as needed Per ID Stop Vanco and Zotran Give oral Abx (Zyvox and Levaquin) 6 days post op for the (+) C/S Use Rocephin for the Strep bacteremia - likely 14 days IV Rx from date of surgery - anticipated end date 12/17 however patient is refusing additional doses because of possible allergic reaction. Will alert increase his disease. Case management consulted to arrange for home health care of antibiotic via midline Acute kidney injury: Resolved status post IV fluid and monitor renal function. Avoid nephrotoxins. Diabetes mellitus 2 resume NPH-increase 63 units in the morning and evening for better control ct accu-check with SSI. CAD- s/p CABG: resume aspirin and plavix ( antiplatelet therapy was d/w ; suggested that the antiplatelets to be continued at this time). Hypertension HLD Stable. Monitor. Resume home meds. GERD resume home Prilosec. DVT prophylaxis per surgeon Discharge Planning Possible discharge when home health care IV antibiotics arranged Teddy Bhandari MD Dec 09, 2017 12:51
[2017-12-09] MEDS ORDERED: NOVONP2 SQ (12:54)
[2017-12-09] MEDS ORDERED: OXYC1TAB36 PO (12:54)
[2017-12-09] MEDS ORDERED: AMLO5 PO (12:54)
--- NOTE | 2017-12-09 12:54 | HHI.DCPOC ---
Discharge Care Plan Diagnosis: (1) Osteomyelitis Your Health Problems Are: Difficulty with ADL Exercise Tolerance Goals to Promote Your Health * To prevent worsening of your condition and complications * To maintain your health at the optimal level Directions to Meet Your Goals Take your medications as prescribed Follow your dietary instruction Follow activity as directed Keep your appointments as scheduled Take your immunizations and boosters as scheduled If your symptoms worsen call your PCP, if no PCP go to Urgent Care Center or Emergency Room Smoking is Dangerous to Your Health. Avoid second hand smoke Call the 24-hour hour crisis hotline for domestic abuse at Teddy Bhandari MD Dec 09, 2017 12:54
--- NOTE | 2017-12-09 12:56 | HHI.FF ---
Face to Face Verification Diagnosis: (1) Osteomyelitis Physical Therapy Order: Evaluate and Treat, Improve ambulation Home Health Nursing Order: Medical education Signs/symptoms of disease process Diabetic education Medication education-adverse effect Wound care and dressing changes Nursing assessment with vital signs I have seen patient Ramses Diallo on 12/09/17. My clinical findings support the need for the requested home health care services because: Deconditioned w/ increased weakness I certify that my clinical findings support that this patient is homebound because: Unsafe to leave home unassisted Teddy Bhandari MD Dec 09, 2017 12:56
--- NOTE | 2017-12-09 12:56 | HHI.DCPOC ---
Discharge Care Plan Diagnosis: (1) Osteomyelitis Your Health Problems Are: Difficulty with ADL Loss of Movements Goals to Promote Your Health * To prevent worsening of your condition and complications * To maintain your health at the optimal level Directions to Meet Your Goals Take your medications as prescribed Follow your dietary instruction Follow activity as directed Keep your appointments as scheduled Take your immunizations and boosters as scheduled If your symptoms worsen call your PCP, if no PCP go to Urgent Care Center or Emergency Room Smoking is Dangerous to Your Health. Avoid second hand smoke Call the 24-hour hour crisis hotline for domestic abuse at Teddy Bhandari MD Dec 09, 2017 12:56
[2017-12-09 16:00] VITALS: BP 173/89; PULSE 86; RESP 18; TEMP 98.1; O2SAT 98
--- NOTE | 2017-12-09 17:21 | PD.CAR.PN ---
CVT Progress Note Subjective/Hospital Course: Patient seen and full consult dictated This gentleman has irreversible infection of his right foot and osteomyelitis involving tarsal bones including calcaneus talus cuneiform navicular and the metatarsals metatarsals In addition he has a Charcot joint Based on his systemic diseases including diabetes mellitus and this situation patient should have right below-knee amputation as soon as possible I discussed this with Dr. Huber, and Dr. Duffy this is the only way to safely fix this because there is no cure for the situation as it is We will proceed with surgery tomorrow 12/05/2017 Status post right below-knee amputation Dressing is clean and dry We will leave the original dressing on until Saturday and then remove Nothing to add at this time 12/07/2017 Status post below-knee amputation. Original dressing removed Stump is clean dry and incision is nicely healing without any drainage or ischemic areas Orders for redressing given From my point patient can be discharged any time with instructions for follow- up in my office in about 3 weeks It should be noted that I explained to the patient it is imperative for him not to fall on this time and even as I was talking patient tried to climb out of bed so I am not sure how this is going to go once he gets home Either way this is healing very nicely now I will see patient in about 3 weeks in the office and at that point we will start process of shrinking and preparing for the prosthesis 12/09/2017 Stump clean and dry Dressing being changed daily Nothing to add to care at this time We will sign off and see the patient in my office in about 2-3 weeks Objective: Vital Signs Date Time Temp Pulse Resp B/P (MAP) Pulse Ox O2 Delivery O2 Flow Rate FiO2 12/09/17 12:00 97.3 70 18 163/76 (105) 96 12/09/17 08:00 97.8 66 16 134/64 (87) 97 12/09/17 00:00 98.3 69 17 133/64 (87) 94 12/08/17 20:00 98.5 67 17 131/60 (83) 92 Result Diagram: 12/08/1727 12/08/1727 Ochoa Rehman MD Dec 09, 2017 17:21
[2017-12-09 20:00] VITALS: BP 149/68; PULSE 64; RESP 18; TEMP 97.9; O2SAT 97
[2017-12-09] MEDS ORDERED: INSULIN HUMAN NPH 1,000 UNITS/10 ML VIAL SQ SCH ×2 (21:00)
[2017-12-10] VITALS: BP 144/86; PULSE 60; RESP 18; TEMP 97.7; O2SAT 95
[2017-12-10] MEDS: MORPHINE SULFATE 4 MG/ML INJ IV PUSH PRN ×3 (00:14→10:05)
[2017-12-10 08:00] VITALS: BP 142/73; PULSE 57; RESP 18; TEMP 97.6; O2SAT 95
[2017-12-10] MEDS: INSULIN ASPART SUPPLEMENTAL SCALE SQ SCH ×2 (08:48→13:20)
[2017-12-10] MEDS: INSULIN HUMAN NPH 1,000 UNITS/10 ML VIAL SQ SCH (08:49)
[2017-12-10] MEDS: LEVOFLOXACIN 750 MG TAB PO SCH (08:49)
[2017-12-10] MEDS: PANTOPRAZOLE SOD 20 MG DELAYED RELEASE TAB PO SCH (08:49)
[2017-12-10] MEDS: ASPIRIN EC 81 MG TABEC PO SCH (08:49)
[2017-12-10] MEDS: CLOPIDOGREL 75 MG TAB PO SCH (08:49)
[2017-12-10] MEDS: GABAPENTIN 300 MG CAP PO SCH ×2 (08:49→13:18)
[2017-12-10] MEDS: METOPROLOL TARTRATE 50 MG TAB PO SCH (08:50)
[2017-12-10] MEDS: PRAVASTATIN SOD 40 MG TAB PO SCH (08:50)
[2017-12-10] MEDS: amLODIPine BESYLATE 5 MG TAB PO SCH (08:50)
[2017-12-10] MEDS: oxyCODONE/ACETAMINOPHEN 10 MG/325 MG TAB PO PRN ×2 (08:51→15:17)
[2017-12-10] MEDS: DOCUSATE SODIUM 50 MG/SENNA 8.6 MG TAB PO SCH (08:51)
[2017-12-10] MEDS: LINEZOLID 600 MG TAB PO SCH (08:51)
--- NOTE | 2017-12-10 08:56 | HHI.PR ---
Subjective Remarks Follow-up right BKA. Patient has no new complaints. Discussed with ID, will switch to p.o. antibiotics. Patient can be discharged when arrangements made including DME's and antibiotics. Objective Vitals Vital Signs Date Time Temp Pulse Resp B/P (MAP) Pulse Ox O2 Delivery O2 Flow Rate FiO2 12/10/17 08:00 97.6 57 18 142/73 (96) 95 12/10/17 03:41 22 12/10/17 00:00 97.7 60 18 144/86 (105) 95 12/09/17 23:20 17 12/09/17 20:00 97.9 64 18 149/68 (95) 97 12/09/17 16:00 98.1 86 18 173/89 (117) 98 12/09/17 12:00 97.3 70 18 163/76 (105) 96 I/O 12/09/17 12/09/17 12/09/17 12/10/17 12/10/17 12/10/17 07:00 15:00 23:00 07:00 15:00 23:00 Intake Total 1380 ml 1800 ml Output Total 2200 ml 1350 ml 800 ml Balance -820 ml 450 ml -800 ml Intake Oral 480 ml 1800 ml IV Total 900 ml 0 ml Output Urine Total 2200 ml 1350 ml 800 ml # Bowel Movements 0 2 Result Diagram: 12/08/1762612/08/17 06 Imaging Last Impressions Tumor Localization 12/03/17 0000 Signed Impressions: CONCLUSION: 1. Fairly significant destructive lytic lesions of the tarsometatarsal junctio ns with gas bubbles surrounding them the worst areas involve the middle and lat eral cuneiforms and these areas demonstrate abnormal white blood cell uptake co nsistent with osteomyelitis, however some of the destructive lesions could also represent Charcot's phenomenon as they demonstrate very mild uptake. Extremity Arterial Study 12/02/17 0000 Signed Impressions: CONCLUSION: 1. ABIs and TBIs within the normal range. Chest X-Ray 12/01/17 1444 Signed Impressions: CONCLUSION: No evidence of acute cardiopulmonary disease. Foot X-Ray 12/01/17 0000 Signed Impressions: CONCLUSION: 1. Marked worsening Lisfranc arthropathy and instability, neuropathic versus i nfectious. 2. Periosteal reaction of the metatarsals, especially the fourth and fifth, al so of concern for osteomyelitis. 3. Extensive soft tissue swelling and ulceration centered around the mid foot . Foot MRI 12/01/17 0000 Signed Impressions: CONCLUSION: 1. Destructive arthropathy of Lisfranc joint, presumably infectious. 2. Associated osteomyelitis diffusely of the cuneiforms, cuboid and navicular. Extensive osteomyelitis of the metatarsals as delineated above. There is also osteomyelitis of the distal halves of the talus and calcaneus. Suspected osteom yelitis of the proximal phalanx of the fourth toe as well. 3. Multiple fluid collections typical of abscesses as described above, some dr rose to the skin. Objective Remarks GENERAL: Awake alert and oriented well-developed well-nourished SKIN: Warm and dry. No rash CARDIOVASCULAR: Regular rate and rhythm. S1-S2 no S3 or S4 RESPIRATORY: No accessory muscle use. Clear to auscultation. Breath sounds equal bilaterally. GASTROINTESTINAL: Abdomen soft, non-tender, nondistended. MUSCULOSKELETAL: Extremities without clubbing, cyanosis, or edema. No obvious deformities. Right below the knee amputation that is dressed NEUROLOGICAL: Awake and alert. No obvious cranial nerve deficits. Motor grossly within normal limits. Five out of 5 muscle strength in the arms and legs. Normal speech. Procedures 12/04/2017 Right below-knee amputation. A/P Problem List: (1) Right foot infection ICD Code: L08.9 - Local infection of the skin and subcutaneous tissue, unspecified Assessment and Plan Severe sepsis due to right foot osteomyelitis/abscess S/p I/D at the bedside by podiatry S/p WBC scan to differentiate OM versus Charcot although most likely OM Consult vascular surgery for evaluation. Possible BKA due to degree of infection. S/P bedside I&D Right foot area of drainage to plantar central midfoot probed to extend medially and dorsally at level of midfoot dorsally. MRI R foot with and without contrast reviewed, shows osteo S/p right below the knee amputation by Dr. Rehman 12/04/17. Management per surgeon We will adjust pain control as needed Per ID Stop Vanco and Zosyn Continue oral Levaquin until December 17 Strep bacteremia. Patient already received IV Rocephin which later he developed allergic reaction patient educated Acute kidney injury: Resolved status post IV fluid and monitor renal function. Avoid nephrotoxins. Diabetes mellitus 2 resume NPH-increase 63 units in the morning and 25 units in the evening for better control ct accu-check with SSI. CAD- s/p CABG: resume aspirin and plavix ( antiplatelet therapy was d/w ; suggested that the antiplatelets to be continued at this time). Hypertension HLD Stable. Monitor. Resume home meds. GERD resume home Prilosec. DVT prophylaxis per surgeon Discharge Planning Possible discharge when abx arranged. Does not want narcs prefer tramadol Teddy Bhandari MD Dec 10, 2017 08:56
--- NOTE | 2017-12-10 10:53 | HHI.IDPN ---
Subjective Subjective Remarks Patient is a 52-year-old male, with known diabetes, started having problem about 5 days ago when he started having nausea and vomiting. Due to the vomiting, his p.o. intake has been poor. One day prior to admission, he developed increasing swelling, redness, and drainage from the wound on the bottom of his right foot. He apparently started having problem with that foot around the first week of October. He went to the emergency room, and had evaluation , and he was told that he is developing a Charcot foot. He was referred to a assistant professor surgical technology, and around November 07 he was seen, and there was some area on the midfoot that the assistant professor surgical technology did some debridement. There was no mention that there was any concern for infection. The day prior to admission, he started noticing swelling, redness, and increasing pain. It also started draining, so the patient presented to the hospital for further evaluation and treatment. Patient has had fever since admission. His WBC is normal. His sed rate is 56. Podiatry saw the patient, and did some bedside debridement, and patient is scheduled for more surgery tomorrow in the operating room. Patient stated that he is still having problem with nausea and vomiting. He has not had any bowel movement since he has very poor p.o. intake. Denies any sore throat and at or any respiratory complaint. Denies any urinary complaints. 2 blood cultures done on admission are now reported as growing Streptococcus. Patient is on vancomycin and Zosyn. Infectious disease consultation has been requested to evaluate the patient. Notes reviewed Patient states he had a reaction to the Rocephin 2 days ago - tongue swelling. States he has been having some itching which resolved on its own Got one big dose of Solumedrol Afebrile Had R BKA 12/04 Pain at operative site under control Echo ok No new (+) BC Wound C/S - MRSA, skin serene and PSAE Antibiotics Levaquin Zyvox Current Medications Medications (Trade) Dose Ordered Sig/Ronaldo Route Start Time Stop Time Status Last Admin (D50w (Vial) Inj) 50 ml UNSCH PRN IV PUSH 12/01/17 17:00 (Glucagon Inj) 1 mg UNSCH PRN OTHER 12/01/17 17:00 (NovoLOG SUPPLEMENTAL SCALE) 1 ACHS SLIDING SCALE SQ 12/01/17 17:00 12/10/17 08:48 (Neurontin) 600 mg QID PO 12/01/17 18:00 12/10/17 08:49 (Pravachol) 40 mg BID PO 12/01/17 21:00 12/10/17 08:50 (Lopressor) 50 mg BID PO 12/01/17 21:00 12/09/17 20:33 (Ecotrin Ec) 81 mg DAILY PO 12/02/17 09:00 12/10/17 08:49 (Plavix) 75 mg DAILY PO 12/02/17 09:00 12/10/17 08:49 (Tylenol) 650 mg Q4H PRN PO 12/01/17 18:00 12/02/17 09:13 (Zofran Odt) 4 mg Q6H PRN SL 12/02/17 23:45 12/03/17 08:56 Ceftriaxone Sodium 2000 mg/ Sodium Chloride 100 ml @ 200 mls/hr Q24H IV 12/06/17 12:00 12/17/17 11:59 12/08/17 11:07 (Zyvox) 600 mg Q12HR PO 12/06/17 11:45 12/10/17 11:44 12/10/17 08:51 (Levaquin) 750 mg DAILY PO 12/06/17 11:30 12/17/17 23:00 12/10/17 08:49 (Protonix) 20 mg DAILY PO 12/07/17 13:00 12/10/17 08:49 (Percocet 5-325 Mg) 1 tab Q6H PRN PO 12/07/17 11:30 (Percocet 10-325 Mg) 1 tab Q6H PRN PO 12/07/17 11:30 12/10/17 08:51 (Morphine Inj) 4 mg Q3H PRN IV PUSH 12/07/17 12:15 12/10/17 10:05 (Narcan Inj) 0.4 mg UNSCH PRN IV PUSH 12/07/17 11:30 (Rahel-Colace) 1 tab BID PO 12/07/17 21:00 12/09/17 20:32 (Milk Of Magnesia Liq) 30 ml Q12H PRN PO 12/07/17 11:30 (Senokot) 17.2 mg Q12H PRN PO 12/07/17 11:30 (Dulcolax Supp) 10 mg DAILY PRN RECTAL 12/07/17 11:30 (Lactulose Liq) 30 ml DAILY PRN PO 12/07/17 11:30 (Benadryl) 50 mg Q6H PRN PO 12/08/17 13:00 12/08/17 13:07 (Norvasc) 5 mg DAILY PO 12/09/17 09:00 12/10/17 08:50 (NovoLIN N INJ) 65 units DAILY@0800 SQ 12/09/17 08:00 12/10/17 08:49 (NovoLIN N INJ) 25 units HS SQ 12/09/17 21:00 12/09/17 22:21 Lines PIV no evidence of infection Past Medical History Coronary artery disease,previous NH Hypertension Dyslipidemia Diabetes mellitus Diabetic neuropathy Jessica's gangrene Past Surgical History CABG x 1 2016 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 Objective . Vital Signs Date Time Temp Pulse Resp B/P (MAP) Pulse Ox O2 Delivery O2 Flow Rate FiO2 12/10/17 08:00 97.6 57 18 142/73 (96) 95 12/10/17 03:41 22 12/10/17 00:00 97.7 60 18 144/86 (105) 95 12/09/17 23:20 17 12/09/17 20:00 97.9 64 18 149/68 (95) 97 12/09/17 16:00 98.1 86 18 173/89 (117) 98 12/09/17 12:00 97.3 70 18 163/76 (105) 96 Imaging Last Impressions Chest X-Ray 12/01/17 1444 Signed Impressions: CONCLUSION: No evidence of acute cardiopulmonary disease. Foot X-Ray 12/01/17 0000 Signed Impressions: CONCLUSION: 1. Marked worsening Lisfranc arthropathy and instability, neuropathic versus i nfectious. 2. Periosteal reaction of the metatarsals, especially the fourth and fifth, al so of concern for osteomyelitis. 3. Extensive soft tissue swelling and ulceration centered around the mid foot . Foot MRI 12/01/17 0000 Signed Impressions: CONCLUSION: 1. Destructive arthropathy of Lisfranc joint, presumably infectious. 2. Associated osteomyelitis diffusely of the cuneiforms, cuboid and navicular. Extensive osteomyelitis of the metatarsals as delineated above. There is also osteomyelitis of the distal halves of the talus and calcaneus. Suspected osteom yelitis of the proximal phalanx of the fourth toe as well. 3. Multiple fluid collections typical of abscesses as described above, some dr rose to the skin. Physical Exam GENERAL: awake and alert, NAD SKIN: Warm and dry. No generalized rash HEAD: Atraumatic. Normocephalic. No temporal wasting, or tenderness. EYES: [place] conjunctiva. No petechia or hemorrhage. Extraocular movements full and intact. No scleral icterus. No injection or drainage. EARS, NOSE AND THROAT: Nose without bleeding or purulent nasal discharge. Mucous membranes pink and moist. NECK: Trachea midline. Supple and not tender, no meningeal signs CARDIOVASCULAR: Regular rate and rhythm. No murmurs, rubs or gallops heard RESPIRATORY: Clear to auscultation. Breath sounds equal bilaterally. No rales , wheezing or rhonchi ABDOMEN: Soft, non-tender, nondistended. Bowel sounds present and normoactive. No guarding. No rebound. No organomegaly. EXTREMITIES: No clubbing, cyanosis. LLE - normal. Dry dressing to RBKA stump NEUROLOGICAL: Non-focal. PSYCHIATRIC: Normal affect, calm and cooperative. LINE: No evidence of infection Assessment & Plan Remarks IMPRESSION Sepsis, Strep, present on admission, likely due to DFI R - suspicious for IE - wound C/S from foot has MRSA, skin serene nad PSAE Diabetic foot infection R, has Charcot foot, ?abscess, ?osteo - C/S with MRSA, skin serene and PSAE - S/P RBKA DM Renal insufficiency due to sepsis, and dehydration, resolved Nausea and Vomiting, ?has diabetic gastroparesis RECOMMENDATION To finish Zyvox 12/10 Extend Levaquin till 12/17 and use to complete RX for the Strep bacteremia Clinically doing well from ID standpoint OK for D/C D/W Dr Bhandari ([facility]) Explained plan to the patient Noemí Amador MD Dec 10, 2017 10:53
[2017-12-10] MEDS ORDERED: LEVA750T9 PO (11:15)
[2017-12-10] MEDS ORDERED: TRAM50TA PO ×2 (11:15→11:23)
[2017-12-10] MEDS ORDERED: NOVONP2 SQ (11:15)
[2017-12-10] MEDS ORDERED: BEDSIDE COMMODE1 MI1 (11:18)
[2017-12-10] MEDS ORDERED: WHEEMIS3 (11:18)
--- NOTE | 2017-12-10 11:22 | HHI.FF ---
Face to Face Verification Diagnosis: (1) Hx of right BKA (2) Osteomyelitis Home Health Nursing Order: Medical education Diabetic education Wound care and dressing changes Nursing assessment with vital signs I have seen patient Ramses Diallo on 12/10/17. My clinical findings support the need for the requested home health care services because: Deconditioned w/ increased weakness I certify that my clinical findings support that this patient is homebound because: Unsafe to leave home unassisted Teddy Bhandari MD Dec 10, 2017 11:22
--- NOTE | 2017-12-10 11:27 | HHI.DS ---
Discharge Summary Admission Date Dec 01, 2017 at 16:45 Discharge Date: Dec 10, 2017 Admitting Diagnosis osteomyelitis (1) Right foot infection ICD Code: L08.9 - Local infection of the skin and subcutaneous tissue, unspecified Diagnosis: Principal Procedures 12/04/2017 Right below-knee amputation. Brief History - From Admission patient is a 52 y/o male with history of diabetes mellitus, CAD, hypertension, dyslipidemia, who presented to ER with infection of the right foot. he says that the infection started about four weeks ago after he was told that he he had Charcot joint. it started with some swelling of the right foot. it gradually got worse and in fact started to drain a bit three days ago. he had some fever and night sweats at home. pain at the time of my evaluation was mild to moderate. CBC/BMP: 12/08/17 0627 12/08/17 0627 Significant Findings Laboratory Tests Test 12/08/17 06:27 Red Blood Count 4.07 MIL/MM3 (4.50-5.90) Hemoglobin 9.9 GM/DL (13.0-17.0) Hematocrit 28.9 % (39.0-51.0) Mean Corpuscular Volume 70.9 FL (80.0-100.0) Mean Corpuscular Hemoglobin 24.2 PG (27.0-34.0) Red Cell Distribution Width 17.8 % (11.6-17.2) Neutrophils (%) (Auto) 77.8 % (16.0-70.0) Random Glucose 198 MG/DL (74-106) Albumin 2.3 GM/DL (3.4-5.0) Alkaline Phosphatase 144 U/L (45-117) Imaging Last Impressions Tumor Localization 12/03/17 0000 Signed Impressions: CONCLUSION: 1. Fairly significant destructive lytic lesions of the tarsometatarsal junctio ns with gas bubbles surrounding them the worst areas involve the middle and lat eral cuneiforms and these areas demonstrate abnormal white blood cell uptake co nsistent with osteomyelitis, however some of the destructive lesions could also represent Charcot's phenomenon as they demonstrate very mild uptake. Extremity Arterial Study 12/02/17 0000 Signed Impressions: CONCLUSION: 1. ABIs and TBIs within the normal range. Chest X-Ray 12/01/17 1444 Signed Impressions: CONCLUSION: No evidence of acute cardiopulmonary disease. Foot X-Ray 12/01/17 0000 Signed Impressions: CONCLUSION: 1. Marked worsening Lisfranc arthropathy and instability, neuropathic versus i nfectious. 2. Periosteal reaction of the metatarsals, especially the fourth and fifth, al so of concern for osteomyelitis. 3. Extensive soft tissue swelling and ulceration centered around the mid foot . Foot MRI 12/01/17 0000 Signed Impressions: CONCLUSION: 1. Destructive arthropathy of Lisfranc joint, presumably infectious. 2. Associated osteomyelitis diffusely of the cuneiforms, cuboid and navicular. Extensive osteomyelitis of the metatarsals as delineated above. There is also osteomyelitis of the distal halves of the talus and calcaneus. Suspected osteom yelitis of the proximal phalanx of the fourth toe as well. 3. Multiple fluid collections typical of abscesses as described above, some dr rose to the skin. PE at Discharge GENERAL: Awake alert and oriented well-developed well-nourished SKIN: Warm and dry. No rash CARDIOVASCULAR: Regular rate and rhythm. S1-S2 no S3 or S4 RESPIRATORY: No accessory muscle use. Clear to auscultation. Breath sounds equal bilaterally. GASTROINTESTINAL: Abdomen soft, non-tender, nondistended. MUSCULOSKELETAL: Extremities without clubbing, cyanosis, or edema. No obvious deformities. Right below the knee amputation that is dressed NEUROLOGICAL: Awake and alert. No obvious cranial nerve deficits. Motor grossly within normal limits. Five out of 5 muscle strength in the arms and legs. Normal speech. Hospital Course Severe sepsis due to right foot osteomyelitis/abscess S/p I/D at the bedside by podiatry S/p WBC scan to differentiate OM versus Charcot although most likely OM Consult vascular surgery for evaluation. Possible BKA due to degree of infection. S/P bedside I&D Right foot area of drainage to plantar central midfoot probed to extend medially and dorsally at level of midfoot dorsally. MRI R foot with and without contrast reviewed, shows osteo S/p right below the knee amputation by Dr. Rehman 12/04/17. Management per surgeon We will adjust pain control as needed Per ID Stop Vanco and Zosyn Continue oral Levaquin until December 17 Strep bacteremia. Patient already received IV Rocephin which later he developed allergic reaction patient educated Acute kidney injury: Resolved status post IV fluid and monitor renal function. Avoid nephrotoxins. Diabetes mellitus 2 resume NPH-increase 63 units in the morning and 25 units in the evening for better control ct accu-check with SSI. CAD- s/p CABG: resume aspirin and plavix ( antiplatelet therapy was d/w ; suggested that the antiplatelets to be continued at this time). Hypertension HLD Stable. Monitor. Resume home meds. GERD resume home Prilosec. DVT prophylaxis per surgeon Pt Condition on Discharge: Stable Discharge Disposition: Disch w/ Home Health Serv Discharge Time: > 30 minutes Discharge Instructions DIET: Follow Instructions for: Heart Healthy Diet, Diabetic Diet Activities you can perform: Regular-No Restrictions Activities to Avoid: Driving Follow up Referrals: PCP Follow-up - 1 Week Surgical - 2 Weeks New Medications: Bedside Commode (Bedside Commode) 1 Mis Mis EA .XX DIRECTED, #1 Wheelchair Elevated Leg (Wheelchair Elevated Leg) 1 Mis Mis EA .XX DIRECTED, #1 0 Refills Amlodipine (Norvasc) 5 Mg Tab 5 MG PO DAILY for Blood Pressure Management, #30 TAB Insulin Human NPH Inj (Novolin N Inj) 1,000 Unit/10 Ml Vial 25 UNITS SQ HS for Blood Sugar Management, #30 INJECTION Insulin Human NPH Inj (Novolin N Inj) 1,000 Unit/10 Ml Vial 68 UNITS SQ DAILY@0800 for Blood Sugar Management, #30 INJECTION Levofloxacin (Levaquin) 750 Mg Tablet 750 MG PO DAILY for Infection, #7 TAB dc 12/17/17 Continued Medications: Aspirin DR (Ecotrin Low Strength) 81 Mg Tabdr 81 MG PO DAILY, #30 TAB 0 Refills Clopidogrel (Clopidogrel) 75 Mg Tab 75 MG PO DAILY for Blood Clot Prevention, #30 TAB 0 Refills Gabapentin (Gabapentin) 600 Mg Tab 600 MG PO QID, #90 TAB 0 Refills Insulin Human Regular Inj (Novolin R Inj) 1,000 Unit/10 Ml Vial 20 UNITS SQ ACHS for Blood Sugar Management, #10 ML 0 Refills Max dose at bedtime:( )units; sugars less than 70,(0) units; sugars 150-199,(2)unit; sugars 200-249,(4)units; sugars 250-299,(7) units; sugars 300-349,(10)units; sugars greater than 349,(12)units Lovastatin (Lovastatin) 40 Mg Tab 40 MG PO BID, #30 TAB 0 Refills Metoprolol Tartrate (Metoprolol Tartrate) 50 Mg Tab 50 MG PO BID, #60 TAB 0 Refills Tramadol (Tramadol) 50 Mg Tab 50 MG PO Q6H PRN for PAIN, #28 TAB 0 Refills (This prescription has been renewed ) Teddy Bhandari MD Dec 10, 2017 11:27
[2017-12-10 12:00] VITALS: BP 148/80; PULSE 84; RESP 18; TEMP 97.9; O2SAT 98
[2017-12-11] MEDS ORDERED: INSULIN HUMAN NPH 1,000 UNITS/10 ML VIAL SQ SCH (08:00)
== END 2017-12-10 16:06 | disposition home health service (06) | DRG 854 ==
LOC: NEPE 14:24 → NEDA 16:45 → N07B 18:40
PROVIDERS: ADMIT Internal Medicine; ATTEND Internal Medicine
PROC: 0H9MXZX Drainage of Right Foot Skin, External Approach, Diagnostic (ICD-10-PCS; 2017-12-01)
PROC: 0Y6H0Z3 Detachment at Right Lower Leg, Low, Open Approach (ICD-10-PCS; principal; 2017-12-04 16:07)
DX: A41.9 Sepsis, unspecified organism (principal); N17.9 Acute kidney failure, unspecified; E11.621 Type 2 diabetes mellitus with foot ulcer; K31.84 Gastroparesis; M86.171 Other acute osteomyelitis, right ankle and foot; E11.43 Type 2 diabetes mellitus with diabetic autonomic (poly)neuropathy; L97.419 Non-pressure chronic ulcer of right heel and midfoot with unspecified severity; L02.611 Cutaneous abscess of right foot; E11.628 Type 2 diabetes mellitus with other skin complications; E11.69 Type 2 diabetes mellitus with other specified complication; E11.610 Type 2 diabetes mellitus with diabetic neuropathic arthropathy; R65.20 Severe sepsis without septic shock; B95.4 Other streptococcus as the cause of diseases classified elsewhere; B95.62 Methicillin resistant Staphylococcus aureus infection as the cause of diseases classified elsewhere; Z16.24 Resistance to multiple antibiotics; E78.00 Pure hypercholesterolemia, unspecified; K21.9 Gastro-esophageal reflux disease without esophagitis; I10 Essential (primary) hypertension; E86.0 Dehydration; I25.10 Atherosclerotic heart disease of native coronary artery without angina pectoris; L29.9 Pruritus, unspecified; T36.1X5A Adverse effect of cephalosporins and other beta-lactam antibiotics, initial encounter; K59.00 Constipation, unspecified; I25.2 Old myocardial infarction; Z95.1 Presence of aortocoronary bypass graft; Z79.4 Long term (current) use of insulin; Z79.02 Long term (current) use of antithrombotics/antiplatelets; Z79.82 Long term (current) use of aspirin
CPT/HCPCS: 71045; 73630; 73720; 78807; 78999; 80048; 80053; 80202; 81001; 82948; 83605; 83690; 83735; 84100; 85007; 85025; 85027; 85610; 85652; 85730; 86140; 86403; 87040; 87070; 87077; 87147; 87186; 87205; 88307; 88311; 93005; 93306; 93923; 96365; 96367; 96375; 96376; A9569; A9579; E0113; J0696; J1170; J1815; J1885; J2175; J2250; J2270; J2370; J2405; J2543; J2930; J3010; J3370; J7030; J7040; J7050; J7120; Q0163